=== PATIENT | female | born 1960 | race Caucasian/White ===

== ENCOUNTER 2023-07-05 10:04 | Outpatient (OUT) | payer OTHER, SELFPAY ==
--- NOTE | 2023-07-05 10:39 | CA_ITS ---
Patient: ANITA SNELL Exam Date: 07/05/2023 : 1960 Gender:F Ordering : ANJEL BARCENAS Admission #: [id number] Family : DR Saurabh Cm . Order #: [id number] CLICK HERE TO VIEW EXAM ECHOCARDIOGRAM REPORT PROCEDURE: CA ECHO DOPPLER COMPLETE INDICATIONS: Dyspnea on exertion, h/o FL, hypertension COMPARISON: None. DESCRIPTION: COMPLETE ECHOCARDIOGRAM Real-time transthoracic echocardiography with 2D, M-mode, spectral and color flow Doppler performed. QUALITY: Technical quality was good. LEFT VENTRICLE: Normal chamber size. Left ventricular wall thickness is mildly increased. LV EF: Global left ventricular systolic function is hyperdynamic; visually estimated ejection fraction 65 to 70%. Unable to assess regional wall motion abnormalities; consider contrast study for better delineation of endocardial borders. DIASTOLIC: Normal diastolic function. ATRIAL SEPTUM: Inadequately seen. LEFT ATRIUM: Normal chamber size. RIGHT ATRIUM: Normal chamber size. RIGHT VENTRICLE: Normal chamber size. Normal right ventricular systolic function. TRICUSPID VALVE: Normal mobility and thickness. Trivial regurgitation. No evidence of pulmonary hypertension. RVSP 27 mmHg MITRAL VALVE: Normal mobility and thickness. No evidence of mitral valve stenosis. There is no mitral annular calcification. No mitral regurgitation. AORTIC VALVE: Normal trileaflet appearance. No visible sclerosis. Normal leaflet mobility. No evidence of aortic valve stenosis. No aortic regurgitation. AORTIC ROOT: Normal diameter and appearance. PULMONIC VALVE: Normal thickness and mobility. No stenosis. No regurgitation. PERICARDIUM: Trivial pericardial effusion. IVC: Not well visualized. CONCLUSION: 1. Global left ventricular systolic function is hyperdynamic; visually estimated ejection fraction is 65 to 70% 2. The right ventricle is normal in size and systolic function 3. Mildly increased left ventricular wall thickness 4. Normal diastolic function 5. No significant valvular abnormalities 6. Trivial pericardial effusion Adult Echocardiography Procedure Report Left Ventricle LVEDD (3.7 - 5.6 cm): 3.78 cm LVESD (2.2 - 4.0 cm): 2.42 cm LVIVS thickness (0.6 - 1.2 cm): 1.3 cm LVPW thickness (0.5 - 1.0 cm): 1.12 cm e': 0.09 m/s E - e': 6.54 LVOT Max Gradient: 7.27 mm[Hg] LVOT Area (cm2): 1.35 m/s Peak Velocity (LVOT): 1.35 m/s LVOT Diameter 2.09 cm Left Atrium LA Volume Index (2D A2C): 29.49 ml/m2 Left Atrium Systolic Dimension: 3.64 cm Mitral Valve MV E to A Ratio: 0.82 Mitral Valve A-Wave Peak Velocity: 0.69 m/s Mitral Valve E-Wave Peak Velocity: 0.57 m/s Right Ventricle Aorta AO Root Diam: 2.88 cm Ascending Ao Diam: 2.80 cm Aortic Valve AoV Area (Peak Wai): 3.08 cm2, 3.08 cm2 Peak Velocity(Antegrade Flow): 1.50 m/s Peak Gradient(Antegrade Flow): 8.95 mm[Hg] Mean Velocity(Antegrade Flow): 1.00 m/s Mean Gradient(Antegrade Flow): 4.69 mm[Hg] Velocity Time Integral: 35.09 cm Tricuspid Valve Peak Velocity (Regurgitant Flow): 2.43 m/s Pulmonic Valve Peak Velocity: 1.00 m/s Peak Gradient: 3.28 mm[Hg], 4.79 mm[Hg] Right Atrium Dictated by: Isaías Patten M.D. on 07/05/2023 at 15:02 Approved by: Isaías Patten M.D. on 07/05/2023 at 15:06
== END 2023-07-05 10:05 | disposition home or self-care (01) ==
LOC: CARD 10:04
PROVIDERS: PCP Family Medicine; Visit Provider Internal Medicine Cardiovascular Disease
DX: R06.09 Other forms of dyspnea (principal)
CPT/HCPCS: 93306

== ENCOUNTER 2023-10-04 11:24 | Outpatient (OUT) | payer OTHER, SELFPAY ==
[2023-10-04 12:15] LABS: Basophils Percent Auto 0.5 % (0.2-2.0); Eosinophils Absolute Auto 0.1 10^3/uL (0.0-0.7); Eosinophils Percent Auto 1.6 % (0.9-7.0); Hematocrit 40.7 % (36.0-48.0); Hemoglobin 13.6 g/dL (12.0-16.0); Immature Granulocytes Abs Auto 0.01 10^3/uL (0.00-0.03); Immature Granulocytes Pct Auto 0.2 % (0.0-0.5); Lymphocytes Absolute Auto 1.9 10^3/uL (1.2-3.8); Lymphocytes Percent Auto 30.9 % (20.5-60.0); Mean Corpuscular HGB Conc 33.4 g/dL (29.9-35.2); Mean Corpuscular Hemoglobin 30.6 pg (26.7-34.0); Mean Corpuscular Volume 91.7 fL (81.0-99.0); Mean Platelet Volume 10.8 fL (9.5-13.5); Monocytes Absolute Auto 0.6 10^3/uL (0.3-0.8); Monocytes Percent Auto 8.9 % (1.7-12.0); Neutrophils Absolute Auto 3.6 10^3/uL (1.4-6.5); Neutrophils Percent Auto 57.9 % (43.0-75.0); Platelet Count 228 10^3/uL (150-450); Red Blood Count 4.44 10^6/uL (4.20-5.40); Red Cell Distribution Width 12.5 % (11.0-15.0); White Blood Count 6.2 10^3/uL (4.0-11.0)
[2023-10-04 13:14] LABS: Alanine Aminotransferase 29 U/L (14-59); Alkaline Phosphatase 88 U/L (46-116); Aspartate Amino Transferase 26 U/L (15-37); BUN Creatinine Ratio 18.6; Bilirubin Direct 0.1 mg/dL (0.0-0.2); Bilirubin Total 0.6 mg/dL (0.2-1.0); Calcium 9.4 mg/dL (8.5-10.1); Carbon Dioxide 29.3 mmol/L (21.0-32.0); Chloride 107 mmol/L (98-107); Estimated GFR (African America >60 (>=60); Estimated GFR (Non-African Ame >60 (>=60); Glucose 89 mg/dL (74-106); Potassium 4.3 mmol/L (3.5-5.1); Sodium 142 mmol/L (136-145)
[2023-10-04 13:15] LABS: Albumin Globulin Ratio 1.2; Albumin Level 3.9 g/dL (3.4-5.0); Cholesterol 185 mg/dL (<=200); Globulin 3.3 g/dL; HDL Cholesterol 70 mg/dL (40-60); Total Protein 7.2 g/dL (6.4-8.2); Triglycerides 146 mg/dL (<=150); VLDL CHOLESTEROL 29.2 mg/dL
[2023-10-04 13:17] LABS: Chol HDL Ratio 2.6
== END 2023-10-04 11:25 | disposition home or self-care (01) ==
PROVIDERS: PCP Family Medicine; Visit Provider Family Medicine
DX: E78.5 Hyperlipidemia, unspecified (principal); I10 Essential (primary) hypertension; Z79.899 Other long term (current) drug therapy; E66.9 Obesity, unspecified; E55.9 Vitamin D deficiency, unspecified
CPT/HCPCS: 36415; 80048; 80061; 80076; 82306; 84443; 85025

== ENCOUNTER 2023-12-24 14:35 | Outpatient (OUT) | payer OTHER, SELFPAY ==
[2023-12-24 15:35] LABS: Uric Acid 3.7 mg/dL (2.6-6.0)
== END 2023-12-24 14:36 | disposition home or self-care (01) ==
LOC: LAB 14:40
PROVIDERS: PCP Family Medicine; Visit Provider Family Medicine
DX: R30.0 Dysuria (principal)
CPT/HCPCS: 36415; 84550; 87086

== ENCOUNTER 2024-09-03 15:40 | Outpatient (OUT) | payer OTHER, SELFPAY ==
[2024-09-03 16:08] LABS: Basophils Percent Auto 0.5 % (0.2-2.0); Eosinophils Absolute Auto 0.1 10^3/uL (0.0-0.7); Immature Granulocytes Abs Auto 0.02 10^3/uL (0.00-0.03); Immature Granulocytes Pct Auto 0.3 % (0.0-0.5); Lymphocytes Absolute Auto 1.6 10^3/uL (1.2-3.8); Lymphocytes Percent Auto 25.7 % (20.5-60.0); Mean Corpuscular HGB Conc 33.3 g/dL (29.9-35.2); Mean Corpuscular Volume 93.1 fL (81.0-99.0); Mean Platelet Volume 9.9 fL (9.5-13.5); Monocytes Absolute Auto 0.5 10^3/uL (0.3-0.8); Neutrophils Absolute Auto 4.1 10^3/uL (1.4-6.5); Neutrophils Percent Auto 63.5 % (43.0-75.0); Platelet Count 236 10^3/uL (150-450); Red Blood Count 4.19 10^6/uL (4.20-5.40); Red Cell Distribution Width 12.5 % (11.0-15.0); White Blood Count 6.4 10^3/uL (4.0-11.0)
[2024-09-03 16:41] LABS: Alanine Aminotransferase 36 U/L (14-59); Albumin Globulin Ratio 1.1; Albumin Level 3.5 g/dL (3.4-5.0); Alkaline Phosphatase 103 U/L (46-116); Anion Gap 10.6; Aspartate Amino Transferase 23 U/L (15-37); Bilirubin Direct 0.1 mg/dL (0.0-0.2); Bilirubin Total 0.5 mg/dL (0.2-1.0); Calcium 9.1 mg/dL (8.5-10.1); Carbon Dioxide 30.3 mmol/L (21.0-32.0); Chloride 108 mmol/L (98-107); Chol HDL Ratio 2.5; Cholesterol 162 mg/dL (<=200); Estimated GFR (African America >60 (>=60 mL/min/1.73m^2); Estimated GFR (Non-African Ame >60 (>=60 mL/min/1.73m^2); Globulin 3.2 g/dL; Glucose 91 mg/dL (74-106); HDL Cholesterol 65 mg/dL (40-60); Potassium 3.9 mmol/L (3.5-5.1); Sodium 145 mmol/L (136-145); Thyroid Stimulating Hormone 4.716 uIU/mL (0.358-3.740); Total Protein 6.7 g/dL (6.4-8.2); Triglycerides 126 mg/dL (<=150); VLDL CHOLESTEROL 25.2 mg/dL
[2024-09-03 17:33] LABS: Free T4 0.92 ng/dL (0.76-1.46)
== END 2024-09-03 15:41 | disposition home or self-care (01) ==
LOC: LAB 15:43
PROVIDERS: PCP Family Medicine; Visit Provider Family Medicine
DX: E78.5 Hyperlipidemia, unspecified (principal); I10 Essential (primary) hypertension; Z79.899 Other long term (current) drug therapy; E03.8 Other specified hypothyroidism
CPT/HCPCS: 36415; 80048; 80061; 80076; 84439; 84443; 85025

== ENCOUNTER 2025-01-19 07:25 | Outpatient (OUT) | payer MEDICARE, SELFPAY ==
--- NOTE | 2025-01-19 | US_ITS ---
[address] [address] Patient Name: ANITA SNELL MRN: [id number] date: 1960 Sex: F Assigned Patient Location: Current Patient Location: Accession/Order Number: [id number] Exam Date: 01/19/2025 09:52 Report Date: 01/19/2025 09:56 At the request of: VIVEK PURCELL MD Procedure: US pelvis w/ transvaginal EXAMINATION TYPE: US pelvis w/ transvaginal Grayscale, color scale Doppler, vascular duplex analysis of the bilateral ovaries DATE OF EXAM ORDERED: 01/19/2025 8:48 AM HISTORY: Post menopausal bleeding, N95.0, COMPARISON: NONE TECHNIQUE: Realtime Transvaginal and Transabdominal imaging was performed. Transvaginal imaging was utilized to better evaluate the ovaries and the endometrial stripe. Grayscale, color scale Doppler, vascular duplex analysis of the bilateral ovaries was performed to assess blood flow. FINDINGS: The uterus measures 9.1 x 3.9 x 5.7 cm. There is a hypoechoic vascular structure within the lower uterine segment measuring 1.9 x 1.6 x 1.3 cm in greatest dimension. This is of uncertain etiology. This may represent a uterine fibroid. Endometrium: Normal thickness and appearance. Ovaries: The ovaries are not well visualized. No abnormal adnexal mass is seen. No free fluid in the pelvic cul-de-sac. US/US pelvis w/ transvaginal IMPRESSION: There is a hypoechoic vascular structure within the lower uterine segment measuring 1.9 x 1.6 x 1.3 cm in greatest dimension. This is of uncertain etiology. This may represent a uterine fibroid. The ovaries are not well visualized. No adnexal mass. Impression dictated by: Aayush Floyd M.D. 01/19/2025 9:56 AM Dictation Location: [place] [address] Electronically authenticated by: [id number] Y Date: 01/19/2025 09:56
--- NOTE | 2025-01-19 | US_ITS ---
The [address] [address] Patient Name: ANITA SNELL MRN: [id number] date: 1960 Sex: F Assigned Patient Location: Current Patient Location: US Accession/Order Number: [id number] Exam Date: 01/19/2025 09:28 Report Date: 01/19/2025 09:31 At the request of: VIVEK PURCELL MD Procedure: US renal BI US renal BI 01/19/2025 8:48 AM SIGNS AND SYMPTOMS: ^Hematuria, R31.9 COMPARISON: None. FINDINGS: Right kidney measures 9.5 x 5.0 x 6.5 cm . The right renal cortex measures 1.2 cm in thickness. No hydronephrosis or mass. Left kidney measures 9.9 x 5.7 x 4.4 cm . The left renal cortex measures 1.9 cm in thickness. There is no hydronephrosis or mass. The urinary bladder is morphologically normal. No free fluid is seen in the pelvis. Before voiding, the bladder measures 11.7 x 6.2 x 10.6 cm , which corresponds to an estimated volume of 534 mL . US/US renal BI IMPRESSION: No hydronephrosis or mass. Impression dictated by: Aayush Floyd M.D. 01/19/2025 9:31 AM Dictation Location: [place] [address] Electronically authenticated by: [id number] Y Date: 01/19/2025 09:31
--- OUTSIDE RECORDS SUMMARY | 2025-01-19 07:29 | XMS_ITS | CCD ---
Author Organization [facility] Care Team Providers Care Block Setter [place]um Name Role Phone Saurabh Purcell Primary Care Provider JOSE WATSON Attending Unavailable MARYEREKaelyn, SAURABH ARVIZU Primary Care Unavailabl e NADEREKaelyn, DR SAURABH Lares Primary Care Unavailable NADERER, DR SAURABH Lares Admitting Unavailable NADERER, DR SAURABH Lares Attending Unavailable NADERER, DR SAURABH Lares Consulting Unavailable MISC, DR DALTON Admitting Unavailable MISC, DR DALTON Attending Unavailable MISC, DR DALTON Consulting Unavailable NADERER, DR SAURABH Lares Primary Care Unavailable NADERER, DR SAURABH Lares Primary Care Unavailable MISC, DR DALTON Attending Unavailable MISC, DR DALTON Consulting Unavailable MISC, DR DALTON Admitting Unavailable FAWWAD, QUEZADA H Attending Unavailable FAWWAD, QUEZADA H Consulting Unavailable FAWWAD, QUEZADA H Primary Care Unavailable FAWWAD, QUEZADA H Admitting Unavailable NADERER, DR SAURABH Lares Primary Care Unavailable FAWWAD, QUEZADA H Attending Unavailable FAWWAD, QUEZADA H Consulting Unavailable FAWWAD, QUEZADA H Admitting Unavailable NADERER, DR SAURABH Lares Consulting Unavailable NADERER, DR SAURABH Lares Primary Care Unavailable NADERER, DR SAURABH Lares Admitting Unavailable NADERER, DR SAURABH Lares Attending Unavailable Saurabh Purcell MD Unavailable Saurabh Purcell MD Primary Care Provider Saurabh Purcell MD Unavailable Herminio BUYING AGENT, Lynne Unavailable Unavailable Marengo BUYING AGENT, Ardana Unavailable Unavailable Luis Miguel MAShadybel Unavailable Unavailable Horn MS, RDN, LD, CHES, Devon Unavailable U navailable SAURABH PURCELL Referring Unavailable MARYERESAURABH Art Primary Care Unavailable ALGHOTHANI, MOHAMAD Attending Unavailable ANJEL BARCENAS Attending Unavailable MARYEREKaelyn, SAURABH Attending Unavailable NADEREaKelyn, SAURABH Attending Unavailable HARVEY, DEVON Attending Unavailable MARYERESAURABH Art Referring Unavailable NADERESAURABH Art Referring Unavailable HORN, DEVON Attending Unavailable RUSHER, NOLBERTO S Attending Unavailable RUSHER, NOLBERTO S Referring Unavailable HORN, DEVON Attending Unavailable NADEREKaelyn, SAURABH Referring Unavailable NADEREKaelyn, SAURABH Attending Unavailable HORN, DEVON Attending Unavailable Allergies Allergy Classification Reported Allergen(s) Allergy Type Date of Onset Reaction(s) Facility (1 source) Sulfonamides (Antibiotic) Propensity to adverse reactions to drug 0 Aframe Phone: (16 sources) Sulfonamides (Antibiotic) Drug Allergy 0 Hives, Rash [facility] (2 sources) Sulfonamides (Antibiotic); Translations: [SULFA (SULFONAMIDE ANTIBIOTICS)] Propensity to adverse reactions to drug (disorder) 7 [facility] Medications Current Medications Medication Drug Class(es) Dates Sig (Normalized) Sig (Original) [id number] actuat albuterol 0.09 mg/actuat metered dose inhaler (17 sources) beta2-Adrenergic Agonist Start: 09-23-2023 End: 05-26-2025 take 2 puff(s) by inhalation every four hours for wheezing albuterol HFA 90 mcg/act inhaler Indications: Mild intermittent asthma, unspecified whether complicated (CMS/HCC) Inhale 2 puffs every 4 (four) hours if needed for wheezing 18 g 2 05/26/2024 05/26/2025 Active albuterol sulfate HFA 108 (90 Base) MCG/ACT inhaler (1 source) take 2 puff(s) by inhalation every six hours as needed for wheezing albuterol sulfate HFA 108 (90 Base) MCG/ACT inhaler Inhale 2 puffs into the lungs every 6 hours as needed for Wheezing 0 Active aspirin 81 mg delayed release oral tablet (15 sources) Platelet Aggregation Inhibitor, Nonsteroidal Anti-inflammatory Drug take 1 tablet by mouth in the morning aspirin 81 MG EC tablet Take 81 mg by mouth in the morning. Active atorvastatin 80 mg oral tablet (16 sources) HMG-CoA Reductase Inhibitor Start: 11-17-2024 take 1 tablet by mouth at bedtime atorvastatin (Lipitor) 80 MG tablet Indications: Dyslipidemia (CMS/HCC) TAKE 1 TABLET BY MOUTH AT BEDTIME 30 tablet 11/17/2024 Active Start: 02-21-2024 take 1 tablet by sofie th at bedtime atorvastatin (Lipitor) 80 MG tablet Indications: Dyslipidemia (CMS/HCC) Take 1 tablet (80 mg) by mouth at bedtime 100 tablet 3 02/21/2024 Active Start: 12-06-2022 atorvastatin ( Lipitor) 80 MG tablet calcium carbonate 1250 mg oral tablet (1 source) take 1 tablet by mouth once daily calcium carbonate (OSCAL) 500 MG TABS tablet Take 500 mg by mouth daily 0 Active cetirizine hydrochloride 10 mg oral tablet (1 source) Histamine-1 Receptor Antagonist take 1 tablet by mouth once daily cetirizine (ZYRTEC) 10 MG tablet Take 10 mg by mouth daily 0 Active cholecalciferol 0.05 mg oral capsule (16 sources) Vitamin D take 1 capsule by mouth once daily Cholecalciferol (Vitamin D) 50 MCG (2000 UT) capsule Take 1 capsule by mouth 1 (one) time each day at the same time Active ciprofloxacin 500 mg oral tablet (3 sources) Quinolone Antimicrobial Start: End: take 1 tablet by mouth in the morning ciprofloxacin (Cipro) 500 MG tablet Indications: Acute UTI Take 1 tablet (500 mg) by mouth in the morning and 1 tablet (500 mg) before bedtime. Do all this for 7 days. 14 tablet 09/03/2024 09/10/2024 Active estrogens, conjugated (correction) 0.625 mg oral tablet (4 sources) Estrogen Start: take 1 tablet by mouth in the morning estrogens, conjugated, (Premarin) 0.625 MG tablet Indications: Dyspareunia in female Take 1 tablet (0.625 mg) by mouth in the morning. 30 tablet 5 10/04/2023 Active Start: 10-04-2023 take 1 tablet by sofie th in the morning estrogens, conjugated, (Premarin) 0.625 MG tablet Indications: Dyspareunia in female Take 1 tablet (0.625 mg) by mouth in the morning. 30 tablet 5 10/04/2023 Active End: 10-04-2023 take 1 tablet by mouth once daily in the morning estrogens, conjugated, (Premarin) 0.625 MG tablet Take 1 tablet by mouth in the morning. Take daily for 21 days then do not take for 7 days.. 0 10/04/2023 Discontinued (Reorder) fluticasone propionate 0.05 mg/actuat metered dose nasal spray (20 sources) Corticosteroid Start: 01-04-2025 take 2 spray(s) nasal route once daily fluticasone (Flonase) 50 MCG/ACT nasal spray Indications: Seasonal allergic rhinitis due to pollen Administer 2 sprays into each nostril Daily 16 g 3 01/04/2025 Active Start: 07-06-2024 take 1 puff(s) by [facility] once daily fluticasone furoate (Arnuity Ellipta) 100 MCG/ACT inhaler Indications: 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 Inhale 1 puff Daily Rinse mouth with water after use to reduce aftertaste and incidence of candidiasis. Do not swallow. 1 each 5 07/06/2024 Active Start: 10-07-2023 End: 07-06-2024 take 1 puff(s) by mouth in the morning fluticasone furoate (Arnuity Ellipta) 100 MCG/ACT inhaler Indications: 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 (CMS/HCC) Inhale 1 puff in the morning. Rinse mouth with water after use to reduce aftertaste and incidence of candidiasis. Do not swallow.. 1 each 5 10/07/2023 07/06/2024 Discontinued (Reorder) Start: 10-04-2023 take 2 puff(s) by in halation in the morning fluticasone (Flovent) 44 MCG/ACT inhaler Indications: 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 (CMS/HCC) Inhale 2 puffs in the morning and 2 puffs before bedtime. Rinse mouth with water after use to reduce aftertaste and incidence of candidiasis. Do not swallow.. 10.6 g 5 10/04/2023 Active Start: 10-04-2023 take 2 puff(s) by in halation in the morning fluticasone (Flovent) 44 MCG/ACT inhaler Indications: 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 (CMS/HCC) Inhale 2 puffs in the morning and 2 puffs before bedtime. Rinse mouth with water after use to reduce aftertaste and incidence of candidiasis. Do not swallow.. 10.6 g 5 10/04/2023 Active Start: 12-01-2022 take 2 spray(s) nasa l route in the morning fluticasone (Flonase) 50 MCG/ACT nasal spray Administer 2 sprays into each nostril in the morning. 12/01/2022 Active levothyroxine sodium 0.088 mg oral tablet (17 sources) l-Thyroxine Start: 12-07-2024 take 1 tablet by mouth once daily levothyroxine (Synthroid, Levoxyl) 88 MCG tablet Indications: Acquired hypothyroidism (CMS/HCC) Take 1 tablet by mouth once daily 30 tablet 12/07/2024 Active Start: 07-16-2024 take 1 tablet by sofie th once daily levothyroxine (Synthroid, Levoxyl) 88 MCG tablet Indications: Acquired hypothyroidism (CMS/HCC) Take 1 tablet by mouth once daily 30 tablet 07/16/2024 Active Start: 06-08-2024 take 1 tablet by sofie th once daily levothyroxine (Synthroid, Levoxyl) 88 MCG tablet Indications: Acquired hypothyroidism (CMS/HCC) Take 1 tablet by mouth once daily 30 tablet 06/08/2024 Active Start: 05-11-2024 take 1 tablet by sofie th once daily levothyroxine (Synthroid, Levoxyl) 88 MCG tablet Indications: Acquired hypothyroidism (CMS/HCC) Take 1 tablet by mouth once daily 30 tablet 05/11/2024 Active take 1 tablet by sofie th in the morning levothyroxine (Synthroid, Levoxyl) 88 MCG tablet Take 88 mcg by mouth in the morning. Active magnesium oxide 400 mg oral tablet (13 sources) take 1 tablet by mouth once daily magnesium oxide (Mag-Ox) 400 mg tablet Take 400 mg by mouth Daily Active melatonin 3 mg oral tablet (1 source) take 1 tablet by mouth once daily melatonin 3 MG TABS tablet Take 3 mg by mouth daily 0 Active methylPREDNISolone (2 sources) Corticosteroid Start: 023 End: 024 methylPREDNISolone (Medrol Dospak) 4 MG tablets Indications: Plantar fasciitis , Posterior tibial tendinitis of right lower extremity Take as directed on package. 21 tablet 0 06/25/2023 10/04/2023 Discontinued Start: 06-25-2023 methylPREDNISo lone (Medrol Dospak) 4 MG tablets Indications: Plantar fasciitis , Posterior tibial tendinitis of right lower extremity Take as directed on package. 21 tablet 0 06/25/2023 Active 24 hr metoprolol succinate 25 mg extended release oral tablet (16 sources) beta-Adrenergic Briana take 1 tablet by mouth every twenty-four hours in the morning metoprolol succinate XL (Toprol-XL) 25 MG 24 hr tablet Take 25 mg by mouth in the morning. Active montelukast 10 mg oral tablet (16 sources) Leukotriene Receptor Antagonist Start: take 1 tablet by mouth at bedtime montelukast (Singulair) 10 MG tablet Indications: Seasonal allergic rhinitis due to pollen TAKE 1 TABLET BY MOUTH AT BEDTIME 30 tablet 12/07/2024 Active Start: 09-03-2024 take 1 tablet by sofei th at bedtime montelukast (Singulair) 10 MG tablet Indications: Seasonal allergic rhinitis due to pollen TAKE 1 TABLET BY MOUTH AT BEDTIME 30 tablet 09/03/2024 Active Start: 02-17-2024 take 1 tablet by sofie th at bedtime montelukast (Singulair) 10 MG tablet Indications: Seasonal allergic rhinitis due to pollen Take 1 tablet (10 mg) by mouth at bedtime 30 tablet 5 02/17/2024 Active Start: 06-13-2023 take 1 tablet by sofie th at bedtime montelukast (Singulair) 10 MG tablet Take 10 mg by mouth at bedtime. 0 06/13/2023 Active Problems Active Problems Problem Classification Problem Date Documented Da te Episodic/Chronic Asthma (19 sources) Uncomplicated non-allergic asthma; Translations: [Mild intermittent asthma, uncomplicated] Onset: 10-04-2023 10-04-2023 Chronic Coronary atherosclerosis and other heart disease (16 sources) Coronary arteriosclerosis; Translations: [Atherosclerotic heart disease of [place] coronary artery without angina pectoris] Onset: 09-09-2023 10-04-2023 Chronic Disorders of lipid metabolism (20 sources) Mixed hyperlipidemia; Translations: [Dyslipidemia] Onset: 02-22-2022 Resolved: 10-04-2023 10-04-2023 Chronic Diverticulosis and diverticulitis (16 sources) Diverticulosis of colon; Translations: [Diverticulosis of large intestine without perforation or abscess without bleeding] Onset: 10-04-2023 10-04-2023 Chronic Essential hypertension (20 sources) Hypertensive disorder; Translations: [Essential (primary) hypertension] Onset: 02-20-2022 Chronic Genitourinary symptoms and ill-defined conditions (5 sources) Dysuria; Translations: [Blood in urine] Onset: 09-29-2024 01-12-2025 Episodic Menopausal disorders (4 sources) Postmenopausal bleeding; Translations: [Postmenopausal bleeding] Onset: 01-12-2025 01-12-2025 Chronic Nutritional deficiencies (18 sources) Vitamin D deficiency, unspecified; Translations: [Vitamin D deficiency] Onset: 02-22-2022 10-04-2023 Chronic Other nutritional; endocrine; and metabolic disorders (1 source) Body mass index 30+ - obesity; Translations: [Obesity, unspecified] 10-04-2023 Chronic Other upper respiratory disease (16 sources) Allergic rhinitis due to pollen; Translations: [Allergic rhinitis due to pollen] Onset: 10-04-2023 10-04-2023 Chronic Residual codes; unclassified (4 sources) Obstructive sleep apnea (adult) (pediatric); Translations: [OBSTRUCTIVE SLEEP APNEA] Onset: 10-03-2022 Chronic Thyroid disorders (20 sources) Hypothyroidism, unspecified; Translations: [Acquired hypothyroidism] Onset: 02-22-2022 Chronic Unclassified (4 sources) CONTACT W/AND (SUSP) EXPOS COVID-19; Translations: [CONTACT W/AND (SUSP) EXPOS COVID-19] Onset: 02-19-2022 Past or Other Problems Problem Classification Problem Date Documented Date Episodic/Chronic Acute bronchitis (13 sources) Acute infective bronchitis; Translations: [Acute bronchitis due to other specified organisms] Onset: 01-23-2024 Resolved: 09-03-2024 01-23-2024 Episodic Esophageal disorders (16 sources) Gastroesophageal reflux disease; Translations: [Gastro-esophageal reflux disease without esophagitis] Onset: 10-04-2023 Resolved: 09-03-2024 10-04-2023 Chronic Mood disorders (7 sources) Mood disorders Onset: 09-03-2024 09-03-2024 Other aftercare (1 source) Other snf (current) drug therapy; Translations: [OTH SENIOR CARE CURRENT DRUG THERAPY] Onset: 02-22-2022 Episodic Other aftercare (7 sources) Patient encounter status; Translations: [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] Onset: 10-04-2023 10-04-2023 Episodic Other aftercare (11 sources) Long-term current use of drug therapy; Translations: [Other snf (current) drug therapy] Onset: 10-04-2023 10-04-2023 Episodic Other connective tissue disease (2 sources) Pain in right foot; Translations: [Pain in right foot] 04-21-2024 Episodic Other female genital disorders (16 sources) Pain in female genitalia on intercourse; Translations: [Unspecified dyspareunia] Onset: 10-04-2023 Resolved: 09-03-2024 10-04-2023 Chronic Other non-traumatic joint disorders (16 sources) Pain in right knee; Translations: [Pain in joint, lower leg] Onset: 10-04-2023 Resolved: 01-23-2024 10-04-2023 Episodic Other screening for suspected conditions (not mental disorders or infectious disease) (17 sources) Abnormal result of other cardiovascular function study; Translations: [Thyroid hormone tests abnormal] Onset: 11-29-2022 Resolved: 09-03-2024 Episodic Residual codes; unclassified (16 sources) Obstructive sleep apnea syndrome; Translations: [Obstructive sleep apnea (adult) (pediatric)] Onset: 10-04-2023 Resolved: 01-23-2024 10-04-2023 Chronic Superficial injury; contusion (2 sources) Contusion of toe(s) with damage to nail; Translations: [Contusion of right lesser toe(s) with damage to nail, initial encounter] 04-21-2024 Episodic Unclassified (1 source) CONTACT W/AND (SUSP) EXPOS COVID-19; Translations: [CONTACT W/AND (SUSP) EXPOS COVID-19] Onset: 02-16-2022 Unclassified (13 sources) Onset: 02-14-2024 02-14-2024 Urinary tract infections (9 sources) Acute urinary tract infection; Translations: [Urinary tract infection, site not specified] Onset: 09-03-2024 Resolved: 01-12-2025 09-03-2024 Episodic Results Test Name Value Interpretation Reference Range Facility Office Visiton 10-20-2024 Follow-up visit [id number] Mira Santos 1960 F Date Provider Department Center 10/20/2024 3848-STACIEGINNYEWA ABDOULAYEErum CARD [facility] Family History Problem Relation Age of Onset Stroke Mother 70 Diabetes Mother Atrial fibrillation Father 70 Other Father Hypertension Father Other Brother 59 Diabetes Brother Family Status - Relation Status Age at Mother Father Brother Level of Service:97407 [place] OFFICE/OUTPATIENT ESTABLISHED LOW MDM 20 MIN Normal [facility] URINALYSISon 09-29-2024 Bilirubin Ql (U) Negative Normal NEG [facility] Comment on above: Performed By: #### U A #### [facility] ([id number]) [address], [address] [place] [address] BLOOD/HGB Negative Normal NEG [facility] Comment on above: Performed By: #### U A #### [facility] ([id number]) [address], [address] [place] [address] Color (U) YELLOW Normal YELLOW [facility] Comment on above: Performed By: #### U A #### [facility] ([id number]) [address], [address] [place] [address] Glucose Ql (U) Negative Normal NEG [facility] Comment on above: Performed By: #### U A #### [facility] ([id number]) [address], [address] [place] [address] Ketones Ql (U) Negative Normal NEG [facility] Comment on above: Performed By: #### U A #### [facility] ([id number]) [address], [address] [place] [address] Leukocyte esterase Test strip Ql (U) MODERATE Abnormal NEG [facility] Comment on above: Performed By: #### U A #### [facility] ([id number]) [address], [address] [place] [address] MUCOUS PRESENT Abnormal NONE [facility] Comment on above: Performed By: #### U A #### [facility] ([id number]) [address] [place] [address] Nitrite Ql (U) Negative Normal NEG [facility] Comment on above: Performed By: #### U A #### [facility] ([id number]) [address], [address] [place] [address] pH (U) 6.5 [pH] Normal 5.0-8.5 [facility] Comment on above: Performed By: #### U A #### [facility] ([id number]) [address], [address] [place] [address] Protein Ql (U) 30 mg/dL Abnormal NEG [facility] Comment on above: Performed By: #### U A #### [facility] ([id number]) [address], [address] [place] [address] R.B.CELLS 2 /hpf Normal 0-5 [facility] Comment on above: Performed By: #### U A #### [facility] ([id number]) [address] [place] [address] Specific gravity (U) [Rel density] 1.017 Normal 1.003-1.035 [facility] Comment on above: Performed By: #### U A #### [facility] ([id number]) [address], [address] [place] [address] SQUAMOUS EPITHELIUM 1 /hpf Normal 0-5 [facility] Comment on above: Performed By: #### U A #### [facility] ([id number]) [address] [place] [address] TURBIDITY CLEAR Normal CLEAR [facility] Comment on above: Performed By: #### U A #### [facility] ([id number]) [address] [place] [address] Urobilinogen (U) [Mass/Vol] mg/dL Normal <1.1 [facility] Comment on above: Performed By: #### U A #### [facility] ([id number]) [address], [address] [place] [address] W.B.CELLS 4 /hpf Normal 0-5 [facility] Comment on above: Performed By: #### U A #### [facility] ([id number]) [address], [address] [place] [address] URINE CULTUREon 09-29-2024 Bacteria identified Cx Nom (U) CULTURE RESULTS >100,000 ORGANISMS/ML NORMAL UROGENITAL VINICIO Normal [facility] Comment on above: Performed By: #### 6 30-4 #### [facility] ([id number]) [address], [address] [place] [address] Urinalysis, manual onlyon Bilirubin Ql (U) Negative Negative [facility] Color (U) YELLOW YELLOW [facility] Epithelial cells Auto (Urine sed) [#/Area] 1 [facility] care Glucose (U) [Mass/Vol] Negative Negative mg/dL [facility] Hemoglobin Auto test strip Ql (U) Negative Negative [facility] Interpretation and review of laboratory results Abnormal [facility] Ketones (U) [Mass/Vol] Negative Negative mg/dL [facility] Leukocyte esterase Auto test strip Ql (U) MODERATE Abnormal Negative [facility] Mucus Ql (Urine sed) PRESENT Abnormal NONE [facility] Nitrite Auto test strip Ql (U) Negative Negative [facility] pH (U) 6.5 [pH] 5.0 - 8.5 [facility] Protein (U) [Mass/Vol] 30 mg/dL Abnormal Negative [facility] RBC Auto (Urine sed) [#/Area] 2 [facility] Specific gravity Refractometry automated (U) [Rel density] 1.017 1.003 - 1.035 [facility] Turbidity Ql (U) CLEAR CLEAR [facility] Urobilinogen Qn (U) <1.1 NINF [facility] WBC Auto (Urine sed) [#/Area] 4 [facility] Comment on above: PERFORMED AT [facility] [address],[place] [address] [facility] ALL CBC WITH AUTO DIFFon BASOPHILS ABSOLUTE AUTO 0 [facility] Basophils/100 WBC (Bld) 0.5 % 0.2 - 2.0 % [facility] Eosinophils/100 WBC (Bld) 2 % 0.9 - 7.0 % [facility] Erythrocyte distribution width (RBC) [Ratio] 12.5 % 11.0 - 15.0 % [facility] Hematocrit (Bld) [Volume fraction] 39 % 36.0 - 48.0 % [facility] Hemoglobin (Bld) [Mass/Vol] 13 g/dL 12.0 - 16.0 g/dL [facility] IMMATURE GRANULOCYTES ABS AUTO 0.02 [facility] Immature granulocytes/100 WBC (Bld) 0.3 % 0.0 - 0.5 % [facility] Interpretation and review of laboratory results Abnormal [facility] LYMPHOCYTES ABSOLUTE AUTO 1.6 [facility] Lymphocytes/100 WBC (Bld) 25.7 % 20.5 - 60.0 % [facility] MCH (RBC) [Entitic mass] 31 pg 26.7 - 34.0 pg [facility] MCHC (RBC) [Mass/Vol] 33.3 g/dL 29.9 - 35.2 g/dL [facility] MCV (RBC) [Entitic vol] 93.1 fL 81.0 - 99.0 fL [facility] MONOCYTES ABSOLUTE AUTO 0.5 [facility] Monocytes/100 WBC (Bld) 8 % 1.7 - 12.0 % [facility] NEUTROPHILS ABSOLUTE AUTO 4.1 [facility] Neutrophils/100 WBC (Bld) 63.5 % 43.0 - 75.0 % [facility] Platelet mean volume (Bld) [Entitic vol] 9.9 fL 9.5 - 13.5 fL [facility] EO # 0.1 [facility] PLT 236 [facility] RBC 4.19 Low [facility] WBC 6.4 [facility] XR Foot - right 3 [facility] Result: AP, medial oblique, lateral views are weight-bearing. No fractures or dislocations. Multiple contracted digits. Enthesophyte at the insertion of the Achilles tendon and plantar fascia. Orthopedic implant noted in the tibia. [facility] Radiology Study observation (narrative) [facility] BI MAMMOGRAM SCREENING TOMOS YNTHESIS BILATERALon 03-25-2024 BI MAMMOGRAM SCREENING TOMOSYNTHESIS BILATERAL This is a summary report. The complete report is available in the patient's medical record. If you cannot access the medical record, please contact the sending organization for a detailed fax or copy. EXAMINATION: BI MAMMOGRAM SCREENING TOMOSYNTHESIS BILATERAL CLINICAL HISTORY:Screening COMPARISON: April 08, 2023 . RESULT: Density: There are scattered areas of fibroglandular density There is no suspicious mass, asymmetry, architectural distortion, or calcification. Typically benign calcifications. Overall appearance stable. IMPRESSION: BIRADS 2 - Benign Follow-up: Routine Screening Mamm Board Certified Radiologists. Accredited by the ACR and FDA. MAMMOGRAPHY IS VERY IMPORTANT TO YOUR HEALTH. THE [place] [employer] GUIDELINES RECOMMEND THAT WOMEN 40 YEARS OF AGE AND OLDER SHOULD HAVE A MAMMOGRAM EVERY YEAR. A REMINDER LETTER WILL BE SENT AT THE APPROPRIATE TIME. THIS FACILITY UTILIZES A REMINDER SYSTEM TO ENSURE ALL PATIENTS RECEIVE REMINDER NOTIFICATIONS AT THE APPROPRIATE TIME BASED ON THE RECOMMENDATIONS OF THIS EXAM. THIS INCLUDES REMINDERS FOR ROUTINE SCREENING MAMMOGRAMS, DIAGNOSTIC MAMMOGRAMS IN WHICH THE PATIENT IS ASKED TO RETURN FOR ADDITIONAL VIEWS, OR OTHER BREAST IMAGING INTERVENTIONS WHEN APPROPRIATE. THE PATIENT WILL BE PLACED IN THE APPROPRIATE REMINDER SYSTEM INCLUDING A REMINDER AT THE APPROPRIATE TIME FOR ANY PENDING ADDITIONAL VIEWS. TRANSCRIBED BY: ELECTRONICALLY SIGNED BY: Ham Atwood MD Normal Not Available Office Visiton 03-03-2024 Follow-up visit [id number] Maryanne Santosah 1960 F Date Provider Department Center 03/03/2024 [id number] BARCENAS ARELY [facility] Family History Problem Relation Age of Onset Stroke Mother 70 Diabetes Mother Atrial fibrillation Father 70 Other Father Hypertension Father Other Brother 59 Diabetes Brother Family Status - Relation Status Age at Mother Father Brother Level of Service:17262 [place] OFFICE/OUTPATIENT ESTABLISHED LOW MDM 20 MIN Normal [facility] ALL CBC WITH AUTO DIFFon BASOPHILS ABSOLUTE AUTO 0.0 [facility] Basophils/100 WBC (Bld) 0.5 % 0.2 - 2.0 % [facility] Eosinophils/100 WBC (Bld) 1.6 % 0.9 - 7.0 % [facility] Erythrocyte distribution width (RBC) [Ratio] 12.5 % 11.0 - 15.0 % [facility] Hematocrit (Bld) [Volume fraction] 40.7 % 36.0 - 48.0 % [facility] Hemoglobin (Bld) [Mass/Vol] 13.6 g/dL 12.0 - 16.0 g/dL [facility] IMMATURE GRANULOCYTES ABS AUTO 0.01 [facility] Immature granulocytes/100 WBC (Bld) 0.2 % 0.0 - 0.5 % [facility] LYMPHOCYTES ABSOLUTE AUTO 1.9 [facility] Lymphocytes/100 WBC (Bld) 30.9 % 20.5 - 60.0 % [facility] MCH (RBC) [Entitic mass] 30.6 pg 26.7 - 34.0 pg [facility] MCHC (RBC) [Mass/Vol] 33.4 g/dL 29.9 - 35.2 g/dL [facility] MCV (RBC) [Entitic vol] 91.7 fL 81.0 - 99.0 fL [facility] MONOCYTES ABSOLUTE AUTO 0.6 [facility] Monocytes/100 WBC (Bld) 8.9 % 1.7 - 12.0 % [facility] NEUTROPHILS ABSOLUTE AUTO 3.6 [facility] Neutrophils/100 WBC (Bld) 57.9 % 43.0 - 75.0 % [facility] Platelet mean volume (Bld) [Entitic vol] 10.8 fL 9.5 - 13.5 [facility]L [facility]O # 0.1 [facility] TB PLT 228 [facility] TB RBC 4.44 [facility] TB WBC 6.2 [facility] CLINISYNC [facility] Covid-19 PCR (CVDTBH)on SARS-CoV-2 (COVID-19) RNA LETICIA+probe Ql (Unsp spec) Not detected Normal NOT DETECTED [facility] Comment on above: Result Comment: This test is not yet approved or cleared by the [place] FDA. When there are no FDA-approved or cleared tests available, and other criteria are met, FDA can make tests available under an emergency access mechanism called an Emergency Use Authorization (EUA). The EUA for this test is supported by the [place] of Health and Human Service's (HHS's) declaration that circumstances exist to justify the emergency use of in vitro diagnostics for the detection and/or diagnosis of the virus that causes COVID-19. This EUA will remain in effect (meaning this test can be used) for the duration of the COVID-19 declaration justifying emergency of IVDs, unless it is terminated or revoked by FDA (after which the test may no longer be used). When diagnostic testing is negative, the possibility of a false negative should be considered in the context of a patient's recent exposures and the presence of clinical signs and symptoms consistent with SARS-CoV-2. Performed By: #### C VDTB #### [facility] [address] [place] [address] Dr. Emilia Delong CBC AUTO DIFFon 11-29-2022 BASO # 0.0 103/ul Normal 0.0-0.1 [facility] Comment on above: Performed By: #### C BC #### [facility] [address] [place] [address] Dr. Emilia Delong Basophils/100 WBC (Bld) 0.6 % Normal 0.2-2.0 [facility] Comment on above: Performed By: #### C BC #### [facility] [address] [place] [address] Dr. Emilia Delong EO # 0.1 103/ul Normal 0.0-0.7 [facility] Comment on above: Performed By: #### C BC #### [facility] [address] [place] [address] Dr. Emilia Delong Eosinophils/100 WBC (Bld) 1.6 % Normal 0.9-7.0 [facility] Comment on above: Performed By: #### C BC #### [facility] [address] [place] [address] Dr. Emilia Delong Erythrocyte distribution width (RBC) [Ratio] 12.2 % Normal 11.0-15.0 [facility] Comment on above: Performed By: #### C BC #### [facility] [address] [place] [address] Dr. Emilia Delong Hematocrit (Bld) [Volume fraction] 40.2 % Normal 36.0-48.0 [facility] Comment on above: Performed By: #### C BC #### [facility] [address] [place] [address] Dr. Emilia Delong Hemoglobin (Bld) [Mass/Vol] 13.9 g/dL Normal 12.0-16.0 [facility] Comment on above: Performed By: #### C BC #### [facility] [address] [place] [address] Dr. Emilia Delong IG # 0.01 10e3/ul Normal 0.00-0.03 [facility] Comment on above: Performed By: #### C BC #### [facility] [address] [place] [address] Dr. Emilia Delong IG % 0.2 % Normal 0.0-0.5 [facility] Comment on above: Performed By: #### C BC #### [facility] [address] [place] [address] Dr. Emilia Delong LYMPH # 1.9 103/ul Normal 1.2-3.8 [facility] Comment on above: Performed By: #### C BC #### [facility] [address] [place] [address] Dr. Emilia Delong Lymphocytes/100 WBC (Bld) 36.7 % Normal 20.5-60.0 [facility] Comment on above: Performed By: #### C BC #### [facility] [address] [place] [address] Dr. Emilia Delong MANUAL DIFF REQ NO Normal [facility] Comment on above: Performed By: #### C BC #### [facility] [address] [place] [address] Dr. Emilia Delong MCH (RBC) [Entitic mass] 31.1 pg Normal 26.7-34.0 [facility] Comment on above: Performed By: #### C BC #### [facility] [address] [place] [address] Dr. Emilia Delong MCHC (RBC) [Mass/Vol] 34.6 g/dL Normal 29.9-35.2 [facility] Comment on above: Performed By: #### C BC #### [facility] [address] [place] [address] Dr. Emilia Delong MCV (RBC) [Entitic vol] 89.9 fL Normal 81.0-99.0 [facility] Comment on above: Performed By: #### C BC #### [facility] [address] [place] [address] Dr. Emilia Delong MONO # 0.4 103/ul Normal 0.3-0.8 [facility] Comment on above: Performed By: #### C BC #### [facility] [address] [place] [address] Dr. Emilia Delong Monocytes/100 WBC (Bld) 7.7 % Normal 1.7-12.0 [facility] Comment on above: Performed By: #### C BC #### [facility] [address] [place] [address] Dr. Emilia Delong NEUT # 2.7 103/ul Normal 1.4-6.5 [facility] Comment on above: Performed By: #### C BC #### [facility] [address] [place] [address] Dr. Emilia Delong Neutrophils/100 WBC (Bld) 53.2 % Normal 43.0-75.0 [facility] Comment on above: Performed By: #### C BC #### [facility] [address] [place] [address] Dr. Emilia Delong Platelet mean volume (Bld) [Entitic vol] 10.4 fL Normal 9.5-13.5 [facility] Comment on above: Performed By: #### C BC #### [facility] [address] [place] [address] Dr. Emilia Delong PLT 220 103/ul Normal 150-450 [facility] Comment on above: Performed By: #### C BC #### [facility] [address] [place] [address] Dr. Emilia Delong RBC 4.47 106/ul Normal 4.20-5.40 [facility] Comment on above: Performed By: #### C BC #### [facility] [address] [address] [address] Emilia Delong WBC 5.1 103/ul Normal 4.0-11.0 [facility] Comment on above: Performed By: #### C BC #### [facility] [address] [place] [address] Dr. Emilia Delong GLYCOHEMOGLOBIN A1Con 2022 ADA RECOMMENDATION SEE BELOW Normal [facility] Comment on above: Result Comment: ADA RECOMMENDED LIMIT 4.0 - 6.0 ADA THERAPEUTIC TARGET < 7.0 ACTION SUGGESTED > 7.0 Performed By: #### A 1C #### [facility] [address] [place] [address] Dr. Emilia Delong Glucose [Mass/Vol] 105 mg/dL Normal [facility] Comment on above: Performed By: #### A 1C #### [facility] [address] [place] [address] Dr. Emilia Delong HbA1c (Bld) [Mass fraction] 5.3 % Normal 4.5-6.2 [facility] Comment on above: Performed By: #### A 1C #### [facility] [address] [place] [address] Dr. Emilia Delong LIPID PROFILEon 11-29-2022 CHOL-HDL RATIO NORM SEE BELOW Normal [facility] Comment on above: Result Comment: 3.3 - 4.4 LOW RISK 4.4 - 7.1 AVERAGE RISK 7.1 - 11.0 MODERATE RISK >11.0 HIGH RISK Performed By: #### F T4, VITAD #### [facility] [address] [place] [address] Dr. Emilia Delong Cholesterol [Mass/Vol] 319 mg/dL Critically high <=200 [facility] Comment on above: Performed By: #### F T4, VITAD #### [facility] [address] [place] [address] Dr. Emilia Delong Cholesterol in HDL [Mass/Vol] 65 mg/dL Critically high 40-60 [facility] Comment on above: Performed By: #### F T4, VITAD #### [facility] [address] [address] [address] Emilia Delong Cholesterol in LDL [Mass/Vol] 212.6 mg/dL Normal [facility] Comment on above: Performed By: #### F T4, VITAD #### [facility] [address] [address] [address] Emilia Delong Cholesterol.total/Cho lesterol in HDL [Mass ratio] 4.9 {ratio} Normal [facility] Comment on above: Performed By: #### F T4, VITAD #### [facility] [address] [address] [address] Emilia Delong HDL NORMAL > or = 60 mg/dl - LOW CARDIOVASCULAR RISK <40 mg/dl - HIGH CARDIOVASCULAR RISK Normal [facility] Comment on above: Performed By: #### F T4, VITAD #### [facility] [address] [place] [address] Dr. Emilia Delong LDL CALC NORMAL SEE BELOW Normal [facility] Comment on above: Result Comment: <100 mg/dl OPTIMAL 100 - 129 mg/dl NEAR OR ABOVE OPTIMAL 130 - 159 mg/dl BORDERLINE HIGH 160 - 189 mg/dl HIGH >190 mg/dl VERY HIGH Performed By: #### F T4, VITAD #### [facility] [address] [place] [address] Dr. Emilia Delong Triglyceride [Mass/Vol] 207 mg/dL Critically high <=150 [facility] Comment on above: Performed By: #### F T4, VITAD #### [facility] [address] [address] [address] Emilia Delong VLDL CALC 41.4 mg/dL Normal [facility] Comment on above: Performed By: #### F T4, VITAD #### [facility] [address] [place] [address] Dr. Emilia Delong PROF 14(COMP METB)on 023 Albumin [Mass/Vol] 4.0 g/dL Normal 3.4-5.0 [facility] Comment on above: Performed By: #### F T4, VITAD #### [facility] [address] [place] [address] Dr. Emilia Delong Albumin/Globulin [Mass ratio] 1.3 {ratio} Normal [facility] Comment on above: Performed By: #### F T4, VITAD #### [facility] [address] [place] [address] Dr. Emilia Delong ALP [Catalytic activity/Vol] 81 U/L Normal 46-116 [facility] Comment on above: Performed By: #### F T4, VITAD #### [facility] [address] [place] [address] Dr. Emilia Delong ALT [Catalytic activity/Vol] 23 U/L Normal 14-59 [facility] Comment on above: Performed By: #### F T4, VITAD #### [facility] [address] [place] [address] Dr. Emilia Delong Anion gap [Moles/Vol] 12.5 mmol/L Normal [facility] Comment on above: Performed By: #### F T4, VITAD #### [facility] [address] [place] [address] Dr. Emilia Delong AST [Catalytic activity/Vol] 18 U/L Normal 15-37 [facility] Comment on above: Performed By: #### F T4, VITAD #### [facility] [address] [place] [address] Dr. Emilia Delong Bilirubin [Mass/Vol] 0.4 mg/dL Normal 0.2-1.0 [facility] Comment on above: Performed By: #### F T4, VITAD #### [facility] [address] [place] [address] Dr. Emilia Delong Calcium [Mass/Vol] 9.5 mg/dL Normal 8.5-10.1 [facility] Comment on above: Performed By: #### F T4, VITAD #### [facility] [address] [place] [address] Dr. Emilia Delong Chloride [Moles/Vol] 107 mmol/L Normal 98-107 [facility] Comment on above: Performed By: #### F T4, VITAD #### [facility] [address] [address] [address] Emilia Delong CO2 [Moles/Vol] 26.4 mmol/L Normal 21.0-32.0 [facility] Comment on above: Performed By: #### F T4, VITAD #### [facility] [address] [place] [address] Dr. Emilia Delong Creatinine [Mass/Vol] 0.73 mg/dL Normal 0.55-1.02 [facility] Comment on above: Performed By: #### F T4, VITAD #### [facility] [address] [address] [address] Emilia Delong EGFR-AF ARMENIAN >60 Normal >=60 [facility] Comment on above: Performed By: #### F T4, VITAD #### [facility] [address] [place] [address] Dr. Emilia Delong EGFR-NON AF ARMENIAN >60 Normal >=60 [facility] Comment on above: Performed By: #### F T4, VITAD #### [facility] [address] [place] [address] Dr. Emilia Delong Globulin (S) [Mass/Vol] 3.1 g/dL Normal [facility] Comment on above: Performed By: #### F T4, VITAD #### [facility] [address] [place] [address] Dr. Emilia Delong Glucose [Mass/Vol] 95 mg/dL Normal 74-106 [facility] Comment on above: Performed By: #### F T4, VITAD #### [facility] [address] [address] [address] Emilia Delong Potassium [Moles/Vol] 3.9 mmol/L Normal 3.5-5.1 [facility] Comment on above: Performed By: #### F T4, VITAD #### [facility] [address] [address] [address] Emilia Delong Protein [Mass/Vol] 7.1 g/dL Normal 6.4-8.2 [facility] Comment on above: Performed By: #### F T4, VITAD #### [facility] [address] [place] [address] Dr. Emilia Delong Sodium [Moles/Vol] 142 mmol/L Normal 136-145 [facility] Comment on above: Performed By: #### F T4, VITAD #### [facility] [address] [place] [address] Dr. Emilia Delong Urea nitrogen [Mass/Vol] 11.0 mg/dL Normal 7.0-18.0 [facility] Comment on above: Performed By: #### F T4, VITAD #### [facility] [address] [place] [address] Dr. Emilia Delong Urea nitrogen/Creatinine [Mass ratio] 15.1 mg/mg Normal [facility] Comment on above: Performed By: #### F T4, VITAD #### [facility] [address] [place] [address] Dr. Emilia Delong TSHon 09-13-2022 TSH 1.903 uIU/mL Normal 0.358-3.740 [facility] Comment on above: Performed By: #### F T4, VITAD #### [facility] [address] [place] [address] Dr. Emilia Delong CBC AUTO DIFFon 02-20-2022 BASO # 0.0 103/ul Normal 0.0-0.1 [facility] Comment on above: Performed By: #### C BC #### [facility] [address] [place] [address] Dr. Emilia Delong Basophils/100 WBC (Bld) 0.6 % Normal 0.2-2.0 [facility] Comment on above: Performed By: #### C BC #### [facility] [address] [place] [address] Dr. Emilia Delong EO # 0.1 103/ul Normal 0.0-0.7 [facility] Comment on above: Performed By: #### C BC #### [facility] [address] [place] [address] Dr. Emilia Delong Eosinophils/100 WBC (Bld) 0.9 % Normal 0.9-7.0 [facility] Comment on above: Performed By: #### C BC #### [facility] [address] [place] [address] Dr. Emilia Delong Erythrocyte distribution width (RBC) [Ratio] 12.6 % Normal 11.0-15.0 [facility] Comment on above: Performed By: #### C BC #### [facility] [address] [place] [address] Dr. Emilia Delong Hematocrit (Bld) [Volume fraction] 37.8 % Normal 36.0-48.0 [facility] Comment on above: Performed By: #### C BC #### [facility] [address] [place] [address] Dr. Emilia Delong Hemoglobin (Bld) [Mass/Vol] 12.3 g/dL Normal 12.0-16.0 [facility] Comment on above: Performed By: #### C BC #### [facility] [address] [place] [address] Dr. Emilia Delong IG # 0.03 10e3/ul Normal 0.00-0.03 [facility] Comment on above: Performed By: #### C BC #### [facility] [address] [place] [address] Dr. Emilia Delong IG % 0.5 % Normal 0.0-0.5 [facility] Comment on above: Performed By: #### C BC #### [facility] [address] [place] [address] Dr. Emilia Delong LYMPH # 1.7 103/ul Normal 1.2-3.8 [facility] Comment on above: Performed By: #### C BC #### [facility] [address] [place] [address] Dr. Emilia Delong Lymphocytes/100 WBC (Bld) 26.6 % Normal 20.5-60.0 [facility] Comment on above: Performed By: #### C BC #### [facility] [address] [place] [address] Dr. Emilia Delong MANUAL DIFF REQ NO Normal [facility] Comment on above: Performed By: #### C BC #### [facility] [address] [address] [address] Emilia Delong MCH (RBC) [Entitic mass] 30.7 pg Normal 26.7-34.0 [facility] Comment on above: Performed By: #### C BC #### [facility] [address] [place] [address] Dr. Emilia Delong MCHC (RBC) [Mass/Vol] 32.5 g/dL Normal 29.9-35.2 [facility] Comment on above: Performed By: #### C BC #### [facility] [address] [place] [address] Dr. Emilia Delong MCV (RBC) [Entitic vol] 94.3 fL Normal 81.0-99.0 [facility] Comment on above: Performed By: #### C BC #### [facility] [address] [place] [address] Dr. Emilia Delong MONO # 0.5 103/ul Normal 0.3-0.8 [facility] Comment on above: Performed By: #### C BC #### [facility] [address] [place] [address] Dr. Emilia Delong Monocytes/100 WBC (Bld) 7.2 % Normal 1.7-12.0 [facility] Comment on above: Performed By: #### C BC #### [facility] [address] [place] [address] Dr. Emilia Delong NEUT # 4.1 103/ul Normal 1.4-6.5 [facility] Comment on above: Performed By: #### C BC #### [facility] [address] [place] [address] Dr. Emilia Delong Neutrophils/100 WBC (Bld) 64.2 % Normal 43.0-75.0 [facility] Comment on above: Performed By: #### C BC #### [facility] [address] [place] [address] Dr. Emilia Delong Platelet mean volume (Bld) [Entitic vol] 10.0 fL Normal 9.5-13.5 [facility] Comment on above: Performed By: #### C BC #### [facility] [address] [address] [address] Emilia Delong PLT 297 103/ul Normal 150-450 [facility] Comment on above: Performed By: #### C BC #### [facility] [address] [place] [address] Dr. Emilia Delong RBC 4.01 106/ul Critically low 4.20-5.40 [facility] Comment on above: Performed By: #### C BC #### [facility] [address] [address] [address] Emilia Delong WBC 6.4 103/ul Normal 4.0-11.0 [facility] Comment on above: Performed By: #### C BC #### [facility] [address] [place] [address] Dr. Emilia Delong FREE T3on 02-20-2022 FREE T3 2.44 pg/mlL Normal 2.18-3.98 [facility] Comment on above: Performed By: #### F T3, TSH, LIPID, BMP #### [facility] [address] [place] [address] Dr. Emilia Delong FREE T4on 02-20-2022 Free T4 [Mass/Vol] 0.81 ng/dL Normal 0.76-1.46 [facility] Comment on above: Performed By: #### F T4, VITAD #### [facility] [address] [place] [address] Dr. Emilia Delong LIPID PROFILEon 02-20-2022 CHOL-HDL RATIO NORM SEE BELOW Normal [facility] Comment on above: Result Comment: 3.3 - 4.4 LOW RISK 4.4 - 7.1 AVERAGE RISK 7.1 - 11.0 MODERATE RISK >11.0 HIGH RISK Performed By: #### F T4, VITAD #### [facility] [address] [place] [address] Dr. Emilia Delong Cholesterol [Mass/Vol] 281 mg/dL Critically high <=200 [facility] Comment on above: Performed By: #### F T4, VITAD #### [facility] [address] [place] [address] Dr. Emilia Delong Cholesterol in HDL [Mass/Vol] 59 mg/dL Normal 40-60 [facility] Comment on above: Performed By: #### F T4, VITAD #### [facility] [address] [address] [address] Emilia Delong Cholesterol in LDL [Mass/Vol] 182.8 mg/dL Normal [facility] Comment on above: Performed By: #### F T4, VITAD #### [facility] [address] [address] [address] Emilia Delong Cholesterol.total/Cho lesterol in HDL [Mass ratio] 4.8 {ratio} Normal [facility] Comment on above: Performed By: #### F T4, VITAD #### [facility] [address] [place] [address] Dr. Emilia Delong HDL NORMAL > or = 60 mg/dl - LOW CARDIOVASCULAR RISK <40 mg/dl - HIGH CARDIOVASCULAR RISK Normal [facility] Comment on above: Performed By: #### F T4, VITAD #### [facility] [address] [place] [address] Dr. Emilia Delong LDL CALC NORMAL SEE BELOW Normal [facility] Comment on above: Result Comment: <100 mg/dl OPTIMAL 100 - 129 mg/dl NEAR OR ABOVE OPTIMAL 130 - 159 mg/dl BORDERLINE HIGH 160 - 189 mg/dl HIGH >190 mg/dl VERY HIGH Performed By: #### F T4, VITAD #### [facility] [address] [place] [address] Dr. Emilia Delong Triglyceride [Mass/Vol] 196 mg/dL Critically high <=150 [facility] Comment on above: Performed By: #### F T4, VITAD #### [facility] [address] [place] [address] Dr. Emilia Delong VLDL CALC 39.2 mg/dL Normal [facility] Comment on above: Performed By: #### F T4, VITAD #### [facility] [address] [place] [address] Dr. Emilia Delong PROF CHEM 8 (BAS METB)on Anion gap [Moles/Vol] 12.7 mmol/L Normal e [facility] Comment on above: Performed By: #### F T3, TSH, LIPID, BMP #### [facility] [address] [address] [address] Emilia Delong Calcium [Mass/Vol] 9.7 mg/dL Normal 8.5-10.1 [facility] Comment on above: Performed By: #### F T3, TSH, LIPID, BMP #### [facility] [address] [address] [address] Emilia Delong Chloride [Moles/Vol] 105 mmol/L Normal 98-107 [facility] Comment on above: Performed By: #### F T3, TSH, LIPID, BMP #### [facility] [address] [place] [address] Dr. Emilia Delong CO2 [Moles/Vol] 26.0 mmol/L Normal 21.0-32.0 [facility] Comment on above: Performed By: #### F T3, TSH, LIPID, BMP #### [facility] [address] [place] [address] Dr. Emilia Delong Creatinine [Mass/Vol] 0.82 mg/dL Normal 0.55-1.02 [facility] Comment on above: Performed By: #### F T3, TSH, LIPID, BMP #### [facility] [address] [place] [address] Dr. Emilia Delong EGFR-AF ARMENIAN >60 Normal >=60 [facility] Comment on above: Performed By: #### F T3, TSH, LIPID, BMP #### [facility] [address] [place] [address] Dr. Emilia Delong EGFR-NON AF ARMENIAN >60 Normal >=60 [facility] Comment on above: Performed By: #### F T3, TSH, LIPID, BMP #### [facility] [address] [place] [address] Dr. Emilia Delong Glucose [Mass/Vol] 95 mg/dL Normal 74-106 [facility] Comment on above: Performed By: #### F T3, TSH, LIPID, BMP #### [facility] [address] [place] [address] Dr. Emilia Delong Potassium [Moles/Vol] 3.7 mmol/L Normal 3.5-5.1 [facility] Comment on above: Performed By: #### F T3, TSH, LIPID, BMP #### [facility] [address] [address] [address] Emilia Delong Sodium [Moles/Vol] 140 mmol/L Normal 136-145 [facility] Comment on above: Performed By: #### F T3, TSH, LIPID, BMP #### [facility] [address] [address] [address] Emilia Delong Urea nitrogen [Mass/Vol] 12.0 mg/dL Normal 7.0-18.0 [facility] Comment on above: Performed By: #### F T3, TSH, LIPID, BMP #### [facility] [address] [address] [address] Emilia Delong Urea nitrogen/Creatinine [Mass ratio] 14.6 mg/mg Normal [facility] Comment on above: Performed By: #### F T3, TSH, LIPID, BMP #### [facility] [address] [address] [address] Emilia Delong TSHon 02-20-2022 TSH 3.012 uIU/mL Normal 0.358-3.740 [facility] Comment on above: Performed By: #### F T3, TSH, LIPID, BMP #### [facility] [address] [address] [address] Emilia Delong VITAMIN D 25 OHon 02-20-2022 VIT D 25-OH 34.5 ng/mL Normal [facility] Comment on above: Performed By: #### F T4, VITAD #### [facility] [address] [place] [address] Dr. Emilia Delong VIT D RANGES SEE BELOW Normal [facility] Comment on above: Result Comment: <20 ng/mL Vit D deficient 20 - <30 ng/mL Vit D insufficient 30 - 100 ng/mL Vit D sufficient >100 ng/mL Potential Toxicity Performed By: #### F T4, VITAD #### [facility] [address] [place] [address] Dr. Emilia Delong Covid-19 PCR (CVDTBH)on 01-31 SARS-CoV-2 (COVID-19) RNA LETICIA+probe Ql (Unsp spec) Not detected Normal NOT DETECTED [facility] Comment on above: Result Comment: This test is not yet approved or cleared by the [place] FDA. When there are no FDA-approved or cleared tests available, and other criteria are met, FDA can make tests available under an emergency access mechanism called an Emergency Use Authorization (EUA). The EUA for this test is supported by the [place] of Health and Human Service's (HHS's) declaration that circumstances exist to justify the emergency use of in vitro diagnostics for the detection and/or diagnosis of the virus that causes COVID-19. This EUA will remain in effect (meaning this test can be used) for the duration of the COVID-19 declaration justifying emergency of IVDs, unless it is terminated or revoked by FDA (after which the test may no longer be used). When diagnostic testing is negative, the possibility of a false negative should be considered in the context of a patient's recent exposures and the presence of clinical signs and symptoms consistent with SARS-CoV-2. Performed By: #### C VDTBH #### [facility] [address] [place] [address] Dr. Emilia Delong Urinalysis w/ Microon 2019 ----- Normal [facility] Comment on above: Performed By: #### U AMIC #### [facility] [address] [place] [address] [place] [address] [employer] Operator: Francois Justice MD Acetoacetic Acid,Ur Negative Normal NEG [facility] Comment on above: Performed By: #### U AMIC #### [facility] [address] [place] [address] [employer] Operator: Francois Justice MD Bacteria LM.HPF (Urine sed) [#/Area] TRACE Abnormal NONE [facility] Comment on above: Performed By: #### U AMIC #### [facility] [address] [place], [place] [id number] [employer] Operator: Francois Justice MD Bilirubin, SemiQt,Ur Negative Normal [facility] Comment on above: Performed By: #### U AMIC #### [facility] [address] [place] [id number] [employer] Operator: Francois Justice MD Color (U) YELLOW Normal YEL [facility] Comment on above: Performed By: #### U AMIC #### [facility] [address] [place] [id number] [employer] Operator: Francois Justice MD Epithelial cells LM.HPF (Urine sed) [#/Area] 0 TO 2 Normal 0-25 [facility] Comment on above: Performed By: #### U AMIC #### [facility] [address] [place], [place] [id number] [employer] Operator: Francois Justice MD Glucose Ql (U) Negative Normal NEG [facility] Comment on above: Performed By: #### U AMIC #### [facility] [address] [place], [place] [address] [employer] Operator: Francois Justice MD Hemoglobin, Ur Negative Normal NEG [facility] Comment on above: Performed By: #### U AMIC #### [facility] [address] [place], [place] [phone] [employer] Operator: Francois Justice MD Leukocyte esterase Test strip Ql (U) Negative Normal [facility] Comment on above: Performed By: #### U AMIC #### [facility] [address] [place], [place] [address]83 [employer] Operator: Francois Justice MD Nitrite,Ur Negative Normal [facility] Comment on above: Performed By: #### U AMIC #### [facility] [address] [place] [address] [employer] Operator: Francois Justice MD pH (U) 6.5 [pH] Normal 5.0-9.0 [facility] Comment on above: Performed By: #### U AMIC #### [facility] [address] [place], [place] [id number] [employer] Operator: Francois Justice MD Protein Ql (U) Negative Normal NEG [facility] Comment on above: Performed By: #### U AMIC #### [facility] [address] [place], [place] [phone] [employer] Operator: Francois Justice MD RBC (U) [#/Vol] 0 TO 2 Normal 0-2 [facility] Comment on above: Performed By: #### U AMIC #### [facility] [address] [place], [place] [address] [employer] Operator: Francois Justice MD Specific gravity (U) [Rel density] 1.015 Normal 1.010-1.020 [facility] Comment on above: Performed By: #### U AMIC #### [facility] [address] [place] [address] Dr. [place], [place] [address] [employer] Operator: Francois Justice MD Turbidity CLEAR Normal CLEAR [facility] Comment on above: Performed By: #### U AMIC #### [address] [place], [place] [phone] [employer] Operator: Francois Justice MD Urobilinogen,Ur Normal Normal NORM [facility] Comment on above: Performed By: #### U AMIC #### [facility] [address] [place], [place] 488[address]83 [employer] Operator: Francois Justice MD WBC (U) [#/Vol] 0 TO 2 Normal 0-5 [facility] Comment on above: Performed By: #### U AMIC #### [facility] [address] [place], [place] [phone] [employer] Operator: Francois Justice MD Amorphous sediment LM Ql (Urine sed) NOT REPORTED Normal NONE [facility] Comment on above: Performed By: #### U AMIC #### [facility] [address] [place], [place] [phone] [employer] Operator: Francois Justice MD Casts LM.LPF (Urine sed) [#/Area] NOT REPORTED Normal [facility] Comment on above: Performed By: #### U AMIC #### [facility] [address] [place], [place] 3448183 [employer] Operator: Francois Justice MD Comment NOT REPORTED Normal [facility] Comment on above: Performed By: #### U AMIC #### [facility] [address] [place], [place] [address] [employer] Operator: Francois Justice MD Crystals LM Nom (Urine sed) NOT REPORTED Normal NONE [facility] Comment on above: Performed By: #### U AMIC #### [facility] [address] [place], [place] [phone] [employer] Operator: Francois Justice MD Epithelial, Renal NOT REPORTED Normal 0 [facility] Comment on above: Performed By: #### U AMIC #### [facility] [address] [place], [place] [address] [employer] Operator: Francois Justice MD Mucus Strands NOT REPORTED Normal NONE [facility] Comment on above: Performed By: #### U AMIC #### [facility] [address] [place], [place] [address] [employer] Operator: Francois Justice MD Other Observations NOT REPORTED Normal NREQ [facility] Comment on above: Performed By: #### U AMIC #### [facility] [address] [place] [address] [employer] Operator: Francois Justice MD Trichomonas NOT REPORTED Normal NONE [facility] Comment on above: Performed By: #### U AMIC #### [facility] [address] [place] [address] [employer] Operator: Farncois Justice MD Yeast LM Ql (Urine sed) NOT REPORTED Normal NONE [facility] Comment on above: Performed By: #### U [facility] #### [facility] [address] [place] [address] [employer] Operator: Francois Justice MD Urinalysis with microscopico n 10-05-2019 Amorphous, UA NOT REPORTED None [facility] Work Phone: Bacteria, UA TRACE Abnormal None [facility] Work Phone: Bilirubin Urine Negative NEGATIVE [facility] Work Phone: Casts UA NOT REPORTED /LPF [facility] Work Phone: Color, UA YELLOW YELLOW [facility] Work Phone: Crystals UA NOT REPORTED None /HPF [facility] Work Phone: Epithelial Cells UA 0 TO 2 [facility] Work Phone: Glucose, Ur Negative NEGATIVE [facility] Work Phone: Interpretation and review of laboratory results Abnormal [employer] Work Phone: Ketones Ql (U) Negative NEGATIVE [facility] Work Phone: Leukocyte esterase Test strip Ql (U) Negative NEGATIVE [facility] Work Phone: Mucus, UA NOT REPORTED None [facility] Work Phone: Nitrite, Urine Negative NEGATIVE [facility] Work Phone: Other Observations UA NOT REPORTED NOT REQ. M [facility] Work Phone: pH, UA 6.5 [facility] Work Phone: Protein (U) [Mass/Vol] Negative NEGATIVE [facility] Work Phone: RBC (U) [#/Vol] 0 TO [address] [facility] Work Phone: Renal Epithelial, Urine NOT REPORTED 0 /HPF [employer] Work Phone: Specific Remus, UA 1.015 [employer] Work Phone: Trichomonas, UA NOT REPORTED None [employer] Work Phone: Turbidity UA CLEAR CLEAR [employer] Work Phone: Urinalysis Comments NOT REPORTED [facility] [employer] Work Phone: Urine Hgb Negative NEGATIVE [facility] Work Phone: Urobilinogen, Urine Normal Normal [employer] Work Phone: WBC, UA 0 TO 2 [employer] Work Phone: Yeast, UA NOT REPORTED None [employer] Work Phone: - [employer] Work Phone: Vital Signs Date Time Vital Sign Value Performing Clinician Facility 01-12-2025 11:45-0400 Body height 165.1 cm Saurabh Purcell MD Work Phone: [facility] 01-12-2025 11:45-0400 Body mass index (BMI) [Ratio] 34.95 kg/m2 Saurabh Purcell MD Work Phone: [facility] 01-12-2025 11:45-0400 Body temperature 97.3 [degF] Saurabh Purcell MD Work Phone: [facility] 01-12-2025 11:45-0400 Body weight 95.25 kg Saurabh Purcell MD Work Phone: [facility] 01-12-2025 11:45-0400 Diastolic blood pressure 80 mm[Hg] Saurabh Purcell MD Work Phone: [facility] 01-12-2025 11:45-0400 Heart rate 72 /min Saurabh Purcell MD Work Phone: [facility] 01-12-2025 11:45-0400 Respiratory rate 22 /min Saurabh Purcell MD Work Phone: [facility] 01-12-2025 11:45-0400 SaO2% (BldA) [Mass fraction] 97 % Saurabh Purcell MD Work Phone: [facility] 01-12-2025 11:45-0400 Systolic blood pressure 154 mm[Hg] Saurabh Purcell MD Work Phone: [facility] 09-03-2024 14:34-0500 Body height 165.1 cm Saurabh Purcell MD Work Phone: [facility] 09-03-2024 14:34-0500 Body mass index (BMI) [Ratio] 34.61 kg/m2 Saurabh Purcell MD Work Phone: [facility] 09-03-2024 14:34-0500 Body temperature 96.6 [degF] Saurabh Purcell MD Work Phone: [facility] 09-03-2024 14:34-0500 Body weight 94.35 kg Saurabh Purcell MD Work Phone: [facility] 09-03-2024 14:34-0500 Diastolic blood pressure 80 mm[Hg] Saurabh Purcell MD Work Phone: [facility] 09-03-2024 14:34-0500 Heart rate 72 /min Saurabh Purcell MD Work Phone: [facility] 09-03-2024 14:34-0500 Respiratory rate 20 /min Saurabh Purcell MD Work Phone: [facility] 09-03-2024 14:34-0500 SaO2% (BldA) [Mass fraction] 98 % Saurabh Purcell MD Work Phone: [facility] 09-03-2024 14:34-0500 Systolic blood pressure 154 mm[Hg] Saurabh Purcell MD Work Phone: [facility] 04-21-2024 16:32-0400 Body height 165.1 cm Nolberto Guzman DPM Work Phone: [facility] 04-21-2024 16:32-0400 Body mass index (BMI) [Ratio] 34.28 kg/m2 Nolberto Thomas DPM Work Phone: [facility] 04-21-2024 16:32-0400 Body weight 93.44 kg Nolberto Coulter [employer] Work Phone: [facility] 10-04-2023 10:13-0500 Body height 165.1 cm Saurabh Purcell MD Work Phone: [facility] 10-04-2023 10:13-0500 Body mass index (BMI) [Ratio] 33.95 kg/m2 Saurabh Purcell MD Work Phone: [facility] 10-04-2023 10:13-0500 Body temperature 96.6 [degF] Saurabh Purcell MD Work Phone: [facility] 10-04-2023 10:13-0500 Body weight 92.53 kg Saurabh Purcell MD Work Phone: [facility] 10-04-2023 10:13-0500 Diastolic blood pressure 60 mm[Hg] Saurabh Purcell MD Work Phone: [facility] 10-04-2023 10:13-0500 Heart rate 72 /min Saurabh Purcell MD Work Phone: [facility] 10-04-2023 10:13-0500 SaO2% (BldA) [Mass fraction] 96 % Saurabh Purcell MD Work Phone: [facility] 10-04-2023 10:13-0500 Systolic blood pressure 130 mm[Hg] Saurabh Purcell MD Work Phone: [facility] 10-05-2019 18:15-0500 BP Diastolic 90 mm[Hg] [employer] Work Phone: 10-05-2019 18:15-0500 BP Systolic 150 mm[Hg] [employer] Work Phone: 10-05-2019 18:15-0500 Respiratory Rate 18 /min [employer] Work Phone: 10-05-2019 16:18-0500 Pulse (Heart Rate) 63 /min Jose Watson [employer] Work Phone: 10-05-2019 15:44-0500 Body Temperature 97.7 [degF] Jose Watson [employer] Work Phone: 10-05-2019 15:44-0500 Body weight 90.27 kg Jose Watson [employer] Work Phone: 10-05-2019 15:44-0500 Pulse Oximetry 97 % Jose Watson [employer] Work Phone: Encounters Encounter Date Encounter Type Care Provider Facility Start: 01-12-2025 End: 01-12-2025 Halie Purcell MD Work Phone: [facility] Start: 01-12-2025 End: 01-12-2025 [facility] Purcell MD Work Phone: [facility] Start: 01-12-2025 End: 01-12-2025 ambulatory SAURABH PURCELL Not Available Start: 01-12-2025 End: 01-12-2025 Office outpatient visit 25 minutes Saurabh Purcell MD Work Phone: [facility] Comment on above: Hematuria, unspecifi ed type (Primary Dx); Postmenopausal bleeding Start: 10-20-2024 End: 10-20-2024 ambulatory ANJEL [facility] Start: 09-29-2024 End: 09-29-2024 ambulatory SAURABH PURCELL [facility] Start: 09-29-2024 End: 09-29-2024 External Result Encounter Saurabh Purcell MD Work Phone: [facility] Unsolicited Start: 09-29-2024 End: 09-29-2024 External Result Encounter Saurabh Purcell MD Work Phone: [facility] Unsolicited Start: 09-15-2024 End: 09-15-2024 ambulatory DEVON MOLINA Not Available Start: 09-03-2024 End: 09-03-2024 Office outpatient visit 15 minutes Saurbah Purcell MD Work Phone: [facility] Comment on above: Medicare annual well ness visit, subsequent (Primary Dx); Encounter for long-term (current) use of medications; Benign essential hypertension ([facility]/HCC); Subclinical hypothyroidism ([facility]); Dyslipidemia ([facility]); Acute UTI Start: 09-03-2024 End: 09-03-2024 ambulatory SAURABH PURCELL Not Available Start: 09-03-2024 End: 09-03-2024 Clinisync Result Encounter Saurabh Purcell MD Work Phone: [facility] External Department Unsolicited Start: 09-03-2024 End: 09-03-2024 Clinisync Result Encounter Saurabh Purcell MD Work Phone: [facility] External Department Unsolicited Start: 09-03-2024 End: 09-03-2024 Patient encounter procedure Saurabh Purcell MD Work Phone: [facility] Work Phone: Start: 07-06-2024 End: 07-06-2024 Refill [facility] Comment on above: Mild intermittent in trinsic asthma without complication ([facility]) Start: 05-26-2024 End: 05-26-2024 ambulatory Lynne Durham LPN [facility] Start: 05-12-2024 End: 05-12-2024 Bamboo flowsheet Devon Horn MS, RDN, LD, CHES [facility] Start: 05-12-2024 End: 05-12-2024 Bamboo flowsheet Devon Horn MS, RDN, LD, CHES [facility] Start: 05-12-2024 End: 05-12-2024 ambulatory DEVON MOLINA Not Available Start: 04-21-2024 End: 04-21-2024 Office outpatient visit 15 minutes Nolberto Guzman DPRoss [facility] Comment on above: Contusion of lesser toe of right foot with damage to nail, initial encounter (Primary Dx); Right foot pain Start: 04-21-2024 End: 04-22-2024 ambulatory NOLBERTO GUZMAN Not Available Start: 04-21-2024 End: 04-21-2024 Bamboo flowsheet Devon Molina MS, RDN, LD, CHES [facility] Start: 04-21-2024 End: 04-21-2024 Bamboo flowsheet Devon Molina MS, RDN, LD, CHES [facility] Start: 04-21-2024 End: 04-21-2024 ambulatory DEVON MOLINA Not Available Start: 04-09-2024 End: 04-09-2024 ambulatory SAURABH PURCELL Not Available Start: 03-03-2024 End: 03-03-2024 ambulatory MOSHEAD[facility] Start: 03-03-2024 End: 03-03-2024 ambulatory DEVON MOLINA Not Available Start: 01-23-2024 End: 01-23-2024 ambulatory SAURABH PURCELL Not Available Start: 10-04-2023 Bamboo flowsheet Saurabh Purcell MD Work Phone: [facility] Start: 10-04-2023 Bamboo flowsheet Saurabh Purcell MD Work Phone: [facility] Start: 10-04-2023 Clinisync Result Encounter Saurabh Purcell MD Work Phone: [facility] External Department Unsolicited Start: 10-04-2023 End: 10-04-2023 Office outpatient visit 25 minutes Saurabh Purcell MD Work Phone: [facility] Comment on above: Benign essential hyp ertension (CMS/HCC) (Primary Dx); 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 (CMS/HCC); Seasonal allergic rhinitis due to pollen; Coronary artery disease involving [place] coronary artery of [place] heart without angina pectoris (CMS/HCC); SAL (obstructive sleep apnea); Dyspareunia in female; Dyslipidemia (CMS/HCC); Encounter for long-term (current) use of medications; Vitamin D deficiency; Obesity (BMI 30-39.9) Start: 12-08-2022 Encounter for other preprocedural examination DR DOCTOR ORELLANA [facility] Start: 12-04-2022 End: 12-05-[address] DOCTOR ORELLANA Facility:[facility] Start: 12-04-2022 End: 12-05-2022 Encounter for other preprocedural examination DR DOCTOR ORELLANA Facility:[facility] Start: 11-29-2022 End: 11-30-[address] SAURABH PURCELL Facility:[facility] Start: 10-03-2022 End: 10-04-2022 ambulatory SHAIKH Segundo JENNIFER Facility:[facility] Start: 09-13-2022 End: 09-14-[address] SAURABH PURCELL Facility:[facility] Start: 02-20-2022 End: 02-21-[address] SAURABH PURCELL Facility:[facility] Start: 02-16-2022 End: 02-16-[address] SAURABH PURCELL Facility:[facility] Start: 10-05-2019 End: 10-05-2019 Emergency department patient visit [facility] Start: 10-05-2019 End: 10-05-2019 Emergency department patient visit [facility] Work Phone: [facility] Comment on above: Hypertension, unspec ified type (Primary Dx) Procedures Date Procedure Procedure Detail Performing Clinician Start: 09-29-2024 Urnls dip stick/tabl et rgnt non-auto w/o micrscp Saurabh Purcell MD Work Phone: Start: 09-03-2024 ALL CBC WITH AUTO DIFF Saurabh Purcell MD Work Phone: Start: 04-21-2024 Radex foot complete minimum 3 views Nolberto Guzman DPM Work Phone: Start: 04-09-2024 Mammography Devon berry MS, RDN, LD, CHES Start: 10-04-2023 ALL CBC WITH AUTO DIFF Saurabh Purcell MD Work Phone: Start: 04-08-2023 Mammography Saurabh mckee MD Work Phone: Start: 09-20-2022 Colonoscopy Devon Hor n MS, RDN, LD, CHES Start: 09-19-2022 Colonoscopy Saurabh mckee MD Work Phone: Start: 10-05-2019 Ecg routine ecg w/le ast 12 lds w/i&r JOSE WATSON Start: 10-05-2019 Urnls dip stick/tabl et reagent auto microscopy JOSE WATSON Start: 10-05-2019 Ecg routine ecg w/le ast 12 lds w/i&r Jose Watson Work Phone: Start: 10-05-2019 Urnls dip stick/tabl et reagent auto microscopy Jose Watson Work Phone: Plan of Treatment Date Care Activity Detail Author Start: 09-20-2032 Screening for malign ant neoplasm of colon [facility] Start: 09-19-2032 Screening for malign ant neoplasm of colon [facility] Start: 09-03-2025 Medicare Annual Wellness (AWV) Medicare Annual Wellness (AWV) [facility] Start: 04-09-2025 Screening for malign ant neoplasm of breast Mammogram [facility] Start: 03-02-2025 End: 03-02-2025 Patient encounter procedure 03/02/2025 10:00 AM EDT Office Visit [facility] [address] [place] [id number] Saurabh Purcell MD [address] [place] [phone] [facility] Start: 01-12-2025 End: 01-12-2026 URINARY TRACT INFECTION (HTRX) URINARY TRACT INFECTION (HTRX) Lab Routine Hematuria, unspecified type Expected: 01/12/2025 (Approximate), Expires: 01/12/2026 [facility] Comment on above: Expected: 01/12/2025 (Approximate), Expires: 01/12/2026 Start: 01-12-2025 End: 01-12-2026 US Kidney US renal complete Imaging Routine Hematuria, unspecified type Expected: 01/12/2025, Expires: 01/12/2026 [facility] Comment on above: Expected: 01/12/2025 , Expires: 01/12/2026 Start: 01-12-2025 End: 01-12-2026 US Pelvis US Pelvis w/ TV Imaging Routine Postmenopausal bleeding Expected: 01/12/2025, Expires: 01/12/2026 [facility] Work Phone: Comment on above: Expected: 01/12/2025 , Expires: 01/12/2026 Start: 11-24-2024 End: 11-24-2024 Clinical Support [facility] Start: 09-03-2024 End: 09-03-2025 Basic metabolic 1998 panel - Serum or Plasma Basic metabolic panel Lab Routine Benign essential hypertension (CMS/HCC) Expected: 09/03/2024 (Approximate), Expires: 09/03/2025 [facility] Work Phone: Comment on above: Expected: 09/03/2024 (Approximate), Expires: 09/03/2025 Start: 09-03-2024 End: 09-03-2025 CBC W Auto Differential panel - Blood CBC and differential Lab Routine Encounter for long-term (current) use of medications Expected: 09/03/2024 (Approximate), Expires: 09/03/2025 [facility] Comment on above: Expected: 09/03/2024 (Approximate), Expires: 09/03/2025 Start: 09-03-2024 End: 09-03-2025 Hepatic function 2000 panel - Serum or Plasma Hepatic function panel Lab Routine Encounter for long-term (current) use of medications Expected: 09/03/2024 (Approximate), Expires: 09/03/2025 [facility] Comment on above: Expected: 09/03/2024 (Approximate), Expires: 09/03/2025 Start: 09-03-2024 End: 09-03-2025 Lipid 1996 panel - Serum or Plasma Lipid panel Lab Routine Dyslipidemia (CMS/HCC) Expected: 09/03/2024 (Approximate), Expires: 09/03/2025 [facility] Comment on above: Expected: 09/03/2024 (Approximate), Expires: 09/03/2025 Start: 09-03-2024 End: 09-03-2025 Thyrotropin [Units/volume] in Serum or Plasma TSH Lab Routine Subclinical hypothyroidism (CMS/HCC) Expected: 09/03/2024 (Approximate), Expires: 09/03/2025 [facility] Comment on above: Expected: 09/03/2024 (Approximate), Expires: 09/03/2025 Start: 09-03-2024 End: 09-03-2025 Thyroxine (T4) free [Mass/volume] in Serum or Plasma T4, free Lab Routine Subclinical hypothyroidism ([facility]/HCC) Expected: 09/03/2024 (Approximate), Expires: 09/03/2025 [facility] Comment on above: Expected: 09/03/2024 (Approximate), Expires: 09/03/2025 Start: 07-23-2024 End: 07-23-2024 Patient encounter procedure 07/23/2024 10:00 AM EST Office Visit [facility] [address] [place] [address] Saurabh Purcell MD [address] [place] [phone] [facility] Start: 05-12-2024 End: 05-12-2024 Clinical Support 05/12/2024 9:30 AM EDT Clinical Support [facility] [address] [place] [address] [place] [phone] Devon Molina, MS, RDN, LD, CHES [address] [facility] Start: 05-03-2024 Influenza vaccination Influenza Vacc ine (#1) [facility] Start: 04-22-2024 End: 04-22-2024 Professional / ancillary services management 04/22/2024 8:00 AM EDT Ancillary Procedure [facility] [address] [place] [address] Arrived [facility] Comment on above: Arrived Start: 04-21-2024 End: 04-21-2024 Patient encounter procedure 04/21/2024 4:30 PM EDT Office Visit [facility] [address] [place] [address] Nolberto Guzman, DPRoss [address] [place] [address] [facility] Start: 04-08-2024 Screening for malign ant neoplasm of breast Mammogram [facility] Start: 04-02-2024 Medicare Annual Wellness (AWV) Medicare Annual Wellness (AWV) [facility] Start: 01-01-2024 End: 01-01-2024 Patient encounter procedure 01/01/2024 10:00 AM EDT Office Visit [facility] [address] [place] [address] Saurabh Purcell MD [address] [place] [phone] [facility] Start: 10-04-2023 End: 10-04-2024 25-hydroxyvitamin D3 [Mass/volume] in Serum or Plasma Vitamin D 25 hydroxy Lab Routine Vitamin D deficiency Expected: 10/04/2023 (Approximate), Expires: 10/04/2024 [facility] Comment on above: Expected: 10/04/2023 (Approximate), Expires: 10/04/2024 Start: 10-04-2023 End: 10-04-2024 Basic metabolic 1998 panel - Serum or Plasma Basic metabolic panel Lab Routine Benign essential hypertension (CMS/HCC) Expected: 10/04/2023 (Approximate), Expires: 10/04/2024 [facility] Work Phone: Comment on above: Expected: 10/04/2023 (Approximate), Expires: 10/04/2024 Start: 10-04-2023 End: 10-04-2024 CBC W Auto Differential panel - Blood CBC and differential Lab Routine Encounter for long-term (current) use of medications Expected: 10/04/2023 (Approximate), Expires: 10/04/2024 [facility] Comment on above: Expected: 10/04/2023 (Approximate), Expires: 10/04/2024 Start: 10-04-2023 End: 10-04-2024 Hepatic function 2000 panel - Serum or Plasma Hepatic function panel Lab Routine Encounter for long-term (current) use of medications Expected: 10/04/2023 (Approximate), Expires: 10/04/2024 [facility] Comment on above: Expected: 10/04/2023 (Approximate), Expires: 10/04/2024 Start: 10-04-2023 End: 10-04-2024 Lipid 1996 panel - Serum or Plasma Lipid panel Lab Routine Dyslipidemia (CMS/HCC) Expected: 10/04/2023 (Approximate), Expires: 10/04/2024 [facility] Comment on above: Expected: 10/04/2023 (Approximate), Expires: 10/04/2024 Start: 10-04-2023 End: 10-04-2024 Thyrotropin [Units/volume] in Serum or Plasma TSH Lab Routine Obesity (BMI 30-39.9) Expected: 10/04/2023 (Approximate), Expires: 10/04/2024 [facility] Comment on above: Expected: 10/04/2023 (Approximate), Expires: 10/04/2024 Start: 05-03-2023 Influenza vaccination Influenza Vacc ine (#1) [facility] Start: 2023 Pneumococcal Vaccine : 65+ Years (1 - PCV) Pneumococcal Vaccine: 65+ Years (1 - PCV) [facility] Start: 05-03-2019 Influenza vaccination Flu vaccine (# 1) [employer] Phone: Start: 02-04-1988 Screening for malign ant neoplasm of cervix [facility] Start: 1979 Screening for malign ant neoplasm of cervix Pap Smear [facility] Start: 1977 Pneumococcal Vaccine : 65+ Years (1 of 2 - PCV) Pneumococcal Vaccine: 65+ Years (1 of 2 - PCV) [facility] Start: 02-04-1964 Pneumococcal Vaccine : 65+ Years (1 - PCV) Pneumococcal Vaccine: 65+ Years (1 - PCV) [facility] Start: 02-04-1964 Pneumococcal Vaccine : 65+ Years (1 of 2 - PCV) Pneumococcal Vaccine: 65+ Years (1 of 2 - PCV) [facility] Start: 1958 Medicare Annual Wellness (AWV) Medicare Annual Wellness (AWV) [facility] Start: 1958 Screening for malign ant neoplasm of colon [facility] EKG 12 Lead EKG 12 Lead ECG STAT 10/05/2019 6:12 PM [facility] Work Phone: Immunizations Immunization Date Immunization Notes Care Provider Fabienne guevara 06-28-2021 influenza, injectabl e, quadrivalent, preservative free Saurabh Purcell MD Work Phone: [facility] 06-28-2021 influenza virus vacc ine, unspecified formulation Saurabh Purcell MD Work Phone: [facility] 09-08-2020 influenza, injectabl e, quadrivalent, preservative free Saurabh Purcell MD Work Phone: [facility] 06-23-2020 Seasonal, quadrivale nt, recombinant, injectable influenza vaccine, preservative free Saurabh Purcell MD Work Phone: [facility] 05-23-2019 Seasonal, quadrivale nt, recombinant, injectable influenza vaccine, preservative free Saurabh Purcell MD Work Phone: [facility] 04-20-2019 tetanus toxoid, redu farhana diphtheria toxoid, and acellular pertussis vaccine, adsorbed Saurabh Purcell MD Work Phone: [facility] 10-14-2017 measles, mumps and rubella virus vaccine Saurabh Purcell MD Work Phone: [facility] 08-16-2017 influenza, injectabl e, quadrivalent, contains preservative Saurabh Purcell MD Work Phone: [facility] 06-13-2016 influenza, injectabl e, quadrivalent, preservative free Saurabh Purcell MD Work Phone: [facility] 06-30-2014 influenza, injectabl e, quadrivalent, contains preservative Saurabh Purcell MD Work Phone: [facility] 01-03-2012 hepatitis B vaccine, adult dosage Saurabh Purcell MD Work Phone: [facility] 08-09-2011 hepatitis B vaccine, adult dosage Saurabh Purcell MD Work Phone: [facility] 06-28-2011 hepatitis B vaccine, adult dosage Saurabh Purcell MD Work Phone: [facility] Payers Date Payer Category Payer Medicare [id number] 2022 Medicare (Managed Care) [id number]. [id number] 2022 Unknown [employer] [id number] 2022-Present [address] [place] [address] [id number] 2022 Medicare [id number] 2021 Private Health Insurance [facility] [id number] 2021-Present [address] [address] [place] [address] [id number] 2019 Unknown [employer] [address] xxxxxxxxxxxx 2019-Present [phone] [address] [place] [address] xxxxxxxxxxxx [id number] 2019 Unknown [id number] 1959 Private Health Insurance [id number] 1959 Unknown [id number] 1958 Unknown [id number] .173 1958 Unknown [id number] [id number] .593 1958 Unknown [id number] [id number] .593 1958 Unknown [id number] [id number] .593 1958 Unknown [id number] 2.16.840.1.397760.3.579.2 .593 1958 Unknown [id number] 2.16.840.1.995091.3.579.2 .593 1958 Unknown [id number] 2.16.840.1.457386.3.579.2 .593 1958 Unknown [id number] 2.16.840.1.248101.3.579.2 .1286 1958 Unknown [id number] 2.16.840.1.494561.3.579.2 .1259 1958 Unknown [id number] 2.16.840.1.595304.3.579.2 .1259 1958 Unknown [id number] 2.16.840.1.381668.3.579.2 .1259 1958 Unknown [id number] 2.16840.1.751264.3.579.2 .1259 1958 Unknown [id number] 2.16.840.1.705294.3.579.2 .1259 1958 Unknown [id number] 2.16.840.1.776201.3.579.2 .1259 1958 Unknown [id number] [id number] .1259 1958 Unknown [id number] 2.16840.1.621193.3.579.2 .1259 1958 Unknown [id number] [id number] .1259 1958 Unknown [id number] .1259 Social History Date Type Detail Facility Start: 10-05-2019 End: 06-25-2023 Tobacco smoking status [facility] Never smoker [facility] Start: 10-05-2019 Alcohol intake Lifetime non-d lawson (finding) [employer] Work Phone: Start: 10-05-2019 History SDOH Alcohol Frequency 1 [facility] Phone: Start: 1960 Sex Assigned At Not on file [facility] [employer] [employer] Work Phone: Start: 06-25-2023 Tobacco use and exposure Smoke less tobacco non-user [facility] Start: 09-18-2023 End: 01-12-2025 Alcohol intake Current drinker of alcohol (finding) [facility] Start: 09-27-2023 End: 09-03-2024 History of Social function [facility] Start: 09-27-2023 End: 09-03-2024 Humiliation, Afraid, Rape, and Kick questionnaire [HARK] [facility] Within the last year , have you been afraid of your partner or ex-partner? No [facility] Do you belong to any clubs or organizations such as christian groups, unions, fra[employer] [place] or athletic groups, or school groups? Yes [facility] Are you now , , , , never or living with a partner? [facility] How often to you hav e a drink containing alcohol? Never [facility] How many standard dr inks containing alcohol do you have on a typical day? Patient does not drink [facility] Do you feel stress - tense, restless, nervous, or anxious, or unable to sleep at night because your mind is troubled all the time - these days [OSQ] Not at all [facility] (I/We) worried wheth er (my/our) food would run out before (I/we) got money to buy more. Never true [facility] Start: 07-22-2023 Alcohol Comment Occasional, Ca ffeine intake: 1-2 cups per day [facility] Clinical Notes 10-04-2023 to 01-12-2025 Saurabh Purcell MD - 01/12/2025 12:10 PM Chiac Purcell MD - 01/12/2025 12:09 PM Chica Purcell MD - 01/12/2025 11:30 AM Chica Purcell MD - 09/03/2024 3:21 PM EST Note Date & Type Note Facility 01-12-2025 History of Present illness Narrative Associated Problem(s): Postmenopausal bleeding C/o vaginal bleeding and check pelvic US. Associated Problem(s): Hematuria C/o blood in urine but UA normal. Check culture. Increase fluids. Check US kidneys. If symptoms persist will need to see urology. Images from the original note were not included. Subjective Patient ID: Mira Santos is a 64 y.o. female who presents for UTI (@urgent care on 12/24/24 was on cypro). Concerned of UTI. To urgent care for UTI symptoms and reports urine dip abnormal. Given cipro and symptoms improved. Now symptoms have returned for several days. Notice blood in urine. Increased frequency and urgency. No pain with urination. No flank pain or back pain. Concerned of possible vaginal bleeding. Wearing a pad for incontinence and notice blood on pad and blood with wiping. Over 10 years since last menses but uterus remains intact. Review of Systems Respiratory: Negative for cough, shortness of breath and wheezing. Cardiovascular: Negative for chest pain and palpitations. Gastrointestinal: Negative for abdominal pain, diarrhea, nausea and vomiting. Genitourinary: Negative for dysuria. Objective Physical Exam Constitutional: General: She is not in acute distress. Appearance: Normal appearance. HENT: Head: Normocephalic. Right Ear: Tympanic membrane normal. Left Ear: Tympanic membrane normal. Eyes: Extraocular Movements: Extraocular movements intact. Pupils: Pupils are equal, round, and reactive to light. Cardiovascular: Rate and Rhythm: Normal rate and regular rhythm. Heart sounds: No murmur heard. No friction rub. No gallop. Pulmonary: Effort: Pulmonary effort is normal. Breath sounds: Normal breath sounds. No wheezing, rhonchi or rales. Abdominal: General: Bowel sounds are normal. There is no distension. Palpations: Abdomen is soft. Tenderness: There is no abdominal tenderness. There is no guarding or rebound. Musculoskeletal: Cervical back: Neck supple. Right lower leg: No edema. Left lower leg: No edema. Neurological: Mental Status: She is alert. Assessment/Plan Problem List Items Addressed This Visit Hematuria - Primary C/o blood in urine but UA normal. Check culture. Increase fluids. Check US kidneys. If symptoms persist will need to see urology. Relevant Orders US renal complete URINARY TRACT INFECTION (HTRX) Postmenopausal bleeding C/o vaginal bleeding and check pelvic US. Relevant Orders US Pelvis w/ TV documented in this encounter [facility] 10-20-2024 Note Cardiology Clinic No te Subjective Mira Santos is a 64 y.o. year old female patient nonobstructive coronary artery disease, obstructive sleep apnea, hyperlipidemia, and hypertension seen in follow-up. Patient here for 6 mo follow up mild CAD, hypertension, and hyperlipidemia. She had routine labs with lipid panel last month. Hasn't been taking aspirin daily. Denies chest pain, palpitations, and LE edema. Patient Active Problem List Diagnosis Vitamin D deficiency Obesity SAL (obstructive sleep apnea) Asthma GERD (gastroesophageal reflux disease) Neurogenic syncope HLD (hyperlipidemia) Hypothyroidism Diverticulitis Abnormal stress test Benign essential HTN Coronary artery disease involving [place] coronary artery of [place] heart without angina pectoris Abnormal TSH Acute bronchitis due to other specified organisms Diverticulosis of colon Dyslipidemia Dyspareunia in female Encounter for long-term (current) use of medications 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 Seasonal allergic rhinitis due to pollen Family History Problem Relation Name Age of Onset Stroke Mother 70 Diabetes Mother Atrial fibrillation Father 70 Other (carotid stenosis) Father Hypertension Father Other (cabg) Brother 59 Diabetes Brother Social History Tobacco Use Smoking status: Never Smokeless tobacco: Never Substance Use Topics Alcohol use: Not Currently Drug use: Never HPI Mira Santos is a 62 y.o. female with hyperlipidemia, hypertension, SAL on cpap, and family history of coronary artery disease, who presents for evaluation of an abnormal stress test. She developed chest discomfort on 11/01/2022 when doing dishes, she felt chest tightness which she describes as someone squeezing her heart that resolved with rest. Occurred again while resting but at a lower intensity several hours later. She presented to the ED through the [facility] on 11/02/2022 for evaluation of symptoms. Work-up including ECG and troponin enzymes were negative. She was discharged and recommended follow-up with her PCP Dr. Purcell. She subsequently had a stress test on 11/23/2022 which was abnormal showing evidence of stress-induced myocardial ischemia in the LAD territory. She started a baby Aspirin, takes hydrochlorothiazide PRN for hypertension. She has a lump on her back, she is requesting cardiac risk stratification for excision. Cardiology ROS: 10 point ROS is performed and is negative unless otherwise specified in HPI. Objective Visit Vitals OB Status Postmenopausal Smoking Status Never Physical Exam General: Awake, alert, good spirits. NAD Pulm: Breath sounds clear to ascultation bilaterally with no wheeze, crackles or rhonchi Cards: Regular rate and rhythm, S1, S2. No S3 or S4 gallop. Murmur: none Abd: Soft, Nontender, physiologic bowel sounds are present Extr: Lower extremity edema: None. Skin: warm, dry, well perfused Neuro: A&Ox3, No gross deficits Allergies Allergies Allergen Reactions Sulfa (Sulfonamide Antibiotics) Hives Other reaction(s): Unknown Medications Current Outpatient Medications: albuterol 90 mcg/actuation inhaler, Inhale 2 puffs every 6 (six) hours if needed., Disp: , Rfl: Arnuity Ellipta 100 mcg/actuation inhaler, Inhale 1 puff in the morning., Disp: , Rfl: aspirin 81 mg EC tablet, Take 81 mg by mouth in the morning., Disp: , Rfl: atorvastatin (Lipitor) 80 mg tablet, Take 1 tablet (80 mg) by mouth in the morning., Disp: 30 tablet, Rfl: 3 calcium carb/D3/magnesium/zinc (calcium carb-D3-mag oio51-ncti) [phone] [id number]-mg tablet, Take by mouth in the morning., Disp: , Rfl: cetirizine (ZyrTEC) 10 mg tablet, Take 10 mg by mouth if needed each day., Disp: , Rfl: cholecalciferol (Vitamin D-3) 50 MCG (2000 UT) tablet, Take by mouth in the morning., Disp: , Rfl: fluticasone (Flonase) 50 mcg/actuation nasal spray, USE 2 SPRAY(S) IN EACH NOSTRIL ONCE DAILY, Disp: , Rfl: levothyroxine (Synthroid, Levoxyl) 50 mcg tablet, Take 88 mcg by mouth in the morning., Disp: , Rfl: metoprolol succinate XL (Toprol-XL) 25 mg 24 hr tablet, Take 0.5 tablets (12.5 mg) by mouth in the morning., Disp: 30 tablet, Rfl: 11 montelukast (Singulair) 10 mg tablet, Take 10 mg by mouth in the morning., Disp: , Rfl: nitroglycerin (Nitrostat) 0.4 mg SL tablet, Place 1 tablet (0.4 mg) under the tongue every 5 (five) minutes if needed for chest pain. May repeat dose every 5 minutes for up to 3 doses total., Disp: 100 tablet, Rfl: 3 Recent Labs Labs 11/30/2022 WBC 5.1, hematocrit 40.2, hemoglobin 13.9, platelets 220 Sodium 142, potassium 3.9, chloride 107, CO2 26.4, creatinine 0.75, GFR greater than 60% Cholesterol 319, HDL 65, triglycerides 207, LDL 212.6 Hemoglobin A1c 5.3 Imaging and other tests Coronary angiography: 12/06/2022 LMCA - This vessel arises from the left coronary cusp and bifurcates into the left ant (more content not included)... [facility] 09-03-2024 History of Present illness Narrative Associated Problem(s): Medicare annual wellness visit, subsequent Due for labs. Discussed proper diet and regular aerobic exercise. Need aerobic exercise 5-6 days a week for 30 minutes at a time. Smaller portions and limit total calories. Colonoscopy every 10 years. Tetanus every 10 years. Advised not to smoke. Discussed daily Aspirin therapy. Associated Problem(s): Benign essential hypertension (CMS/HCC) BP elevated but previously controlled and monitor PRN. Associated Problem(s): Acute UTI History suggestive of UTI and treat. Take cipro for infection. Increase water intake and cranberry juice. Use motrin or tylenol for discomfort. Images from the original note were not included. Subjective Patient ID: Mira Santos is a 64 y.o. female who presents for Medicare Annual Wellness Visit Subsequent (wellness). Presents for medicare annual wellness visit. Weight up 4 pounds in the past year. Active around house but no regular exercise. Tries to watch diet and eat healthy. Increased fruits and vegetables. Smaller portions and limits snacking. Tries to limit total daily calories. Due for labs. Checking BP PRN and recently elevated. BP elevated today at 154/80. Taking medication daily and tolerating without side effects. C/o not feeling well and concerned of UTI. Notice pink with wiping. Increased frequency and urgency. Feels like not emptying all the way. Mild discomfort with urination. Tried OTC and seemed to help then symptoms returned. Review of Systems Respiratory: Negative for cough, shortness of breath and wheezing. Cardiovascular: Negative for chest pain and palpitations. Gastrointestinal: Negative for abdominal pain, diarrhea, nausea and vomiting. Genitourinary: Negative for dysuria. Objective Physical Exam Constitutional: General: She is not in acute distress. Appearance: Normal appearance. HENT: Head: Normocephalic. Right Ear: Tympanic membrane normal. Left Ear: Tympanic membrane normal. Eyes: Extraocular Movements: Extraocular movements intact. Pupils: Pupils are equal, round, and reactive to light. Cardiovascular: Rate and Rhythm: Normal rate and regular rhythm. Heart sounds: No murmur heard. No friction rub. No gallop. Pulmonary: Effort: Pulmonary effort is normal. Breath sounds: Normal breath sounds. No wheezing, rhonchi or rales. Abdominal: General: Bowel sounds are normal. There is no distension. Palpations: Abdomen is soft. Tenderness: There is no abdominal tenderness. There is no guarding or rebound. Musculoskeletal: General: No swelling or tenderness. Cervical back: Neck supple. Right lower leg: No edema. Left lower leg: No edema. Skin: Findings: No erythema or rash. Neurological: General: No focal deficit present. Mental Status: She is alert and oriented to person, place, and time. Cranial Nerves: No cranial nerve deficit. Motor: No weakness. Gait: Gait normal. Assessment/Plan Problem List Items Addressed This Visit Subclinical hypothyroidism (CMS/HCC) Relevant Orders TSH T4, free Dyslipidemia (CMS/HCC) Relevant Orders Lipid panel Benign essential hypertension (CMS/HCC) BP elevated but previously controlled and monitor PRN. Relevant Orders Basic metabolic panel Encounter for long-term (current) use of medications Relevant Orders CBC and differential Hepatic function panel Medicare annual wellness visit, subsequent - Primary Due for labs. Discussed proper diet and regular aerobic exercise. Need aerobic exercise 5-6 days a week for 30 minutes at a time. Smaller portions and limit total calories. Colonoscopy every 10 years. Tetanus every 10 years. Advised not to smoke. Discussed daily Aspirin therapy. Acute UTI History suggestive of UTI and treat. Take cipro for infection. Increase water intake and cranberry juice. Use motrin or tylenol for discomfort. Relevant Medications ciprofloxacin (Cipro) 500 MG tablet documented in this encounter [facility] 05-26-2024 History of Present illness Narrative <May 26, 2024, 09:31 - Lynne Durham LPN> Spoke to patient for routine outreach. She states that she has been doing pretty well. She requests refill on Albuterol inhaler and request is submitted to PCP. [facility] pharmacy in [place]. She has an appointment with Dr. Purcell 07/23/24 for MAW and plans to keep this visit. She is given my name and number to reach if she needs anything until new advocate is established for [facility]. She verbalizes an understanding of this. documented in this encounter [facility] 04-21-2024 History of Present illness Narrative Images from the original note were not included. Subjective Patient ID: Mira Santos is a 64 y.o. female who presents for Toe Injury (Mira Perez 64yo. Patient relates she stubbed Right 4th toe, 04/20/2024. The toenail is loose. Patient wearing guaze to protect the nail. ). HPI This is an established patient who presents to clinic with new concern of right 4th toe injury. Patient states that she bumped it against her shoe yesterday and the nail became loose. She has had some drainage and covered the toenail with gauze and a bandage. Review of Systems Constitutional: Negative for activity change and appetite change. Respiratory: Negative for chest tightness and shortness of breath. Cardiovascular: Positive for leg swelling. Negative for chest pain. Musculoskeletal: Positive for arthralgias and gait problem. Skin: Negative for color change and wound. Neurological: Negative for weakness and numbness. Psychiatric/Behavioral: Negative for agitation and behavioral problems. Hematological: Does not bruise/bleed easily. Endocrine: Negative for cold intolerance and heat intolerance. Allergic/Immunologic: Negative for immunocompromised state. Past medical History Past Medical History: Diagnosis Date Adult hypothyroidism ([facility]) Asthma ([facility]) 07/06/2016 Asthma ([facility]) At low risk for fall Benign essential hypertension ([facility]) Chronic pain of both knees Diverticulosis of colon Dyslipidemia ([facility]) Encounter for long-term (current) use of medications GERD (gastroesophageal reflux disease) Hot flashes HTN (hypertension) ([facility]) Hypercholesteremia ([facility]) Neurogenic syncope Obesity with body mass index (BMI) of 30.0 to 39.9 Seasonal allergic rhinitis due to pollen Sleep apnea, obstructive Thyroid activity decreased ([facility]) Vitamin D deficiency Medications Current Outpatient Medications: albuterol HFA 90 mcg/act inhaler, Inhale 2 puffs every 4 (four) hours if needed for wheezing, Disp: 18 g, Rfl: 2 aspirin 81 MG EC tablet, Take 81 mg by mouth in the morning., Disp: , Rfl: atorvastatin (Lipitor) 80 MG tablet, Take 1 tablet (80 mg) by mouth at bedtime, Disp: 100 tablet, Rfl: 3 Cholecalciferol (Vitamin D) 50 MCG (2000 UT) capsule, Take 1 capsule by mouth 1 (one) time each day at the same time, Disp: , Rfl: fluticasone (Flonase) 50 MCG/ACT nasal spray, Administer 2 sprays into each nostril in the morning., Disp: , Rfl: fluticasone furoate (Arnuity Ellipta) 100 MCG/ACT inhaler, Inhale 1 puff in the morning. Rinse mouth with water after use to reduce aftertaste and incidence of candidiasis. Do not swallow.., Disp: 1 each, Rfl: 5 levothyroxine (Synthroid, Levoxyl) 88 MCG tablet, Take 88 mcg by mouth in the morning., Disp: , Rfl: magnesium oxide (Mag-Ox) 400 mg tablet, Take 400 mg by mouth Daily, Disp: , Rfl: metoprolol succinate XL (Toprol-XL) 25 MG 24 hr tablet, Take 25 mg by mouth in the morning., Disp: , Rfl: montelukast (Singulair) 10 MG tablet, Take 1 tablet (10 mg) by mouth at bedtime, Disp: 30 tablet, Rfl: 5 Allergies Sulfa antibiotics Past Surgical History Past Surgical History: Procedure Laterality Date SECTION, LOW TRANSVERSE 10/10/1969, 07/25/81, 07/01/84, 11/20/86 HERNIA REPAIR 01/28/95, 01/06/97 TIBIA FRACTURE SURGERY Right Right leg tibial and fibula fx metal TUBAL LIGATION 07/24/1987 Family History Family History Problem Relation Name Age of Onset Stroke Mother Jewell Schwartz Ovarian cancer Mother Jewell Schwartz Diabetes Mother Jewell Schwartz Heart disease Father Diabetes Brother Joaquim Schwartz Heart disease Brother Joaquim Schwartz Hypertension Brother Joaquim Schwartz Objective Physical Exam Constitutional: General: She is not in acute distress. HENT: Head: Atraumatic. Cardiovascular: Comments: DP, PT pulses 1/4. Musculoskeletal: Cervical back: No tenderness. Skin: Capillary Refill: Capillary refill takes less than 2 seconds. Comments: Right 4th toenail has been completely avulsed. Nailbed is clean, intact without deficit. No exposed bone. No purulence or cellulitis. Mild serous drainage. Mild tenderness with palpation. Neurological: General: No focal deficit present. Mental Status: She is alert. Psychiatric: Mood and Affect: Mood normal. Behavior: Behavior normal. XR foot 3+ views right Imaging Result: AP, medial oblique, lateral views are weight-bearing. No fractures or dislocations. Multiple contracted digits. Enthesophyte at the insertion of the Achilles tendon and plantar fascia. Orthopedic implant noted in the tibia. Assessment/Plan ICD-10-CM 1. Contusion of lesser toe of right foot with damage to nail, initial encounter S90.221A XR foot 3+ views right 2. Right foot pain M79.671 XR foot 3+ views right Patient examined and evaluated. She was concerned about fracture of the toe and so 3 radiographs of the right foot were taken in office and I discussed my findings. No fractures appreciated. Patient did have complete avulsion of the right 4th toenail. When removing the dressing today there was no nail noted on the toe and it was noted to be contained within the dressing. I did flush the nailbed with saline and inspected it to ensure that there was no deficit in the nailbed. None was found. Recommend covering the toe with antibiotic ointment and a Band-Aid until the nailbed heals over. Follow up as needed. This note was created with the assistance of a speech recognition program. While intending to generate a timely document that accurately reflects the content of the visit, no guarantee can be provided that every grammatical or spelling mistake has been or will be identified or corrected. Thank you for your understanding. Nolberto Guzman DPM documented in this encounter [facility] 03-03-2024 Note Cardiology Clinic No te Subjective Mira Santos is a 64 y.o. year old female patient nonobstructive coronary artery disease, obstructive sleep apnea, hyperlipidemia, and hypertension seen in follow-up. Patient adamantly denies any cardiac complaints or concerns. Patient denies any chest pain or shortness of breath. Patient denies any lower extremity edema, orthopnea, or proximal nocturnal dyspnea. No near-syncope or syncope. No dizziness or lightheadedness. Patient Active Problem List Diagnosis Vitamin D deficiency Obesity SAL (obstructive sleep apnea) Asthma GERD (gastroesophageal reflux disease) Neurogenic syncope HLD (hyperlipidemia) Hypothyroidism Diverticulitis Abnormal stress test Benign essential HTN Coronary artery disease involving n[place]qs[place] coronary artery of nuiqs[place] heart without angina pectoris Abnormal TSH Acute bronchitis due to other specified organisms Diverticulosis of colon Dyslipidemia Dyspareunia in female Encounter for long-term (current) use of medications 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 Seasonal allergic rhinitis due to pollen Family History Problem Relation Name Age of Onset Stroke Mother 70 Diabetes Mother Atrial fibrillation Father 70 Other (carotid stenosis) Father Hypertension Father Other (cabg) Brother 59 Diabetes Brother Social History Tobacco Use Smoking status: Never Smokeless tobacco: Never Substance Use Topics Alcohol use: Not Currently Drug use: Never HPI Mira Santos is a 62 y.o. female with hyperlipidemia, hypertension, SAL on cpap, and family history of coronary artery disease, who presents for evaluation of an abnormal stress test. She developed chest discomfort on 11/01/2022 when doing dishes, she felt chest tightness which she describes as someone squeezing her heart that resolved with rest. Occurred again while resting but at a lower intensity several hours later. She presented to the ED through the [facility] system on 11/02/2022 for evaluation of symptoms. Work-up including ECG and troponin enzymes were negative. She was discharged and recommended follow-up with her PCP Dr. Purcell. She subsequently had a stress test on 11/23/2022 which was abnormal showing evidence of stress-induced myocardial ischemia in the LAD territory. She started a baby Aspirin, takes hydrochlorothiazide PRN for hypertension. She has a lump on her back, she is requesting cardiac risk stratification for excision. Review of Systems Cardiovascular: Negative for chest pain, claudication, dyspnea on exertion, irregular heartbeat, leg swelling, near-syncope, orthopnea, palpitations, paroxysmal nocturnal dyspnea and syncope. Objective Visit Vitals BP 128/78 (BP Location: Right arm, Patient Position: Sitting) Pulse 77 Ht 1.626 m (5' 4 ) Wt 93.9 kg (207 lb) SpO2 98% BMI 35.53 kg/m??? OB Status Postmenopausal Smoking Status Never BSA 2.06 m??? Physical Exam General: Awake, alert, good spirits. NAD Pulm: Breath sounds clear to ascultation bilaterally with no wheeze, crackles or rhonchi Cards: Regular rate and rhythm, S1, S2. No S3 or S4 gallop. Murmur: none Abd: Soft, Nontender, physiologic bowel sounds are present Extr: Lower extremity edema: None. Skin: warm, dry, well perfused Neuro: A&Ox3, No gross deficits Allergies Allergies Allergen Reactions Sulfa (Sulfonamide Antibiotics) Hives Other reaction(s): Unknown Medications Current Outpatient Medications: albuterol 90 mcg/actuation inhaler, Inhale 2 puffs every 6 (six) hours if needed., Disp: , Rfl: Arnuity Ellipta 100 mcg/actuation inhaler, Inhale 1 puff in the morning., Disp: , Rfl: aspirin 81 mg EC tablet, Take 81 mg by mouth in the morning., Disp: , Rfl: atorvastatin (Lipitor) 80 mg tablet, Take 1 tablet (80 mg) by mouth in the morning., Disp: 30 tablet, Rfl: 3 calcium carb/D3/magnesium/zinc (calcium carb-D3-mag [id number]) [phone]-[id number]-mg tablet, Take by mouth in the morning., Disp: , Rfl: cetirizine (ZyrTEC) 10 mg tablet, Take 10 mg by mouth if needed each day., Disp: , Rfl: cholecalciferol (Vitamin D-3) 50 MCG (2000 UT) tablet, Take by mouth in the morning., Disp: , Rfl: fluticasone (Flonase) 50 mcg/actuation nasal spray, USE 2 SPRAY(S) IN EACH NOSTRIL ONCE DAILY, Disp: , Rfl: levothyroxine (Synthroid, Levoxyl) 50 mcg tablet, Take 88 mcg by mouth in the morning., Disp: , Rfl: metoprolol succinate XL (Toprol-XL) 25 mg 24 hr tablet, Take 1 tablet (25 mg) by mouth in the morning. (Patient taking differently: Take 12.5 mg by mouth in the morning.), Disp: 90 tablet, Rfl: 3 montelukast (Singulair) 10 mg tablet, Take 10 mg by mouth in the morning., Disp: , Rfl: nitroglycerin (Nitrostat) 0.4 mg SL tablet, Place 1 tablet (0.4 mg) under the tongue every 5 (five) minutes if needed for chest pain. May repeat dose every 5 minutes for up to 3 doses total., Disp: 100 tablet, Rfl: 3 Re (more content not included)... [facility] 10-04-2023 History of Present illness Narrative Associated Problem(s): Seasonal allergic rhinitis due to pollen Symptoms controlled with medication and continue. Associated Problem(s): SAL (obstructive sleep apnea) Not using CPAP and need to use nightly. Associated Problem(s): 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 (CMS/HCC) Increased SOB and add flovent. Associated Problem(s): Dyspareunia in female Pain with intercourse and add premarin. Associated Problem(s): Coronary artery disease involving nuiqs[place] coronary artery of nuiqs[place] heart without angina pectoris (CMS/HCC) No pain and continue medication. Follow up with cardiology. Associated Problem(s): Benign essential hypertension (CMS/HCC) BP controlled and monitor PRN. Subjective Patient ID: Mira Santos is a 63 y.o. female who presents for Follow-up (Chest congestion ). F/u HTN, asthma, allergies, and CAD. Checking BP PRN and typically controlled. BP normal today. Taking medication daily and tolerating without side effects. Asthma recently worse. Increased SOB with exertion. Frequent nonproductive cough. SOB starting to limit activity. Using albuterol almost daily. Allergies controlled with medication. No congestion or rhinorrhea. No DODSON or sinus pressure. Ears not plugged or popping. Following with cardiology for non-obstructive CAD. On medication and doing well. No chest pain or palpitations. Diagnosed with SAL and not using CPAP. [place] more tired with machine and stopped. Requests premarin. C/o pain with intercourse and dryness. Severe atrophy and not able to have intercourse which is causing relationship problems. Review of Systems Respiratory: Negative for cough, shortness of breath and wheezing. Cardiovascular: Negative for chest pain and palpitations. Gastrointestinal: Negative for abdominal pain, diarrhea, nausea and vomiting. Genitourinary: Negative for dysuria. Objective Physical Exam Constitutional: General: She is not in acute distress. Appearance: Normal appearance. HENT: Head: Normocephalic. Right Ear: Tympanic membrane normal. Left Ear: Tympanic membrane normal. Eyes: Extraocular Movements: Extraocular movements intact. Pupils: Pupils are equal, round, and reactive to light. Cardiovascular: Rate and Rhythm: Normal rate and regular rhythm. Heart sounds: No murmur heard. No friction rub. No gallop. Pulmonary: Effort: Pulmonary effort is normal. Breath sounds: Normal breath sounds. No wheezing, rhonchi or rales. Abdominal: General: Bowel sounds are normal. There is no distension. Palpations: Abdomen is soft. Tenderness: There is no abdominal tenderness. There is no guarding or rebound. Musculoskeletal: Cervical back: Neck supple. Right lower leg: No edema. Left lower leg: No edema. Neurological: Mental Status: She is alert. Assessment/Plan Problem List Items Addressed This Visit Dyslipidemia (CMS/HCC) Relevant Orders Lipid panel 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 (CMS/HCC) Increased SOB and add flovent. Relevant Medications fluticasone (Flovent) 44 MCG/ACT inhaler Vitamin D deficiency Relevant Orders Vitamin D 25 hydroxy Seasonal allergic rhinitis due to pollen Symptoms controlled with medication and continue. Coronary artery disease involving n[place]qs[place] coronary artery of nui[place] heart without angina pectoris (CMS/HCC) No pain and continue medication. Follow up with cardiology. SAL (obstructive sleep apnea) Not using CPAP and need to use nightly. Benign essential hypertension (CMS/HCC) - Primary BP controlled and monitor PRN. Relevant Orders Basic metabolic panel Encounter for long-term (current) use of medications Relevant Orders CBC and differential Hepatic function panel Dyspareunia in female Pain with intercourse and add premarin. Relevant Medications estrogens, conjugated, (Premarin) 0.625 MG tablet Other Visit Diagnoses Obesity (BMI 30-39.9) Relevant Orders TSH documented in this encounter [facility] Evaluation note Diagnosis Benign essential hypertension (CMS/HCC)- Primary Essential hypertension, benign 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 (CMS/HCC) Seasonal allergic rhinitis due to pollen Coronary artery disease involving n[place]qs[place] coronary artery of nuiqs[place] heart without angina pectoris (CMS/HCC) SAL (obstructive sleep apnea) Obstructive sleep apnea (adult) (pediatric) Dyspareunia in female Dyslipidemia (CMS/HCC) Other and unspecified hyperlipidemia Encounter for long-term (current) use of medications Encounter for long-term (current) use of other medications Vitamin D deficiency Obesity (BMI 30-39.9) documented in this encounter [facility]* Diagnosis Benign essential hypertension ([facility]/HCC)- Primary Essential hypertension, benign 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 ([facility]) Seasonal allergic rhinitis due to pollen Coronary artery disease involving nuiqs[place] coronary artery of n[place] heart without angina pectoris ([facility]) SAL (obstructive sleep apnea) Obstructive sleep apnea (adult) (pediatric) Dyspareunia in female Dyslipidemia ([facility]/HCC) Other and unspecified hyperlipidemia Encounter for long-term (current) use of medications Encounter for long-term (current) use of other medications Vitamin D deficiency Obesity (BMI 30-39.9) Benign essential hypertension ([facility])- Primary Essential hypertension, benign 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 ([facility]) Seasonal allergic rhinitis due to pollen Acute bronchitis due to other specified organisms 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 ([facility]) documented in this encounter [facility]* Diagnosis Contusion of lesser toe of right foot with damage to nail, initial encounter- Primary Right foot pain Pain in soft tissues of limb documented in this encounter [facility]* Diagnosis Mild intermittent asthma, unspecified whether complicated ([facility])- Primary Essential (primary) hypertension ([facility]) Unspecified essential hypertension documented in this encounter [facility] note* Diagnosis Benign essential hypertension ([facility])- Primary Essential hypertension, benign 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 ([facility]) Seasonal allergic rhinitis due to pollen Coronary artery disease involving n[place] coronary artery of n[place] heart without angina pectoris ([facility]) SAL (obstructive sleep apnea) Obstructive sleep apnea (adult) (pediatric) Dyspareunia in female Dyslipidemia ([facility]) Other and unspecified hyperlipidemia Encounter for long-term (current) use of medications Encounter for long-term (current) use of other medications Vitamin D deficiency Obesity (BMI 30-39.9) Benign essential hypertension ([facility])- Primary Essential hypertension, benign 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 ([facility]) Seasonal allergic rhinitis due to pollen Acute bronchitis due to other specified organisms Medicare annual wellness visit, subsequent- Primary Encounter for long-term (current) use of medications Encounter for long-term (current) use of other medications Benign essential hypertension (CMS/HCC) Essential hypertension, benign Subclinical hypothyroidism (CMS/HCC) Other specified acquired hypothyroidism Dyslipidemia (CMS/HCC) Other and unspecified hyperlipidemia Acute UTI Urinary tract infection, site not specified documented in this encounter [facility] note* Diagnosis Benign essential hypertension (CMS/HCC)- Primary Essential hypertension, benign 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 Seasonal allergic rhinitis due to pollen Coronary artery disease involving n[place]qs[place] coronary artery of n[place] heart without angina pectoris (CMS/HCC) SAL (obstructive sleep apnea) Obstructive sleep apnea (adult) (pediatric) Dyspareunia in female Dyslipidemia (CMS/HCC) Other and unspecified hyperlipidemia Encounter for long-term (current) use of medications Encounter for long-term (current) use of other medications Vitamin D deficiency Obesity (BMI 30-39.9) Benign essential hypertension (CMS/HCC)- Primary Essential hypertension, benign 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 Seasonal allergic rhinitis due to pollen Acute bronchitis due to other specified organisms Medicare annual wellness visit, subsequent- Primary Encounter for long-term (current) use of medications Encounter for long-term (current) use of other medications Benign essential hypertension (CMS/HCC) Essential hypertension, benign Subclinical hypothyroidism (CMS/HCC) Other specified acquired hypothyroidism Dyslipidemia (CMS/HCC) Other and unspecified hyperlipidemia Acute UTI Urinary tract infection, site not specified Hematuria, unspecified type- Primary Postmenopausal bleeding documented in this encounter [facility] Healthcare Discharge Instructions * Attachments The following attachments cannot be sent through Care Everywhere. 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 Skyler nuno relates she stubbed Right 4th toe, 04/20/2024. The toenail is loose. Patient wearing guaze to protect the nail. Reason Comments Medicare Annual Wellness Visit Subsequen t wellness Reason Comments UTI @urgent care on 12/24 was on cypro INFORMATION SOURCE (unrecogn ized section and content) DATE CREATED AUTHOR 10/05/2019 [facility] DATE CREATED AUTHOR AUTHOR'S ORGANIZ ATION 12/09/2022 [facility] DATE CREATED AUTHOR AUTHOR'S ORGANIZ ATION 10/01/2024 [facility] DATE CREATED AUTHOR AUTHOR'S ORGANIZ ATION 10/22/2024 [facility] DATE CREATED AUTHOR AUTHOR'S ORGANIZ ATION 01/13/2025 [facility] dical Specialists EPIC Care Teams (unrecognized sec tion and content) [employer]ter [employer] Relationship Specialty Start Date End Date Saurabh Purcell MD [address] [place] [id number] PCP - Devoted 06/02/23 Saurabh Purcell MD [address] [place] [phone] PCP - General Family Medicine 10/04/23 [employer] Relationship Specialty Start Date End Date Saurabh Purcell MD [address] [place] [phone] PCP - Devoted 06/02/23 Saurabh Purcell MD [address] [place] [phone] PCP - General Family Medicine 10/04/23 Block Setter Gypsum Relationship Specialty Start Date End Date Saurabh Purcell MD [address] [place] [phone] PCP - Devoted 06/02/23 Saurabh Purcell MD [address] [place] [phone] PCP - General Family Medicine 10/04/23 Block Setter Gypsum Relationship Specialty Start Date End Date Saurabh Purcell MD [address] [place] [address] PCP - Devoted 01/31/23 Saurabh Purcell MD [address] [place] [address] PCP - General Family Medicine 10/04/23 Lynne Durham LPN Licensed Practical Nurse Family Medicine 05/14/24 Block Setter Gypsum Relationship Specialty Start Date End Date Saurabh Purcell MD [address] [place] [address] PCP - Devoted 01/31/23 Saurabh Purcell MD [address] [place] [address] PCP - General Family Medicine 10/04/23 Diana Salvador LPN Licensed Practical Nurse Family Medicine 02/07/24 Block Setter Gypsum Relationship Specialty Start Date End Date Saurabh Purcell MD [address] [place] [address] PCP - Devoted 01/31/23 Saurabh Purcell MD [address] [place] [phone] PCP - General Family Medicine 10/04/23 Diana Salvador LPN Licensed Practical Nurse Family Medicine 02/07/24 Block Setter Gypsum Relationship Specialty Start Date End Date Saurabh Purcell MD [address] [place] [phone] PCP - Devoted 01/31/23 Saurabh Purcell MD [address] [place] [address] PCP - General Family Medicine 10/04/23 Lynne Durham LPN Licensed Practical Nurse [facility] Medicine 05/14/24 Block Setter Gypsum Relationship Specialty Start Date End Date Saurabh Purcell MD [address] [place] [phone] PCP - Devoted 01/31/23 Saurabh Purcell MD [address] [place] [place] [address] PCP - General [facility] Medicine 10/04/23 Clovis Bolanos [facility] 07/07/24 Devon Molina, MS, RDN, LD, CHES [address] [place] [address] Dietitian Nutrition 03/03/24 Block Setter Gypsum Relationship Specialty Start Date End Date Saurabh Purcell MD [address] [place] [place] [phone] PCP - Devoted 01/31/23 Saurabh Purcell MD [address] [place] [address] PCP - General [facility] 10/04/23 Clovis Bolanos MA [facility] 07/07/24 Devon Molina, MS, RDN, LD, CHES [address] [place] [address] Dietitian Nutrition 03/03/24 Block Setter Gypsum Relationship Specialty Start Date End Date Saurabh Purcell MD [address] [place] [phone] PCP - Devoted 01/31/23 Saurabh Purcell MD [address] [place] [address] PCP - General Family Medicine 10/04/23 Clovis Bolanos MA [facility] 07/07/24 Block Setter Gypsum Relationship Specialty Start Date End Date Saurabh Purcell MD [address] [place] [address] PCP - [facility] 10/04/23 Clovis Bolanos MA [facility] 07/07/24 Block Setter Gypsum Relationship Specialty Start Date End Date Saurabh Purcell MD [address] [place] [address] PCP - [facility] Family Medicine 10/04/23 Clovis Bolanos MA [facility] 07/07/24 FOR RECORDS PERTAINING TO PATIENTS WHO ARE OR HAVE BEEN ENROLLED IN A CHEMICAL DEPENDENCY/SUBSTANCEABUSE PROGRAM, SOME INFORMATION MAY BE OMITTED. This clinical summary was aggregated from multiple sources. Caution should be exercised in using it in the provision of clinical care. This summary normalizes information from multiple sources, and as a consequence, information in this document may materially change the coding, format and clinical context of patient data. In addition, data may be omitted in some cases. CLINICAL DECISIONS SHOULD BE BASED ON THE PRIMARY CLINICAL RECORDS. [facility]. provides no warranty or guarantee of the accuracy or completeness of information in this document.
== END 2025-01-19 07:26 | disposition home or self-care (01) ==
LOC: US 07:26
PROVIDERS: PCP Family Medicine; Visit Provider Family Medicine
DX: R31.9 Hematuria, unspecified (principal); N95.0 Postmenopausal bleeding
CPT/HCPCS: 76775; 76830; 76856

== ENCOUNTER 2025-04-20 14:15 | Outpatient (OUT) | payer MEDICARE, SELFPAY ==
--- OUTSIDE RECORDS SUMMARY | 2025-04-08 13:20 | XMS_ITS | Encounter Summary ---
Author Organization [facility] Address [address] [place] [address] Care Team Providers Care Association Executive Name Role Phone Saurabh Cm MD Primary Care Provider [phone] Reason for Visit * Reason Comments Hypertension Hyperlipidemia 6 month follow up Coronary Artery Disease Sleep Apnea GERD Encounter Details Date Type Department Care Team ([facility] st Contact Info) Description 04/08/2025 1:20 PM EDT Office Visit [facility] [address] [place] [address] Monica Gonzalez MD [address] [place] [address] Coronary artery disease involving upper [place] coronary artery of upper [place] heart without angina pectoris (Primary Dx); Benign essential HTN; Mixed hyperlipidemia; Class 2 obesity due to excess calories without serious comorbidity with body mass index (BMI) of 35.0 to 35.9 in adult; Mild intermittent asthma without complication; Acquired hypothyroidism Social History Tobacco Use Types Packs/Day Years Used Date Smoking Tobacco: Never Smokeless Tobacco: Never Alcohol Use Standard Drinks/Week Comments Yes 0 (1 standard drink = 0.6 oz pur e alcohol) occasional [place] Safety & Environment Answer Date Rec orded Fear of Current or Ex-Partner Not on file Emotionally Abused Not on file 10/24/2023 Physically Abused Not on file 10/24/2023 Sexually Abused Not on file 10/24/2023 Physically or Sexually Abused Not on file Comments No Sex and Gender Information Value Date Recorded Sex Assigned at Female 08/29/2024 11:31 AM EST Legal Sex Female 1:37 PM EDT Gender Identity Female 08/29/2024 11:31 AM EST Sexual Orientation Heterosexual or Straight 08/03 11:31 AM EST documented as of this encounter Last Filed Vital Signs Vital Sign Reading Time Taken Comments Blood Pressure 142/88 04/08/2025 1:34 PM EDT Pulse 58 04/08/2025 1:34 PM EDT Temperature - - Respiratory Rate - - Oxygen Saturation 99% 04/08/2025 1:34 PM EDT Inhaled Oxygen Concentration - - Weight 92.5 kg (204 lb) 04/08/2025 1:34 PM EDT Height 162.6 cm (5' 4 ) 04/08/2025 1:34 PM EDT Body Mass Index 35.02 04/08/2025 1:34 PM EDT documented in this encounter Progress Notes * Monica Gonzalez MD - 04/08/2025 1:20 PM EDT Images from the original note were not included. [facility] Note Subjective Mira Santos is a 65 y.o. year old female patient nonobstructive coronary artery disease, obstructive sleep apnea, hyperlipidemia, and hypertension seen in follow-up. Patient used to follow with Dr Rubio. She reports that overall she is feeling better. She admits shortness of breath with exertion as a result of her asthma, in addition she reports that she haschronic sinus drainage. Other than that she denies any chest comfort at rest or with exertion. She denies orthopnea or paroxysmal nocturnal dyspnea or dizziness or palpitations or legs edema. She reports that she has not been checking her blood pressure lately Patient Active Problem List Diagnosis Vitamin D deficiency Obesity SAL (obstructive sleep apnea) Asthma GERD (gastroesophageal reflux disease) Neurogenic syncope HLD (hyperlipidemia) Hypothyroidism Diverticulitis Abnormal stress test Benign essential HTN Coronary artery disease involving upper [place] coronary artery of [place] heart without angina pectoris Abnormal TSH Acute bronchitis due to other specified organisms Diverticulosis of colon Dyslipidemia Dyspareunia in female Encounter for long-term (current) use of medications 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 Seasonal allergic rhinitis due to pollen Acute UTI Medicare annual wellness visit, subsequent Hematuria Postmenopausal bleeding Family History Problem Relation Name Age of Onset Stroke Mother 70 Diabetes Mother Atrial fibrillation Father 70 Other (carotid stenosis) Father Hypertension Father Other (cabg) Brother 59 Diabetes Brother Social History Tobacco Use Smoking status: Never Smokeless tobacco: Never Substance Use Topics Alcohol use: Yes Comment: occasional Drug use: Never HPI 11/28/2022 Mira Santos is a 62 y.o. female [...] She presented to the ED through the [facility] system on 11/02/2022 for evaluation of symptoms. Work-up including ECG and troponin enzymes were negative. She was discharged and recommended follow-up with her PCP Dr. Cm. She subsequently had a stress test on 11/23/2022 which was abnormal showing evidence of stress-induced myocardial ischemia in the LAD territory.She started a baby Aspirin, takes hydrochlorothiazide PRN for hypertension. She has a lump on her back, she is requesting cardiac risk stratification for excision. Cardiology ROS: 10 point ROS is performed and is negative unless otherwise specified in HPI. Objective Visit Vitals BP 142/88 (BP Location: Right arm, Patient Position: Sitting) Pulse 58 Ht 1.626 m (5' 4 ) Wt 92.5 kg (204 lb) SpO2 99% BMI 35.02 kg/m?? OB Status Postmenopausal Smoking Status Never BSA 2.04 m?? Physical Exam General: Awake, alert, good spirits. NAD HEENT: WNL Neck:, No Bruit, jugular venous pressure is normal Pulm: Breath sounds clear to ascultation bilaterally with no wheeze, crackles or rhonchi Cards: Regular rate and rhythm, S1, S2. No S3 or S4 gallop or Murmur Abd: Soft, Nontender, physiologic bowel sounds are present Extr: no Lower extremity edema, no cyanosis or clubbing Skin: warm, dry, well perfused Neuro: A&Ox3, [...] tablet, Rfl: 3 calcium carb/D3/magnesium/zinc (calcium carb-D3-mag [id number]) [phone] kg-xflf-zg-mg tablet,Take by mouth in the morning., Disp: , [...] (0.4 mg) under the tongue every 5 (five)minutes if needed for chest pain. May repeat dose every 5 minutes for up to 3 doses total., Disp: 100 tablet, Rfl: 3 Recent Labs 09/03/2024 WBC 6.4, hemoglobin 13, hematocrit 39, platelets 236 Sodium 145, potassium 3.9, BUN 10, creatinine 0.83 GFR above 60, glucose 91, calcium 9.1 Total bilirubin 0.5, AST 23, ALT 36, alk phos 103, total protein 6.7, albumin 3.5 Triglyceride 126, cholesterol 162, LDL 72, HDL 65 TSH 4.7, free T40.92 Labs 11/30/2022 WBC 5.1, hematocrit 40.2, hemoglobin 13.9, platelets 220 Sodium 142, potassium 3.9, chloride 107, CO2 26.4, creatinine 0.75, GFR greater than 60% Cholesterol 319, HDL 65, triglycerides 207, LDL 212.6 Hemoglobin A1c 5.3 Imaging and other tests EKG 11/28/2022 showed normal sinus rhythm, heart rate 62 bpm, normal EKG Coronary angiography: 12/06/2022 LMCA - This vessel arises from the left coronary cusp and bifurcates into the left anterior descending and left circumflex coronary arteries. It is angiographically patent and without significant stenosis. LAD - There is 20% stenosis in the mid portion and 30% stenosis in the mid portion. Otherwise, the LAD is angiographically patent and without significant stenosis. LCX - Angiographically patent and without significant stenosis. RCA - This arises from the right coronary cusp. It is a dominant vessel giving rise to a PDA and PLB branch. It is angiographically patent and without significant stenosis. Echo 07/05/2023 Assessment/Plan Coronary artery disease: Mild per cardiac catheterization 12/06/2022, clinically stable. On aspirin 81 mg, metoprolol succinate 12.5 mg, and atorvastatin 80 mg. Mixed hyperlipidemia On atorvastatin, well-controlled Essential hypertension Patient is on Toprol 12.5 mg daily. Blood pressure on the high side today Obesity, BMI 35.02 kg/m?? Hypothyroidism, on levothyroxine History of asthma History of chronic sinusitis Plan: Continue aspirin, Toprol-XL, and atorvastatin I asked the patient to check her blood pressure twice daily for 2 weeks and send me the log Check fasting lipids and AST ALT, the goal is to keep LDL cholesterol 70 or below The patient was advised regarding following low-calorie low-carb diet and exercise regimen in orderto lose weight Follow-up in 1 year or sooner if needed Monica Gonzalez MD, [facility] documented in this encounter Plan of Treatment Scheduled Orders Name Type Priority Associated Diagnoses Orde r Schedule Lipid panel Lab Routine Mixed hyperlipidemia Expected: 04/08/2025 (Approximate), Expires: 04/08/2026 ALT Lab Routine Mixed hyperlipidemia Expected: 04/08/2025 (Approximate), Expires: 04/08/2026 AST Lab Routine Mixed hyperlipidemia Expected: 04/08/2025 (Approximate), Expires: 04/08/2026 documented as of this encounter Visit Diagnoses Diagnosis Coronary artery disease involving upper [place] coronary artery of upper [place] heart without angina pectoris- Primary Benign essential HTN Mixed hyperlipidemia Class 2 obesity due to excess calories without serious comorbidity with body mass index (BMI) of 35.0 to 35.9 in adult Mild intermittent asthma without complication Acquired hypothyroidism Unspecified hypothyroidism documented in this encounter Care Teams Association Executive Relationship Specialty Start Date End Date Saurabh Cm MD [address] [place] [address] PCP - General 11/27/22 documented as of this encounter
--- OUTSIDE RECORDS SUMMARY | 2025-04-20 14:21 | XMS_ITS | Clinical Summary ---
Author Organization The [facility] Address [address] [place] [address] Care Team Providers Care Patient Financial Rep Name Role Phone Saurabh Cm MD Primary Care Provider [phone] Allergies Active Allergy Reactions Criticality Noted Date Comments Sulfa (Sulfonamide Antibiotics) Hives Low 01/08/2017 Other reaction(s): Unknown Medications albuterol 90 mcg/actuation inhaler Inhale 2 puffs every 6 (six) hours if needed. Active aspirin 81 mg EC tablet Take 81 mg by mouth in the morning. Active calcium carb/D3/magnesium /zinc (calcium carb-D3-mag [id number]) [phone] ij-havr-vz-mg tablet Take by mouth in the morning. Active cetirizine (ZyrTEC) 10 mg tablet Take 10 mg by mouth if needed each day. Active cholecalciferol (Vitamin D-3) 50 MCG (1999 UT) tablet Take by mouth in the morning. 2 Active fluticasone (Flonase) 50 mcg/actuation nasal spray USE 2 SPRAY(S) IN EACH NOSTRIL ONCE DAILY 2 Active levothyroxine (Synthroid, Levoxyl) 50 mcg tablet Take 88 mcg by mouth in the morning. Active montelukast (Singulair) 10 mg tablet Take 10 mg by mouth in the morning. 2 Active atorvastatin (Lipitor) 80 mg tabletIndications :Coronary artery disease involving [place] coronary artery of [place] heart with unstable angina pectoris (CMS/HCC) Take 1 tablet (80 mg) by mouth in the morning. 30 tablet 3 3 Active nitroglycerin (Nitrostat) 0.4 mg SL tabletIndications :Coronary artery disease involving [place] coronary artery of [place] heart with unstable angina pectoris (CMS/HCC) Place 1 tablet (0.4 mg) under the tongue every 5 (five) minutes if needed for chest pain. May repeat dose every 5 minutes for up to 3 doses total. 100 tablet 3 3 Active Arnuity Ellipta 100 mcg/actuation inhaler Inhale 1 puff in the morning. 4 Active metoprolol succinate XL (Toprol-XL) 25 mg 24 hr tabletIndications :Essential hypertension Take 0.5 tablets (12.5 mg) by mouth in the morning. 30 tablet 11 4 Active Active Problems Problem Noted Date Diagnosed Date Hematuria 01/12/2025 Postmenopausal bleeding 01/12/2025 Acute UTI 09/03/2024 Medicare annual wellness visit, subsequent 09/03 Acute bronchitis due to other specified organism s 01/23/2024 Overview (03/03/2024): Last Assessment & Plan: Take antibiotics for 5 days and will be in system 10-12 days. Use sudafed or other decongestants as needed. Use robitussin or robittussin-DM for cough. Use afrin for congestion but no longer than 3 days. Use mucinex to bring up phlegm. Use motrin or tylenol for fever, aches or pains. Increase fluid intake and rest. Should improve over next 5-7 days and if no better or worse call office. Abnormal TSH 10/05/2023 Diverticulosis of colon 10/04/2023 Dyslipidemia 10/04/2023 Dyspareunia in female 10/04/2023 Overview (03/03/2024): Last Assessment & Plan: Pain with intercourse and add premarin. Encounter for long-term (current) use of medicat ions 10/04/2023 Mild intermittent intrinsic asthma without compl ication 10/04/2023 Overview (03/03/2024): Last Assessment & Plan: Symptoms controlled with inhaled steroid and continue. Use albuterol PRN. Seasonal allergic rhinitis due to pollen 024 Overview (03/03/2024): Last Assessment & Plan: Symptoms controlled with medication and continue. Benign essential HTN 09/09/2023 Assessment & Plan (09/09/2023 2:20 PM EST): Hypertension is typically well controlled at home with b/p typically 120-126/70-80 Continue Toprol 12.5 mg daily Coronary artery disease invo lving lower [place] coronary artery of [place] heart without angina pectoris 09/09/2023 Assessment & Plan (09/09/2023 4:16 PM EST): Coronary artery disease is stable without concerning symptoms Continue GDMT- continue ASA, resume lipitor and continue toprol daily. continue risk factor modifications- heart healthy diet, regular exercise as tolerated and continue all medications. Vitamin D deficiency 11/28/2022 Obesity 11/28/2022 SAL (obstructive sleep apnea) 11/28/2022 Asthma 11/28/2022 GERD (gastroesophageal reflux disease) Neurogenic syncope 11/28/2022 Assessment & Plan (09/09/2023 4:16 PM EST): Stable, no syncope since last visit HLD (hyperlipidemia) 11/28/2022 Assessment & Plan (09/09/2023 4:15 PM EST): Lipid abnormalities are Uncontrolled although she has not been taking lipitor as prescribed. Therefore, reviewed lipid levels and goals for Chol and LDL in light of CAD and strongly recommended her to take statin daily in the evening- she is agreeable to this r/t concern for worsening CAD/stenosis withoiut adequate lipid management Repeat LFT and lipid level in 2-3 months Hypothyroidism 11/28/2022 Diverticulitis 11/28/2022 Abnormal stress test 11/28/2022 Overview (11/28/2022): Added automatically from request for surgery [id number] Resolved Problems Problem Noted Date Diagnosed Date Resolved Date Benign hypertensive heart di sease without congestive heart failure 11/28/2022 09/09/2023 Assessment & Plan (09/09/2023 2:18 PM EST): B/P today 142/ 84- uncontrolled Continue toprol 12.5 mg daily Typically b/p at home is 120-126/70-80 And well controlled Encounters Date Type Department Care Team Description 04/08/2025 1:20 PM EDT Office Visit [facility] [address] [place] [address] Monica Gonzalez MD Coronary artery disease involving [place] coronary artery of [place] heart without angina pectoris (Primary Dx); Benign essential HTN; Mixed hyperlipidemia; Class 2 obesity due to excess calories without serious comorbidity with body mass index (BMI) of 35.0 to 35.9 in adult; Mild intermittent asthma without complication; Acquired hypothyroidism from Last 3 Months Family History Medical History Relation Name Comments Diabetes Brother cabg Brother Atrial fibrillation Father Hypertension Father carotid stenosis Father Diabetes Mother Stroke Mother Relation Name Status Comments Brother Father Mother Social History Tobacco Use Types Packs/Day Years Used Date Smoking Tobacco: Never Smokeless Tobacco: Never Tobacco Cessation:Counseling Given: Not Answered Alcohol Use Standard Drinks/Week Comments Yes 0 [...] Heterosexual or Straight 08/03 11:31 AM EST Last Filed Vital Signs Vital Sign Reading Time Taken Comments Blood Pressure 142/88 04/08/2025 1:34 PM EDT Pulse 58 04/08/2025 1:34 PM EDT Temperature - - Respiratory Rate 16 12/06/2022 11:15 AM EDT Oxygen Saturation 99% 04/08/2025 1:34 PM EDT Inhaled Oxygen Concentration - - Weight 92.5 kg (204 lb) 04/08/2025 1:34 PM EDT Height 162.6 cm (5' 4 ) 04/08/2025 1:34 PM EDT Body Mass Index 35.02 04/08/2025 1:34 PM EDT Plan of Treatment Health Maintenance Due Date Last Done Comments CT Colonography 1958 FIT-DNA 1958 FIT 1958 FOBT 1960 Medicare Annual Wellness (AWV) 1960 Sigmoidoscopy 1958 Depression Screening 1970 Pneumococcal Vaccine: 50+ Years (1 of 2 - PCV) 1977 Zoster Vaccines (1 of 2) 02/04/2008 Fall Risk Screening 2023 COVID-19 Vaccine ( season) 2024 05/29/2024, 04/12/2021, 03/15/2021 Influenza Vaccine (#1) 2025 , 06/28/2021, 09/08/2020, Additional history exists Mammogram 04/09/2026 04/09/2024, 04/08/2023 Adult Tetanus 04/20/2029 04/20/2019 Colonoscopy 09/20/2032 09/20/2022, 09/20/2022 Colorectal Cancer Screening 09/20/2032 HIB Vaccines Aged Out No longer eligi ble based on patient's age to complete this topic HPV Vaccines Aged Out No longer eligi ble based on patient's age to complete this topic IPV Vaccines Aged Out No longer eligi ble based on patient's age to complete this topic Meningococcal B Vaccine Aged Out No l onger eligible based on patient's age to complete this topic Meningococcal Vaccine Aged Out No wei roxy eligible based on patient's age to complete this topic Rotavirus Vaccines Aged Out No longer eligible based on patient's age to complete this topic Insurance [employer] Care Teams Patient Financial Rep Relationship Specialty Start Date End Date Saurabh Cm MD [address] [place] [address] PCP - General 11/27/22
--- OUTSIDE RECORDS SUMMARY | 2025-04-20 14:21 | XMS_ITS | Clinical Summary ---
Author Organization [facility] Address [address] [place] [address] Care Team Providers Care Wet Machine Tender Name Role Phone Saurabh Purcell MD Primary Care Provider [phone] Clovis Bolanos MA Unavailable [phone] Saurabh Purcell MD Unavailable Allergies Active Allergy Reactions Criticality Noted Date Comments Sulfa Antibiotics Hives,Rash Low 12/31/1989 Other reaction(s): Unknown Medications metoprolol succinate XL (Toprol-XL) 25 MG 24 hr tablet Take 25 mg by mouth in the morning. Active Cholecalciferol (Vitamin D) 50 MCG (1999) capsule Take 1 capsule by mouth 1 (one) time each day at the same time Active aspirin 81 MG EC tablet Take 81 mg by mouth in the morning. Active magnesium oxide (Mag-Ox) 400 mg tablet Take 400 mg by mouth Daily Active albuterol HFA 90 mcg/act inhalerIndications :Mild intermittent asthma, unspecified whether complicated (HCC) Inhale 2 puffs every 4 (four) hours if needed for wheezing 18 g 2 4 025 Active atorvastatin (Lipitor) 80 MG tabletIndications: Dyslipidemia TAKE 1 TABLET BY MOUTH AT BEDTIME 30 tablet 5 Active levothyroxine (Synthroid, Levoxyl) 88 MCG tabletIndications: Acquired hypothyroidism Take 1 tablet by mouth once daily 30 tablet 5 Active fluticasone (Flonase) 50 MCG/ACT nasal sprayIndications:S easonal allergic rhinitis due to pollen Administer 2 sprays into each nostril Daily 16 g 3 5 Active Arnuity Ellipta 100 MCG/ACT inhalerIndications :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 (HCC) INHALE 1 PUFF DAILY AND RINSE WITH WATER AFTER USE TO REDUCE AFTERTASTE AND INCIDENCE OF CANDIDASIS. DO NOT SWALLOW. 30 each 5 Active montelukast (Singulair) 10 MG tabletIndications: Seasonal allergic rhinitis due to pollen TAKE 1 TABLET BY MOUTH AT BEDTIME 30 tablet 5 Active Active Problems Problem Noted Date Diagnosed Date Hematuria 01/12/2025 Assessment & Plan (01/12/2025 12:10 PM EDT): C/o blood in urine but UA normal. Check culture. Increase fluids. Check US kidneys. If symptoms persist will need to see urology. Postmenopausal bleeding 01/12/2025 Assessment & Plan (01/12/2025 12:10 PM EDT): C/o vaginal bleeding and check pelvic US. Medicare annual wellness visit, subsequent 09/03 Assessment & Plan (09/03/2024 3:21 PM EST): Due for labs. Discussed proper diet and regular aerobic exercise. Need aerobic exercise 5-6 days a week for 30 minutes at a time. Smaller portions and limit total calories. Colonoscopy every 10 years. Tetanus every 10 years. Advised not to smoke. Discussed daily Aspirin therapy. 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 Use albuterol PRN. Assessment & Plan (10/04/2023 10:59 AM EST): Increased SOB and add flovent. Vitamin D deficiency 10/04/2023 Seasonal allergic rhinitis due to pollen 024 Assessment & Plan (01/23/2024 9:55 AM EDT): Symptoms controlled with medication and continue. Assessment & Plan (10/04/2023 11:00 AM EST): Symptoms controlled with medication and continue. Benign essential hypertension 10/04/2023 Assessment & Plan (09/03/2024 3:20 PM EST): BP elevated but previously controlled and monitor PRN. Assessment & Plan (01/23/2024 9:54 AM EDT): BP controlled and monitor PRN. Assessment & Plan (10/04/2023 10:59 AM EST): BP controlled and monitor PRN. Encounter for long-term (current) use of medicat ions 10/04/2023 Coronary artery disease invo lving [place] coronary artery of [place] heart without angina pectoris 09/09/2023 Overview (10/04/2023): Last Assessment & Plan: Coronary artery disease is stable without concerning symptoms Continue GDMT- continue ASA, resume lipitor and continue toprol daily. continue risk factor modifications- heart healthy diet, regular exercise as tolerated and continue all medications. Assessment & Plan (10/04/2023 10:59 AM EST): No pain and continue medication. Follow up with cardiology. Resolved Problems Problem Noted Date Diagnosed Date Resolved Date Acute UTI 09/03/2024 01/12/2025 Assessment & Plan (09/03/2024 3:20 PM EST): History suggestive of UTI and treat. Take cipro for infection. Increase water intake and cranberry juice. Use motrin or tylenol for discomfort. Acute bronchitis due to othe r specified organisms 01/23/2024 09/03/2024 Assessment & Plan (01/23/2024 9:54 AM EDT): Take antibiotics for 5 days and will [...] or worse call office. Abnormal TSH 10/05/2023 09/03/2024 Chronic pain of both knees 10/04/2023 0 01/23/2024 Gastroesophageal reflux disease 10/04/2023 09/03/2024 Mixed hyperlipidemia 10/04/2023 024 SAL (obstructive sleep apnea) 10/04/2023 01/23/2024 Assessment & Plan (10/04/2023 11:00 AM EST): Not using CPAP and need to use nightly. Dyspareunia in female 10/04/20232024 Assessment & Plan (10/04/2023 10:59 AM EST): Pain with intercourse and add premarin. Encounters Date Type Department Care Team Description 04/02/2025 Patient Outreach [facility] [address] [place] [address] Clovis Bolanos MA 03/29/2025 Travel 03/11/2025 [facility]ill [facility] [address] [place] [address] Saurabh Purcell MD Seasonal allergic rhinitis due to pollen 02/25/2025 Travel 02/15/2025 Patient Outreach [facility] [address] [place] [address] Clovis Bolanos MA 02/06/[address] [facility] [address] [place] [address] Saurabh Purcell MD 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 (HCC) 01/20/[address] [facility] [facility] [address] [place] [address] Saurabh Purcell MD Seasonal allergic rhinitis due to pollen 01/19/2025 Results Follow-Up [facility] [address] [place] [address] Saurabh Purcell MD US PELVIS W/ TRANSVAGINAL 01/19/2025 Clinisync Result Encounter [facility] External Department Unsolicited Saurabh Purcell MD 01/19/2025 Clinisync Result Encounter [facility] External Department Unsolicited Saurabh Purcell MD from Last 3 Months Immunizations Immunization Administration Dates Next Due Hep B, adult 01/03/2012,08/09/2011,06/28/2011 Influenza, injectable, quadrivalent 08/16/2017,1 Influenza, injectable, quadr ivalent, preservative free 06/28/2021,09/08/2020,06/13/2016 Influenza, recombinant, quad rivalent, injectable, preservative free 06/23/2020,05/23/2019 MMR 10/14/2017 Tdap 04/20/2019 Family History Medical History Relation Name Comments Diabetes Brother Joaquim Schwartz Heart disease Brother Joaquim Schwartz Hypertension Brother Joaquim Schwartz Heart disease Father Diabetes Mother Jewell Schwartz Ovarian cancer Mother Jewell Schwartz Stroke Mother Jewell Schwartz Relation Name Status Comments Brother Joaquim Schwartz Father Mother Jewell Schwartz Social History Tobacco Use Types Packs/Day Years Used Date Smoking Tobacco: Never Smokeless Tobacco: Never Tobacco Cessation:Counseling Given: Not Answered Alcohol Use Standard Drinks/Week Comments Yes 0 (1 standard drink = 0.6 oz pure alcohol) Occasional, Caffeine intake: 1-2 cups per day B1300 Health Literacy Answer Date Recor ded How often do you need to hav e someone help you when you read instructions, pamphlets, or other written material from your doctor or pharmacy? Never 03/29/2025 Humiliation, Afraid, Rape, and Kick questionnair e Answer Date Recorded Within the last year, have y ou been afraid of your partner or ex-partner? No 03/29/2025 Within the last year, have y ou been humiliated or emotionally abused in other ways by your partner or ex-partner? No Within the last year, have y ou been kicked, hit, slapped, or otherwise physically hurt by your partner or ex-partner? No 03/29/2025 Within the last year, have y ou been raped or forced to have any kind of sexual activity by your partner or ex-partner? No 03/29/2025 Social Connection and Isolat ion Panel [NHANES] Answer Date Recorded In a typical week, how many times do you talk on the phone with family, friends, or neighbors? More than three times a week 03/29/2025 How often do you get togethe r with friends or relatives? Three times a week 03/29/2025 How often do you attend chur ch or protestant services? 1 to 4 times per year 03/29/2025 Do you belong to any clubs o r organizations such as druze groups, unions, fraternal or athletic groups, or school groups? Yes 03/29/2025 How often do you attend meet ings of the clubs or organizations you belong to? 1 to 4 times per year 03/29/2025 Are you , , di vorced, , never , or living with a partner? 03/29/2025 AUDIT-C Answer Date Recorded Q1: How often do you have a drink containing alcohol? Never 03/29/2025 Q2: How many drinks containi ng alcohol do you have on a typical day when you are drinking? Patient does not drink Q3: How often do you have si x or more drinks on one occasion? Never 03/29/2025 Overall Financial Resource Strain (CARDIA) Answe r Date Recorded How hard is it for you to pa y for the very basics like food, housing, medical care, and heating? Not hard at all 03/29/2025 PHQ-2 Answer Date Recorded Patient Health Questionnaire-2 Score 1 09/03/2024 [facility] - Occupational Stress Questionnaire Answer Date Recorded Do you feel stress - tense, restless, nervous, or anxious, or unable to sleep at night because your mind is troubled all the time - these days? Not at all 02/25/2025 Exercise Vital Sign Answer Date Recorde d On average, how many days pe r week do you engage in moderate to strenuous exercise (like a brisk walk)? 3 days 03/29/2025 On average, how many minutes do you engage in exercise at this level? 40 min 03/29/2025 Hunger Vital Sign Answer Date Recorded Within the past 12 months, y ou worried that your food would run out before you got the money to buy more. Never true 03/29/20 25 Within the past 12 months, t he food you bought just didn't last and you didn't have money to get more. Never true 03/29/2025 PRAPARE - Transportation Answer Date Re corded In the past 12 months, has l ack of transportation kept you from medical appointments or from getting medications? No 03/03 In the past 12 months, has l ack of transportation kept you from meetings, work, or from getting things needed for daily living? No 03/29/2025 Housing Stability Vital Sign Answer Colton e Recorded In the last 12 months, was t here a time when you were not able to pay the mortgage or rent on time? No 09/27/2023 In the last 12 months, how many places have you lived? 1 09/27/2023 In the last 12 months, was t here a time when you did not have a steady place to sleep or slept in a [facility] (including now)? No 09/27/2023 Housing Stability Vital Sign Answer [place] e Recorded In the last 12 months, was t here a time when you were not able to pay the mortgage or rent on time? No 03/29/2025 In the past 12 months, how m any times have you moved where you were living? 0 03/29/2025 At any time in the past [address] [facility], were you homeless or living in a m[facility]p (including now)? No 03/29/2025 Comments Unknown Sex and Gender Information Value Date Recorded Sex Assigned at Not on file Legal Sex Female 7:34 PM EDT Gender Identity Not on file Sexual Orientation Not on file Last Filed Vital Signs Vital Sign Reading Time Taken Comments Blood Pressure 154/80 01/12/2025 11:45 AM EDT Pulse 72 01/12/2025 11:45 AM EDT Temperature 36.3 C (97.3 F) 01/12/2025 11:45 AM EDT Respiratory Rate 22 01/12/2025 11:45 AM EDT Oxygen Saturation 97% 01/12/2025 11:45 AM EDT Inhaled Oxygen Concentration - - Weight 95.3 kg (210 lb) 01/12/2025 11:45 AM EDT Height 165.1 cm (5' 5 ) 01/12/2025 11:45 AM EDT Body Mass Index 34.95 01/12/2025 11:45 AM EDT Plan of Treatment Upcoming Encounters Date Type Department Care Team (Late st Contact Info) Description 05/06/2025 11:30 AM EDT Office Visit [facility] [address] [place] [address] Saurabh Purcell MD [address] [place] [id number] Health Maintenance Due Date Last Done Comments CT Colonography 1960 FIT-DNA 1960 FIT 1960 FOBT 1960 Sigmoidoscopy 1960 Pneumococcal Vaccine: 65+ Ye ars (1 of 2 - PCV) 1977 Mammogram 04/09/2025 04/09/2024, 08/0 03/2023, 09/05/2020 Influenza Vaccine (#1) 2025 , 06/28/2021, 09/08/2020, Additional history exists Medicare Annual Wellness (AWV) 09/03/2025 09/03/2024 Colonoscopy 09/20/2032 09/20/2022, 09/19/2022 Colorectal Cancer Screening 09/20/2032 Procedures Procedure Name Priority Date/Time Associated Diagnosis Comments US PELVIS W/ TRANSVAGINAL 01/19/2025 9:56 AM EDT US RENAL BI 01/19/2025 9:31 AM EDT BI MAMMOGRAM SCREENING TOMOSYNTHESIS BILATERAL Routine 04/09/2024 11:12 AM EDT Breast cancer screening by mammogram from Last 3 Months or Most Recently Relevant to Health Maintenance Results * US PELVIS W/ TRANSVAGINAL (01/19/2025 9:56 AM EDT) Anatomical Region Laterality Modality Other 01/19/2025 9:56 AM EDT Narrative 01/19/2025 9:59 AM EDT The [place] [id number] Ultrasound Report Signed Patient: ANITA SNELL MR#: [id number] : 1960 Acct:[id number] Age/Sex: 64 / F ADM Date: 01/19/25 Loc: US Attending Dr: Saurabh Purcell M.D. Ordering Physician: Saurabh Purcell M.D. Date of Service: 01/19/25 Procedure(s): US pelvis w/ transvaginal Accession Number(s): [id number] cc: Saurabh Purcell M.D. [place] [id number] Patient Name: ANITA SNELL MRN: [id number] date: 1960 Sex: F Assigned Patient Location: Current Patient Location: US Accession/Order Number: [id number] Exam Date: 01/19/2025 09:52 Report Date: 01/19/2025 09:56 At the request of: SAURABH PURCELL MD Procedure: US pelvis w/ transvaginal EXAMINATION TYPE: US pelvis w/ transvaginal Grayscale, color scale Doppler, vascular duplex analysis of the bilateral ovaries DATE OF EXAM ORDERED: 01/19/2025 8:48 AM HISTORY: Post menopausal bleeding, N95.0, COMPARISON: NONE TECHNIQUE: Realtime Transvaginal and Transabdominal imaging was performed. Transvaginal imaging was utilized to better evaluate the ovaries and the endometrial stripe. Grayscale, color scale Doppler, vascular duplex analysis of the bilateral ovaries was performed to assess blood flow. FINDINGS: The uterus measures 9.1 x 3.9 x 5.7 cm. There is a hypoechoic vascular structure within the lower uterine segment measuring 1.9 x 1.6 x 1.3 cm in greatest dimension. This is of uncertain etiology. This may represent a uterine fibroid. Endometrium: Normal thickness and appearance. Ovaries: The ovaries are not well visualized. No abnormal adnexal mass is seen. No free fluid in the pelvic cul-de-sac. US/US pelvis w/ transvaginal IMPRESSION: There is a hypoechoic vascular structure within the lower uterine segment measuring 1.9 x 1.6 x 1.3 cm in greatest dimension. This is of uncertain etiology. This may represent a uterine fibroid. The ovaries are not well visualized. No adnexal mass. Impression dictated by: Aayush Floyd M.D. 01/19/2025 9:56 AM Dictation Location: [place] [address] Electronically authenticated by: [id number] Y Date: 01/19/2025 09:56 Dictated By: Aayush Floyd M.D. Signed By: 01/19/2559 DD/ 5 TD/TT: Wood Form Builder: Procedure Note Radiology, Radiologist, MD - 01/19/2025 [place] [address] Ultrasound Report Signed Patient: ANITA SNELL R#: [id number] : 1960cct:[id number] Age/Sex: 64 / FADM Date: 01/19/25 Loc: US Attending Dr: Saurabh Purcell M.D. Ordering Physician: Saurabh Purcell M.D. Date of Service: 01/19/25 Procedure(s): US pelvis w/ transvaginal Accession Number(s): [id number] cc: Saurabh Purcell M.D. The [place] [id number] Patient Name: ANITA SNELL MRN: [id number] date: 1960 Sex: F Assigned Patient Location: US Current Patient Location: US Accession/Order Number: [id number] Exam Date: 01/19/2025 09:52 Report Date: 01/19/2025 09:56 At the request of: SAURABH PURCELL MD Procedure: US pelvis w/ transvaginal EXAMINATION TYPE: US pelvis w/ transvaginal Grayscale, color scaleDoppler, vascular duplex analysis of the bilateral ovaries DATE OF EXAM ORDERED: 01/19/2025 8:48 AM HISTORY: Post menopausal bleeding, N95.0, COMPARISON: NONE TECHNIQUE: Realtime Transvaginal and Transabdominal imaging was performed. Transvaginal imaging was utilized to better evaluate the ovaries and the endometrial stripe. Grayscale, color scale Doppler, vascular duplexanalysis of the bilateral ovaries was performed to assess blood flow. FINDINGS: The uterus measures 9.1 x 3.9 x 5.7 cm. There is a hypoechoic vascular structure within the lower uterine segment measuring 1.9 x 1.6 x 1.3 cm in greatest dimension. This is of uncertain etiology. This may represent a uterine fibroid. Endometrium: Normal thickness and appearance. Ovaries: The ovaries are not well visualized. No abnormal adnexal mass is seen. No free fluid in the pelvic cul-de-sac. US/US pelvis w/ transvaginal IMPRESSION: There is a hypoechoic vascular structure within the lower uterine segment measuring 1.9 x 1.6 x 1.3 cm in greatest dimension. This is of uncertain etiology. This may represent a uterine fibroid. The ovaries are not well visualized. No adnexal mass. Impression dictated by: Aayush Floyd M.D. 01/19/2025 9:56 AM Dictation Location: [place] [address] Electronically authenticated by: [id number] Y Date: 509:56 Dictated By: Aayush Floyd M.D. Signed By:01/19/25 0959 DD/ 0956 TD/TT: Wood Form Builder: us Saurabh Purcell MD [facility] Final Result * US RENAL BI (01/19/2025 9:31 AM EDT) Anatomical Region Laterality Modality Other 01/19/2025 9:31 AM EDT Narrative 01/19/2025 9:33 AM EDT The [address] [address] Ultrasound Report Signed Patient: ANITA SNELL MR#: [id number] : 1960 Acct:[id number] Age/Sex: 64 / F ADM Date: 01/19/25 Loc: Attending Dr: Saurabh Purcell M.D. Ordering Physician: Saurabh Purcell M.D. Date of Service: 01/19/25 Procedure(s): US renal BI Accession Number(s): [id number] cc: Saurabh Purcell M.D. The [place] [address] Patient Name: ANITA SNELL MRN: [id number]:[id number] date: 1960 Sex: F Assigned Patient Location: Current Patient Location: US Accession/Order Number: [id number] Exam Date: 01/19/2025 09:28 Report Date: 01/19/2025 09:31 At the request of: SAURABH PURCELL MD Procedure: US renal BI US renal BI 01/19/2025 8:48 AM SIGNS AND SYMPTOMS: Hematuria, R31.9 COMPARISON: None. FINDINGS: Right kidney measures 9.5 x 5.0 x 6.5 cm . The right renal cortex measures 1.2 cm in thickness. No hydronephrosis or mass. Left kidney measures 9.9 x 5.7 x 4.4 cm . The left renal cortex measures 1.9 cm in thickness. There is no hydronephrosis or mass. The urinary bladder is morphologically normal. No free fluid is seen in the pelvis. Before voiding, the bladder measures 11.7 x 6.2 x 10.6 cm , which corresponds to an estimated volume of 534 mL . US/US renal BI IMPRESSION: No hydronephrosis or mass. Impression dictated by: Aayush Floyd M.D. 01/19/2025 9:31 AM Dictation Location: [place] [address] Electronically authenticated by: [id number] Y Date: 01/19/2025 09:31 Dictated By: Aayush Floyd M.D. Signed By: 01/19/25 0933 DD/ 0 TD/TT: Wood Form Builder: Procedure Note Radiology, Radiologist, - 01/19/2025 [place] [address] Ultrasound Report Signed Patient: ANITA SNELL JMR#: [id number] : 1960cct:[id number] Age/Sex: 64 / FADM Date: 01/19/25 Loc: US Attending Dr: Saurabh Purcell M.D. Ordering Physician: Saurabh Purcell M.D. Date of Service: 01/19/25 Procedure(s): US renal BI Accession Number(s): [id number] cc: Saurabh Purcell M.D. [place] [address] Patient Name: ANITA SNELL MRN: [id number] date: 1960 Sex: F Assigned Patient Location: US Current Patient Location: US Accession/Order Number: [id number] Exam Date: 01/19/2025 09:28 Report Date: 01/19/2025 09:31 At the request of: SAURABH PURCELL MD Procedure: US renal BI US renal BI 01/19/2025 8:48 AM SIGNS AND SYMPTOMS: Hematuria, R31.9 COMPARISON: None. FINDINGS: Right kidney measures 9.5 x 5.0 x 6.5 cm . The right renal cortex measures1.2 cm in thickness. No hydronephrosis or mass. Left kidney measures 9.9 x 5.7 x 4.4 cm . The left renal cortex measures1.9 cm in thickness. There is no hydronephrosis or mass. The urinary bladder is morphologically normal. No free fluid is seen inthe pelvis. Before voiding, the bladder measures 11.7 x 6.2 x 10.6 cm , whichcorresponds to an estimated volume of 534 mL . US/US renal BI IMPRESSION: No hydronephrosis or mass. Impression dictated by: Aayush Floyd M.D. 01/19/2025 9:31 AM Dictation Location: [place] [address] Electronically authenticated by: [id number] Y Date: 9:31 Dictated By: Aayush Floyd M.D. Signed By:01/19/2533 DD/ 0 TD/TT: Wood Form Builder: Saurabh Purcell MD [facility] Final Result * Bilateral screening mammogram with tomosynthesis (04/09/2024 11:12 AM EDT) Anatomical Region Laterality Modality Breast Bilateral Mammography 04/09/2024 1:14 PM EDT Impressions 04/09/2024 2:10 PM EDT BIRADS 2 - Benign Follow-up: Routine Screening Mamm Board Certified Radiologists. Accredited by the ACR and FDA. MAMMOGRAPHY IS VERY IMPORTANT TO YOUR HEALTH. THE [employer] GUIDELINES RECOMMEND THAT WOMEN 40 [...] BY: ELECTRONICALLY SIGNED BY: Ham Atwood MD Narrative 04/09/2024 2:10 PM EDT EXAMINATION: BI MAMMOGRAM SCREENING TOMOSYNTHESIS BILATERAL CLINICAL HISTORY:Screening COMPARISON: April 08, 2023 . RESULT: Density: There are scattered areas of fibroglandular density There is no suspicious mass, asymmetry, architectural distortion, or calcification. Typically benign calcifications. Overall appearance stable. Procedure Note Ham Atwood MD - 04/09/2024 EXAMINATION: BI MAMMOGRAM SCREENING TOMOSYNTHESIS BILATERAL CLINICAL HISTORY:Screening COMPARISON: April 08, 2023 . RESULT: Density: There are scattered areas of fibroglandular density There is no suspicious mass, asymmetry, architectural distortion, orcalcification. Typically benign calcifications. Overall appearancestable. IMPRESSION: BIRADS 2 - Benign Follow-up: Routine Screening Mamm Board Certified Radiologists. Accredited by the ACR and FDA. MAMMOGRAPHY IS VERY IMPORTANT TO YOUR HEALTH. THE [employer] SOCIETYGUIDELINES RECOMMEND THAT WOMEN 40 YEARS OF AGE AND OLDER SHOULD HAVE AMAMMOGRAM EVERY YEAR. A REMINDER LETTER WILL BE SENT AT THE APPROPRIATE TIME. THIS FACILITYUTILIZES A REMINDER SYSTEM TO ENSURE ALL PATIENTS RECEIVE REMINDERNOTIFICATIONS AT THE APPROPRIATE TIME BASED ON THE RECOMMENDATIONS OF THISEXAM. THIS INCLUDES REMINDERS FOR ROUTINE SCREENING MAMMOGRAMS, DIAGNOSTICMAMMOGRAMS IN WHICH THE PATIENT IS ASKED TO RETURN FOR ADDITIONAL VIEWS,OR OTHER BREAST IMAGING INTERVENTIONS WHEN APPROPRIATE. THE PATIENT WILLBE PLACED IN THE APPROPRIATE REMINDER SYSTEM INCLUDING A REMINDER AT THEAPPROPRIATE TIME FOR ANY PENDING ADDITIONAL VIEWS. TRANSCRIBED BY: ELECTRONICALLY SIGNED BY: Ham Atwood MD Saurabh Purcell MD IMG BI PROCEDURES Final Result from Last 3 Months or Most Recently Relevant to Health Maintenance Insurance [employer] Care Teams Wet Machine Tender Relationship Specialty Start Date End Date Saurabh Purcell MD [address] [place] [id number] PCP - General Family Medicine 10/04/23 Saurabh Purcell MD [address] [place] [id number] PCP - Ricardo MCCABE 12/01/24 Clovis Bolanos MA [address] [place] [address] Family Medicine 07/07/24
--- OUTSIDE RECORDS SUMMARY | 2025-04-20 14:21 | XMS_ITS | Clinical Summary ---
Author Organization [facility] Address [id number] [place] [address] Care Team Providers [employer] Truck Driver Name Role Phone Saurabh Cm MD Primary Care Provider [phone] Allergies Active Allergy Reactions Criticality Noted Date Comments Sulfa (Sulfonamide Antibiotics) Hives 05/2017 Medications levothyroxine (SYNTHROID, LEVOTHROID) 50 MCG tablet Take 88 mcg by mouth daily. Active albuterol (PROVENTIL HFA;VENTOLIN HFA) 90 mcg/actuation inhaler Inhale 2 puffs every 6 (six) hours as needed for wheezing. Active montelukast (SINGULAIR) 10 mg tablet Take 1 tablet (10 mg total) by mouth in the morning. 06/17/2022 Active cetirizine (ZyrTEC) 10 mg tablet Take 1 tablet (10 mg total) by mouth as needed. Active MULTIVITAMIN ORAL Take by mouth daily. Active calcium carb/D3/magnesi um/zinc (calcium carb-D3-mag gsm82-iyii) [phone] qg-upul-cp-mg tablet Take by mouth daily. Active aspirin 81 mg Take 1 tablet (81 mg total) by mouth in the morning. Active hydroCHLOROthia zide (HYDRODIURIL) 25 mg tablet Take 0.5 tablets (12.5 mg total) by mouth as needed. Only if blood pressure is elevated Active B-complex with vitamin C tablet Take 1 tablet by mouth in the morning. Active Active Problems No known active problems Immunizations Immunization Administration Dates Next Due Tdap 04/20/2019 Family History Medical History Relation Name Comments Heart disease Father Joaquim Schwartz Sr Problems with heart when older Clotting disorder Mother Jewell Schwartz Always nee ded more platelets for surgery. Diabetes Mother Jewell Schwartz When she was ol avani she became diabetic Ovarian cancer Mother Jewell Schwartz Not sure why she got this. Stroke Mother Jewell Schwartz It was only a s mall one. Breast cancer Neg Hx Relation Name Status Comments Father Joaquim Schwartz Sr Mother Jewell Schwartz Social History Tobacco Use Types Packs/Day Years Used Date Smoking Tobacco: Never Smokeless Tobacco: Never Tobacco Cessation:Counseling Given: Not Answered Alcohol Use Standard Drinks/Week Comments Yes 0 (1 standard drink = 0.6 oz pur e alcohol) socially Childcare Answer Date Recorded Childcare Unknown 02/11/2019 Employment Answer Date Recorded Employment Unknown 02/11/2019 Hunger Screening Answer Date Recorded Within the past 12 months we worried whether our food would run out before we got money to buy more. Never True 11/21/2022 Within the past 12 months th e food we bought just didn't last and we didn't have money to get more. Never True 11/21/2022 Purpose - Life Answer Date Recorded Purpose and direction in life Unknown Comments No Sex and Gender Information Value Date Recorded Sex Assigned at Not on file Legal Sex Female 11:45 AM EDT Gender Identity Not on file Sexual Orientation Not on file Last Filed Vital Signs Vital Sign Reading Time Taken Comments Blood Pressure 146/85 11/21/2022 2:12 PM EDT Pulse 70 11/21/2022 2:12 PM EDT Temperature 36.6 C (97.9 F) 11/02/2022 9:16 AM EST Respiratory Rate 18 11/02/2022 9:16 AM EST Oxygen Saturation 95% 11/02/2022 9:16 AM EST Inhaled Oxygen Concentration - - Weight 89.8 kg (198 lb) 11/27/2022 11:34 AM EDT Height 165.1 cm (5' 5 ) 11/27/2022 11:34 AM EDT Body Mass Index 32.95 11/27/2022 11:34 AM EDT Plan of Treatment Health Maintenance Due Date Last Done Comments Depression Screening 1970 Tobacco Screening 1970 Zoster (Shingles) Vaccine (1 of 2) 02/04/2008 Fall Risk Screening 2023 Adult BMI Screening 11/28/2023 11/27/2022 COVID-19 Vaccine (4 - 2023-2 5 season) 2024 05/29/2024, 04/12/2021, 03/15/2021 Influenza Vaccine 05/03/2025 05/29/2024, , 09/08/2020, Additional history exists DTaP,Tdap and Td Vaccines (2 - Td or Tdap) 04/20/2029 04/20/2019 Colonoscopy 09/20/2032 09/20/2022, 09/02, 08/01/2012 Medical Devices Not on file Procedures Procedure Name Priority Date/Time Associated Diagnosis Comments COLONOSCOPY 09/20/2022 8:10 AM EST from Last 3 Months or Most Recently Relevant to Health Maintenance Results * Colonoscopy (09/20/2022 8:10 AM EST) 09/20/2022 8:10 AM EST Narrative PM CARDIOVASCULAR - 09/20/2022 8:41 AM EST [facility] Patient Name: Mira Santos Procedure Date No Time: 09/20/2022 CSN : [id number] Date of : 1960 Admit Type: Outpatient Age: 62 Room: [place] [address] Gender: Female Note Status: Finalized Attending MD: Thanh Arriaga DO Procedure: Colonoscopy Indications: Screening for colorectal malignant neoplasm Providers: Thanh Arriaga DO Referring MD: Thanh Arriaga DO Medicines: Propofol per Anesthesia Complications: No immediate complications. Procedure: After I obtained informed consent, the scope was passed under direct vision. Throughout the procedure, the patient's blood pressure, pulse, and oxygen saturations were monitored continuously. The [facility] [id number] #[id number] ADULT COLONOSCOPE was introduced through the anus and advanced to the cecum, identified by the appendiceal orifice, ileocecal valve and palpation. The colonoscopy was performed with ease. The patient tolerated the procedure well. The quality of the bowel preparation was good. Findings: The perianal and digital rectal examinations were normal. Many small-mouthed diverticula were found in the sigmoid colon. Multiple small [Extent] angioectasias without bleeding were found in the sigmoid colon. Estimated Blood Loss: Estimated blood loss: none. Impression: - Diverticulosis in the sigmoid colon. - Multiple non-bleeding colonic angioectasias. - No specimens collected. Recommendation: - Discharge patient to home. - Patient has a contact number available for emergencies. The signs and symptoms of potential delayed complications were discussed with the patient. Return to normal activities tomorrow. Written discharge instructions were provided to the patient. - Patient has a contact number available for emergencies. The signs and symptoms of potential delayed complications were discussed with the patient. Return to normal activities tomorrow. Written discharge instructions were provided to the patient. - High fiber diet for the rest of the patient's life. - Repeat colonoscopy in 10 years for screening purposes. - Return to my office PRN. Procedure Code(s): --- Professional --- G0121, Colorectal cancer screening; colonoscopy on individual not meeting criteria for high risk Diagnosis Code(s): --- Professional --- Z12.11, Encounter for screening for malignant neoplasm of colon K55.20, Angiodysplasia of colon without hemorrhage K57.30, Diverticulosis of large intestine without perforation or abscess without bleeding CPT copyright 2020 [employer]. All rights reserved. The codes documented in this report are preliminary and upon health information coder review may be revised to meet current compliance requirements. DO Thanh Arceo DO 09/20/2022 8:41:26 AM Number of Addenda: 0 Note Initiated On: 09/20/2022 8:10 AM Procedure Note Thanh Arriaga DO - 09/20/2022 [facility] Patient Name: Mira Santos Procedure Date No Time: 09/20/2022 CSN : [id number] Date of : 1960 Admit Type: Outpatient Age: 62 Room: [place] [address] Gender: Female Note Status: Finalized Attending MD: Thanh Arriaga DO Procedure: Colonoscopy Indications: Screening for colorectal malignant neoplasm Providers: Thanh Arriaga DO Referring MD: Thanh Arriaga DO Medicines: Propofol per Anesthesia Complications: No immediate complications. Procedure: After I obtained informed consent, the scope was passed under direct vision. Throughout theprocedure, the patient's blood pressure, pulse, and oxygen saturations were monitored continuously. [id number] #[id number] ADULT COLONOSCOPE was introduced through the anus and advanced to the cecum,identified by the appendiceal orifice, ileocecal valve and palpation. The colonoscopy was performed with ease. The patient tolerated the procedure well. Thequality of the bowel preparation was good. Findings: The perianal and digital rectal examinations were normal. Many small-mouthed diverticula were found in the sigmoid colon. Multiple small [Extent] angioectasias without bleeding were found inthe sigmoid colon. Estimated Blood Loss: Estimated blood loss: none. Impression: - Diverticulosis in the sigmoid colon. - Multiple non-bleeding colonic angioectasias. - No specimens collected. Recommendation: - Discharge patient to home. - Patient has a contact number available for emergencies. The signs and symptoms of potential delayed complications were discussed with thepatient. Return to normal activities tomorrow. Written discharge instructions were provided to thepatient. - Patient has a contact number available for emergencies. The signs and symptoms of potential delayed complications were discussed with thepatient. Return to normal activities tomorrow. Written discharge instructions were provided to thepatient. - High fiber diet for the rest of the patient'slife. - Repeat colonoscopy in 10 years for screening purposes. - Return to my office PRN. Procedure Code(s): --- Professional --- G0121, Colorectal cancer screening; colonoscopy on individual not meeting criteria for high risk Diagnosis Code(s): --- Professional --- Z12.11, Encounter for screening for malignant neoplasm of colon K55.20, Angiodysplasia of colon without hemorrhage K57.30, Diverticulosis of large intestine without perforation orabscess without bleeding CPT copyright 2020 [employer]. All rights reserved. The codes documented in this report are preliminary and upon health information coder reviewmay be revised to meet current compliance requirements. DO Thanh Arceo DO 09/20/2022 8:41:26 AM Number of Addenda: 0 Note Initiated On: 09/20/2022 8:10 AM Thanh Arriaga DO GI PROCEDURE ORDERABLES Fin al Result PM CARDIOVASCULAR from Last 3 Months or Most Recently Relevant to Health Maintenance Insurance [facility] MEDICARE ADVANTAGE WORK[employer] COMPENSATION Care Teams [employer] Truck Driver Relationship Specialty Start Date End Date Saurabh mC MD PCP - General 10/09/17
--- OUTSIDE RECORDS SUMMARY | 2025-04-20 14:21 | XMS_ITS | Encounter Summary ---
Author Organization [facility] Address [address] [place] [address] Care Team Providers Care Pharmacist'S Aide Name Role Phone Saurabh Cm MD Unavailable Saurabh Cm MD Primary Care Provider [phone] Clovis Bolanos MA Unavailable [phone] Saurabh Cm MD Unavailable Reason for Visit * Reason Comments Med Refill Encounter Details Date Type Department Care Team (Late st Contact Info) Description 11/17/2024 [facility] [place] [address] [place] [phone] Saurabh Cm MD [address] [place] [address] Dyslipidemia Social History Tobacco Use Types Packs/Day Years [...] material from your doctor or pharmacy? Never 02/14/2024 Humiliation, Afraid, Rape, and Kick questionnair e Answer Date Recorded Within the last year, have y ou been afraid of your partner or ex-partner? No 09/27/2023 Within the last year, have y ou been humiliated or emotionally abused in other ways by your partner or ex-partner? No Within the last year, have y ou been kicked, hit, slapped, or otherwise physically hurt by your partner or ex-partner? No 09/27/2023 Within the last year, have y ou been raped or forced to have any kind of sexual activity by your partner or ex-partner? No 09/27/2023 Social Connection and Isolation Panel [NHANES] A nswer Date Recorded In a typical week, how many times do you talk on the phone with family, friends, or neighbors? Once a week 09/27/19 How often do you get togethe r with friends or relatives? Once a week 09/27/2023 How often do you attend chur ch or baptist services? 1 to 4 times per year 09/27/2023 Do you belong to any clubs o r organizations such as sikh groups, unions, fraternal or athletic groups, or school groups? Yes 09/27/2023 How often do you attend meet ings of the clubs or organizations you belong to? 1 to 4 times per year 09/27/2023 Are you , , di vorced, , never , or living with a partner? 09/27/2023 AUDIT-C Answer Date Recorded Q1: How often do you have a drink containing alcohol? Never 09/27/2023 Q2: How many drinks containi ng alcohol do you have on a typical day when you are drinking? Patient does not drink Q3: How often do you have si x or more drinks on one occasion? Never 09/27/2023 Overall Financial Resource Strain (CARDIA) Answe r Date Recorded How hard is it for you to pa y for the very basics like food, housing, medical care, and heating? Not hard at all 09/27/2023 PHQ-2 Answer Date Recorded Patient Health Questionnaire-2 Score 1 09/03/2024 [facility] [place] of Occupat ional Health - Occupational Stress Questionnaire Answer Date Recorded Do you feel stress - tense, restless, nervous, or anxious, or unable to sleep at night because your mind is troubled all the time - these days? Not at all 09/27/2023 Exercise Vital Sign Answer Date Recorde d On average, how many days pe r week do you engage in moderate to strenuous exercise (like a brisk walk)? 3 days 09/27/2023 On average, how many minutes do you engage in exercise at this level? 20 min 09/27/2023 Hunger Vital Sign Answer Date Recorded Within the past 12 months, y ou worried that your food would run out before you got the money to buy more. Never true 09/27/19 24 Within the past 12 months, t he food you bought just didn't last and you didn't have money to get more. Never true 09/27/2023 PRAPARE - Transportation Answer Date Re corded In the past 12 months, has l ack of transportation kept you from medical appointments or from getting medications? No 09/03 In the past 12 months, has l ack of transportation kept you from meetings, work, or from getting things needed for daily living? No 09/27/2023 Housing Stability Vital Sign Answer [...] place to sleep or slept in a correction (including now)? No 09/27/2023 Comments Unknown Sex and Gender Information Value Date Recorded Sex Assigned at Not on file Legal Sex Female 7:34 PM EDT Gender Identity Not on file Sexual Orientation Not on file documented as of this encounter Miscellaneous Notes * Telephone Encounter - FAYE RIVERA - 11/17/2024 4:07 PM EDT MEDICATION SENT TO PHAMACY documented in this encounter Plan of Treatment Upcoming Encounters Date Type Department Care Team (Late st Contact Info) Description 05/06/2025 11:30 AM EDT Office Visit [facility] [address] [place] [address] Saurabh Cm MD [address] [place] [address] documented as of this encounter Visit Diagnoses Diagnosis Dyslipidemia Other and unspecified hyperlipidemia documented in this encounter Additional Health Concerns Assessment Noted Time PHQ-9 Depression Total Score: 2 09/03/19 25 2:00 PM EST A fall risk assessment has been complete d for the patient 02/14/2024 9:40 AM EDT documented as of this encounter Care Teams Pharmacist'S Aide Relationship Specialty Start Date End Date Saurabh Cm MD [address] [place] [phone] PCP - Devoted 01/31/23 11/30/24 Saurabh Cm MD [address] [place] [address] PCP - General Family Medicine 10/04/23 Saurabh Cm MD [address] [place] [phone] PCP - Ricardo MCCABE 12/01/24 Clovis Bolanos MA [address] [place] [address] Family Medicine 07/07/24 documented as of this encounter
--- OUTSIDE RECORDS SUMMARY | 2025-04-20 14:21 | XMS_ITS ---
Author Organization [facility] Address [address] [place] [address] Care Team Providers Care [employer] Maker Name Role Phone Saurabh Cm MD Primary Care Provider [phone] Clovis Bolanos MA Unavailable [phone] Saurabh Cm MD Unavailable Chronic Care Management (CCM) Status:Enrolled (Active) Start date:02/07/2024 Enrollment date:02/14/2024 Enrollment reason:Referred by provider Overview Please assess for Care Management needs. 02/14/24, 9:54 AM - Diana Salvador LPN- Patient gives verbal consent to be enrolled in CCM Programand understands there could be a bill for this service. <May 14, 2024, 13:44 - Demi Mcfadden RN> Pt transferred to Lynne Durham LPN Case Team Name Relationship Phone Clovis Bolanos MA(Responsible Staff) [phone] Continued Care and Services Coordination
--- OUTSIDE RECORDS SUMMARY | 2025-04-20 14:21 | XMS_ITS | Encounter Summary ---
Author Organization [facility] Address [address] [place] [address] Care Team Providers Care [employer] Filter Operator Name Role Phone Saurabh Cm MD Unavailable Saurabh Cm MD Primary Care Provider [phone] Clovis Bolanos MA Unavailable [phone] Saurabh Cm MD Unavailable Reason for Visit * Reason Comments Med Refill Encounter Details Date Type Department Care Team (Late st Contact Info) Description 11/11/2024 Refill [facility] [address] [place] [address] Saurabh Cm MD [address] [place] [address] Acquired hypothyroidism Social History Tobacco Use Types [...] often do you attend chur ch or islam services? 1 to 4 times per year 09/27/2023 Do you belong to any clubs o r organizations such as congregational groups, unions, fraternal or athletic groups, or [...] Recorded Patient Health Questionnaire-2 Score 1 09/03/2024 [facility] [place] of Occupat ional Health - Occupational Stress [...] place to sleep or slept in a nursing home (including now)? No 09/27/2023 Comments Unknown Sex and Gender Information Value Date Recorded Sex Assigned at Not on file Legal Sex Female 7:34 PM EDT Gender Identity Not on file Sexual Orientation Not on file documented as of this encounter Miscellaneous Notes * Telephone Encounter - FAYE RIVERA - 11/11/2024 2:24 PM EDT MEDICATION SENT TO PHAMACY documented in this encounter Plan of Treatment Upcoming Encounters Date Type Department Care Team (Late st Contact Info) Description 05/06/2025 11:30 AM EDT Office Visit [facility] [address] [place] [address] Saurabh Cm MD [address] [place] [address] documented as of this encounter Visit Diagnoses Diagnosis Acquired hypothyroidism Unspecified hypothyroidism documented in this encounter Additional Health Concerns Assessment Noted Time PHQ-9 Depression Total Score: 2 09/03/19 25 2:00 PM EST A fall risk assessment has been complete d for the patient 02/14/2024 9:40 AM EDT documented as of this encounter Care Teams Oliver Filter Operator Relationship Specialty Start Date End Date Saurabh Cm MD [address] [place] [phone] PCP - Devoted 01/31/23 11/30/24 Saurabh Cm MD [address] [place] [phone] PCP - General Family Medicine 10/04/23 Saurabh Cm MD [address] [place] [phone] PCP - Ricardo MCCABE 12/01/24 Clovis Bolanos MA [address] [place] [address] Family Medicine 07/07/24 documented as of this encounter
--- OUTSIDE RECORDS SUMMARY | 2025-04-20 14:21 | XMS_ITS | Clinical Summary ---
Author Organization [facility] Address [address], [address] [place] [address] Care Team Providers Care Translator And Interpreter Name Role Phone Saurabh Cm MD Primary Care Provider + Allergies Active Allergy Reactions Criticality Noted Date Comments Sulfa Antibiotics 10/05/2019 Medications levothyroxine (SYNTHROID) 88 MCG tablet Take 88 mcg by mouth Daily Active cetirizine (ZYRTEC) 10 MG tablet Take 10 mg by mouth daily Active calcium carbonate (OSCAL) 500 MG TABS tablet Take 500 mg by mouth daily Active melatonin 3 MG TABS tablet Take 3 mg by mouth daily Active albuterol sulfate HFA 108 (90 Base) MCG/ACT inhaler Inhale 2 puffs into the lungs every 6 hours as needed for Wheezing Active Social History Tobacco Use Types Packs/Day Years Used Date Smoking Tobacco: Never Smokeless Tobacco: Never Alcohol Use Standard Drinks/Week Comments Never 0 (1 standard drink = 0.6 oz pur e alcohol) AUDIT-C Answer Date Recorded Frequency of Alcohol Consumption Never 10/05/2019 Average Number of Drinks Not on file 020 Frequency of Binge Drinking Not on file 11/2019 Comments No Sex and Gender Information Value Date Recorded Sex Assigned at Not on file Legal Sex Female 3:23 AM EST Gender Identity Not on file Sexual Orientation Not on file Last Filed Vital Signs Vital Sign Reading Time Taken Comments Blood Pressure 150/90 10/05/2019 6:15 PM EST Pulse 63 10/05/2019 4:18 PM EST Temperature 36.5 C (97.7 F) 10/05/2019 3:44 PM EST Respiratory Rate 18 10/05/2019 6:15 PM EST Oxygen Saturation 97% 10/05/2019 3:44 PM EST Inhaled Oxygen Concentration - - Weight 90.3 kg (199 lb) 10/05/2019 3:44 PM EST Height - - Body Mass Index - - Plan of Treatment Not on file Insurance [employer] Care Teams Translator And Interpreter Relationship Specialty Start Date End Date Saurabh Cm MD [address] [place] [address] PCP - General Family Medicine 10/05/19
--- OUTSIDE RECORDS SUMMARY | 2025-04-20 14:21 | XMS_ITS | Encounter Summary ---
Author Organization [facility] Address [address] [place] [address] Care Team Providers Care Summer Camp Counselor Name Role Phone Saurabh Cm MD Primary Care Provider [phone] Clovis Bolanos MA Unavailable [phone] Saurabh Cm MD Unavailable Encounter Details Date Type Department Care Team (Late st Contact Info) Description 01/19/2025 Results Follow-Up [facility] [address] [place] [address] Saurabh Cm MD [address] [place] [phone] [place] PELVIS W/ TRANSVAGINAL Social History Tobacco Use Types Packs/Day Years [...] often do you attend chur ch or oriental orthodox services? 1 to 4 times per year 09/27/2023 Do you belong to any clubs o r organizations such as sabianism groups, unions, fraternal or athletic groups, or [...] Recorded Patient Health Questionnaire-2 Score 1 09/03/2024 [facility] [place] of Occupat ional Health - Occupational Stress [...] place to sleep or slept in a retirement (including now)? No 09/27/2023 Comments Unknown Sex and Gender Information Value Date Recorded Sex Assigned at Not on file Legal Sex Female 7:34 PM EDT Gender Identity Not on file Sexual Orientation Not on file documented as of this encounter Plan of Treatment Upcoming Encounters Date Type Department Care Team (Late st Contact Info) Description 05/06/2025 11:30 AM EDT Office Visit [facility] [address] [place] [address] Saurabh Cm MD [address] [place] [address] documented as of this encounter Visit Diagnoses Not on filedocumented in this encounter Additional Health Concerns Assessment Noted Time PHQ-9 Depression Total Score: 2 09/03/19 25 2:00 PM EST A fall risk assessment has been complete d for the patient 02/14/2024 9:40 AM EDT documented as of this encounter Care Teams Summer Camp Counselor Relationship Specialty Start Date End Date Saurabh Cm MD [address] [place] [address] PCP - General Family Medicine 10/04/23 Saurabh Cm MD [address] [place] [address] PCP - Ricardo MCCABE 12/01/24 Clovis Bolanos MA [address] [place] [address] Family Medicine 07/07/24 documented as of this encounter
--- OUTSIDE RECORDS SUMMARY | 2025-04-20 15:53 | XMS_ITS | CCD ---
Author Organization [facility] Care Team Providers Care Clerical Investigator Name Role Phone Saurabh Purcell Primary Care Provider JOSE WATSON Attending Unavailable NADEREKaelyn, SAURABH ARVIZU Primary Care Unavailabl e NADERER, DR SAURABH Lares Primary Care Unavailable NADERER, DR SAURABH Lares Admitting Unavailable NADERER, DR SAURAHB Lares Attending Unavailable NADERER, DR SAURABH Lares [...] Care Provider Saurabh Purcell MD Unavailable Herminio FRUIT THINNER, Lynne Unavailable Unavailable [place]field FRUIT THINNER, Ardana Unavailable Unavailable Clovis Bolanos MA Unavailable Unavailable Horn MS, RDN, LD, CHES, Devon Unavailable U navailable SAURABH PURCELL Referring Unavailable NADERESAURABH Art Primary Care Unavailable NADERER, SAURABH Attending Unavailable NADERER, SAURABH Attending Unavailable HARVEY, DEOVN Attending Unavailable MARYERESAURABH Art Referring Unavailable NADEREKaelyn, SAURABH Referring Unavailable HORN, DEVON Attending Unavailable RUSHER, NOLBERTO Petersen Attending Unavailable RUSHER, NOLBERTO S Referring Unavailable HARVEY, DEVON Attending Unavailable NADEREKaelyn, SAURABH Referring Unavailable NADEREKaelyn, SAURABH Attending Unavailable HARVEY, DEVON Attending Unavailable ANJEL RUBIO Attending Unavailable CHAS RICHARD Attending Unavailable Allergies Allergy Classification Reported Allergen(s) Allergy Type Date of Onset Reaction(s) Facility (1 source) Sulfonamides (Antibiotic) Propensity to adverse reactions to drug 0 Reading Room Phone: (18 sources) Sulfonamides (Antibiotic) Drug Allergy 0 Hives, Rash [facility] (2 sources) Sulfonamides (Antibiotic); Translations: [SULFA (SULFONAMIDE ANTIBIOTICS)] Propensity to adverse reactions to drug (disorder) 7 [facility] Medications Current Medications Medication Drug Class(es) Dates Sig (Normalized) Sig (Original) [id number] 200 actuat albuterol 0.09 mg/actuat metered dose inhaler (19 sources) beta2-Adrenergic Agonist Start: 09-23-2023 End: 05-26-2025 take 2 puff(s) by inhalation every four hours for wheezing albuterol HFA 90 mcg/act inhaler Indications: Mild intermittent asthma, unspecified whether complicated ([facility]/HCC) Inhale 2 puffs every 4 (four) hours [...] aspirin 81 mg delayed release oral tablet (17 sources) Platelet Aggregation Inhibitor, Nonsteroidal Anti-inflammatory Drug take 1 tablet by mouth in the morning aspirin 81 MG EC tablet Take 81 mg by mouth in the morning. Active atorvastatin 80 mg oral tablet (18 sources) HMG-CoA Reductase Inhibitor Start: 11-17-2024 take [...] 0 Active cholecalciferol 0.05 mg oral capsule (18 sources) Vitamin D take 1 capsule by mouth once daily Cholecalciferol (Vitamin D) 50 MCG (1999 UT) capsule Take 1 capsule by mouth [...] 14 tablet 09/03/2024 09/10/2024 Active estrogens, conjugated (half-way) 0.625 mg oral tablet (4 sources) Estrogen Start: 024 take 1 tablet by mouth in the [...] Active Start: 07-06-2024 take 1 puff(s) by [facility] once daily fluticasone furoate (Arnuity Ellipta) [...] Active levothyroxine sodium 0.088 mg oral tablet (19 sources) l-Thyroxine Start: 12-07-2024 take 1 tablet [...] Active magnesium oxide 400 mg oral tablet (15 sources) take 1 tablet by mouth once [...] succinate 25 mg extended release oral tablet (18 sources) beta-Adrenergic Briana take 1 tablet by mouth every twenty-four hours in the morning metoprolol succinate XL (Toprol-XL) 25 MG 24 hr tablet Take 25 mg by mouth in the morning. Active montelukast 10 mg oral tablet (18 sources) Leukotriene Receptor Antagonist Start: take 1 tablet by mouth at bedtime montelukast (Singulair) 10 MG tablet Indications: Seasonal allergic rhinitis due to pollen TAKE 1 TABLET BY MOUTH AT BEDTIME 30 tablet 12/07/2024 Active Start: 09-03-2024 take 1 tablet by sofie th at [...] Problem Date Documented Da te Episodic/Chronic Asthma (20 sources) Uncomplicated non-allergic asthma; Translations: [Mild intermittent asthma, uncomplicated] Onset: 10-04-2023 10-04-2023 Chronic Coronary atherosclerosis and other heart disease (18 sources) Coronary arteriosclerosis; Translations: [Atherosclerotic heart disease of [place] coronary artery without angina pectoris] Onset: 09-09-2023 10-04-2023 Chronic Disorders of lipid metabolism (20 sources) Mixed hyperlipidemia; Translations: [Dyslipidemia] Onset: 02-22-2022 Resolved: 10-04-2023 10-04-2023 Chronic Diverticulosis and diverticulitis (18 sources) Diverticulosis of colon; Translations: [Diverticulosis of large intestine without perforation or abscess without bleeding] Onset: 10-04-2023 10-04-2023 Chronic Essential hypertension (20 sources) Hypertensive disorder; Translations: [Essential (primary) hypertension] Onset: 02-20-2022 Chronic Genitourinary symptoms and ill-defined conditions (7 sources) Dysuria; Translations: [Blood in urine] Onset: 09-29-2024 01-12-2025 Episodic Menopausal disorders (6 sources) Postmenopausal bleeding; Translations: [Postmenopausal bleeding] Onset: 01-12-2025 01-12-2025 Chronic Nutritional deficiencies (20 sources) Vitamin D deficiency, unspecified; Translations: [Vitamin D deficiency] Onset: 02-22-2022 10-04-2023 Chronic Other nutritional; endocrine; and metabolic disorders (1 source) Body mass index 30+ - obesity; Translations: [Obesity, unspecified] 10-04-2023 Chronic Other upper respiratory disease (18 sources) Allergic rhinitis due to pollen; Translations: [...] Problem Date Documented Date Episodic/Chronic Acute bronchitis (15 sources) Acute infective bronchitis; Translations: [Acute bronchitis due to other specified organisms] Onset: 01-23-2024 Resolved: 09-03-2024 01-23-2024 Episodic Esophageal disorders (18 sources) Gastroesophageal reflux disease; Translations: [Gastro-esophageal reflux disease without esophagitis] Onset: 10-04-2023 Resolved: 09-03-2024 10-04-2023 Chronic Mood disorders (9 sources) Mood disorders Onset: 09-03-2024 09-03-2024 Other aftercare (1 source) Other chcf (current) drug therapy; Translations: [OTH PROJECT DEVELOPMENT ENGINEER CURRENT DRUG THERAPY] Onset: 02-22-2022 Episodic Other aftercare (7 sources) Patient encounter status; Translations: [Other moth exterminator (current) drug therapy] Onset: 10-04-2023 10-04-2023 Episodic Other aftercare (13 sources) Long-term current use of drug therapy; Translations: [Other moth exterminator (current) drug therapy] Onset: 10-04-2023 10-04-2023 Episodic Other connective tissue disease (2 sources) Pain in right foot; Translations: [Pain in right foot] 04-21-2024 Episodic Other female genital disorders (18 sources) Pain in female genitalia on intercourse; Translations: [Unspecified dyspareunia] Onset: 10-04-2023 Resolved: 09-03-2024 10-04-2023 Chronic Other non-traumatic joint disorders (18 sources) Pain in right knee; Translations: [Pain in joint, lower leg] Onset: 10-04-2023 Resolved: 01-23-2024 10-04-2023 Episodic Other screening for suspected conditions (not mental disorders or infectious disease) (19 sources) Abnormal result of other cardiovascular function study; Translations: [Thyroid hormone tests abnormal] Onset: 11-29-2022 Resolved: 09-03-2024 Episodic Residual codes; unclassified (18 sources) Obstructive sleep apnea syndrome; Translations: [Obstructive sleep apnea (adult) (pediatric)] Onset: 10-04-2023 Resolved: 01-23-2024 10-04-2023 Chronic Superficial injury; contusion (2 sources) Contusion of toe(s) with damage to nail; Translations: [Contusion of right lesser toe(s) with damage to nail, initial encounter] 04-21-2024 Episodic Unclassified (1 source) CONTACT W/AND (SUSP) EXPOS COVID-19; Translations: [CONTACT W/AND (SUSP) EXPOS COVID-19] Onset: 02-16-2022 Unclassified (15 sources) Onset: 02-14-2024 02-14-2024 Urinary tract infections (11 sources) Acute urinary tract infection; Translations: [Urinary tract infection, site not specified] Onset: 09-03-2024 Resolved: 01-12-2025 09-03-2024 Episodic Results Test Name Value Interpretation Reference Range Facility Office Visiton 04-08-2025 Follow-up visit [id number] Anita Snell 1960 F Date Provider Department Center 04/08/2025 [id number] RICHARD [facility] Family History Problem Relation Age of Onset Stroke Mother 70 Diabetes Mother Atrial fibrillation Father 70 Other Father Hypertension Father Other Brother 59 Diabetes Brother Family Status - Relation Status Age at Mother Father Brother Level of Service:76027 MT OFFICE/OUTPATIENT ESTABLISHED MOD MDM 30 MIN Reason for Visit and Comments: Hypertension [943084] Hyperlipidemia [182] 6 month follow up [Other] Coronary Artery Disease [187] Sleep Apnea [348] GERD [084743] Normal [facility] US PELVIS W/ TRANSVAGINALon 01-19-2025 [place] [address] Ultrasound Report Signed Patient: ANITA SNELL MR#: [id number] : 1960 Acct:[id number] Age/Sex: 64 / F ADM Date: 01/19/25 Loc: US Attending Dr: Saurabh Purcell M.D. Ordering Physician: Saurabh Purcell M.D. Date of Service: 01/19/25 Procedure(s): US pelvis w/ transvaginal Accession Number(s): [id number] cc: Sauarbh Purcell M.D. [address] [address] Patient Name: ANITA SNELL MRN: [id number] date: 1960 Sex: F Assigned Patient Location: US Current Patient Location: US Accession/Order Number: [id number] Exam Date: 01/19/2025 09:52 Report Date: 01/19/2025 [...] Floyd M.D. 01/19/2025 9:56 AM Dictation Location: [place] [address] Electronically authenticated by: [id number] Y Date: 01/19/2025 09:56 Dictated By: Aayush Floyd M.D. Signed By: 01/19/25 0959 DD/ 0956 TD/TT: Glass Unloading Equipment Tender: [facility] Radiology, Radiologist, - 01/19/[address] [address] Ultrasound Report Signed Patient: ANITA SNELL MR#: [id number] : 1960 Acct:[id number] Age/Sex: 64 / F ADM Date: 01/19/25 Loc: US Attending Dr: Saurabh Purcell M.D. Ordering Physician: Saurabh Purcell M.D. Date of Service: 01/19/25 Procedure(s): US pelvis w/ transvaginal Accession Number(s): [id number] cc: Saurabh Purcell M.D. The [address] [address] Patient Name: ANITA SNELL MRN: [facility]:[id number] date: 1960 Sex: F Assigned Patient Location: Current Patient Location: Accession/Order Number: [id number] Exam Date: 01/19/2025 09:52 Report Date: 01/19/2025 [...] Floyd M.D. 01/19/2025 9:56 AM Dictation Location: [place] [address] Electronically authenticated by: [id number] Y Date: 01/19/2025 09:56 Dictated By: Aayush Floyd M.D. Signed By: 01/19/2559 DD/ 5 TD/TT: Glass Unloading Equipment Tender: [facility] Radiology Study observation (narrative) [facility] US PELVIS W/ TRANSVAGINALOrd ered By: Radiologist Radiology on 01-19-2025 [facility] Work Phone: US RENAL BIon 01-19-[address] [address] Ultrasound Report Signed Patient: ANITA SNELL MR#: [id number] : 1960 Acct:[id number] Age/Sex: 64 / F ADM Date: 01/19/25 Loc: US Attending Dr: Saurabh Purcell M.D. Ordering Physician: Saurabh Purcell M.D. Date of Service: 01/19/25 Procedure(s): US renal BI Accession Number(s): [id number] cc: Saurabh Purcell M.D. [place] [id number] Patient Name: ANITA SNELL MRN: [id number] date: 1960 Sex: F Assigned Patient Location: Current Patient Location: Accession/Order Number: [id number] Exam Date: 01/19/2025 09:28 Report Date: 01/19/2025 [...] Floyd M.D. 01/19/2025 9:31 AM Dictation Location: [place] [address] Electronically authenticated by: [id number] Y Date: 01/19/2025 09:31 Dictated By: Aayush Floyd M.D. Signed By: 01/19/25 0933 DD/ 0 TD/TT: Glass Unloading Equipment Tender: [facility] Radiology, Radiologist, - 01/19/2025 The [place] [id number] Ultrasound Report Signed Patient: ANITA SNELL MR#: [id number] : 1960 Acct:[id number] Age/Sex: 64 / F ADM Date: 01/19/25 Loc: US Attending Dr: Saurabh Purcell M.D. Ordering Physician: Saurabh Purcell M.D. Date of Service: 01/19/25 Procedure(s): US renal BI Accession Number(s): [id number] cc: Saurabh Purcell M.D. The [place] [id number] Patient Name: ANITA SNELL MRN: [facility]:[id number] date: 1960 Sex: F Assigned Patient Location: US Current Patient Location: US Accession/Order Number: [id number] Exam Date: 01/19/2025 09:28 Report Date: 01/19/2025 [...] Floyd M.D. 01/19/2025 9:31 AM Dictation Location: [place] [address] Electronically authenticated by: [id number] Y Date: 01/19/2025 09:31 Dictated By: Aayush Floyd M.D. Signed By: 01/19/25932 DD/ 0 TD/TT: Glass Unloading Equipment Tender: [facility] Radiology Study observation (narrative) [facility] US RENAL BIOrdered By: Radio logist Radiology on 01-19-2025 [facility] Work Phone: Office Visiton 10-20-2024 Follow-up visit [id number] Anita Snell 1960 F Date Provider Department Center 10/20/2024 [facility]JEL RUBIO [facility] Family History Problem Relation Age of Onset Stroke Mother 70 Diabetes Mother Atrial fibrillation Father 70 Other Father Hypertension Father Other Brother 59 Diabetes Brother Family Status - Relation Status Age at Mother Father Brother Level of Service:61478 MT OFFICE/OUTPATIENT ESTABLISHED LOW MDM 20 MIN Normal [facility] URINALYSISon 09-29-2024 Bilirubin Ql (U) Negative Normal NEG [facility] Comment on above: Performed By: #### U A #### [facility] ([id number]) [address], [address] [place] [address] BLOOD/HGB Negative Normal NEG [facility] Comment on above: Performed By: #### U A #### [facility] ([id number]) [address], [address] [place] [address] Color (U) YELLOW Normal YELLOW [facility] Comment on above: Performed By: #### U A #### [facility] ([id number]) [address], [address] [place] [address] Glucose Ql (U) Negative Normal NEG [facility] Comment on above: Performed By: #### U A #### [facility] ([id number]) [address], [address] [place] [address] Ketones Ql (U) Negative Normal NEG [facility] Comment on above: Performed By: #### U A #### [facility] ([id number]) [address], [address] [place] [address] Leukocyte esterase Test strip Ql (U) MODERATE Abnormal NEG [facility] Comment on above: Performed By: #### U A #### [facility] ([id number]) [address], [address] [place] [address] MUCOUS PRESENT Abnormal NONE [facility] Comment on above: Performed By: #### U A #### [facility] ([id number]) [address], [address] [place] [address] Nitrite Ql (U) Negative Normal NEG [facility] Comment on above: Performed By: #### U A #### [facility] ([id number]) [address], [address] [place] [address] pH (U) 6.5 [pH] Normal 5.0-8.5 [facility] Comment on above: Performed By: #### U A #### [facility] ([id number]) [address], [address] [place] [address] Protein Ql (U) 30 mg/dL Abnormal NEG [facility] Comment on above: Performed By: #### U A #### [facility] ([id number]) [address], [address] [place] [address] R.B.CELLS 2 /hpf Normal 0-5 [facility] Comment on above: Performed By: #### U A #### [facility] ([id number]) [address], [address] [place] [address] Specific gravity (U) [Rel density] 1.017 Normal 1.003-1.035 [facility] Comment on above: Performed By: #### U A #### [facility] ([id number]) [address], [address] [place] [address] SQUAMOUS EPITHELIUM 1 /hpf Normal 0-5 [facility] Comment on above: Performed By: #### U A #### [facility] ([id number]) [address], [address] [place] [address] TURBIDITY CLEAR Normal CLEAR [facility] Comment on above: Performed By: #### U A #### [facility] ([id number]) [address], [address] [address] Urobilinogen (U) [Mass/Vol] mg/dL Normal <1.1 [facility] Comment on above: Performed By: #### U A #### [facility] ([id number]) [address], [address] [address] W.B.CELLS 4 /hpf Normal 0-5 [facility] Comment on above: Performed By: #### U A #### [facility] ([id number]) [address], [address] [address] URINE CULTUREon 09-29-2024 Bacteria identified Cx Nom (U) CULTURE RESULTS >100,000 ORGANISMS/ML NORMAL UROGENITAL VINICIO Normal [facility] Comment on above: Performed By: #### 6 30-4 #### [facility] ([id number]) [address], [address] [address] Urinalysis, manual onlyon Bilirubin Ql (U) Negative Negative [facility] Color (U) YELLOW YELLOW [facility] Epithelial cells Auto (Urine sed) [#/Area] 1 [facility] Glucose (U) [Mass/Vol] Negative Negat christen mg/dL [facility] Hemoglobin Auto test strip Ql (U) Negative Negative [facility] Interpretation and review of laboratory results Abnormal [facility] Ketones (U) [Mass/Vol] Negative Negat christen mg/dL [facility] Leukocyte esterase Auto test strip Ql (U) MODERATE Abnormal Negative [facility] Mucus Ql (Urine sed) PRESENT Abnormal NONE [facility] Nitrite Auto test strip Ql (U) Negative Negative [facility] pH (U) 6.5 [pH] 5.0 - 8.5 [facility] Protein (U) [Mass/Vol] 30 mg/dL Abnormal Negative [facility] RBC Auto (Urine sed) [#/Area] 2 [facility] Specific gravity Refractometry automated (U) [Rel density] 1.017 1.003 - 1.035 [facility] Turbidity Ql (U) CLEAR CLEAR [facility] Urobilinogen Qn (U) <1.1 NINF [facility] WBC Auto (Urine sed) [#/Area] 4 [facility] Comment on above: PERFORMED AT [facility] [address],[place] [address] [facility] ALL CBC WITH AUTO DIFFon BASOPHILS ABSOLUTE AUTO 0 N [facility] Basophils/100 WBC (Bld) 0.5 % 0.2 - 2.0 % [facility] Eosinophils/100 WBC (Bld) 2 % 0.9 - 7.0 % [facility] Erythrocyte distribution width (RBC) [Ratio] 12.5 % 11.0 - 15.0 % [facility] Hematocrit (Bld) [Volume fraction] 39 % 36.0 - 48.0 % [facility] Hemoglobin (Bld) [Mass/Vol] 13 g/dL 12.0 - 16.0 g/dL [facility] IMMATURE GRANULOCYTES ABS AUTO 0.02 [facility] Immature granulocytes/100 WBC (Bld) 0.3 % 0.0 - 0.5 % [facility] Interpretation and review of laboratory results Abnormal [facility] LYMPHOCYTES ABSOLUTE AUTO 1.6 [facility] Lymphocytes/100 WBC (Bld) 25.7 % 20.5 - 60.0 % [facility] MCH (RBC) [Entitic mass] 31 pg 26.7 - 34.0 pg [facility] MCHC (RBC) [Mass/Vol] 33.3 g/dL 29.9 - 35.2 g/dL [facility] MCV (RBC) [Entitic vol] 93.1 fL 81.0 - 99.0 fL [facility] MONOCYTES ABSOLUTE AUTO 0.5 N [facility] Monocytes/100 WBC (Bld) 8 % 1.7 - 12.0 % [facility] NEUTROPHILS ABSOLUTE AUTO 4.1 [facility] Neutrophils/100 WBC (Bld) 63.5 % 43.0 - 75.0 % [facility] Platelet mean volume (Bld) [Entitic vol] 9.9 fL 9.5 - 13.5 fL [facility] EO # 0.1 [facility] PLT 236 [facility] RBC 4.19 Low [facility] WBC 6.4 [facility] XR Foot - right 3 [facility] Result: AP, medial oblique, lateral views are weight-bearing. No fractures or dislocations. Multiple contracted digits. Enthesophyte at the insertion of the Achilles tendon and plantar fascia. Orthopedic implant noted in the tibia. [facility] Study observation (narrative) [facility] BI MAMMOGRAM SCREENING TOMOS YNTHESIS BILATERALon 03-25-2024 [...] IS VERY IMPORTANT TO YOUR HEALTH. THE [employer] GUIDELINES RECOMMEND THAT WOMEN 40 [...] BY: Ham Atwood MD Normal Not Available ALL CBC WITH AUTO DIFFon BASOPHILS ABSOLUTE AUTO 0.0 N [facility] Basophils/100 WBC (Bld) 0.5 % 0.2 - 2.0 % [facility] Eosinophils/100 WBC (Bld) 1.6 % 0.9 - 7.0 % [facility] Erythrocyte distribution width (RBC) [Ratio] 12.5 % 11.0 - 15.0 % [facility] Hematocrit (Bld) [Volume fraction] 40.7 % 36.0 - 48.0 % [facility] Hemoglobin (Bld) [Mass/Vol] 13.6 g/dL 12.0 - 16.0 g/dL [facility] IMMATURE GRANULOCYTES ABS AUTO 0.01 [facility] Immature granulocytes/100 WBC (Bld) 0.2 % 0.0 - 0.5 % [facility] LYMPHOCYTES ABSOLUTE AUTO 1.9 [facility] Lymphocytes/100 WBC (Bld) 30.9 % 20.5 - 60.0 % [facility] MCH (RBC) [Entitic mass] 30.6 pg 26.7 - 34.0 pg [facility] MCHC (RBC) [Mass/Vol] 33.4 g/dL 29.9 - 35.2 g/dL [facility] MCV (RBC) [Entitic vol] 91.7 fL 81.0 - 99.0 fL [facility] MONOCYTES ABSOLUTE AUTO 0.6 N [facility] Monocytes/100 WBC (Bld) 8.9 % 1.7 - 12.0 % [facility] NEUTROPHILS ABSOLUTE AUTO 3.6 [facility] Neutrophils/100 WBC (Bld) 57.9 % 43.0 - 75.0 % [facility] Platelet mean volume (Bld) [Entitic vol] 10.8 fL 9.5 - 13.5 fL [facility] EO # 0.1 [facility] PLT 228 [facility] RBC 4.44 [facility] WBC 6.2 [facility] Covid-19 PCR (CVDTBH)on SARS-CoV-2 (COVID-19) RNA LETICIA+probe Ql (Unsp spec) Not detected Normal NOT DETECTED [facility] Comment on above: Result Comment: This test is not yet approved or cleared by the [place] FDA. When there are no FDA-approved or cleared tests available, and other criteria are met, FDA can make tests available under an emergency access mechanism called an Emergency Use Authorization (EUA). The EUA for this test is supported by the [employer] D[employer] Operator of Health and Human Service's (HHS's) declaration [...] SARS-CoV-2. Performed By: #### C VDTB #### [facility] [address] [place] [address] Dr. Emilia Delong CBC AUTO DIFFon 11-29-2022 BASO # 0.0 103/ul Normal 0.0-0.1 [facility] Comment on above: Performed By: #### C BC #### [facility] [address] [place] [address] Dr. Emilia Delong Basophils/100 WBC (Bld) 0.6 % Normal 0.2-2.0 [facility] Comment on above: Performed By: #### C BC #### [facility] [address] [place] [address] Dr. Emilia Delong EO # 0.1 103/ul Normal 0.0-0.7 [facility] Comment on above: Performed By: #### C BC #### [facility] [address] [place] [address] Dr. Emilia Delong Eosinophils/100 WBC (Bld) 1.6 % Normal 0.9-7.0 [facility] Comment on above: Performed By: #### C BC #### [facility] [address] [place] [address] Dr. Emilia Delong Erythrocyte distribution width (RBC) [Ratio] 12.2 % Normal 11.0-15.0 [facility] Comment on above: Performed By: #### C BC #### [facility] [address] [place] [address] Dr. Emilia Delong Hematocrit (Bld) [Volume fraction] 40.2 % Normal 36.0-48.0 [facility] Comment on above: Performed By: #### C BC #### [facility] [address] [place] [address] Dr. Emilia Delong Hemoglobin (Bld) [Mass/Vol] 13.9 g/dL Normal 12.0-16.0 [facility] Comment on above: Performed By: #### C BC #### [facility] [address] [place] [address] Dr. Emilia Delong IG # 0.01 10e3/ul Normal 0.00-0.03 [facility] Comment on above: Performed By: #### C BC #### [facility] [address] [place] [address] Dr. Emilia Delong IG % 0.2 % Normal 0.0-0.5 [facility] Comment on above: Performed By: #### C BC #### [facility] [address] [place] [address] Dr. Emilia Delong LYMPH # 1.9 103/ul Normal 1.2-3.8 [facility] Comment on above: Performed By: #### C BC #### [facility] [address] [place] [address] Dr. Emilia Delong Lymphocytes/100 WBC (Bld) 36.7 % Normal 20.5-60.0 [facility] Comment on above: Performed By: #### C BC #### [facility] [address] [place] [address] Dr. Emilia Delong MANUAL DIFF REQ NO Normal [facility] Comment on above: Performed By: #### C BC #### [facility] [address] [place] [address] Dr. Emilia Delong MCH (RBC) [Entitic mass] 31.1 pg Normal 26.7-34.0 [facility] Comment on above: Performed By: #### C BC #### [facility] [address] [place] [address] Dr. Emilia Delong MCHC (RBC) [Mass/Vol] 34.6 g/dL Normal 29.9-35.2 [facility] Comment on above: Performed By: #### C BC #### [facility] [id number] Emilia Delong MCV (RBC) [Entitic vol] 89.9 fL Normal 81.0-99.0 [facility] Comment on above: Performed By: #### C BC #### [facility] [address] [address] [address] Emilia Delong MONO # 0.4 103/ul Normal 0.3-0.8 [facility] Comment on above: Performed By: #### C BC #### [facility] [address] [place] [address] Dr. Emilia Delong Monocytes/100 WBC (Bld) 7.7 % Normal 1.7-12.0 [facility] Comment on above: Performed By: #### C BC #### [facility] [address] [place] [address] Dr. Emilia Delong NEUT # 2.7 103/ul Normal 1.4-6.5 [facility] Comment on above: Performed By: #### C BC #### [facility] [address] [place] [address] Dr. Emilia Delong Neutrophils/100 WBC (Bld) 53.2 % Normal 43.0-75.0 [facility] Comment on above: Performed By: #### C BC #### [facility] [address] [place] [address] Dr. Emilia Delong Platelet mean volume (Bld) [Entitic vol] 10.4 fL Normal 9.5-13.5 [facility] Comment on above: Performed By: #### C BC #### [facility] [address] [place] [address] Dr. Emilia Delong PLT 220 103/ul Normal 150-450 [facility] Comment on above: Performed By: #### C BC #### [facility] [address] [place] [address] Dr. Emilia Delong RBC 4.47 106/ul Normal 4.20-5.40 [facility] Comment on above: Performed By: #### C BC #### [facility] [address] [place] [address] Dr. Emilia Delong WBC 5.1 103/ul Normal 4.0-11.0 [facility] Comment on above: Performed By: #### C BC #### [facility] [address] [address] [address] Emilia Delong GLYCOHEMOGLOBIN A1Con 2022 ADA RECOMMENDATION SEE BELOW Normal [facility] Comment on above: Result Comment: ADA RECOMMENDED LIMIT 4.0 - 6.0 ADA THERAPEUTIC TARGET < 7.0 ACTION SUGGESTED > 7.0 Performed By: #### A 1C #### [facility] [address] [address] [address] Emilia Delong Glucose [Mass/Vol] 105 mg/dL Normal [facility] Comment on above: Performed By: #### A 1C #### [facility] [address] [place] [address] Dr. Emilia Delong HbA1c (Bld) [Mass fraction] 5.3 % Normal 4.5-6.2 [facility] Comment on above: Performed By: #### A 1C #### [facility] [address] [place] [address] Dr. Emilia Delong LIPID PROFILEon 11-29-2022 CHOL-HDL RATIO NORM SEE BELOW Normal [facility] Comment on above: Result Comment: 3.3 - 4.4 LOW RISK 4.4 - 7.1 AVERAGE RISK 7.1 - 11.0 MODERATE RISK >11.0 HIGH RISK Performed By: #### F T4, VITAD #### [facility] [address] [place] [address] Dr. Emilia Delong Cholesterol [Mass/Vol] 319 mg/dL Critically high <=200 [facility] Comment on above: Performed By: #### F T4, VITAD #### [facility] [address] [address] [address] Emilia Delong Cholesterol in HDL [Mass/Vol] 65 mg/dL Critically high 40-60 [facility] Comment on above: Performed By: #### F T4, VITAD #### [facility] [address] [address] [address] Emilia Delong Cholesterol in LDL [Mass/Vol] 212.6 mg/dL Normal [facility] Comment on above: Performed By: #### F T4, VITAD #### [facility] [address] [address] [address] Emilia Delong Cholesterol.total/Betsy sterol in HDL [Mass ratio] 4.9 {ratio} Normal [facility] Comment on above: Performed By: #### F T4, VITAD #### [facility] [address] [address] [address] Emilia Delong HDL NORMAL > or = 60 mg/dl - LOW CARDIOVASCULAR RISK <40 mg/dl - HIGH CARDIOVASCULAR RISK Normal [facility] Comment on above: Performed By: #### F T4, VITAD #### [facility] [address] [place] [address] Dr. Emilia Delong LDL CALC NORMAL SEE BELOW Normal [facility] Comment on above: Result Comment: <100 mg/dl OPTIMAL 100 - 129 mg/dl NEAR OR ABOVE OPTIMAL 130 - 159 mg/dl BORDERLINE HIGH 160 - 189 mg/dl HIGH >190 mg/dl VERY HIGH Performed By: #### F T4, VITAD #### [facility] [address] [place] [address] Dr. Emilia Delong Triglyceride [Mass/Vol] 207 mg/dL Critically high <=150 [facility] Comment on above: Performed By: #### F T4, VITAD #### [facility] [address] [place] [address] Dr. Emilia Delong VLDL CALC 41.4 mg/dL Normal [facility] Comment on above: Performed By: #### F T4, VITAD #### [facility] [address] [place] [address] Dr. Emilia Delong PROF 14(COMP METB)on 023 Albumin [Mass/Vol] 4.0 g/dL Normal 3.4-5.0 [facility] Comment on above: Performed By: #### F T4, VITAD #### [facility] [address] [place] [address] Dr. Emilia Delong Albumin/Globulin [Mass ratio] 1.3 {ratio} Normal [facility] Comment on above: Performed By: #### F T4, VITAD #### [facility] [address] [address] [address] Emilia Delong ALP [Catalytic activity/Vol] 81 U/L Normal 46-116 [facility] Comment on above: Performed By: #### F T4, VITAD #### [facility] [address] [address] [address] Emilia Delong ALT [Catalytic activity/Vol] 23 U/L Normal 14-59 [facility] Comment on above: Performed By: #### F T4, VITAD #### [facility] [address] [address] [address] Emilia Delong Anion gap [Moles/Vol] 12.5 mmol/L Normal [facility] Comment on above: Performed By: #### F T4, VITAD #### [facility] [address] [address] [address] Emilia Delong AST [Catalytic activity/Vol] 18 U/L Normal 15-37 [facility] Comment on above: Performed By: #### F T4, VITAD #### [facility] [address] [address] [address] Emilia Delong Bilirubin [Mass/Vol] 0.4 mg/dL Normal 0.2-1.0 [facility] Comment on above: Performed By: #### F T4, VITAD #### [facility] [address] [address] [address] Emilia Delong Calcium [Mass/Vol] 9.5 mg/dL Normal 8.5-10.1 [facility] Comment on above: Performed By: #### F T4, VITAD #### [facility] [address] [address] [address] Emilia Delong Chloride [Moles/Vol] 107 mmol/L Normal 98-107 [facility] Comment on above: Performed By: #### F T4, VITAD #### [facility] [address] [address] [address] Emilia Delong CO2 [Moles/Vol] 26.4 mmol/L Normal 21.0-32.0 [facility] Comment on above: Performed By: #### F T4, VITAD #### [facility] [address] [address] [address] Emilia Delong Creatinine [Mass/Vol] 0.73 mg/dL Normal 0.55-1.02 [facility] Comment on above: Performed By: #### F T4, VITAD #### [facility] [address] [address] [address] Emilia Delong EGFR-AF BAHRAINI >60 Normal >=60 [facility] Comment on above: Performed By: #### F T4, VITAD #### [facility] [address] [address] [address] Emilia Delong EGFR-NON AF BAHRAINI >60 Normal >=60 [facility] Comment on above: Performed By: #### F T4, VITAD #### [facility] [address] [address] [address] Emilia Delong Globulin (S) [Mass/Vol] 3.1 g/dL Normal [facility] Comment on above: Performed By: #### F T4, VITAD #### [facility] [address] [address] [address] Emilia Delong Glucose [Mass/Vol] 95 mg/dL Normal 74-106 [facility] Comment on above: Performed By: #### F T4, VITAD #### [facility] [address] [address] [address] Emilia Delong Potassium [Moles/Vol] 3.9 mmol/L Normal 3.5-5.1 [facility] Comment on above: Performed By: #### F T4, VITAD #### [facility] [address] [address] [address] Emilia Delong Protein [Mass/Vol] 7.1 g/dL Normal 6.4-8.2 [facility] Comment on above: Performed By: #### F T4, VITAD #### [facility] [address] [address] [address] Emilia Delong Sodium [Moles/Vol] 142 mmol/L Normal 136-145 [facility] Comment on above: Performed By: #### F T4, VITAD #### [facility] [address] [place] [address] Dr. Emilia Delong Urea nitrogen [Mass/Vol] 11.0 mg/dL Normal 7.0-18.0 [facility] Comment on above: Performed By: #### F T4, VITAD #### [facility] [address] [place] [address] Dr. Emilia Delong Urea nitrogen/Creatinine [Mass ratio] 15.1 mg/mg Normal [facility] Comment on above: Performed By: #### F T4, VITAD #### [facility] [address] [place] [address] Dr. Emilia Delong TSHon 09-13-2022 TSH 1.903 uIU/mL Normal 0.358-3.740 [facility] Comment on above: Performed By: #### F T4, VITAD #### [facility] [address] [place] [address] Dr. Emilia Delong CBC AUTO DIFFon 02-20-2022 BASO # 0.0 103/ul Normal 0.0-0.1 [facility] Comment on above: Performed By: #### C BC #### [facility] [address] [place] [address] Dr. Emilia Delong Basophils/100 WBC (Bld) 0.6 % Normal 0.2-2.0 [facility] Comment on above: Performed By: #### C BC #### [facility] [address] [place] [address] Dr. Emilia Delong EO # 0.1 103/ul Normal 0.0-0.7 [facility] Comment on above: Performed By: #### C BC #### [facility] [address] [place] [address] Dr. Emilia Delong Eosinophils/100 WBC (Bld) 0.9 % Normal 0.9-7.0 [facility] Comment on above: Performed By: #### C BC #### [facility] [address] [place] [address] Dr. Emilia Delong Erythrocyte distribution width (RBC) [Ratio] 12.6 % Normal 11.0-15.0 [facility] Comment on above: Performed By: #### C BC #### [facility] [address] [place] [address] Dr. Emilia Delong Hematocrit (Bld) [Volume fraction] 37.8 % Normal 36.0-48.0 [facility] Comment on above: Performed By: #### C BC #### [facility] [address] [place] [address] Dr. Emilia Delong Hemoglobin (Bld) [Mass/Vol] 12.3 g/dL Normal 12.0-16.0 [facility] Comment on above: Performed By: #### C BC #### [facility] [address] [place] [address] Dr. Emilia Delong IG # 0.03 10e3/ul Normal 0.00-0.03 [facility] Comment on above: Performed By: #### C BC #### [facility] [address] [place] [address] Dr. Emilia Delong IG % 0.5 % Normal 0.0-0.5 [facility] Comment on above: Performed By: #### C BC #### [facility] [address] [place] [address] Dr. Emilia Delong LYMPH # 1.7 103/ul Normal 1.2-3.8 [facility] Comment on above: Performed By: #### C BC #### [facility] [address] [place] [address] Dr. Emilia Delong Lymphocytes/100 WBC (Bld) 26.6 % Normal 20.5-60.0 [facility] Comment on above: Performed By: #### C BC #### [facility] [address] [place] [address] Dr. Emilia Delong MANUAL DIFF REQ NO Normal [facility] Comment on above: Performed By: #### C BC #### [facility] [address] [place] [address] Dr. Emilia Delong MCH (RBC) [Entitic mass] 30.7 pg Normal 26.7-34.0 [facility] Comment on above: Performed By: #### C BC #### [facility] [address] [place] [address] Dr. Emilia eDlong MCHC (RBC) [Mass/Vol] 32.5 g/dL Normal 29.9-35.2 [facility] Comment on above: Performed By: #### C BC #### [facility] [address] [place] [address] Dr. Emilia Delong MCV (RBC) [Entitic vol] 94.3 fL Normal 81.0-99.0 [facility] Comment on above: Performed By: #### C BC #### [facility] [address] [place] [address] Dr. Emilia Delong MONO # 0.5 103/ul Normal 0.3-0.8 [facility] Comment on above: Performed By: #### C BC #### [facility] [address] [place] [address] Dr. Emilia Delong Monocytes/100 WBC (Bld) 7.2 % Normal 1.7-12.0 [facility] Comment on above: Performed By: #### C BC #### [facility] [address] [place] [address] Dr. Emilia Delong NEUT # 4.1 103/ul Normal 1.4-6.5 [facility] Comment on above: Performed By: #### C BC #### [facility] [address] [place] [address] Dr. Emilia Delong Neutrophils/100 WBC (Bld) 64.2 % Normal 43.0-75.0 [facility] Comment on above: Performed By: #### C BC #### [facility] [address] [place] [address] Dr. Emilia Delong Platelet mean volume (Bld) [Entitic vol] 10.0 fL Normal 9.5-13.5 [facility] Comment on above: Performed By: #### C BC #### [facility] [address] [place] [address] Dr. Emilia Delong PLT 297 103/ul Normal 150-450 [facility] Comment on above: Performed By: #### C BC #### [facility] [address] [address] [address] Emilia Delong RBC 4.01 106/ul Critically low 4.20-5.40 [facility] Comment on above: Performed By: #### C BC #### [facility] [address] [address] [address] Emilia Delong WBC 6.4 103/ul Normal 4.0-11.0 [facility] Comment on above: Performed By: #### C BC #### [facility] [address] [address] [address] Emilia Delong FREE T3on 02-20-2022 FREE T3 2.44 pg/mlL Normal 2.18-3.98 [facility] Comment on above: Performed By: #### F T3, TSH, LIPID, BMP #### [facility] [address] [address] [address] Emilia Delong FREE T4on 02-20-2022 Free T4 [Mass/Vol] 0.81 ng/dL Normal 0.76-1.46 [facility] Comment on above: Performed By: #### F T4, VITAD #### [facility] [address] [place] [address] Dr. Emilia Delong LIPID PROFILEon 02-20-2022 CHOL-HDL RATIO NORM SEE BELOW Normal [facility] Comment on above: Result Comment: 3.3 - 4.4 LOW RISK 4.4 - 7.1 AVERAGE RISK 7.1 - 11.0 MODERATE RISK >11.0 HIGH RISK Performed By: #### F T4, VITAD #### [facility] [address] [address] [address] Emilia Delong Cholesterol [Mass/Vol] 281 mg/dL Critically high <=200 [facility] Comment on above: Performed By: #### F T4, VITAD #### [facility] [address] [place] [address] Dr. Emilia Delong Cholesterol in HDL [Mass/Vol] 59 mg/dL Normal 40-60 [facility] Comment on above: Performed By: #### F T4, VITAD #### [facility] [address] [address] [address] Emilia Delong Cholesterol in LDL [Mass/Vol] 182.8 mg/dL Normal [facility] Comment on above: Performed By: #### F T4, VITAD #### [facility] [address] [place] [address] Dr. Emilia Delong Cholesterol.total/Betsy sterol in HDL [Mass ratio] 4.8 {ratio} Normal [facility] Comment on above: Performed By: #### F T4, VITAD #### [facility] [address] [place] [address] Dr. Emilia Delong HDL NORMAL > or = 60 mg/dl - LOW CARDIOVASCULAR RISK <40 mg/dl - HIGH CARDIOVASCULAR RISK Normal [facility] Comment on above: Performed By: #### F T4, VITAD #### [facility] [address] [place] [address] Dr. Emilia Delong LDL CALC NORMAL SEE BELOW Normal [facility] Comment on above: Result Comment: <100 mg/dl OPTIMAL 100 - 129 mg/dl NEAR OR ABOVE OPTIMAL 130 - 159 mg/dl BORDERLINE HIGH 160 - 189 mg/dl HIGH >190 mg/dl VERY HIGH Performed By: #### F T4, VITAD #### [facility] [address] [place] [address] Dr. Emilia Delong Triglyceride [Mass/Vol] 196 mg/dL Critically high <=150 [facility] Comment on above: Performed By: #### F T4, VITAD #### [facility] [address] [place] [address] Dr. Emilia Delong VLDL CALC 39.2 mg/dL Normal [facility] Comment on above: Performed By: #### F T4, VITAD #### [facility] [address] [place] [address] Dr. Emilia Delong PROF CHEM 8 (BAS METB)on Anion gap [Moles/Vol] 12.7 mmol/L Normal [facility] Comment on above: Performed By: #### F T3, TSH, LIPID, BMP #### [facility] [address] [address] [address] Emilia Delong Calcium [Mass/Vol] 9.7 mg/dL Normal 8.5-10.1 [facility] Comment on above: Performed By: #### F T3, TSH, LIPID, BMP #### [facility] [address] [address] [address] Emilia Delong Chloride [Moles/Vol] 105 mmol/L Normal 98-107 [facility] Comment on above: Performed By: #### F T3, TSH, LIPID, BMP #### [facility] [address] [address] [address] Emilai Delong CO2 [Moles/Vol] 26.0 mmol/L Normal 21.0-32.0 [facility] Comment on above: Performed By: #### F T3, TSH, LIPID, BMP #### [facility] [address] [address] [address] Emilia Delong Creatinine [Mass/Vol] 0.82 mg/dL Normal 0.55-1.02 [facility] Comment on above: Performed By: #### F T3, TSH, LIPID, BMP #### [facility] [address] [address] [address] Emilia Delong EGFR-AF BAHRAINI >60 Normal >=60 [facility] Comment on above: Performed By: #### F T3, TSH, LIPID, BMP #### [facility] [address] [address] [address] Emilia Delong EGFR-NON AF BAHRAINI >60 Normal >=60 [facility] Comment on above: Performed By: #### F T3, TSH, LIPID, BMP #### [facility] [address] [address] [address] Emilia Delong Glucose [Mass/Vol] 95 mg/dL Normal 74-106 [facility] Comment on above: Performed By: #### F T3, TSH, LIPID, BMP #### [facility] [address] [address] [address] Emilia Delong Potassium [Moles/Vol] 3.7 mmol/L Normal 3.5-5.1 [facility] Comment on above: Performed By: #### F T3, TSH, LIPID, BMP #### [facility] [address] [address] [address] Emilia Delong Sodium [Moles/Vol] 140 mmol/L Normal 136-145 [facility] Comment on above: Performed By: #### F T3, TSH, LIPID, BMP #### [facility] [address] [place] [address] Dr. Emilia Delong Urea nitrogen [Mass/Vol] 12.0 mg/dL Normal 7.0-18.0 [facility] Comment on above: Performed By: #### F T3, TSH, LIPID, BMP #### [facility] [address] [place] [address] Dr. Emilia Delong Urea nitrogen/Creatinine [Mass ratio] 14.6 mg/mg Normal [facility] Comment on above: Performed By: #### F T3, TSH, LIPID, BMP #### [facility] [address] [place] [address] Dr. Emilia Delong TSHon 02-20-2022 TSH 3.012 uIU/mL Normal 0.358-3.740 [facility] Comment on above: Performed By: #### F T3, TSH, LIPID, BMP #### [facility] [address] [place] [address] Dr. Emilia Delong VITAMIN D 25 OHon 02-20-2022 VIT D 25-OH 34.5 ng/mL Normal [facility] Comment on above: Performed By: #### F T4, VITAD #### [facility] [address] [place] [address] Dr. Emilia Delong VIT D RANGES SEE BELOW Normal [facility] Comment on above: Result Comment: <20 ng/mL Vit D deficient 20 - <30 ng/mL Vit D insufficient 30 - 100 ng/mL Vit D sufficient >100 ng/mL Potential Toxicity Performed By: #### F T4, VITAD #### [facility] [address] [place] [address] Dr. Emilia Delong [facility] SARS-CoV-2 (COVID-19) RNA LETICIA+probe Ql (Unsp spec) Not detected Normal NOT DETECTED [facility] Comment on above: Result Comment: This test is not yet approved or cleared by the [place] FDA. When there are no FDA-approved or cleared tests available, and other criteria are met, FDA can make tests available under an emergency access mechanism called an Emergency Use Authorization (EUA). The EUA for this test is supported by the [employer] D[employer] Operator of Health and Human Service's (HHS's) declaration [...] SARS-CoV-2. Performed By: #### C VDTBH #### [facility] [address] [place] [address] Dr. Emilia Delong Urinalysis w/ Microon 2019 ----- Normal [facility] Comment on above: Performed By: #### U AMIC #### [facility] [address] [place] [address] Supervisor Airplane Flight Attendant: Francois Justice MD Acetoacetic Acid,Ur Negative Normal NEG [facility] Comment on above: Performed By: #### U AMIC #### [facility] [address] [place] [address] Supervisor Airplane Flight Attendant: Francois Justice MD Bacteria LM.HPF (Urine sed) [#/Area] TRACE Abnormal NONE [facility] Comment on above: Performed By: #### U AMIC #### [facility] [address] [place] [address] Supervisor Airplane Flight Attendant: Francois Justice MD Bilirubin, SemiQt,Ur Negative Normal NEG [facility] Comment on above: Performed By: #### U AMIC #### [facility] [address] [place] [address] Supervisor Airplane Flight Attendant: Francois Justice MD Color (U) YELLOW Normal YEL [facility] Comment on above: Performed By: #### U AMIC #### [facility] [address] [place], [place] [id number] Supervisor Airplane Flight Attendant: Francois Justice MD Epithelial cells LM.HPF (Urine sed) [#/Area] 0 TO 2 Normal 0-25 [facility] Comment on above: Performed By: #### U AMIC #### [facility] [address] [place], [place] [id number] Supervisor Airplane Flight Attendant: Francois Justice MD Glucose Ql (U) Negative Normal NEG [facility] Comment on above: Performed By: #### U AMIC #### [facility] [address] [place], [facility]83 Supervisor Airplane Flight Attendant: Francois Justice MD Hemoglobin, Ur Negative Normal NEG [facility] Comment on above: Performed By: #### U AMIC #### [facility] [address] [place] [address] Dr. [place] [address] Supervisor Airplane Flight Attendant: Francois Justice MD Leukocyte esterase Test strip Ql (U) Negative Normal NEG [facility] Comment on above: Performed By: #### U AMIC #### [facility] [address] [place], [facility]83 Supervisor Airplane Flight Attendant: Francois Justice MD Nitrite,Ur Negative [facility] Comment on above: Performed By: #### U AMIC #### [facility] [address] [place] [address] Supervisor Airplane Flight Attendant: Francois Justice MD pH (U) 6.5 [pH] Normal 5.0-9.[address] [facility] Comment on above: Performed By: #### U AMIC #### [facility] [address] [place], [place] [id number] Supervisor Airplane Flight Attendant: Francois Justice MD Protein Ql (U) Negative Normal NEG [facility] Comment on above: Performed By: #### U AMIC #### [facility] [address] [place], [place] [id number] Supervisor Airplane Flight Attendant: Francois Justice MD RBC (U) [#/Vol] 0 TO 2 Normal 0-2 [facility] Comment on above: Performed By: #### U AMIC #### [facility] [address] [place], [place] [id number] Supervisor Airplane Flight Attendant: Francois Justice MD Specific gravity (U) [Rel density] 1.015 Normal 1.010-1.[address] [facility] Comment on above: Performed By: #### U AMIC #### [address] [place] [address]183 Supervisor Airplane Flight Attendant: Francois Justice MD Turbidity CLEAR Normal CLEAR [facility] Comment on above: Performed By: #### U AMIC #### [address] [place] [address]183 Supervisor Airplane Flight Attendant: Francois Justice MD Urobilinogen,Ur Normal Normal NORM [facility] Comment on above: Performed By: #### U AMIC #### [address] [place], [facility]83 Supervisor Airplane Flight Attendant: Francois Justice MD WBC (U) [#/Vol] 0 TO 2 Normal 0-5 [facility] Comment on above: Performed By: #### U AMIC #### [address] [place] [place] [address] Supervisor Airplane Flight Attendant: Francois Justice MD Amorphous sediment LM Ql (Urine sed) NOT REPORTED Normal NONE [facility] Comment on above: Performed By: #### U AMIC #### [address] [place] [address]183 Supervisor Airplane Flight Attendant: Francois Justice MD Casts LM.LPF (Urine sed) [#/Area] NOT REPORTED Normal [facility] Comment on above: Performed By: #### U AMIC #### [facility] [address] [place] [address] Supervisor Airplane Flight Attendant: Francois Justice MD Comment NOT REPORTED Normal [facility] Comment on above: Performed By: #### U AMIC #### [facility] [address] [place] [address] Supervisor Airplane Flight Attendant: Francois Justice MD Crystals LM Nom (Urine sed) NOT REPORTED Normal [facility] Comment on above: Performed By: #### U AMIC #### [facility] [address] [place] [address] Supervisor Airplane Flight Attendant: Francois Jutsice MD Epithelial, Renal NOT REPORTED Normal [address] [facility] Comment on above: Performed By: #### U AMIC #### [facility] [address] [place] [address] Supervisor Airplane Flight Attendant: Francois Justice MD Mucus Strands NOT REPORTED Normal [facility] Comment on above: Performed By: #### U AMIC #### [facility] [address] [place] [address] Supervisor Airplane Flight Attendant: Francois Justice MD Other Observations NOT REPORTED Normal [facility] Comment on above: Performed By: #### U AMIC #### [facility] [address] [place] [address] Supervisor Airplane Flight Attendant: Francois Justice MD Trichomonas NOT REPORTED Normal [facility] Comment on above: Performed By: #### U AMIC #### [facility] [address] [place] [address] Supervisor Airplane Flight Attendant: Francois Justice MD Yeast LM Ql (Urine sed) NOT REPORTED Normal [facility] Comment on above: Performed By: #### U [facility] #### [facility] [address] [place] [address] Supervisor Airplane Flight Attendant: Francois Justice MD Urinalysis with microscopico n 10-05-2019 Amorphous, UA NOT REPORTED None [facility] Work Phone: Bacteria, UA TRACE Abnormal None [facility] Work Phone: Bilirubin Urine Negative NEGATIVE [facility] Work Phone: Casts UA NOT REPORTED /LPF [facility] Work Phone: Color, UA YELLOW YELLOW [facility] Work Phone: Crystals UA NOT REPORTED None /HPF [facility] Work Phone: Epithelial Cells UA 0 TO 2 [facility] Work Phone: Glucose, Ur Negative NEGATIVE [facility] Work Phone: Interpretation and review of laboratory results Abnormal [facility] Work Phone: Ketones Ql (U) Negative NEGATIVE [facility] Work Phone: Leukocyte esterase Test strip Ql (U) Negative NEGATIVE [facility] Work Phone: Mucus, UA NOT REPORTED None [facility] Work Phone: Nitrite, Urine Negative NEGATIVE [facility] Work Phone: Other Observations UA NOT REPORTED NOT REQ. [facility] Work Phone: pH, UA 6.5 [facility] Work Phone: Protein (U) [Mass/Vol] Negative NEGATIVE [facility] Work Phone: RBC (U) [#/Vol] 0 TO 2 [facility] Work Phone: Renal Epithelial, Urine NOT REPORTED 0 /HPF [facility] Work Phone: Specific [place], UA 1.015 [facility] Work Phone: Trichomonas, UA NOT REPORTED None [employer] [facility] Work Phone: Turbidity UA CLEAR CLEAR [employer] Work Phone: Urinalysis Comments NOT REPORTED [facility] [employer] Work Phone: Urine Hgb Negative NEGATIVE [employer] Work Phone: Urobilinogen, Urine Normal Normal [facility] Work Phone: WBC, UA 0 TO 2 [employer] Work Phone: Yeast, UA NOT REPORTED None [employer] Work Phone: - [employer] Work Phone: Vital Signs Date Time Vital Sign Value Performing Clinician Facility 01-12-2025 11:45-0400 Body height 165.1 cm Saurabh Purcell MD Work Phone: [facility] 01-12-2025 11:45-0400 Body mass index (BMI) [Ratio] 34.95 kg/m2 Saurabh Purcell MD Work Phone: [facility] 01-12-2025 11:45-0400 Body temperature 97.3 [degF] Saurabh Purcell MD Work Phone: [facility] 01-12-2025 11:45-0400 Body weight 95.25 kg Saurabh Purcell MD Work Phone: [facility] 01-12-2025 11:45-0400 Diastolic blood pressure 80 mm[Hg] Saurabh Purcell MD Work Phone: [facility] 01-12-2025 11:45-0400 Heart rate 72 /min Saurabh Purcell MD Work Phone: [facility] 01-12-2025 11:45-0400 Respiratory rate 22 /min Saurabh Purcell MD Work Phone: [facility] 01-12-2025 11:45-0400 SaO2% (BldA) [Mass fraction] 97 % Saurabh Purcell MD Work Phone: [facility] 01-12-2025 11:45-0400 Systolic blood pressure 154 mm[Hg] Saurabh Purcell MD Work Phone: [facility] 09-03-2024 14:34-0500 Body height 165.1 cm Saurabh Purcell MD Work Phone: [facility] 09-03-2024 14:34-0500 Body mass index (BMI) [Ratio] 34.61 kg/m2 Saurabh Purcell MD Work Phone: [facility] 09-03-2024 14:34-0500 Body temperature 96.6 [degF] Saurabh Purcell MD Work Phone: [facility] 09-03-2024 14:34-0500 Body weight 94.35 kg Saurabh Purcell MD Work Phone: [facility] 09-03-2024 14:34-0500 Diastolic blood pressure 80 mm[Hg] Saurabh Purcell MD Work Phone: [facility] 09-03-2024 14:34-0500 Heart rate 72 /min Saurabh Purcell MD Work Phone: [facility] 09-03-2024 14:34-0500 Respiratory rate 20 /min Saurabh Purcell MD Work Phone: [facility] 09-03-2024 14:34-0500 SaO2% (BldA) [Mass fraction] 98 % Saurabh Purcell MD Work Phone: [facility] 09-03-2024 14:34-0500 Systolic blood pressure 154 mm[Hg] Saurabh Purcell MD Work Phone: [facility] 04-21-2024 16:32-0400 Body height 165.1 cm Nolberto Guzman DPM Work Phone: [facility] 04-21-2024 16:32-0400 Body mass index (BMI) [Ratio] 34.28 kg/m2 Nolberto Guzman DPM Work Phone: [facility] 04-21-2024 16:32-0400 Body weight 93.44 kg Nolberto Thomas DPM Work Phone: [facility] 10-04-2023 10:13-0500 Body height 165.1 cm Saurabh Purcell MD Work Phone: [facility] 10-04-2023 10:13-0500 Body mass index (BMI) [Ratio] 33.95 kg/m2 Saurabh Purcell MD Work Phone: [facility] 10-04-2023 10:13-0500 Body temperature 96.6 [degF] Saurabh Purcell MD Work Phone: [facility] 10-04-2023 10:13-0500 Body weight 92.53 kg Saurabh Purcell MD Work Phone: [facility] 10-04-2023 10:13-0500 Diastolic blood pressure 60 mm[Hg] Saurabh Purcell MD Work Phone: [facility] 10-04-2023 10:13-0500 Heart rate 72 /min Saurabh Purcell MD Work Phone: [facility] 10-04-2023 10:13-0500 SaO2% (BldA) [Mass fraction] 96 % Saurabh Purcell MD Work Phone: [facility] 10-04-2023 10:13-0500 Systolic blood pressure 130 mm[Hg] Saurabh Purcell MD Work Phone: [facility] 10-05-2019 18:15-0500 BP Diastolic 90 mm[Hg] Jose [employer] [facility] Work Phone: 10-05-2019 18:15-0500 BP Systolic 150 mm[Hg] [employer] [facility] Work Phone: 10-05-2019 18:15-0500 Respiratory Rate 18 /min [employer] [facility] Work Phone: 10-05-2019 16:18-0500 Pulse (Heart Rate) 63 /min Jose Watson [employer] Work Phone: 10-05-2019 15:44-0500 Body Temperature 97.7 [degF] Jose Watson [employer] Work Phone: 10-05-2019 15:44-0500 Body weight 90.27 kg Jose [employer] Work Phone: 10-05-2019 15:44-0500 Pulse Oximetry 97 % Jose Watson [employer] Work Phone: Encounters Encounter Date Encounter Type Care Provider Facility Start: 04-08-2025 End: 04-08-2025 ambulatory [facility] Start: 01-19-2025 End: 01-19-2025 Clinisync Result Encounter Saurabh Purcell MD Work Phone: [facility] Unsolicited Start: 01-19-2025 End: 01-19-2025 Clinisync Result Encounter Saurabh Purcell MD Work Phone: [facility] Unsolicited Start: 01-12-2025 End: 01-12-2025 Bamboo flowsheet Saurabh Purcell MD Work Phone: [facility] Start: 01-12-2025 End: 01-12-2025 Bamboo flowsheet Saurabh Purcell MD Work Phone: [facility] Start: 01-12-2025 End: 01-12-2025 ambulatory SAURABH PURCELL Not Available Start: 01-12-2025 End: 01-12-2025 Office outpatient visit 25 minutes Saurabh Purcell MD Work Phone: [facility] Comment on above: Hematuria, unspecifi ed type (Primary Dx); Postmenopausal bleeding Start: 10-20-2024 End: 10-20-2024 [facility] Start: 09-29-2024 End: 09-29-2024 ambulatory SAURABH PURCELL [facility] Start: 09-29-2024 End: 09-29-2024 External Result Encounter Saurabh Purcell MD Work Phone: [facility] Unsolicited Start: 09-29-2024 End: 09-29-2024 External Result Encounter Saurabh Purcell MD Work Phone: [facility] Unsolicited Start: 09-15-2024 End: 09-15-2024 ambulatory DEVON MOLINA Not Available Start: 09-03-2024 End: 09-03-2024 Office outpatient visit 15 minutes Saurabh Purcell MD Work Phone: [facility] Comment on above: Medicare annual well ness visit, subsequent (Primary Dx); Encounter for long-term (current) use of medications; Benign essential hypertension (CMS/HCC); Subclinical hypothyroidism (CMS/HCC); Dyslipidemia (CMS/HCC); Acute UTI Start: 09-03-2024 End: 09-03-2024 ambulatory SAURABH PURCELL Not Available Start: 09-03-2024 End: 09-03-2024 Clinisync Result Encounter Saurabh Purcell MD Work Phone: [facility] Unsolicited Start: 09-03-2024 End: 09-03-2024 Clinisync Result Encounter Saurabh Purcell MD Work Phone: [facility] Unsolicited Start: 09-03-2024 End: 09-03-2024 Patient encounter procedure Saurabh Purcell MD Work Phone: [facility] Work Phone: Start: 07-06-2024 End: 07-06-2024 Refill Saurabh Purcell MD Work Phone: [facility] Comment on above: Mild intermittent in trinsic asthma without complication (CMS/HCC) Start: 05-26-2024 End: 05-26-2024 ambulatory Lynne Durham LPN [facility] Start: 05-12-2024 End: 05-12-2024 Bamboo flowsheet Devon Molina MS, RDN, LD, CHES [facility] Start: 05-12-2024 End: 05-12-2024 Bamboo flowsheet Devon Molina MS, RDN, LD, CHES [facility] Start: 05-12-2024 End: 05-12-2024 ambulatory DEVON MOLINA Not Available Start: 04-21-2024 End: 04-21-2024 Office outpatient visit 15 minutes Nolberto Guzman DPM Work Phone: [facility] Comment on above: Contusion of lesser toe of right foot with damage to nail, initial encounter (Primary Dx); Right foot pain Start: 04-21-2024 End: 04-22-2024 ambulatory NOLBERTO GUZMAN Not Available Start: 04-21-2024 End: 04-21-2024 Bamboo flowsheet Devon Molina MS, RDN, LD, CHES [facility] Start: 04-21-2024 End: 04-21-2024 Bamboo flowsheet Devon Molina MS, RDN, LD, CHES [facility] Start: 04-21-2024 End: 04-21-2024 ambulatory DEVON HARVEY Not Available Start: 04-09-2024 End: 04-09-2024 ambulatory SAURABH PURCELL Not Available Start: 03-03-2024 End: 03-03-2024 ambulatory DEVON HORN Not Available Start: 01-23-2024 End: 01-23-2024 ambulatory SAURABH PURCELL Not Available Start: 10-04-2023 Bamboo flowsheet Saurabh Purcell MD Work Phone: [facility] Start: 10-04-2023 Bamboo flowsheet Saurabh Purcell MD Work Phone: [facility] Start: 10-04-2023 Clinisync Result Encounter Saurabh Purcell MD Work Phone: [facility] External Department Unsolicited Start: 10-04-2023 End: 10-04-2023 Office outpatient visit 25 minutes Saurabh Purcell MD Work Phone: [facility] Comment on above: Benign essential hyp ertension (CMS/HCC) (Primary Dx); 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 (CMS/HCC); Seasonal allergic rhinitis due to pollen; Coronary artery disease involving [place] coronary artery of 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 angina pectoris (CMS/HCC); SAL (obstructive sleep apnea); Dyspareunia in female; Dyslipidemia (CMS/HCC); Encounter for long-term (current) use of medications; Vitamin D deficiency; Obesity (BMI 30-39.9) Start: 12-08-2022 Encounter for other preprocedural examination DR DOCTOR ORELLANA [facility] Start: 12-04-2022 End: 12-05-[address] DOCTOR ORELLANA Facility:[facility] Start: 12-04-2022 End: 12-05-2022 Encounter for other preprocedural examination DR DOCTOR ORELLANA Facility:[facility] Start: 11-29-2022 End: 11-30-[address] SAURABH PURCELL Facility:[facility] Start: 10-03-2022 End: 10-04-2022 ambulatory SHAIKH Segundo RODRIGUEZ Facility:[facility] Start: 09-13-2022 End: 09-14-[address] SAURABH PURCELL Facility:[facility] Start: 02-20-2022 End: 02-21-[address] SAURABH PURCELL Facility:[facility] Start: 02-16-2022 End: 02-16-[address] SAURABH PURCELL Facility:[facility] Start: 10-05-2019 End: 10-05-2019 Emergency department patient visit [facility] Start: 10-05-2019 End: 10-05-2019 Emergency department patient visit [facility] Work Phone: [facility] ED Comment on above: Hypertension, unspec ified type (Primary Dx) Procedures Date Procedure Procedure Detail Performing Clinician Start: 01-19-2025 US PELVIS W/ TRANSVAGINAL Saurabh Purcell MD Work Phone: Start: 01-19-2025 US RENAL BI Saurabh mckee MD Work Phone: Start: 09-29-2024 Urnls dip stick/tabl et rgnt non-auto w/o micrscp Saurabh Purcell MD Work Phone: Start: 09-03-2024 ALL CBC WITH AUTO DIFF Saurabh Purcell MD Work Phone: Start: 04-21-2024 Radex foot complete minimum 3 views Nolberto Petersen Thomas DPM Work Phone: Start: 04-09-2024 Mammography Devon Edilia berry MS, RDN, LD, CHES Start: 10-04-2023 ALL CBC WITH AUTO DIFF Saurabh Purcell MD Work Phone: Start: 04-08-2023 Mammography Saurabh mckee MD Work Phone: Start: 09-20-2022 Colonoscopy Devon Edilia berry MS, RDN, LD, CHES Start: 09-19-2022 Colonoscopy Saurabh mckee MD Work Phone: Start: 10-05-2019 Ecg routine ecg w/le ast 12 lds w[facility]i&[facility] Start: 10-05-2019 Urnls dip stick/tabl et reagent auto microscopy [facility] Start: 10-05-2019 Ecg routine ecg w/le ast 12 lds w/i&r Jose Watson Work Phone: Start: 10-05-2019 Urnls dip stick/tabl et reagent [facility] Work Phone: Plan of Treatment Date Care Activity Detail Author Start: 09-20-2032 Screening for malign ant neoplasm of colon [facility] Start: 09-19-2032 Screening for malign ant neoplasm of colon [facility] Start: 09-03-2025 Medicare Annual Wellness (AWV) Medicare Annual Wellness (AWV) [facility] Start: 04-09-2025 Screening for malign ant neoplasm of breast Mammogram [facility] Start: 03-02-2025 End: 03-02-2025 Patient encounter procedure 03/02/2025 10:00 AM EDT Office Visit [facility] [address] [place] [id number] Saurabh Purcell MD [address] [place] [id number] [facility] Start: 01-12-2025 End: 01-12-2026 URINARY TRACT INFECTION (HTRX) URINARY TRACT INFECTION (HTRX) Lab Routine Hematuria, unspecified type Expected: 01/12/2025 (Approximate), Expires: 01/12/2026 [facility] Comment on above: Expected: 01/12/2025 (Approximate), Expires: 01/12/2026 Start: 01-12-2025 End: 01-12-2026 US Kidney US renal complete Imaging Routine Hematuria, unspecified type Expected: 01/12/2025, Expires: 01/12/2026 [facility] Comment on above: Expected: 01/12/2025 , Expires: 01/12/2026 Start: 01-12-2025 End: 01-12-2026 US Pelvis US Pelvis w/ TV Imaging Routine Postmenopausal bleeding Expected: 01/12/2025, Expires: 01/12/2026 [facility] Work Phone: Comment on above: Expected: 01/12/2025 , Expires: 01/12/2026 Start: 11-24-2024 End: 11-24-2024 Clinical Support [facility] Start: 09-03-2024 End: 09-03-2025 Basic metabolic 1998 panel - Serum or Plasma Basic metabolic panel Lab Routine Benign essential hypertension (CMS/HCC) Expected: 09/03/2024 (Approximate), Expires: 09/03/2025 [facility] Work Phone: Comment on above: Expected: 09/03/2024 (Approximate), Expires: 09/03/2025 Start: 09-03-2024 End: 09-03-2025 CBC W Auto Differential panel - Blood CBC and differential Lab Routine Encounter for long-term (current) use of medications Expected: 09/03/2024 (Approximate), Expires: 09/03/2025 [facility] Comment on above: Expected: 09/03/2024 (Approximate), Expires: 09/03/2025 Start: 09-03-2024 End: 09-03-2025 Hepatic function 2000 panel - Serum or Plasma Hepatic function panel Lab Routine Encounter for long-term (current) use of medications Expected: 09/03/2024 (Approximate), Expires: 09/03/2025 [facility] Comment on above: Expected: 09/03/2024 (Approximate), Expires: 09/03/2025 Start: 09-03-2024 End: 09-03-2025 Lipid 1996 panel - Serum or Plasma Lipid panel Lab Routine Dyslipidemia ([facility]/HCC) Expected: 09/03/2024 (Approximate), Expires: 09/03/2025 [facility] Comment on above: Expected: 09/03/2024 (Approximate), Expires: 09/03/2025 Start: 09-03-2024 End: 09-03-2025 Thyrotropin [Units/volume] in Serum or Plasma TSH Lab Routine Subclinical hypothyroidism ([facility]) Expected: 09/03/2024 (Approximate), Expires: 09/03/2025 [facility] Comment on above: Expected: 09/03/2024 (Approximate), Expires: 09/03/2025 Start: 09-03-2024 End: 09-03-2025 Thyroxine (T4) free [Mass/volume] in Serum or Plasma T4, free Lab Routine Subclinical hypothyroidism ([facility]/HCC) Expected: 09/03/2024 (Approximate), Expires: 09/03/2025 [facility] Comment on above: Expected: 09/03/2024 (Approximate), Expires: 09/03/2025 Start: 07-23-2024 End: 07-23-2024 Patient encounter procedure 07/23/2024 10:00 AM EST Office Visit [facility] [address] [place] [address] Saurabh Purcell MD [address] [place] [id number] [facility] Start: 05-12-2024 End: 05-12-2024 Clinical Support 05/12/2024 9:30 AM EDT Clinical Support [facility] [address] [place] [phone] Devon Molina, MS, RDN, LD, CHES [address] [place], [place] [facility] Start: 05-03-2024 Influenza vaccination Influenza Vacc ine (#1) [facility] Start: 04-22-2024 End: 04-22-2024 Professional / ancillary services management 04/22/2024 8:00 AM EDT Ancillary Procedure [facility] [address] [place] [phone] Arrived [facility] Comment on above: Arrived Start: 04-21-2024 End: 04-21-2024 Patient encounter procedure 04/21/2024 4:30 PM EDT Office Visit [facility] [address] [place] [phone] Nolberto Guzman, DPM [address] [place] [address] [facility] Start: 04-08-2024 Screening for malign ant neoplasm of breast Mammogram [facility] Start: 04-02-2024 Medicare Annual Wellness (AWV) Medicare Annual Wellness (AWV) [facility] Start: 01-01-2024 End: 01-01-2024 Patient encounter procedure 01/01/2024 10:00 AM EDT Office Visit [facility] [address] [place] [address] Saurabh Purcell MD [address] [place] [address] [facility] Start: 10-04-2023 End: 10-04-2024 25-hydroxyvitamin D3 [Mass/volume] in Serum or Plasma Vitamin D 25 hydroxy Lab Routine Vitamin D deficiency Expected: 10/04/2023 (Approximate), Expires: 10/04/2024 [facility] Comment on above: Expected: 10/04/2023 (Approximate), Expires: 10/04/2024 Start: 10-04-2023 End: 10-04-2024 Basic metabolic 1998 panel - Serum or Plasma Basic metabolic panel Lab Routine Benign essential hypertension (CMS/HCC) Expected: 10/04/2023 (Approximate), Expires: 10/04/2024 [facility] Work Phone: Comment on above: Expected: 10/04/2023 (Approximate), Expires: 10/04/2024 Start: 10-04-2023 End: 10-04-2024 CBC W Auto Differential panel - Blood CBC and differential Lab Routine Encounter for long-term (current) use of medications Expected: 10/04/2023 (Approximate), Expires: 10/04/2024 [facility] Comment on above: Expected: 10/04/2023 (Approximate), Expires: 10/04/2024 Start: 10-04-2023 End: 10-04-2024 Hepatic function 2000 panel - Serum or Plasma Hepatic function panel Lab Routine Encounter for long-term (current) use of medications Expected: 10/04/2023 (Approximate), Expires: 10/04/2024 [facility] Comment on above: Expected: 10/04/2023 (Approximate), Expires: 10/04/2024 Start: 10-04-2023 End: 10-04-2024 Lipid 1996 panel - Serum or Plasma Lipid panel Lab Routine Dyslipidemia (CMS/HCC) Expected: 10/04/2023 (Approximate), Expires: 10/04/2024 [facility] Comment on above: Expected: 10/04/2023 (Approximate), Expires: 10/04/2024 Start: 10-04-2023 End: 10-04-2024 Thyrotropin [Units/volume] in Serum or Plasma TSH Lab Routine Obesity (BMI 30-39.9) Expected: 10/04/2023 (Approximate), Expires: 10/04/2024 [facility] Comment on above: Expected: 10/04/2023 (Approximate), Expires: 10/04/2024 Start: 05-03-2023 Influenza vaccination Influenza Vacc ine (#1) [facility] Start: 2023 Pneumococcal Vaccine : 65+ Years (1 - PCV) Pneumococcal Vaccine: 65+ Years (1 - PCV) [facility] Start: 05-03-2019 Influenza vaccination Flu vaccine (# 1) Reading Room Phone: Start: 02-04-1988 Screening for malign ant neoplasm of cervix [facility] Start: 1979 Screening for malign ant neoplasm of cervix Pap Smear [facility] Start: 1977 Pneumococcal Vaccine : 65+ Years (1 of 2 - PCV) Pneumococcal Vaccine: 65+ Years (1 of 2 - PCV) [facility] Start: 02-04-1964 Pneumococcal Vaccine : 65+ Years (1 - PCV) Pneumococcal Vaccine: 65+ Years (1 - PCV) [facility] Start: 02-04-1964 Pneumococcal Vaccine : 65+ Years (1 of 2 - PCV) Pneumococcal Vaccine: 65+ Years (1 of 2 - PCV) [facility] Start: 1958 Medicare Annual Wellness (AWV) Medicare Annual Wellness (AWV) [facility] Start: 1958 Screening for malign ant neoplasm of colon [facility] EKG 12 Lead EKG 12 Lead ECG STAT 10/05/2019 6:12 PM [facility] [employer] [facility] Work Phone: Immunizations Immunization Date Immunization Notes Care Provider [facility] 06-28-2021 influenza, injectabl e, quadrivalent, preservative free Saurabh Purcell MD Work Phone: [facility] 06-28-2021 influenza virus vacc ine, unspecified formulation Saurabh Purcell MD Work Phone: [facility] 09-08-2020 influenza, injectabl e, quadrivalent, preservative free Saurabh Purcell MD Work Phone: [facility] 06-23-2020 Seasonal, quadrivale nt, recombinant, injectable influenza vaccine, preservative free Saurabh Purcell MD Work Phone: [facility] 05-23-2019 Seasonal, quadrivale nt, recombinant, injectable influenza vaccine, preservative free Saurabh Purcell MD Work Phone: [facility] 04-20-2019 tetanus toxoid, redu farhana diphtheria toxoid, and acellular pertussis vaccine, adsorbed Saurabh Purcell MD Work Phone: [facility] 10-14-2017 measles, mumps and rubella virus vaccine Saurabh Purcell MD Work Phone: [facility] 08-16-2017 influenza, injectabl e, quadrivalent, contains preservative Saurabh Purcell MD Work Phone: [facility] 06-13-2016 influenza, injectabl e, quadrivalent, preservative free Saurabh Purcell MD Work Phone: [facility] 06-30-2014 influenza, injectabl e, quadrivalent, contains preservative Saurabh Purcell MD Work Phone: [facility] 01-03-2012 hepatitis B vaccine, adult dosage Saurabh Purcell MD Work Phone: [facility] 08-09-2011 hepatitis B vaccine, adult dosage Saurabh Purcell MD Work Phone: [facility] 06-28-2011 hepatitis B vaccine, adult dosage Saurabh Purcell MD Work Phone: [facility] Payers Date Payer Category Payer Medicare [id number] 2022 Medicare (Managed Care) [id number]. [id number] 2022 Unknown [id number] [id number] 2022-Present [address] [place] [address] [id number] 2022 Medicare [id number] 2021 Private Health Insurance [facility] [id number] 2021-Present [address] [address] [place] [address] [id number] 2019 Unknown [employer] [address] xxxxxxxxxxxx 2019-Present [phone] [address] [place] [address] xxxxxxxxxxxx [id number] 2019 Unknown [id number] 1959 Private Health Insurance [id number] 1959 Unknown [id number] 1958 Unknown [id number] 2.16.840.1.277050.3.579.2 .173 1958 Unknown [id number] 2.16.840.1.194662.3.579.2 .593 1958 Unknown [id number] 2.16.840.1.975262.3.579.2 .593 1958 Unknown [id number] 2.16.840.1.772992.3.579.2 .593 1958 Unknown [id number] 2.16.840.1.923178.3.579.2 .593 1958 Unknown [id number] 2.840.1.594086.3.579.2 .593 1958 Unknown [id number] 2.840.1.727447.3.579.2 .593 1958 Unknown [id number] 2.840.1.504770.3.579.2 .1286 1958 Unknown [id number] 2.840.1.701675.3.579.2 .1259 1958 Unknown [id number] 2.840.1.420109.3.579.2 .1259 1958 Unknown [id number] 2.840.1.910095.3.579.2 .1259 1958 Unknown [id number] 2.840.1.152523.3.579.2 .1259 1958 Unknown [id number] 2.840.1.606865.3.579.2 .1259 1958 Unknown [id number] 2.840.1.320111.3.579.2 .125 1958 Unknown [id number] 2.840.1.969519.3.579.2 .1259 1958 Unknown [id number] 2.840.1.449139.3.579.2 .1259 1958 Unknown [id number] 2.16.840.1.889809.3.579.2 .1259 1958 Unknown [id number] 2.16.840.1.281478.3.579.2 .1259 Social History Date Type Detail Facility Start: 10-05-2019 End: 06-25-2023 Tobacco smoking status NHIS Never smoker [facility] Start: 10-05-2019 Alcohol intake Lifetime non-d lawson (finding) Reading Room Phone: Start: 10-05-2019 History SDOH Alcohol Frequency 1 Reading Room Phone: Start: 1960 Sex Assigned At Not on file [employer] Phone: Start: 06-25-2023 Tobacco use and exposure [...] to any clubs or organizations such as pentecostalism groups, unions, fraternal or athletic groups, or [...] Ca ffeine intake: 1-2 cups per day [facility] Clinical Notes 10-04-2023 to 04-08-2025 Saurabh Purcell MD - 01/12/2025 12:10 PM Chica Purcell MD - 01/12/2025 12:09 PM Chica Purcell MD - 01/12/2025 11:30 AM Chica Purcell MD - 09/03/2024 3:21 PM EST Note Date & Type Note Facility 04-08-2025 Note [facility] Note Subjective Anita Snell is a 65 y.o. year old female patient nonobstructive coronary artery disease, obstructive sleep apnea, hyperlipidemia, and hypertension seen in follow-up. Patient used to follow with Dr Rubio. She reports that overall she is feeling better. She admits shortness of breath with exertion as a result of her asthma, in addition she reports that she has chronic sinus drainage. Other than that she denies [...] Benign essential HTN Coronary artery disease involving skagway coronary artery of 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 angina pectoris Abnormal TSH Acute [...] Comment: occasional Drug use: Never HPI 11/28/2022 Anita Snell is a 62 y.o. female with hyperlipidemia, [...] She presented to the ED through the [facility] system on 11/02/2022 for evaluation of symptoms. [...] kg (204 lb) SpO2 99% BMI 35.02 kg/m??? OB Status Postmenopausal Smoking Status Never BSA 2.04 m??? Physical Exam General: Awake, alert, good [...] tablet, Rfl: 3 calcium carb/D3/magnesium/zinc (calcium carb-D3-mag ceo21-[id number]) [phone] fo-kvvu-hp-mg tablet, Take by mouth in the morning., [...] by mouth in the morning., Disp: , R (more content not included)... [facility] 01-12-2025 History of Present illness Narrative Associated Problem(s): Postmenopausal bleeding C/o vaginal bleeding and check pelvic US. Associated Problem(s): Hematuria C/o blood in urine but UA normal. Check culture. Increase fluids. Check US kidneys. If symptoms persist will need to see urology. Images from the original note were not included. Subjective Patient ID: Anita Snell is a 64 y.o. female who presents [...] Pelvis w/ TV documented in this encounter [facility] 10-20-2024 Note Cardiology Clinic No te Subjective Anita Snell is a 64 y.o. year old female [...] Benign essential HTN Coronary artery disease involving skagway coronary artery of 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 angina pectoris Abnormal TSH Acute [...] use: Not Currently Drug use: Never HPI Anita Snell is a 62 y.o. female with hyperlipidemia, [...] She presented to the ED through the [facility] system on 11/02/2022 for evaluation of symptoms. [...] tablet, Rfl: 3 calcium carb/D3/magnesium/zinc (calcium carb-D3-mag [id number]-agcz) [phone] bd-vleo-vz-mg tablet, Take by mouth in the morning., [...] the left ant (more content not included)... [facility] 09-03-2024 History of Present illness Narrative Associated [...] note were not included. Subjective Patient ID: Anita Snell is a 64 y.o. female who presents [...] 500 MG tablet documented in this encounter [facility] 05-26-2024 History of Present illness Narrative <May 26, 2024, 09:31 - Lynne Durham LPN> Spoke to patient for routine outreach. She states that she has been doing pretty well. She requests refill on Albuterol inhaler and request is submitted to PCP. Count Includes [facility] pharmacy in [place]. She has an appointment with Dr. Purcell 07/23/24 for MAW and plans to keep this visit. She is given my name and number to reach if she needs anything until new advocate is established for [facility]. She verbalizes an understanding of this. documented in this encounter [facility] 04-21-2024 History of Present illness Narrative Images from the original note were not included. Subjective Patient ID: Anita Snell is a 64 y.o. female who presents for Toe Injury (Anita Perez 64yo. Patient relates she stubbed Right [...] Past Medical History: Diagnosis Date Adult hypothyroidism (CMS/HCC) Asthma (CMS/HCC) 07/06/2016 Asthma (CMS/HCC) At low risk for fall Benign essential hypertension (CMS/HCC) Chronic pain of both knees Diverticulosis of colon Dyslipidemia (CMS/HCC) Encounter for long-term (current) use of medications GERD (gastroesophageal reflux disease) Hot flashes HTN (hypertension) (CMS/HCC) Hypercholesteremia ([facility]) Neurogenic syncope Obesity with body mass index (BMI) of 30.0 to 39.9 Seasonal allergic rhinitis due to pollen Sleep apnea, obstructive Thyroid activity decreased ([facility]) Vitamin D deficiency Medications Current Outpatient Medications: [...] Rfl: 3 Cholecalciferol (Vitamin D) 50 MCG (1999 [place]) capsule, Take 1 capsule by mouth [...] Nolberto Guzman DPM documented in this encounter [facility] 10-04-2023 History of Present illness Narrative Associated [...] premarin. Associated Problem(s): Coronary artery disease involving skagway coronary artery of 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 angina pectoris (CMS/HCC) No pain and continue medication. Follow up with cardiology. Associated Problem(s): Benign essential hypertension (CMS/HCC) BP controlled and monitor PRN. Subjective Patient ID: Anita Snell is a 63 y.o. female who presents [...] Diagnosed with SAL and not using CPAP. Ona more tired with machine and stopped. Requests [...] medication and continue. Coronary artery disease involving skagway coronary artery of 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 angina pectoris (CMS/HCC) No pain [...] due to pollen Coronary artery disease involving skagway coronary artery of 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 angina pectoris (CMS/HCC) SAL (obstructive sleep apnea) Obstructive sleep apnea (adult) (pediatric) Dyspareunia in female Dyslipidemia (CMS/HCC) Other and unspecified hyperlipidemia Encounter for long-term (current) use of medications Encounter for long-term (current) use of other medications Vitamin D deficiency Obesity (BMI 30-39.9) documented in this encounter [facility] Diagnosis Benign essential hypertension (CMS/HCC)- Primary Essential hypertension, benign 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 (CMS/HCC) Seasonal allergic rhinitis due to pollen Coronary artery disease involving skagway coronary artery of 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 angina pectoris (CMS/HCC) SAL (obstructive [...] (CMS/HCC) Seasonal allergic rhinitis due to pollen Acute bronchitis due to other specified organisms 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 (CMS/HCC) documented in this encounter [facility] Diagnosis Contusion of lesser toe of right foot with damage to nail, initial encounter- Primary Right foot pain Pain in soft tissues of limb documented in this encounter [facility] Diagnosis Mild intermittent asthma, unspecified whether complicated (CMS/HCC)- Primary Essential (primary) hypertension (CMS/HCC) Unspecified essential hypertension documented in this encounter [facility] Diagnosis Benign essential hypertension (CMS/HCC)- Primary Essential hypertension, benign 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 (CMS/HCC) Seasonal allergic rhinitis due to pollen Coronary artery disease involving skagway coronary artery of 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 angina pectoris (CMS/HCC) SAL (obstructive [...] (CMS/HCC) Seasonal allergic rhinitis due to pollen Acute [...] site not specified documented in this encounter [facility]* Diagnosis Benign essential hypertension (CMS/HCC)- Primary Essential hypertension, benign 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 Seasonal allergic rhinitis due to pollen Coronary artery disease involving skagway coronary artery of 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 angina pectoris ([facility]) SAL (obstructive sleep apnea) Obstructive sleep apnea (adult) (pediatric) Dyspareunia in female Dyslipidemia ([facility]/HCC) Other and unspecified hyperlipidemia Encounter for long-term (current) use of medications Encounter for long-term (current) use of other medications Vitamin D deficiency Obesity (BMI 30-39.9) Benign essential hypertension ([facility]/HCC)- Primary Essential hypertension, benign 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 Seasonal allergic rhinitis due to pollen Acute bronchitis due to other specified organisms Medicare annual wellness visit, subsequent- Primary Encounter for long-term (current) use of medications Encounter for long-term (current) use of other medications Benign essential hypertension ([facility]/HCC) Essential hypertension, benign Subclinical hypothyroidism ([facility]/HCC) Other specified acquired hypothyroidism Dyslipidemia ([facility]/HCC) Other and unspecified hyperlipidemia Acute UTI Urinary tract infection, site not specified Hematuria, unspecified type- Primary Postmenopausal bleeding documented in this encounter [facility] Discharge Instructions * Attachments The following attachments cannot be sent through Care Everywhere. 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 Skyler nuno relates she stubbed [...] CREATED AUTHOR AUTHOR'S ORGANIZ ATION 12/09/2022 [facility] DATE CREATED AUTHOR AUTHOR'S ORGANIZ ATION 10/01/2024 [facility] DATE CREATED AUTHOR AUTHOR'S ORGANIZ ATION 01/13/2025 [facility] EPIC DATE CREATED AUTHOR AUTHOR'S ORGANIZ ATION 04/14/2025 [facility] Care Teams (unrecognized sec tion and content) Clerical Investigator Relationship Specialty Start Date End Date Saurabh Purcell MD [address] [place] [phone] PCP - [facility] 06/02/23 Saurabh Purcell MD [address] [place] [phone] PCP - General Family Medicine 10/04/23 Clerical Investigator Relationship Specialty Start Date End Date Saurabh Purcell MD [address] [place] [phone] PCP - [facility] 06/02/23 Saurabh Purcell MD [address] [place] [phone] PCP - General Family Medicine 10/04/23 Clerical Investigator Relationship Specialty Start Date End Date Saurabh Purcell MD [address] [place] [phone] PCP - [facility] 06/02/23 Saurabh Purcell MD [address] [place] [address] PCP - General Family Medicine 10/04/23 Clerical Investigator Relationship Specialty Start Date End Date Saurabh Purcell MD [address] [place] [phone] PCP - [facility] 01/31/23 Saurabh Purcell MD [address] [place] [phone] PCP - General Family Medicine 10/04/23 Lynne Durham LPN Licensed Practical Nurse Family Medicine 05/14/24 Clerical Investigator Relationship Specialty Start Date End Date Saurabh Purcell MD [address] [place] [phone] PCP - [facility] 01/31/23 Saurabh Purcell MD [address] [place] [address] PCP - General Family Medicine 10/04/23 Diana Salvador LPN Licensed Practical Nurse Family Medicine 02/07/24 Clerical Investigator Relationship Specialty Start Date End Date Saurabh Purcell MD [address] [place] [address] PCP - [facility] 01/31/23 Saurabh Purcell MD [address] [place] [phone] PCP - General Family Medicine 10/04/23 Diana Salvador LPN Licensed Practical Nurse Family Medicine 02/07/24 Clerical Investigator Relationship Specialty Start Date End Date Saurabh Purcell MD [address] [place] [phone] PCP - [facility] 01/31/23 Saurabh Purcell MD [address] [place] [phone] PCP - General Family Medicine 10/04/23 Lynne Durham LPN Licensed Practical Nurse Family Medicine 05/14/24 Clerical Investigator Relationship Specialty Start Date End Date Saurabh Purcell MD [address] [place] [phone] PCP - [facility] 01/31/23 Saurabh Purcell MD [address] [place] [phone] PCP - General Family Medicine 10/04/23 Clovis Bolanos MA Family Medicine 07/07/24 Devon Molina, MS, RDN, LD, CHES [address] [place] [address] Dietitian Nutrition 03/03/24 Clerical Investigator Relationship Specialty Start Date End Date Saurabh Purcell MD [address] [place] [phone] PCP - [facility] 01/31/23 Saurabh Purcell MD [address] [place] [phone] PCP - General Family Medicine 10/04/23 Clovis Bolanos MA [facility] Medicine 07/07/24 Devon Molina, MS, RDN, LD, CHES [address] [place] [address] Dietitian Nutrition 03/03/24 Clerical Investigator Relationship Specialty Start Date End Date Saurabh Purcell MD [address] [place] [phone] PCP - [facility] 01/31/23 Saurabh Purcell MD [address] [place] [phone] PCP - General Family Medicine 10/04/23 Clovis Bolanos MA [facility] Medicine 07/07/24 Clerical Investigator Relationship Specialty Start Date End Date Saurabh Purcell MD [address] [place] [phone] PCP - General Family Medicine 10/04/23 Clovis Bolanos MA [facility] 07/07/24 Clerical Investigator Relationship Specialty Start Date End Date Saurabh Purcell MD [address] [place] [phone] PCP - General Family Medicine 10/04/23 Clovis Bolanos MA [facility] Medicine 07/07/24 Clerical Investigator Relationship Specialty Start Date End Date Saurabh Purcell MD [address] [place] [phone] PCP - [facility] Family Medicine 10/04/23 Clovis Bolanos MA [facility] 07/07/24 FOR RECORDS PERTAINING TO PATIENTS WHO [...] BE BASED ON THE PRIMARY CLINICAL RECORDS. [facility] [employer] [facility]. provides no warranty or guarantee of the accuracy or completeness of information in this document.
[2025-04-20 16:00] LABS: Alanine Aminotransferase 27 U/L (14-59); Aspartate Amino Transferase 22 U/L (15-37); Cholesterol 138 mg/dL (<=200); HDL Cholesterol 58 mg/dL (40-60); Triglycerides 83 mg/dL (<=150); VLDL CHOLESTEROL 16.6 mg/dL
== END 2025-04-20 14:16 | disposition home or self-care (01) ==
PROVIDERS: PCP Family Medicine; Visit Provider Internal Medicine Cardiovascular Disease
DX: E78.00 Pure hypercholesterolemia, unspecified (principal)
CPT/HCPCS: 36415; 80061; 84450; 84460

== ENCOUNTER 2025-07-27 09:31 | Outpatient (OUT) | payer MEDICARE, OTHER, SELFPAY ==
--- OUTSIDE RECORDS SUMMARY | 2025-07-18 09:02 | XMS_ITS | Encounter Summary ---
Author Organization [facility] [employer] [facility] tem Address [id number] [address] [place] [address] Care Team Providers Care Coffee Grower Name Role Phone Pcp, Not In System Primary Care Provider Unavail able Reason for Visit * ReasonCommentsVaginal DischargePt states has a scheduled D and C with Dr. Torres in a month. Has fibroids in her uterus. C/O abd cramping that will not recede. Denies any N/V/D. Encounter Details DateTypeDepartmentCare Team (Latest Contact Info)Knmjlzycirn57/16/2025 9:02 AM EST - 07/18/2025 11:36 AM Danny [facility] - Emergency [address] [place] [id number] Star Calle MD [address] [place] [address] Dysphagia, unspecified type (Primary Dx); Anemia, unspecified type; Vaginal bleeding Discharge Disposition: Home Social History Tobacco UseTypesPacks/DayYears UsedDateSmoking Tobacco: NeverSmokeless Tobacco: NeverAlcohol UseStandard Drinks/WeekCommentsYes0 (1 standard drink = 0.6 oz pure alcohol)sociallyChildcareAnswerDate KkzhictaSpxlydmywTfzahio76/12/2019Employment AnswerDate ZwstwzftKgpgratihaBdtyucu95/12/2019Hunger ScreeningAnswerDate RecordedWithin the past 12 months we worried whether our food would run out before we got money to buy more.Never True07/18/2025Within the past 12 months the food we bought just didn't last and we didn't have money to get more.Never True07/18/2025Purpose - LifeAnswerDate RecordedPurpose and direction in life Dyzqkiw56/11/2021CommentsNoSex and Gender InformationValueDate Recorded Sex Assigned at BirthNot on fileLegal JbqYogrvr60/06/2015 11:45 AM EDTGender IdentityNot on fileSexual OrientationNot on filedocumented as of this encounter Last Filed Vital Signs Vital SignReadingTime TakenCommentsBlood Kuxrndpb267/7807/18/2025 9:08 AM EST Ersnl954507/18/2025 9:08 AM DYXOpdiorhisnl20.9 ??C (98.4 ??F)07/18/2025 9:08 AM ESTRespiratory Lpqb789209/17/2024 9:08 AM ESTOxygen Mdpnobpfeg04%07/18/2025 9:08 AM ESTInhaled Oxygen Concentration--Ottjfm01.3 kg (199 lb)07/18/2025 9:08 AM EST Puvbit869.1 cm (5' 5 )07/18/2025 9:08 AM ESTBody Mass Index33.12109/17/2024 9:08 AM ESTdocumented in this encounter Discharge Instructions * Attachments The following attachments cannot be sent through Care Everywhere. * Dysphagia (Belarusian) * Anemia overview (Belarusian) documented in this encounter Medications at Time of Discharge MedicationSigDispense QuantityRefillsLast FilledStart DateEnd Date albuterol (PROVENTIL HFA;VENTOLIN HFA) 90 mcg/actuation inhaler Inhale 2 puffs every 6 (six) hours as needed for wheezing. aspirin 81 mg Take 1 tablet (81 mg total) by mouth in the morning. B-complex with vitamin C tablet Take 1 tablet by mouth in the morning. calcium carb/D3/magnesium/zinc (calcium carb-D3-mag sfa46-kbvy) [phone] sq-zdev-et-mg tablet Take by mouth daily. cetirizine (ZyrTEC) [...] TAKE 25 MG BY MOUTH IN THE LKTSRID6105/05/2025 montelukast (SINGULAIR) 10 mg tablet Take 1 [...] from the original note were not included. [facility] - EMERGENCY Pt Name: Mira Santos Birthdate: [...] 09/20/2022 Performed by Thanh Arriaga DO at [facility] HERNIA REPAIR TIBIA FRACTURE SURGERY Right TONSILLECTOMY [...] Resource Strain: Low Risk (05/01/2025) Received from [facility] Overall Financial Resource Strain (CARDIA) Difficulty of Paying Living Expenses: Not hard at all Food Insecurity: No Food Insecurity (07/18/2025) Hunger Screening Food Insecurity - Worry: Never True Food Insecurity - Inability: Never True Transportation Needs: No Transportation Needs (05/01/2025) Received from [facility] PRAPARE - Transportation Lack of Transportation (Medical): No Lack of Transportation (Non-Medical): No Physical Activity: Sufficiently Active (05/01/2025) Received from [facility] Exercise Vital Sign On average, how many days per week do you engage in moderate to strenuous exercise (like a brisk walk)?: 5 days On average, how many minutes do you engage in exercise at this level?: 150+ min Recent Concern: Physical Activity - Insufficiently Active (03/29/2025) Received from [facility] Exercise Vital Sign Days of Exercise per Week: 3 days Minutes of Exercise per Session: 40 min Stress: No Stress Concern Present (05/01/2025) Received from [facility] [place] [facility] - Occupational Stress Questionnaire Feeling of Stress : Not at all Social Connections: Socially Integrated (05/01/2025) Received from [facility] Social Connection and Isolation Panel In a typical week, how many times do you talk on the phone with family, friends, or neighbors?: Twice a week How often do you get together with friends or relatives?: Once a week How often do you attend holiness or sabianism services?: 1 to 4 times per year Do you belong to any clubs or organizations such as holiness groups, unions, fraternal or athletic groups, or school groups?: Yes How often do you attend meetings of the clubs or organizations you belong to?: 1 to 4 times per year Are you , , , , never , or living with a partner?: Interpersonal Safety: Not At Risk (05/01/2025) Received from [facility] Humiliation, Afraid, Rape, and Kick questionnaire Within [...] Housing Instability: Low Risk (05/01/2025) Received from [facility] Housing Stability Vital Sign In the last 12 months, was there a time when you were not able to pay the mortgage or rent on time?: No In the past 12 months, how many times have you moved where you were living?: 0 At any time in the past 12 months, were you homeless or living in a longterm (including now)?: No Review of Systems: Review [...] 07/18/25 0940 Star Calle MD 07/18/25 1013 Star Calle MD 07/18/25 1133 Star Calle MD 07/18/25 1211 documented in this encounter Plan of Treatment DateTypeDepartmentCare Team (Latest Contact Info)Oscrpjzmqlg49/10/2025 8:45 AM ESTHospital Encounter [facility] [address] [place] [address] [place] [address] Rohini Palacios, DO [address] [place] [address] 08/11/2025 8:45 AM EST - 08/11/2025 9:15 AM ESTSurgery [facility] [address] [place] [address] [place] [address] Rohini Palacios, DO [address] [place] [address] ESOPHAGOGASTRODUODENOSCOPY DIAGNOSTIC [80043 (CPT??)]09/17/2025 3:00 PM EST Office Visit Judi Paige [facility] On[facility] [address] [place] [address] Baljeet Clemente MD [address] [place] [address] 10/21/2025 10:00 AM ESTOffice Visit [facility] [address] [place] [phone] Rohini Palacios, [address] [place] [address] NamePriorityAssociated DiagnosesDate/TimeESOPHAGOGASTRODUODENOSCOPY DIAGNOSTIC Dysphagia, unspecified type Gastroesophageal reflux disease, unspecified whether esophagitis present Anemia, unspecified type 08/11/2025 8:45 AM ESTdocumented as of this encounter Procedures Procedure NamePriorityDate/TimeAssociated DiagnosisCommentsCT ABDOMEN AND PELVIS W FWZDOTZD10/16/2025 9:53 AM EST EXTRA TUBES BLUE WJNYfszmsg46/16/2025 9:23 AM EST EXTRA MNGPAXqcugys15/16/2025 9:23 AM EST CBC WITH AUTO TCFSVROGWPQEHTXQ97/16/2025 9:23 AM EST CA 125Add-On07/18/2025 9:23 AM EST XBNJKGUENF51/16/2025 9:23 AM EST LIVER DESMXSGBP05/16/2025 9:23 AM EST BASIC METABOLIC MYWBXWYTQ69/16/2025 9:23 AM EST documented in this encounter [...] EST)ComponentValueRef RangeTest Method Analysis TimePerformed AtPathologist SignatureCA 724681(H)<=35 U/mL07/18/2025 10:14 PM [facility]ORYComment: The method used for this test is [employer] DXI chemiluminescent immunoassay. Values obtained by different assay methods cannot be used interchangeably. Specimen (Source)Anatomical Location / LateralityCollection Method / Volume Collection TimeReceived TimeBloodVenous blood / UnknownVenipuncture / Unknown 07/18/2025 9:23 AM EST07/18/2025 9:34 AM EST Narrative Authorizing ProviderResult TypeResult StatusStar ARGUETA BLOOD ORDERABLESFinal ResultPerforming OrganizationAddressCity/State/ZIP CodePhone Number [facility] [address] [place] [address], [place] [phone] * Light Blue Top (07/18/2025 9:23 AM EST)ComponentValueRef RangeTest Method Analysis TimePerformed AtPathologist SignatureExtra TubeAuto Resulted 07/18/2025 11:01 AM ESTPROMEDICA SALINAS SURGERY CENTERpecimen (Source) Anatomical Location / LateralityCollection Method / VolumeCollection Time Received TimeBloodVenous blood / Xzcwlyl0007/18/2025 9:23 AM EST07/18/2025 9:35 AM EST Narrative Authorizing ProviderResult TypeResult StatusStar ARGUETA BLOOD ORDERABLESFinal ResultPerforming OrganizationAddressCity/State/ZIP CodePhone Number [facility] [address] [place] [address], [place] * Lipase (07/18/2025 9:23 AM EST)ComponentValueRef RangeTest MethodAnalysis Time Performed AtPathologist WrbgmayxoYCCCIG6770 - 40 U/L109/17/2024 9:57 AM EST [facility] (Source)Anatomical Location / LateralityCollection Method / VolumeCollection TimeReceived TimeBloodVenous blood / UnknownVenipuncture / Fxvkdpn0507/18/2025 9:23 AM EST07/18/2025 9:34 AM EST Narrative Authorizing ProviderResult TypeResult StatusPatricchantell Calle MDLAB BLOOD ORDERABLESFinal ResultPerforming OrganizationAddressCity/State/ZIP CodePhone Number [facility] [address] [place] [address], [place] * (ABNORMAL) Liver panel (07/18/2025 9:23 AM EST)ComponentValueRef RangeTest MethodAnalysis TimePerformed AtPathologist SignatureTOTAL PROTEIN7.06.0 - 8.0 g/dL07/18/2025 10:03 AM [facility]PITALALBUMIN2.8(L)3.2 - 5.3 g/dL07/18/2025 10:03 AM [facility] BILIRUBIN,TOTAL0.60.3 - 1.2 mg/dL07/18/2025 10:03 AM [facility]OS[facility]ITALALKALINE NWDMEHZTZXM2320 - 130 U/L109/17/2024 10:03 AM EST [facility]AST21<=41 U/L109/17/2024 10:03 AM EST [facility]ALT19<=31 U/L109/17/2024 10:03 AM EST [facility]ITALBILIRUBIN,DIRECT0.1<=0.4 mg/dL07/18/2025 10:03 AM [facility] LIMApecimen (Source)Anatomical Location / LateralityCollection Method / VolumeCollection TimeReceived Time BloodVenous blood / UnknownVenipuncture / Vyknamo6007/18/2025 9:23 AM EST 07/18/2025 9:34 AM EST Narrative Authorizing ProviderResult TypeResult StatusPatricchantell Calle MDLAB BLOOD ORDERABLESFinal ResultPerforming OrganizationAddressCity/State/ZIP CodePhone Number [facility] [address] [place] [address], * (ABNORMAL) Basic Metabolic Panel (07/18/2025 9:23 AM EST)ComponentValueRef RangeTest MethodAnalysis TimePerformed AtPathologist JbwqhyqetVMDFQG577563 - 146 mmol/L109/17/2024 10:03 AM [facility]ITALPOTASSIUM 3.73.5 - 5.0 mmol/L109/17/2024 10:03 AM [facility] FTSBXYIW45760 - 109 mmol/L109/17/2024 10:03 AM [facility]OSPITALCARBON EQHHJIH1701 - 32 mmol/L109/17/2024 10:03 AM [facility]ITALANION VBC856 - 15 mmol/L109/17/2024 10:03 AM [facility]OSPITALBLOOD UREA DHPEPKKD98 - 27 mg/dL07/18/2025 10:03 AM [facility]ITALCREATININE0.660.40 - 1.00 mg/dL 07/18/2025 10:03 AM [facility]OSPITALComment:METHOD TRACEABLE TO IDMS FRBEETFOTEUGEJU936(H)65 - 99 mg/dL07/18/2025 10:03 AM EST [facility]ITALCALCIUM8.88.5 - 10.5 mg/dL07/18/2025 10:03 AM [facility] HOSPITALEGFR Non-Race Dependent>90>=60 ml/min/1.73sq.m109/17/2024 10:03 AM [facility] Comment: eGFR not reported due to non-numeric value for Creatinine. Reported eGFR is based on the CKD-EPI 2020 equation that does not use a race coefficient. Specimen (Source)Anatomical Location / LateralityCollection Method / Volume Collection TimeReceived TimeBloodVenous blood / UnknownVenipuncture / Unknown 07/18/2025 9:23 AM EST07/18/2025 9:34 AM EST Narrative Authorizing ProviderResult TypeResult StatusPacherelle Calle MDLAB BLOOD ORDERABLESFinal ResultPerforming OrganizationAddressCity/State/ZIP CodePhone Number [facility] [address] [place] [address], * (ABNORMAL) CBC auto differential (07/18/2025 9:23 AM EST)ComponentValueRef RangeTest MethodAnalysis TimePerformed AtPathologist SignatureWBC8.44 - 11 X10^9/L109/17/2024 9:42 AM [facility] HOSPITALRBC Count3.66 (L)3.8 - 5.2 X10^12/L109/17/2024 9:42 AM [facility] Hemoglobin9.7(L)11.7 - 15.5 g/dL07/18/2025 9:42 AM [facility]OSPITALHematocrit29.2(L)35 - 47 %07/18/2025 9:42 AM ESTCINCINNATI SHRINERS HOSPITALMCV8080 - 100 fL07/18/2025 9:42 AM [facility]OSPITALMCH26.5(L)27 - 34 pg07/18/2025 9:42 AM ESTCINCINNATI SHRINERS HOSPITALMCHC33.232 - 36 g/dL07/18/2025 9:42 AM [facility] HOSPITALRDW14.811.5 - 15 %07/18/2025 9:42 AM [facility] HOSPITALPlatelet Zmzvp049645 - 450 X10^9/L109/17/2024 9:42 AM ESTCINCINNATI SHRINERS HOSPITALMPV7.37 - 12 fL07/18/2025 9:42 AM EST [facility]ITALNeutrophils %57.4%07/18/2025 9:42 AM EST [facility]ITALLymphocytes %29.9%07/18/2025 9:42 AM EST [facility]ITALMonocytes %11.0%07/18/2025 9:42 AM EST [facility]ITALEosinophils %1.4%07/18/2025 9:42 AM EST [facility]ITALBasophils %0.3%07/18/2025 9:42 AM EST [facility]ITALNeutrophils Absolute (A)4.81.5 - 6.6 X10^9/L109/17/2024 9:42 AM [facility] HOSPITALLymphocytes Absolute2.51.0 - 3.5 X10^9/L109/17/2024 9:42 AM ESTCINCINNATI SHRINERS HOSPITALMonocytes Absolute0.90.0 - 0.9 X10^9/L109/17/2024 9:42 AM [facility]OS[facility]ITALEosinophils Absolute0.10.0 - 0.4 X10^9/L109/17/2024 9:42 AM [facility]OSPITALBasophils Absolute0.00.0 - 0.2 X10^9/L109/17/2024 9:42 AM [facility]OSPITALDifferential TypeAUTOMATED WHMZAXWAFOUY49/16/2025 9:42 AM [facility] LIMApecimen (Source)Anatomical Location / LateralityCollection Method / VolumeCollection TimeReceived TimeBloodVenous blood / UnknownVenipuncture / Oktozrg4407/18/2025 9:23 AM EST07/18/2025 9:34 AM EST Narrative Authorizing ProviderResult TypeResult StatusStar Calle MDLAB BLOOD ORDERABLESFinal ResultPerforming OrganizationAddressCity/State/ZIP CodePhone Number [facility] [address] [place] [address], documented in this encounter Visit Diagnoses Diagnosis [...] 1 dose, VESICANT (RED) Given07/18/2025 9:45 AM LCJ867 mL ondansetron (PF) (ZOFRAN) injection 4 mg [...] MemberRelationshipSpecialtyStart DateEnd Date Pcp, [place] [address] PCP - GeneralFamily Agedbbov40/29/25documented as of this encounter
--- OUTSIDE RECORDS SUMMARY | 2025-07-20 09:30 | XMS_ITS | Encounter Summary ---
Author Organization [facility] tem Address [id number] [address] [place] [address] Care Team Providers Care Chief Internal Auditor Name Role Phone Pcp, Not In System Primary Care Provider Unavail able Reason for Referral * Consultation (Routine) - Pending ReviewSpecialtyDiagnoses / ProceduresReferred By ContactReferred To ContactMedical Oncology / Hematology and Oncology Diagnoses Anemia, unspecified type Abhishek Palacios DO [address] [facility] [address] [place] [address] Phone: tel: fax: [facility] Hematology Oncology, A Department of [address] [address] Phone: tel: fax: Referral IDStatusReasonStart DateExpiration DateVisits RequestedVisits [id number] Review Specialty Services Required * Gastroenterology (Routine) - Pending ReviewSpecialtyDiagnoses / Procedures Referred By ContactReferred To Contact Diagnoses Dysphagia, unspecified type Gastroesophageal reflux disease, unspecified whether esophagitis present Anemia, unspecified type Procedures EGD Abhishek Palacios, [address] [place] [address] Phone: tel: fax: Referral IDSNela DateExpiration DateVisits RequestedVisits [id number] Reason for Visit * ReasonCommentsGI ProblemPatient here for anemia / occasional dysphagia and states food gets stuck once a month. Denies all other GI symptoms. Encounter Details DateTypeDepartmentCare Team (Latest Contact Info)Jwlabpdyevm37/18/2025 9:30 AM ESTOffice Visit [facility], A Department of [facility] [address] [place] [phone] MeganSarah BethPaul macdonaldika Eileen, DO [address] [place] [address] Dysphagia, unspecified type (Primary Dx); Gastroesophageal reflux disease, unspecified whether esophagitis present; Anemia, unspecified type Social History Tobacco UseTypesPacks/DayYears UsedDateSmoking Tobacco: NeverSmokeless Tobacco: NeverAlcohol UseStandard Drinks/WeekCommentsYes0 (1 standard drink = 0.6 oz pure alcohol)sociallyChildcareAnswerDate WwuegmypQaijdpbxsWnikcty37/12/2019Employment AnswerDate UzkgiwduVwnpivcbhoQggktzw45/12/2019Hunger ScreeningAnswerDate RecordedWithin the past 12 months we worried whether our food would run out before we got money to buy more.Never True07/18/2025Within the past 12 months the food we bought just didn't last and we didn't have money to get more.Never True07/18/2025Purpose - LifeAnswerDate RecordedPurpose and direction in life Metwfkc21/11/2021CommentsNoSex and Gender InformationValueDate Recorded Sex Assigned at BirthNot on fileLegal TnhJfdvlv41/06/2015 11:45 AM EDTGender IdentityNot on fileSexual OrientationNot on filedocumented as of this encounter Last Filed Vital Signs Vital SignReadingTime TakenCommentsBlood Rrxolsch580/7707/20/2025 9:46 AM EST Pulse--Temperature--Respiratory Rate--Oxygen Saturation--Inhaled Oxygen Concentration--Mhhgej69.3 kg (199 lb)07/20/2025 9:46 AM OPANqrsxn451.1 cm (5' 5 )07/20/2025 9:46 AM ESTBody [...] other GI symptoms. HISTORY OF PRESENT ILLNESS: Miar Santos is a 65 y.o. female with [...] 09/20/2022 Performed by Thanh Arriaga DO at [facility] HERNIA REPAIR TIBIA FRACTURE SURGERY [...] Disp: , Rfl: calcium carb/D3/magnesium/zinc (calcium carb-D3-mag lrn82-kuzw) [phone] ps-rosq-km-mg tablet,Take by mouth daily., Disp: , Rfl: [...] Future - [facility] [place], [place]; Future Patient presents with a history [...] 10/20/2025). Total time spent was 30 minutes: ABHISHKE PALACIOS DO [facility] Digestive [facility] [address] [place] [address] PH: [phone] documented in this encounter Plan of Treatment DateTypeDepartmentCare Team (Latest Contact Info)Dbfqbjudyed49/10/2025 8:45 AM ESTHospital Encounter [facility] -Endoscopy [address] [place] [address] [place] [address] Abhishek Palacios DO [address] [place] [address] 08/11/2025 8:45 AM EST - 08/11/2025 9:15 AM ESTSurgery [facility] -Endoscopy [address] [place] [address] [place] [phone] Abhishek Palacios DO [address] [place] [address] ESOPHAGOGASTRODUODENOSCOPY DIAGNOSTIC [[id number] (CPT??)]09/17/2025 3:00 PM EST Office Visit [facility] - Medical Oncology [address] [place] [phone] Baljeet Clemente MD [address] [place] [address] [address] [place] [address] 10/21/2025 10:00 AM ESTOffice Visit [facility], A Department of [facility] [address] [place] [address] SophiaAbhishek Burleson, DO [address] [facility] [address] [place] [address] NameTypePriorityAssociated DiagnosesOrder ScheduleEGDGIRoutine Dysphagia, unspecified type Gastroesophageal reflux disease, unspecified whether esophagitis present Anemia, unspecified type 1 Occurrences starting 07/20/2025 until 07/20/2026NamePriorityAssociated DiagnosesDate/TimeESOPHAGOGASTRODUODENOSCOPY DIAGNOSTIC Dysphagia, unspecified type Gastroesophageal reflux disease, unspecified whether esophagitis present Anemia, unspecified type 08/11/2025 8:45 AM ESTNameTypePriorityAssociated DiagnosesOrder Schedule [facility] [place] [place] Outpatient ReferralRoutine Anemia, unspecified type 1 Occurrences starting 07/20/2025 until 07/20/2026documented as of this encounter Visit Diagnoses Diagnosis Dysphagia, unspecified type- Primary Gastroesophageal reflux disease, unspecified whether esophagitis present Anemia, unspecified type documented in this encounter Care Teams Team MemberRelationshipSpecialtyStart DateEnd Date Pcp, [place] [address] PCP - GeneralFamily Gmsxrvao78/29/25documented as of this encounter
--- OUTSIDE RECORDS SUMMARY | 2025-07-26 13:20 | XMS_ITS | Encounter Summary ---
Author Organization [facility] Address [address] [place] [address] Care Team Providers Care Production Manager Name Role Phone Saurabh Cm MD Primary Care Provider [phone] Saurabh Cm MD Unavailable Reason for Visit * ReasonCommentsPre-op VisitFollow-up Encounter Details DateTypeDepartmentCare Team (Latest Contact Info)Ftjoxxjcpbv93/24/2025 1:20 PM ESTConsult [facility] [address] [place] [phone] Huber Torres DO [address] Shea Alonzo, [facility]11 Pre-op examination; Cervical mass; Uterine mass Social History Tobacco UseTypesPacks/DayYears UsedDateSmoking Tobacco: NeverSmokeless Tobacco: NeverAlcohol UseStandard Drinks/WeekCommentsYes0 (1 standard drink = 0.6 oz pure alcohol)Occasional, Caffeine intake: 1-2 cups per [id number] Health LiteracyAnswer Date RecordedHow often do you [...] relatives?Once a week05/01/2025How often do you attend orthodox or faith services?1 to 4 times per year05/01/2025Do you belong to any clubs or organizations such as orthodox groups, unions, fraternal or athletic groups, or [...] at all 05/01/2025PHQ-2AnswerDate RecordedPatient Health Questionnaire-2 Score1 09/03/2024[facility] [place] of Occupational Health - Occupational Stress QuestionnaireAnswerDate [...] steady place to sleep or slept in [facility] (including now)?No09/27/2023Housing Stability Vital SignAnswerDate RecordedIn the last 12 months, was there a time when you were not able to pay the mortgage or rent on time?No05/01/2025In the past 12 months, how many times have you moved where you were living?t any time in the past 12 months, were you homeless or living in a skilled nursing (including now)?No 05/01/2025CommentsUnknownSex and Gender InformationValueDate RecordedSex Assigned at BirthNot on fileLegal HnfTkdolm17/15/2023 7:34 PM EDTGender Identity Not on fileSexual OrientationNot on filedocumented as of this encounter Last Filed Vital Signs Vital SignReadingTime TakenCommentsBlood Mubxwuik706/7007/26/2025 1:47 PM EST Pulse--Temperature--Respiratory Rate--Oxygen Saturation--Inhaled Oxygen Concentration--Hulcno94 kg (194 lb)07/26/2025 1:47 PM ESTHeight--Body Mass [...] risk assessment has been completed for the ochsgit1402/14/2024 9:40 AM EDT documented as of this encounter Care Teams Team MemberRelationshipSpecialtyStart DateEnd Date Saurabh Cm MD [address] [place] [phone] [facility] Saurabh Cm MD [address] [place] [address] PCP - Ricardo MCCABE12/01/24documented as of this encounter
--- OUTSIDE RECORDS SUMMARY | 2025-07-27 09:35 | XMS_ITS | Clinical Summary ---
Author Organization [facility] Address [address] [place] [address] Care Team Providers Care Kindergarten Paraprofessional Name Role Phone Saurabh Cm MD Primary Care Provider [phone] Saurabh Cm MD Unavailable Allergies Active AllergyReactionsCriticalityNoted DateCommentsSulfa AntibioticsHives,Rash Low12/31/1989 Other reaction(s): Unknown Medications MedicationSigDispense QuantityRefillsLast FilledStart DateEnd DateStatus metoprolol succinate XL (Toprol-XL) 25 MG 24 hr tablet Take 25 mg by mouth in the morning.Active Cholecalciferol (Vitamin D) 50 MCG (1999) capsule Take 1 capsule by mouth 1 (one) time each day at the same timeActive aspirin 81 MG EC tablet Take 81 mg by mouth DailyActive magnesium oxide (Mag-Ox) 400 mg tablet Take 400 mg by mouth DailyActive albuterol HFA 90 mcg/act inhaler Indications:Mild intermittent asthma, unspecified whether complicated (HCC) Inhale 2 puffs every 4 (four) hours if needed for wheezing 18 g //6Active atorvastatin (Lipitor) 80 MG tablet Indications:DyslipidemiaTAKE 1 TABLET BY MOUTH AT BEDTIME 30 tablet 5Active levothyroxine (Synthroid, Levoxyl) 88 MCG tablet Indications:Acquired hypothyroidismTake 1 tablet by mouth once daily 30 tablet 5Active fluticasone (Flonase) 50 MCG/ACT nasal spray Indications:Seasonal allergic rhinitis due to pollenAdminister 2 sprays into each nostril Daily 16 g 305/5Active Arnuity Ellipta 100 MCG/ACT inhaler Indications: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 (HCC)INHALE 1 PUFF DAILY AND RINSE WITH WATER AFTER USE TO REDUCE AFTERTASTE AND INCIDENCE OF CANDIDASIS. DO NOT SWALLOW. 30 each 5Active montelukast (Singulair) 10 MG tablet Indications:Seasonal allergic rhinitis due to pollenTAKE 1 TABLET BY MOUTH AT BEDTIME 30 tablet 505Active Active Problems ProblemNoted DateDiagnosed RpvuPhhnrvgvb60/13/2025 Assessment & Plan (01/12/2025 12:10 PM EDT): C/o blood in urine but UA normal. Check culture. Increase fluids. Check US kidneys. If symptoms persist will need to see urology. Postmenopausal /13/2025 Assessment & Plan (01/12/2025 12:10 PM EDT): C/o vaginal bleeding and check pelvic US. Medicare annual wellness visit, /02/2025 Assessment & Plan (09/03/2024 3:21 PM EST): Due for labs. Discussed proper diet and regular aerobic exercise. Need aerobic exercise 5-6 days a week for 30 minutes at a time. Smaller portions and limit total calories. Colonoscopy every 10 years. Tetanus every 10 years. Advised not to smoke. Discussed daily Aspirin therapy. Subclinical xbkmrjkfiybikp79/02/2024iverticulosis of colon10/04/2023 Cmtddhbkjbaj57/02/2024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 10/04/2023 Assessment & Plan (01/23/2024 9:55 AM EDT): Symptoms controlled with inhaled steroid and continue. Use albuterol PRN. Assessment & Plan (10/04/2023 10:59 AM EST): Increased SOB and add flovent. Vitamin D ddflddfemp86/02/2024Seasonal allergic rhinitis due to pqnjvl1110/04/2023 Assessment & Plan (01/23/2024 9:55 AM EDT): Symptoms controlled with medication and continue. Assessment & Plan (10/04/2023 11:00 AM EST): Symptoms controlled with medication and continue. Benign essential anfcntyxgpfp98/02/2024 Assessment & Plan (09/03/2024 3:20 PM EST): BP elevated but previously controlled and monitor PRN. Assessment & Plan (01/23/2024 9:54 AM EDT): BP controlled and monitor PRN. Assessment & Plan (10/04/2023 10:59 AM EST): BP controlled and monitor PRN. Encounter for long-term (current) use of hyvhishtoiz48/02/2024oronary artery disease involving eek coronary artery of eek heart without angina pectoris 09/09/2023 Overview (10/04/2023): Last Assessment & Plan: Coronary artery disease is stable without concerning symptoms Continue GDMT- continue ASA, resume lipitor and continue toprol daily. continue risk factor modifications- heart healthy diet, regular exercise as tolerated and continue all medications. Assessment & Plan (10/04/2023 10:59 AM EST): No pain and continue medication. Follow up with cardiology. Resolved Problems ProblemNoted DateDiagnosed DateResolved DateAcute UTI/ Assessment & Plan (09/03/2024 3:20 PM EST): History suggestive of UTI and treat. Take cipro for infection. Increase water intake and cranberry juice. Use motrin or tylenol for discomfort. Acute bronchitis due to other specified tmsyznita88 Assessment & Plan (01/23/2024 9:54 AM EDT): Take antibiotics for 5 days and will be in system 10-12 days. Use sudafed or other decongestants asneeded. Use robitussin or robittussin-DM for cough. Use afrin for congestion but no longer than 3 days. Use mucinex to bring up phlegm. Use motrin or tylenol for fever, aches or pains. Increase fluidintake and rest. Should improve over next 5-7 days and if no better or worse call office. Abnormal TSHhronic pain of both knees/ Gastroesophageal reflux hqjvwox84Mixed hyperlipidemia OSA (obstructive sleep apnea) Assessment & Plan (10/04/2023 11:00 AM EST): Not using CPAP and need to use nightly. Dyspareunia in qjkhse14 Assessment & Plan (10/04/2023 10:59 AM EST): Pain with intercourse and add premarin. Encounters DateTypeDepartmentCare KoxkXiwmxgmnigd05/24/2025 1:20 PM ESTConsult NOMNicola CORTEZ [address] [place] [address] Huber Torres, Pre-op examination; Cervical mass; Uterine mass07/26/2025amboo flowsheet [facility] Cheri [facility]TE[facility] [address] [place] [phone] Huber Torres DO 07/19/2025Telephone NOM[facility]ola [place] [address] Faith Pollack MA 06/23/2025 3:10 PM EDTOffice Visit [facility] [place] [address] Huber Torres DO Postmenopausal bleeding; Yeast emacrrblu72/22/2025amboo flowsheet [facility] Cheri CORTE[facility] [address] [place] [address] Huber Torres DO 06/19/20258601Lmenhl22/15/2025 4:00 PM EDTOffice Visit [facility] [address] [place] [phone] Luc Guzman DPM Onychomycosis (Primary Dx); Onychodystrophy; Ulcer of left foot, limited to breakdown of skin (HCC)06/16/2025amb flowsheet [facility] [address] [place] [address] Luc Guzman DPM 06/16/20251527Lzkssk89/14/3411Wfywxh12/08/5172Cxvrss76/30/2025 1:00 PM EDTOffice Visit [facility] [address] [place] [phone] Luc Guzman DPM Onychomycosis (Primary Dx); Onychodystrophy; Ulcer of left foot, limited to breakdown of skin (HCC); Pain in both feet06/01/2025amb flowsheet [facility] [address] [place] [address] Luc Guzman DPM 06/01/20252091Gwormd41/30/0695Gngrew69/27/2025Refill [facility] [address] [place] [phone] Saurabh Cm MD Seasonal allergic rhinitis due to pollenfrom Last 3 Months Immunizations ImmunizationAdministration DatesNext DueHep B, adult01/03/2012,08/09/2011, 06/28/2011Influenza, injectable, mrdnzefwlpqe09/15/2017,06/30/2014Influenza, injectable, quadrivalent, preservative free06/28/2021,09/08/2020,06/13/2016 Influenza, recombinant, quadrivalent, injectable, preservative free06/23/2020, 05/23/2019MMR10/14/2017Tdap04/20/2019 Family History Medical HistoryRelationNameCommentsDiabetesBrotherMerrill S KeiserHeart disease BrotherMerrill S KeiserHypertensionBrotherMerrill S KeiserHeart diseaseFather March S Moose SrDiabetesMotherHelen J KeiserOvarian cancerMotherHelen J KeiserStrokeMotherHelen J KeiserRelationNameStatusCommentsBrotherMerrill S KeiserFatherMerrill S Lana SrDeceasedMotherHelen J KeiserDeceased Social History Tobacco UseTypesPacks/DayYears UsedDateSmoking Tobacco: NeverSmokeless Tobacco: Never Tobacco Cessation:Counseling Given: Not Answered Alcohol UseStandard Drinks/WeekCommentsYes0 (1 standard drink = 0.6 oz pure alcohol)Occasional, Caffeine intake: 1-2 cups per [id number] Health LiteracyAnswer Date RecordedHow often do you [...] relatives?Once a week05/01/2025How often do you attend druze or episcopalian services?1 to 4 times per year05/01/2025Do you belong to any clubs or organizations such as druze groups, unions, fraternal [...] at all 05/01/2025PHQ-2AnswerDate RecordedPatient Health Questionnaire-2 Score1 09/03/2024[facility] [place] of Occupational Health - Occupational Stress QuestionnaireAnswerDate [...] steady place to sleep or slept in [facility] (including now)?No09/27/2023Housing Stability Vital SignAnswerDate RecordedIn the last 12 months, was there a time when you were not able to pay the mortgage or rent on time?No05/01/2025In the past 12 months, how many times have you moved where you were living?t any time in the past 12 months, were you homeless or living in a fdc (including now)?No 05/01/2025CommentsUnknownSex and Gender InformationValueDate RecordedSex Assigned at BirthNot on fileLegal AcuRfbtjh80/15/2023 7:34 PM EDTGender Identity Not on fileSexual OrientationNot on file Last Filed Vital Signs Vital SignReadingTime TakenCommentsBlood Jzliuqxq110/7011 1:47 PM EST Sarnk0086/13/2025 11:45 AM LQYKhszchhjsyk87.3 ??C (97.3 ??F)01/12/2025 11:45 AM EDTRespiratory Vneu207201/12/2025 11:45 AM EDTOxygen Goelnzttca75%01/12/2025 11:45 AM EDTInhaled Oxygen Concentration--Bvkqor32 kg (194 lb)07/26/2025 1:47 PM EST Pwdegf773.1 cm (5' 5 )06/16/2025 4:01 PM EDTBody Mass Index32.281 4:01 PM EDT Plan of Treatment Health MaintenanceDue DateLast DoneCommentsCT Wyvstamdhdhn1958FIT-DNA 1958FIT1958FOBT1958 0779Orwkijkaddtrp1958Pneumococcal Vaccine: 65+ Years (1 of 2 - PCV)02/03/19771055Nrgsggyfx57, 04/08/2023, 09/05/2020OVID-19 Vaccine ( season)508/07/2021, 03/15/2021Influenza Vaccine (#1)509/, 06/28/2021, 09/08/2020, Additional history existsMedicare Annual Wellness (AWV)/10/2024, 04/02/20237380Qprdqusgxlt65/19/203301/, 09/19/2022olorectal Cancer Screening 09/20/2032 Procedures Procedure NamePriorityDate/TimeAssociated DiagnosisCommentsBI MAMMOGRAM SCREENING TOMOSYNTHESIS GCJQEIBMGMjrmkao41/08/2024 11:12 AM EDT Breast cancer screening by mammogram from Last 3 Months or Most Recently Relevant to Health Maintenance Results * Bilateral screening mammogram with tomosynthesis (04/09/2024 11:12 AM EDT) Anatomical RegionLateralityModalityBreastBilateralMammographySpecimen (Source) Anatomical Location / LateralityCollection Method / VolumeCollection Time Received Time04/09/2024 1:14 PM EDT Impressions 04/09/2024 2:10 PM EDT BIRADS 2 - Benign Follow-up: ??Routine Screening Mamm Board Certified Radiologists. ??Accredited by the ACR and FDA. MAMMOGRAPHY IS VERY IMPORTANT TO YOUR HEALTH. ??THE [place] [employer] GUIDELINES RECOMMEND THAT WOMEN 40 YEARS OF AGE AND OLDER SHOULD HAVE A MAMMOGRAM EVERY YEAR. A REMINDER LETTER WILL BE SENT AT THE APPROPRIATE TIME. ??THIS FACILITY UTILIZES A REMINDER SYSTEM TO ENSURE ALL PATIENTS RECEIVE REMINDER NOTIFICATIONS AT THE APPROPRIATE TIME BASED ON THE RECOMMENDATIONS OF THIS EXAM. THIS INCLUDES REMINDERS FOR ROUTINE SCREENING MAMMOGRAMS, DIAGNOSTIC MAMMOGRAMSIN WHICH THE PATIENT IS ASKED TO RETURN FOR ADDITIONAL VIEWS, OR OTHER BREAST IMAGING INTERVENTIONSWHEN APPROPRIATE. THE PATIENT WILL BE PLACED IN THE APPROPRIATE REMINDER SYSTEM INCLUDING A REMINDER AT THE APPROPRIATE TIME FOR ANY PENDING ADDITIONAL VIEWS. TRANSCRIBED BY: ? ELECTRONICALLY SIGNED BY: MD Madhu Fish 04/09/2024 2:10 PM EDT EXAMINATION: BI MAMMOGRAM SCREENING TOMOSYNTHESIS BILATERAL CLINICAL HISTORY:Screening COMPARISON: April 08, 2023 . RESULT: Density: There are scattered areas of fibroglandular density There is no suspicious mass, asymmetry, architectural distortion, or calcification. ??Typically benign calcifications. Overall appearance stable. ?? Procedure Note Ham Atwood MD - 04/09/2024 EXAMINATION: BI MAMMOGRAM SCREENING TOMOSYNTHESIS BILATERAL CLINICAL HISTORY:Screening COMPARISON: April 08, 2023 . RESULT: Density: There are scattered areas of fibroglandular density There is no suspicious mass, asymmetry, architectural distortion, or calcification. Typically benign calcifications. Overall appearancestable. IMPRESSION: BIRADS 2 - Benign Follow-up: Routine Screening Mamm Board Certified Radiologists. Accredited by the ACR and FDA. MAMMOGRAPHY IS VERY IMPORTANT TO YOUR HEALTH. THE [place] [employer] GUIDELINES RECOMMEND THAT WOMEN 40 [...] BY: ELECTRONICALLY SIGNED BY: Ham Atwood MD Authorizing ProviderResult TypeResult StatusMarc Peak Behavioral [facility] Services MDG BI PROCEDURES Final Result from Last 3 Months or Most Recently Relevant to Health Maintenance Insurance Care Teams Team MemberRelationshipSpecialtyStart DateEnd Date Saurabh Cm MD [address] [place] [phone] [facility] - [facility] Saurabh Cm MD [address] [place] [phone] PCP - Ricardo MCCABE12/01/24
--- OUTSIDE RECORDS SUMMARY | 2025-07-27 09:35 | XMS_ITS | Clinical Summary ---
Author Organization [facility] Address [address], [address] [place] [address] Care Team Providers Care Fuel Cell Designer Name Role Phone Saurabh Cm MD Primary Care Provider + Allergies Active AllergyReactionsCriticalityNoted DateCommentsSulfa Sexlhllvmed00/03/2020 Medications MedicationSigDispense QuantityRefillsLast FilledStart DateEnd DateStatus levothyroxine (SYNTHROID) 88 MCG tablet Take 88 mcg by mouth DailyActive cetirizine (ZYRTEC) 10 MG tablet Take 10 mg by mouth dailyActive calcium carbonate (OSCAL) 500 MG TABS tablet Take 500 mg by mouth dailyActive melatonin 3 MG TABS tablet Take 3 mg by mouth dailyActive albuterol sulfate HFA 108 (90 Base) MCG/ACT inhaler Inhale 2 puffs into the lungs every 6 hours as needed for WheezingActive Social History Tobacco UseTypesPacks/DayYears UsedDateSmoking Tobacco: NeverSmokeless Tobacco: NeverAlcohol UseStandard Drinks/WeekCommentsNever0 (1 standard drink = 0.6 oz pure alcohol)AUDIT-CAnswerDate RecordedFrequency of Alcohol ConsumptionNever 10/05/2019Average Number of DrinksNot on file10/05/2019Frequency of Binge DrinkingNot on file10/05/2019CommentsNoSex and Gender InformationValue Date RecordedSex Assigned at BirthNot on fileLegal KypJxkhqp96/11/2013 3:23 AM ESTGender IdentityNot on fileSexual OrientationNot on file Last Filed Vital Signs Vital SignReadingTime TakenCommentsBlood Uvigsllu801/9002 6:15 PM EST Micav704210/05/2019 4:18 PM DEHBpbecsdmsxe97.5 ??C (97.7 ??F)10/05/2019 3:44 PM ESTRespiratory Tbrd585510/05/2019 6:15 PM ESTOxygen Facjuryodq15%10/05/2019 3:44 PM ESTInhaled Oxygen Concentration--Oaohez68.3 kg (199 lb)10/05/2019 3:44 PM EST Height--Body Mass Index-- Plan of Treatment Not on file Insurance Care Teams Team MemberRelationshipSpecialtyStart DateEnd Date Saurabh Cm MD [address] [place] [phone] PCP - GeneralFamily Medicine10/05/19
--- OUTSIDE RECORDS SUMMARY | 2025-07-27 09:35 | XMS_ITS | Encounter Summary ---
Author Organization [facility] tem Address [facility]-[id number] [address] [place] [address] Care Team Providers Care Department Head [employer] Or [employer] Name Role Phone Pcp, Not In System Primary Care Provider Unavail able Encounter Details DateTypeDepartmentCare Team (Latest Contact Info)Jzjqegwcpiv33/18/2025Travel Social History Tobacco UseTypesPacks/DayYears UsedDateSmoking Tobacco: NeverSmokeless Tobacco: NeverAlcohol UseStandard Drinks/WeekCommentsYes0 (1 standard drink = 0.6 oz pure alcohol)sociallyChildcareAnswerDate ApwxtfqhVdfnxhtxvPlmeylr08/12/2019Employment AnswerDate GwacsccwQmdruyantoYmcsbnh38/12/2019Hunger ScreeningAnswerDate RecordedWithin the past 12 months we worried whether our food would run out before we got money to buy more.Never True07/18/2025Within the past 12 months the food we bought just didn't last and we didn't have money to get more.Never True07/18/2025Purpose - LifeAnswerDate RecordedPurpose and direction in life Tenpxou11/11/2021CommentsNoSex and Gender InformationValueDate Recorded Sex Assigned at BirthNot on fileLegal CatBcmksp67/06/2015 11:45 AM EDTGender IdentityNot on fileSexual OrientationNot on filedocumented as of this encounter Plan of Treatment DateTypeDepartmentCare Team (Latest Contact Info)Cuoeqxljrdq30/10/2025 8:45 AM ESTHospital Encounter [facility] -Endoscopy [address] [address] Rohini Palacios, DO [address] [place] [address] 08/11/2025 8:45 AM EST - 08/11/2025 9:15 AM ESTSurgery [facility] -[facility]oscopy [address] [address] Rohini Palacios, DO [address] [place] [address] ESOPHAGOGASTRODUODENOSCOPY DIAGNOSTIC [14692 (CPT??)]09/17/2025 3:00 PM EST Office Visit [facility] - Medical Oncology [address] [place] [phone] Baljeet Clemente MD [address] [place] [address] [address] [place] [address] [phone] 10/21/2025 10:00 AM ESTOffice Visit [facility]ly [facility], A Department of [facility] [address] [place] [phone] Rohini Palacios, DO [address] [place] [address] NamePriorityAssociated DiagnosesDate/TimeESOPHAGOGASTRODUODENOSCOPY DIAGNOSTIC Dysphagia, unspecified type Gastroesophageal reflux disease, unspecified whether esophagitis present Anemia, unspecified type 08/11/2025 8:45 AM ESTdocumented as of this encounter Visit Diagnoses Not on filedocumented in this encounter Care Teams Team MemberRelationshipSpecialtyStart DateEnd Date Pcp, [place] [address] PCP - GeneralFamily Mkyudwjd28/29/25documented as of this encounter
--- OUTSIDE RECORDS SUMMARY | 2025-07-27 09:35 | XMS_ITS | Clinical Summary ---
Author Organization [employer] tem Address [facility]-[id number] [address] [place] [address] Care Team Providers Care Screening Nurse Name Role Phone Pcp, Not In System Primary Care Provider Unavail able Allergies Active AllergyReactionsCriticalityNoted DateCommentsSulfa (Sulfonamide Antibiotics)Hives01/08/2017 Medications MedicationSigDispense QuantityRefillsLast FilledStart DateEnd DateStatus levothyroxine (SYNTHROID, LEVOTHROID) 50 MCG tablet Take 88 mcg by mouth daily.Active albuterol (PROVENTIL HFA;VENTOLIN HFA) 90 mcg/actuation inhaler Inhale 2 puffs every 6 (six) hours as needed for wheezing.Active montelukast (SINGULAIR) 10 mg tablet Take 1 tablet (10 mg total) by mouth in the morning.06/17/2022ctive cetirizine (ZyrTEC) 10 mg tablet Take 1 tablet (10 mg total) by mouth as needed.Active MULTIVITAMIN ORAL Take by mouth daily.Active calcium carb/D3/magnesium/zinc (calcium carb-D3-mag apx48-sfrx) [phone] fa-jksr-qo-mg tablet Take by mouth daily.Active aspirin 81 mg Take 1 tablet (81 mg total) by mouth in the morning.Active hydroCHLOROthiazide (HYDRODIURIL) 25 mg tablet Take 0.5 tablets (12.5 mg total) by mouth as needed. Only if blood pressure is elevatedActive B-complex with vitamin C tablet Take 1 tablet by mouth in the morning.Active pantoprazole (PROTONIX) 20 mg EC tablet Take 2 tablets (40 mg total) by mouth in the morning. 60 tablet 5Active metoprolol succinate XL (TOPROL XL) 25 mg 24 hr tablet Take 1 tablet (25 mg total) by mouth every morning. TAKE 25 MG BY MOUTH IN THE HMSSERQ46/03/2025Active metroNIDAZOLE (FLAGYL) 500 mg tablet Take 1 tablet (500 mg total) by mouth in the morning and 1 tablet (500 mg total) before bedtime. Doall this for 7 days. 14 tablet Expired CEPHalexin (KEFLEX) 500 mg capsule Take 1 capsule (500 mg total) by mouth 3 (three) times a day for 7 days. 21 capsule Expired Active Problems No known active problems Encounters DateTypeDepartmentCare MybsSvpmjnwfqno57/18/2025 9:30 AM ESTOffice Visit [facility], A Department of [address] [address] Rohini Palacios DO Dysphagia, unspecified type (Primary Dx); Gastroesophageal reflux disease, unspecified whether esophagitis present; Anemia, unspecified type07/20/20252752Nrckma88/16/2025 9:02 AM EST - 07/18/2025 11:36 AM ESTEmergency [facility] [address] [place] [address] Star Calle MD Dysphagia, unspecified type (Primary Dx); Anemia, unspecified type; Vaginal bleeding Discharge Disposition: Home07/18/20259279Msgiwh73/29/2025Travelfrom Last 3 Months Immunizations ImmunizationAdministration DatesNext HqdRszp8704/20/2019 Family History Medical HistoryRelationNameCommentsHeart diseaseFatherMerrill Lana SrProblems with heart when olderClotting disorderMotherHelen KeiserAlways needed more platelets for surgery.DiabetesMotherHelen KeiserWhen she was older she became diabeticOvarian cancerMotherHelen KevenitaNot sure why she got this.StrokeMother Jewell Summers was only a small one.Breast cancerNeg HxRelationNameStatus CommentsFatherMerrill [place] SrDeceasedMotherHelen KeiserDeceased Social History Tobacco UseTypesPacks/DayYears UsedDateSmoking Tobacco: NeverSmokeless Tobacco: Never Tobacco Cessation:Counseling Given: Not Answered Alcohol UseStandard Drinks/WeekCommentsYes0 (1 standard drink = 0.6 oz pure alcohol)sociallyChildcareAnswerDate DhelwzdpAsqvxpsyvBycnvhr78/12/2019Employment AnswerDate ZpktracsIjmoounougTppovjj38/12/2019Hunger ScreeningAnswerDate RecordedWithin the past 12 months we worried whether our food would run out before we got money to buy more.Never True07/18/2025Within the past 12 months the food we bought just didn't last and we didn't have money to get more.Never True07/18/2025Purpose - LifeAnswerDate RecordedPurpose and direction in life Dbmwzih00/11/2021CommentsNoSex and Gender InformationValueDate Recorded Sex Assigned at BirthNot on fileLegal DesMolhbu18/06/2015 11:45 AM EDTGender IdentityNot on fileSexual OrientationNot on file Last Filed Vital Signs Vital SignReadingTime TakenCommentsBlood Cmccaxri624/7707/20/2025 9:46 AM EST Btggi095507/18/2025 9:08 AM RSGFzracfaiwpn39.9 ??C (98.4 ??F)07/18/2025 9:08 AM ESTRespiratory Uske964409/17/2024 9:08 AM ESTOxygen Tcsqauulaj51%07/18/2025 9:08 AM ESTInhaled Oxygen Concentration--Kenyqg78.3 kg (199 lb)07/20/2025 9:46 AM EST Rjanxj667.1 cm (5' 5 )07/20/2025 9:46 AM ESTBody Mass Index33.12109/19/2024 9:46 AM EST Plan of Treatment DateTypeDepartmentCare Team (Latest Contact Info)Zxfyzvvckzi45/10/2025 8:45 AM ESTHospital Encounter [facility] -Endoscopy [address] [place] [address] Rohini Palacios, DO [address] [place] [address] 08/11/2025 8:45 AM EST - 08/11/2025 9:15 AM ESTSurgery [facility] [address] [place] [address] [place] [address] Rohini Palacios, DO [address] [place] [address] ESOPHAGOGASTRODUODENOSCOPY DIAGNOSTIC [28145 (CPT??)]09/17/2025 3:00 PM EST Office Visit [facility] - Medical Oncology [address] [place] [phone] [place] [address] [place] [address] [address] [place] [phone] 10/21/2025 10:00 AM ESTOffice Visit [facility], A Department of [facility] [address] [place] [phone] Rohini Palacios, DO [address] [place] [address] NamePriorityAssociated DiagnosesDate/TimeESOPHAGOGASTRODUODENOSCOPY DIAGNOSTIC Dysphagia, unspecified type Gastroesophageal reflux disease, unspecified whether esophagitis present Anemia, unspecified type 08/11/2025 8:45 AM ESTHealth MaintenanceDue DateLast DoneCommentsDepression Vtzzhllxs15/04/1970Adult BMI Follow Up Plan02/04/1976Zoster (Shingles) Vaccine (1 of 2)02/04/2008Fall Risk Bfqnkuoyx55/04/2023OVID-19 Vaccine (4 - season)5005/29/2024, 04/12/2021, 03/15/2021Influenza Dceyduf1605/03/2025 05/29/2024, 06/28/2021, 09/08/2020, Additional history existsAdult BMI Screening Tobacco Grzglzojf34DTaP,Tdap and Td Vaccines (2 - Td or Tdap)Colonoscopy, 09/20/2022, 08/01/2012RSV ( or age 60+ yrs) (1 - 1-dose 75+ series) 2033 [employer] Not on file Procedures Procedure NamePriorityDate/TimeAssociated DiagnosisCommentsCT ABDOMEN AND PELVIS W THUHIDGA02/16/2025 9:53 AM EST EXTRA TUBES BLUE AWOHzkziir60/16/2025 9:23 AM EST CA 125Add-On07/18/2025 9:23 AM EST EXTRA YMCVOBmkjclk03/16/2025 9:23 AM EST GGHCQMXEIK80/16/2025 9:23 AM EST LIVER JESNVGJYS43/16/2025 9:23 AM EST BASIC METABOLIC LWMTQPRKF11/16/2025 9:23 AM EST CBC WITH AUTO MOTOOXTQWXAYAZGZ50/16/2025 9:23 AM EST H PYLORI BREATH XTMWXCjyrbft89/29/2025 11:55 AM EDT Epigastric pain TRLBHOJMBCI94/19/2023 8:10 AM EST from Last 3 Months or Most Recently Relevant to Health Maintenance Results * CT abdomen and pelvis with [...] 07/18/2025 10:00 AM Authorizing ProviderResult TypeResult StatusStar Calle MDIMG CT ORDERABLES Final Result * Light Blue Top (07/18/2025 9:23 AM EST)ComponentValueRef RangeTest Method Analysis TimePerformed AtPathologist SignatureExtra TubeAuto Resulted 07/18/2025 11:01 AM [facility]pecimen (Source) Anatomical Location / LateralityCollection Method / VolumeCollection Time Received TimeBloodVenous blood / Ecaovhk2507/18/2025 9:23 AM EST07/18/2025 9:35 AM EST Narrative Authorizing ProviderResult TypeResult StatusStar Calle MDLAB BLOOD ORDERABLESFinal ResultPerforming OrganizationAddressCity/State/ZIP CodePhone Number [place] [address] * (ABNORMAL) CBC auto differential (07/18/2025 9:23 AM EST)ComponentValueRef RangeTest MethodAnalysis TimePerformed AtPathologist SignatureWBC8.44 - 11 X10^9/L109/17/2024 9:42 AM [place]ERBC Count3.66 (L)3.8 - 5.2 X10^12/L109/17/2024 9:42 AM [place] Hemoglobin9.7(L)11.7 - 15.5 g/dL07/18/2025 9:42 AM [place]Hematocrit29.2(L)35 - 47 %07/18/2025 9:42 AM [place]MCV8080 - 100 fL07/18/2025 9:42 AM [place]MCH26.5(L)27 - 34 pg07/18/2025 9:42 AM ESTPROMEDICOMMUNITY HOSPITAL OF LONG BEACHMCHC33.232 - 36 g/dL07/18/2025 9:42 AM ESTPROMEDICOMMUNITY HOSPITAL OF LONG BEACHRDW14.811.5 - 15 %07/18/2025 9:42 AM ESTPRODEWITT GENERAL HOSPITALPlatelet Umszd894364 - 450 X10^9L109/17/2024 9:42 AM ESTPROMEDICOMMUNITY HOSPITAL OF LONG BEACHMPV7.37 - 12 fL07/18/2025 9:42 AM EST PROMTUST[facility]ABIL[facility]ATION HOSPITALNeutrophils %57.4%07/18/2025 9:42 AM EST PROMTUSTIN REHABILITATION HOSPITALLymphocytes %29.9%07/18/2025 9:42 AM EST [facility] HOSPITALMonocytes %11.0%07/18/2025 9:42 AM EST [facility]OML[facility] HOSPITALEosinophils %1.4%07/18/2025 9:42 AM EST [facility]OMTUST[facility]AB[facility] HOSPITALBasophils %0.3%07/18/2025 9:42 AM EST PROMTUST[facility] REHABILITATION HOSPITALNeutrophils Absolute (A)4.81.5 - 6.6 X10^9L109/17/2024 9:42 AM ESTPROMEDICOMMUNITY HOSPITAL OF LONG BEACHLymphocytes Absolute2.51.0 - 3.5 X10^9L109/17/2024 9:42 AM ESTPROMEDINORTHERN INYO HOSPITAL HOSPITALMonocytes Absolute0.90.0 - 0.9 X10^9/L109/17/2024 9:42 AM ESTPROMEDICOMMUNITY HOSPITAL OF LONG BEACHEosinophils Absolute0.10.0 - 0.4 X10^9L109/17/2024 9:42 AM ESTPROMEDICOMMUNITY HOSPITAL OF LONG BEACHBasophils Absolute0.00.0 - 0.2 X10^9L109/17/2024 9:42 AM ESTCENTERVILLEDifferential TypeAUTOMATED ZCYGAIGBORCJ59/16/2025 9:42 AM ESTPROMEDICA LOS ANGELES METROPOL[facility]AN MEDICAL CENTERpecimen (Source)Anatomical Location / LateralityCollection Method / VolumeCollection TimeReceived TimeBloodVenous blood / UnknownVenipuncture / Fblnhtl9807/18/2025 9:23 AM EST07/18/2025 9:34 AM EST Narrative Authorizing ProviderResult TypeResult StatusPatricchantell ARGUETA BLOOD ORDERABLESFinal ResultPerforming OrganizationAddressCity/State/ZIP CodePhone Number [place] [address] [place] [address], * (ABNORMAL) [place] 125 (07/18/2025 9:23 AM EST)ComponentValueRef RangeTest Method Analysis TimePerformed AtPathologist SignatureCA 039056(H)<=35 U/mL07/18/2025 10:14 PM [facility] LABORATORYComment: The method used for this test is [employer] DXI chemiluminescent immunoassay. Values obtained by different assay methods cannot be used interchangeably. Specimen (Source)Anatomical Location / LateralityCollection Method / Volume Collection TimeReceived TimeBloodVenous blood / UnknownVenipuncture / Unknown 07/18/2025 9:23 AM EST07/18/2025 9:34 AM EST Narrative Authorizing ProviderResult TypeResult StatusSkylertricchantell ARGUETA BLOOD ORDERABLESFinal ResultPerforming OrganizationAddressCity/State/ZIP CodePhone Number [facility] [address] [place] [address], [place] [phone] * Lipase (07/18/2025 9:23 AM EST)ComponentValueRef RangeTest MethodAnalysis Time Performed AtPathologist TyowfgjgrORXVWT9978 - 40 U/L109/17/2024 9:57 AM EST [facility]ITALpecimen (Source)Anatomical Location / LateralityCollection Method / VolumeCollection TimeReceived TimeBloodVenous blood / UnknownVenipuncture / Fakwzzb6807/18/2025 9:23 AM EST07/18/2025 9:34 AM EST Narrative Authorizing ProviderResult TypeResult StatusSkylertricchantell ARGUETA BLOOD ORDERABLESFinal ResultPerforming OrganizationAddressCity/State/ZIP CodePhone Number [place] [address] [facility] [place] [address], [place] * (ABNORMAL) Liver panel (07/18/2025 9:23 AM EST)ComponentValueRef RangeTest MethodAnalysis TimePerformed AtPathologist SignatureTOTAL PROTEIN7.06.0 - 8.0 g/dL07/18/2025 10:03 AM ESTCENTERVILLEALBUMIN2.8(L)3.2 - 5.3 g/dL07/18/2025 10:03 AM [place] BILIRUBIN,TOTAL0.60.3 - 1.2 mg/dL07/18/2025 10:03 AM [place]LEALKALINE IAVMTHYAOTS1707 - 130 U/L109/17/2024 10:03 AM EST [place]LEAST21<=41 U/L109/17/2024 10:03 AM EST [place]ALT19<=31 U/L109/17/2024 10:03 AM EST [place]LEBILIRUBIN,DIRECT0.1<=0.4 mg/dL07/18/2025 10:03 AM [facility]ENTERpecimen (Source)Anatomical Location / LateralityCollection Method / VolumeCollection TimeReceived Time BloodVenous blood / UnknownVenipuncture / Pjbwzdw8207/18/2025 9:23 AM EST 07/18/2025 9:34 AM EST Narrative Authorizing ProviderResult TypeResult StatusPacherelel Calle MDLAB BLOOD ORDERABLESFinal ResultPerforming OrganizationAddressCity/State/ZIP CodePhone Number [place] [phone] [facility] [place] [address], [place] * (ABNORMAL) Basic Metabolic Panel (07/18/2025 9:23 AM EST)ComponentValueRef RangeTest MethodAnalysis TimePerformed AtPathologist BdwemsdvrCKIDNG453439 - 146 mmol/L109/17/2024 10:03 AM [place]POTASSIUM 3.73.5 - 5.0 mmol/L109/17/2024 10:03 AM [place] PJTDDSTJ17010 - 109 mmol/L109/17/2024 10:03 AM [place]CARBON RHXIRNF1678 - 32 mmol/L109/17/2024 10:03 AM [place]LEANION SGK406 - 15 mmol/L109/17/2024 10:03 AM [place]LEBLOOD UREA MNIHHFRX12 - 27 mg/dL07/18/2025 10:03 AM [place]LECREATININE0.660.40 - 1.00 mg/dL 07/18/2025 10:03 AM [place]Comment:METHOD TRACEABLE TO IDMS MRVESMMUUXYPSAK562(H)65 - 99 mg/dL07/18/2025 10:03 AM EST [place]CALCIUM8.88.5 - 10.5 mg/dL07/18/2025 10:03 AM [place]EGFR Non-Race Dependent>90>=60 ml/min/1.73sq.m109/17/2024 10:03 AM [place] Comment: eGFR not reported due to non-numeric value for Creatinine. Reported eGFR is based on the CKD-EPI 2020 equation that does not use a race coefficient. Specimen (Source)Anatomical Location / LateralityCollection Method / Volume Collection TimeReceived TimeBloodVenous blood / UnknownVenipuncture / Unknown 07/18/2025 9:23 AM EST07/18/2025 9:34 AM EST Narrative Authorizing ProviderResult TypeResult StatusPatricchantell Calle MDLAB BLOOD ORDERABLESFinal ResultPerforming OrganizationAddressCity/State/ZIP CodePhone Number [place] [address] [place] [address], * H pylori breath adult (06/30/2025 11:55 AM EDT)ComponentValueRef RangeTest MethodAnalysis TimePerformed AtPathologist SignatureHELICOBACTER PYLORI, C UREA BREATH PXLAVxorahfyOqigfdqy17/30/2025 10:08 AM EDTMRIVERSIDE SHORE MEMORIAL HOSPITAL LABORATORIESComment: Result indicates the absence of current Helicobacter pylori infection. Test Performed by: [facility] [address] [place] [address] [employer]: Heather Morataya Ph.D.; CLIA# [id number] Specimen (Source)Anatomical Location / LateralityCollection Method / Volume Collection TimeReceived TimeBreathLung structure / Ijhflvq7506/30/2025 11:55 AM EDT1 11:55 AM EDT Narrative Authorizing ProviderResult TypeResult StatusMarc Soila ISAACBODY FLUIDS AND STOOLS ORDERABLESFinal ResultPerforming OrganizationAddressCity/State/ZIP Code Phone Number [facility] [address] [place] [address], * Colonoscopy (09/20/2022 8:10 AM EST)Specimen (Source)Anatomical Location / LateralityCollection Method / VolumeCollection TimeReceived Time09/20/2022 8:10 AM EST Narrative PM CARDIOVASCULAR - 09/20/2022 8:41 AM EST [facility] Patient Name: Mira Santos ?? Procedure Date No Time: 09/20/2022 ?? CSN : [id number] Date of : 1960 Admit Type: Outpatient Age: 62 Room: [place] [address] Gender: Female Note Status: Finalized Attending MD: Thanh Arriaga DO Procedure: ? Colonoscopy Indications: ? Screening for colorectal malignant neoplasm Providers: ? Thanh Arriaga DO Referring MD: ?Thanh Arriaga DO Medicines: ? Propofol per Anesthesia Complications: ? No immediate complications. Procedure: ? After I obtained informed consent, the scope was ? passed under direct vision. Throughout the procedure, ? the patient's blood pressure, pulse, and oxygen ? saturations were monitored continuously. The OLYMPUS ? -[id number] #[id number] ADULT COLONOSCOPE was introduced ? through the anus and advanced to the cecum, identified ? by the appendiceal orifice, ileocecal valve and ? palpation. The colonoscopy was performed with ease. ? The patient tolerated the procedure well. The quality ? of the bowel preparation was good. Findings: ? The perianal and digital rectal examinations were normal. ? Many small-mouthed diverticula were found in the sigmoid colon. ? Multiple small [Extent] angioectasias without bleeding were found in the ? sigmoid colon. Estimated Blood Loss: ??Estimated blood loss: none. Impression: ?- Diverticulosis in the sigmoid colon. ? - Multiple non-bleeding colonic angioectasias. ? - No specimens collected. Recommendation: ?- Discharge patient to home. ? - Patient has a contact number available for ? emergencies. The signs and symptoms of potential ? delayed complications were discussed with the patient. ? Return to normal activities tomorrow. Written ? discharge instructions were provided to the patient. ? - Patient has a contact number available for ? emergencies. The signs and symptoms of potential ? delayed complications were discussed with the patient. ? Return to normal activities tomorrow. Written ? discharge instructions were provided to the patient. ? - High fiber diet for the rest of the patient's life. ? - Repeat colonoscopy in 10 years for screening ? purposes. ? - Return to my office PRN. Procedure Code(s): ? --- Professional --- ? G0121, Colorectal cancer screening; colonoscopy on ? individual not meeting criteria for high risk Diagnosis Code(s): ? --- Professional --- ? Z12.11, Encounter for screening for malignant neoplasm of colon ? K55.20, Angiodysplasia of colon without hemorrhage ? K57.30, Diverticulosis of large intestine without perforation or abscess ? without bleeding CPT copyright 2020 [employer]. All rights reserved. The codes documented in this report are preliminary and upon tester semiconductor packages review may be revised to meet current compliance requirements. DO Thanh Arceo DO 09/20/2022 8:41:26 AM Number of Addenda: 0 Note Initiated On: 09/20/2022 8:10 AM Procedure Note Thanh Arriaga DO - 09/20/2022 [facility] Patient Name: Mira Santos Procedure Date No Time: 09/20/2022 CSN : [id number] Date of : 1960 Admit Type: Outpatient Age: 62 Room: [place] [address] Gender: Female Note Status: Finalized Attending MD: Thanh Arriaga DO Procedure: Colonoscopy Indications: Screening for colorectal malignant neoplasm Providers: Thanh Arriaga DO Referring MD: Thanh Arriaga DO Medicines: Propofol per Anesthesia Complications: No immediate complications. Procedure: After I obtained informed consent, the scope was passed under direct vision. Throughout theprocedure, the patient's blood pressure, pulse, and oxygen saturations were monitored continuously. TheTalento al AulaLINCOLN COUNTY [facility] [id number] #[id number] ADULT COLONOSCOPE was introduced through the anus [...] perforation orabscess without bleeding CPT copyright 2020 [employer]. All rights reserved. The codes documented in this report are preliminary and upon tester semiconductor packages reviewmay be revised to meet current compliance requirements. DO Thanh Arceo DO 09/20/2022 8:41:26 AM Number of Addenda: 0 Note Initiated On: 09/20/2022 8:10 AM Authorizing ProviderResult TypeResult StatusMicbonnie SULLIVANI PROCEDURE ORDERABLESFinal ResultPerforming OrganizationAddressCity/State/ZIP CodePhone Number PM CARDIOVASCULAR from Last 3 Months or Most Recently Relevant to Health Maintenance Insurance * Guarantor: Mira SantosAccorivera TypeRelation to PatientDate of BirthPhone Billing HqrghvgRujkosNxjf[address] [place] [id number] Care Teams Team MemberRelationshipSpecialtyStart DateEnd Date Pcp, [place] [address] PCP - GeneralFamily Esvcbzeg17/29/25
--- OUTSIDE RECORDS SUMMARY | 2025-07-27 09:35 | XMS_ITS | Encounter Summary ---
Author Organization [facility] tem Address [facility] [id number] [address] [place] [address] Care Team Providers Care Woodwork Salvage Inspector Name Role Phone Pcp, Not In System Primary Care Provider Unavail able Encounter Details DateTypeDepartmentCare Team (Latest Contact Info)Iavwsfkosyy11/16/2025Travel Social History Tobacco UseTypesPacks/DayYears UsedDateSmoking Tobacco: NeverSmokeless Tobacco: NeverAlcohol UseStandard Drinks/WeekCommentsYes0 (1 standard drink = 0.6 oz pure alcohol)sociallyChildcareAnswerDate PewpjruxIiwzflvyqLfushbk12/12/2019Employment AnswerDate UlpckbzjPybnwkohfpEqccysl01/12/2019Hunger ScreeningAnswerDate RecordedWithin the past 12 months we worried whether our food would run out before we got money to buy more.Never True07/18/2025Within the past 12 months the food we bought just didn't last and we didn't have money to get more.Never True07/18/2025Purpose - LifeAnswerDate RecordedPurpose and direction in life Jjivsec22/11/2021CommentsNoSex and Gender InformationValueDate Recorded Sex Assigned at BirthNot on fileLegal UspXldvyn57/06/2015 11:45 AM EDTGender IdentityNot on fileSexual OrientationNot on filedocumented as of this encounter Plan of Treatment DateTypeDepartmentCare Team (Latest Contact Info)Nauqtuppnpr06/10/2025 8:45 AM ESTHospital Encounter [facility] [address] [place] [address] Rohini Palacios, DO [address] [place] [address] 08/11/2025 8:45 AM EST - 08/11/2025 9:15 AM ESTSurgery [facility] [address] [place] [address] Rohini Palacios, DO [address] [place] [address] ESOPHAGOGASTRODUODENOSCOPY DIAGNOSTIC [[id number] (CPT??)]09/17/2025 3:00 PM EST Office Visit [facility] - Medical Oncology [address] [place] [phone] Baljeet Clemente MD [address] [place] [address] [address] [place] [phone] 10/21/2025 10:00 AM ESTOffice Visit [facility] [address] [place] [phone] Rohini Palacios, DO [address] [place] [address] NamePriorityAssociated DiagnosesDate/TimeESOPHAGOGASTRODUODENOSCOPY DIAGNOSTIC Dysphagia, unspecified type Gastroesophageal reflux disease, unspecified whether esophagitis present Anemia, unspecified type 08/11/2025 8:45 AM ESTdocumented as of this encounter Visit Diagnoses Not on filedocumented in this encounter Care Teams Team MemberRelationshipSpecialtyStart DateEnd Date Pcp, [place] [address] PCP - GeneralFamily Ujnmkhoi35/29/25documented as of this encounter
--- OUTSIDE RECORDS SUMMARY | 2025-07-27 09:35 | XMS_ITS | Clinical Summary ---
Author Organization [facility] Address [address] [place] [address] Care Team Providers Care Paint Pourer Name Role Phone Saurabh Cm MD Primary Care Provider [phone] Allergies Active AllergyReactionsCriticalityNoted DateCommentsSulfa (Sulfonamide Antibiotics)LvldsBpy15/09/2017 Other reaction(s): Unknown Medications MedicationSigDispense QuantityRefillsLast FilledStart DateEnd DateStatus albuterol 90 mcg/actuation inhaler Inhale 2 puffs every 6 (six) hours if needed.Active aspirin 81 mg EC tablet Take 81 mg by mouth in the morning.Active calcium carb/D3/magnesium/zinc (calcium carb-D3-mag fhk58-btjt) [phone] gh-flfc-bw-mg tablet Take by mouth in the morning.Active cetirizine (ZyrTEC) 10 mg tablet Take 10 mg by mouth if needed each day.Active cholecalciferol (Vitamin D-3) 50 MCG (2000 UT) tablet Take by mouth in the morning.12/29/2021ctive fluticasone (Flonase) 50 mcg/actuation nasal spray USE 2 SPRAY(S) IN EACH NOSTRIL ONCE DAILY02/12/2022ctive levothyroxine (Synthroid, Levoxyl) 50 mcg tablet Take 88 mcg by mouth in the morning.Active montelukast (Singulair) 10 mg tablet Take 10 mg by mouth in the morning.06/17/2022ctive atorvastatin (Lipitor) 80 mg tablet Indications:Coronary artery disease involving twenty-nine palms coronary artery of twenty-nine palms heart with unstable angina pectoris (CMS/HCC)Take 1 tablet (80 mg) by mouth in the morning. 30 tablet ctive nitroglycerin (Nitrostat) 0.4 mg SL tablet Indications:Coronary artery disease involving twenty-nine palms coronary artery of twenty-nine palms heart with unstable angina pectoris (CMS/HCC)Place 1 tablet (0.4 mg) under the tongue every 5 (five) minutes if needed for chest pain. May repeat dose every 5 minutes for up to 3 doses total. 100 tablet ctive Arnuity Ellipta 100 mcg/actuation inhaler Inhale 1 puff in the morning.10/07/2023ctive metoprolol succinate XL (Toprol-XL) 25 mg 24 hr tablet Indications:Essential hypertensionTake 0.5 tablets (12.5 mg) by mouth in the morning. 45 tablet //ctive Active Problems ProblemNoted DateDiagnosed OazpLppbasxrv75/13/2025Postmenopausal bleeding 5Acute UTI09/03/2024Medicare annual wellness visit, subsequent 5Acute bronchitis due to other specified tswxjotcs59/23/2024 Overview (03/03/2024): Last Assessment & Plan: Take [...] no better or worse call office. Abnormal TSH10/05/2023iverticulosis of colon5754Objuuhzcyshr27/02/2024 Dyspareunia in dhxzih2910/04/2023 Overview (03/03/2024): Last Assessment & Plan: Pain with intercourse and add premarin. Encounter for long-term (current) use of vipmgdyunxl80/02/2024Mild intermittent intrinsic asthma without wsmfzuynhjxg66/02/2024 Overview (03/03/2024): Last Assessment & Plan: Symptoms controlled with inhaled steroid and continue. Use albuterol PRN. Seasonal allergic rhinitis due to epmxvv1510/04/2023 Overview (03/03/2024): Last Assessment & Plan: Symptoms controlled with medication and continue. Benign essential HTN09/09/2023 Assessment & Plan (09/09/2023 2:20 PM EST): Hypertension is typically well controlled at home with b/p typically 120-126/70-80 Continue Toprol 12.5 mg daily Coronary artery disease involving twenty-nine palms coronary artery of twenty-nine palms heart without angina emperwdf40/08/2024 Assessment & Plan (09/09/2023 4:16 PM EST): Coronary artery disease is stable without concerning symptoms Continue GDMT- continue ASA, resume lipitor and continue toprol daily. continue risk factor modifications- heart healthy diet, regular exercise as tolerated and continue all medications. Vitamin D ebyrkkxcgi23/29/0793Trdgbvs36/29/2023OSA (obstructive sleep apnea) 11/28/20222618Cjntvn81/29/2023ERD (gastroesophageal reflux disease)11/28/2022 Neurogenic ctydmbi5711/28/2022 Assessment & Plan (09/09/2023 4:16 PM EST): Stable, no syncope since last visit HLD (hyperlipidemia)11/28/2022 Assessment & Plan (09/09/2023 4:15 PM EST): [...] LFT and lipid level in 2-3 months Nifdntdieahgje82/29/7502Fuyuzpnwfqiaqn64/29/2023bnormal stress test11/28/2022 Overview (11/28/2022): Added automatically from request for surgery [id number] Resolved Problems ProblemNoted DateDiagnosed DateResolved DateBenign hypertensive heart disease without congestive heart iayzspe03 Assessment & Plan (09/09/2023 2:18 PM EST): B/P today 142/ 84- uncontrolled Continue toprol 12.5 mg daily Typically b/p at home is 120-126/70-80 And well controlled Encounters DateTypeDepartmentCare OqtsKiujiodiqot05/26/2025Orders Only [facility] [address] [place] [phone] Mira Zuniga MA Mixed hyperlipidemia (Primary Dx)05/19/2025Telephone [facility] [address] [place] [address] Mira Zuniga MA from Last 3 Months Family History Medical HistoryRelationNameCommentsDiabetesBrothercabgBrotherAtrial fibrillation FatherHypertensionFathercarotid stenosisFatherDiabetesMotherStrokeMotherRelation NameStatusCommentsBrotherFatherDeceasedMotherDeceased Social History Tobacco UseTypesPacks/DayYears UsedDateSmoking Tobacco: NeverSmokeless Tobacco: Never Tobacco Cessation:Counseling Given: Not Answered Alcohol UseStandard Drinks/WeekCommentsYes0 (1 standard drink = 0.6 oz pure alcohol)occasionalUT Safety & EnvironmentAnswerDate RecordedFear of Current or Ex-PartnerNot on file10/24/2023Emotionally AbusedNot on file10/24/2023hysically AbusedNot on file10/24/2023Sexually AbusedNot on file10/24/2023hysically or Sexually AbusedNot on file10/24/2023CommentsNoSex and Gender Information ValueDate RecordedSex Assigned at LnbqhGqrwjo84/28/2024 11:31 AM ESTLegal Sex Qrukbs6211/23/2022 1:37 PM EDTGender IxzmragwLoclsl63/28/2024 11:31 AM ESTSexual OrientationHeterosexual or Yedivjch17/28/2024 11:31 AM EST Last Filed Vital Signs Vital SignReadingTime TakenCommentsBlood Kvnypdjq617/8804/08/2025 1:34 PM EDT Aeqdd769504/08/2025 1:34 PM EDTTemperature--Respiratory Tfzm968412/06/2022 11:15 AM EDTOxygen Hbnfacdcai03%04/08/2025 1:34 PM EDTInhaled Oxygen Concentration-- Wezhtw08.5 kg (204 lb)04/08/2025 1:34 PM SSJRglnvw599.6 cm (5' 4 )04/08/2025 1:34 PM EDTBody Mass Index35.02004/08/2025 1:34 PM EDT Plan of Treatment Health MaintenanceDue DateLast DoneCommentsCT Cmtbnnltzcng1958FIT-DNA 1958FIT1958FOBT1958Medicare Annual Wellness (AWV)1958 Dzxcoscdpwngy1958Depression Gofmmdkti76/04/1970Pneumococcal Vaccine: 50+ Years (1 of 2 - PCV)1977Zoster Vaccines (1 of 2)02/04/2008Fall Risk Xalseedut23/04/2023OVID-19 Vaccine ( - season), 04/12/2021, 03/15/2021Influenza Vaccine (#1), 06/28/2021, 09/08/2020, Additional history viiasvMycqdxrbm79/08/202608/04/2024, 04/08/2023 Adult Qznqngc32Colonoscopy, 09/20/2022 Colorectal Cancer Msbgowmsl78/19/2033HIB VaccinesAged OutNo longer eligible based on patient's age to complete this topicHPV VaccinesAged OutNo longer eligible based on patient's age to complete this topicIPV VaccinesAged OutNo longer eligible based on patient's age to complete this topicMeningococcal B VaccineAged OutNo longer eligible based on patient's age to complete this topic Meningococcal VaccineAged OutNo longer eligible based on patient's age to complete this topicRotavirus VaccinesAged OutNo longer eligible based on patient's age to complete this topic Insurance Care Teams Team MemberRelationshipSpecialtyStart DateEnd Date Saurabh Cm MD [address] [place] [address] [facility]11/27/22
--- OUTSIDE RECORDS SUMMARY | 2025-07-27 09:35 | XMS_ITS | Encounter Summary ---
Author Organization [facility] Address [address] [place] [address] Care Team Providers Care Branch Director Name Role Phone Saurabh Cm MD Primary Care Provider [phone] Saurabh Cm MD Unavailable Encounter Details DateTypeDepartmentCare Team (Latest Contact Info)Qwrdprbllgf44/24/2025amboo flowsheet [facility] [address] [place] [address] Huber Torres DO [address] Shea Alonzo, [facility] Social History Tobacco UseTypesPacks/DayYears UsedDateSmoking Tobacco: NeverSmokeless Tobacco: NeverAlcohol UseStandard Drinks/WeekCommentsYes0 (1 standard drink = 0.6 oz pure alcohol)Occasional, Caffeine intake: 1-2 cups per nyfL7021 Health LiteracyAnswer Date RecordedHow often do you [...] relatives?Once a week05/01/2025How often do you attend zoroastrian or advent services?1 to 4 times per year05/01/2025Do you belong to any clubs or organizations such as zoroastrian groups, unions, fraternal or athletic groups, or [...] at all 05/01/2025PHQ-2AnswerDate RecordedPatient Health Questionnaire-2 Score1 09/03/2024[facility] [place] [facility] - Occupational Stress QuestionnaireAnswerDate [...] steady place to sleep or slept in [facility] (including now)?No09/27/2023Housing Stability Vital SignAnswerDate RecordedIn the last 12 months, was there a time when you were not able to pay the mortgage or rent on time?No05/01/2025In the past 12 months, how many times have you moved where you were living?t any time in the past 12 months, were you homeless or living in a half-way (including now)?No 05/01/2025CommentsUnknownSex and Gender InformationValueDate RecordedSex Assigned at BirthNot on fileLegal LwdGyfxhw37/15/2023 7:34 PM EDTGender Identity Not on fileSexual OrientationNot on filedocumented as of this encounter Plan of Treatment Not on file documented as of this encounter Visit Diagnoses Not on filedocumented in this encounter Additional Health Concerns AssessmentNoted TimePHQ-9 Depression Total Score: 2:00 PM ESTA fall risk assessment has been completed for the opsrylo4902/14/2024 9:40 AM EDT documented as of this encounter Care Teams Team MemberRelationshipSpecialtyStart DateEnd Date Saurabh Cm MD [address] [place] [address] [facility]CP [facility]10/04/23 Saurabh Cm MD [address] [place] [address] PCP - [facility]12/01/24documented as of this encounter
--- OUTSIDE RECORDS SUMMARY | 2025-07-27 09:35 | XMS_ITS | Encounter Summary ---
Author Organization [facility] Address [address] [place] [address] Care Team Providers Care Leasing Specialist Name Role Phone Saurabh Cm MD Primary Care Provider [phone] Saurabh Cm MD Unavailable Encounter Details DateTypeDepartmentCare Team (Latest Contact Info)Kujkxeaphvw25/17/2025Telephone [facility] [address] [place] [address] RanjeetElizabeth, MA [address] [place] [address] Social History Tobacco UseTypesPacks/DayYears UsedDateSmoking Tobacco: NeverSmokeless Tobacco: NeverAlcohol UseStandard Drinks/WeekCommentsYes0 (1 standard drink = 0.6 oz pure alcohol)Occasional, Caffeine intake: 1-2 cups per elzK3603 Health LiteracyAnswer Date RecordedHow often do you [...] relatives?Once a week05/01/2025How often do you attend mormon or taoism services?1 to 4 times per year05/01/2025Do you belong to any clubs or organizations such as mormon groups, unions, fraManna Ministries or athletic groups, or school groups?Yes05/01/2025How often [...] Health Questionnaire-2 Score1 09/03/2024[facility] [place] of Occupational Health - Occupational Stress QuestionnaireAnswerDate [...] were you homeless or living in a residential (including now)?No 05/01/2025CommentsUnknownSex and Gender InformationValueDate RecordedSex Assigned at BirthNot on fileLegal TvwWlzcwt93/15/2023 7:34 PM EDTGender Identity Not on fileSexual OrientationNot on filedocumented as of this encounter Miscellaneous Notes * Telephone Encounter - Faith Pollack MA - 07/19/2025 12:55 PM EST Pt called left message she was seen at the ER for vaginal discharge and abdominal pain. A CT was done at the [facility] ER in [place] and results of abnormal appearance of cervix. Fluid distending theuterine cavity. May be causing endocervical stenosis or obstruction. And was advised to f/up w/Pastor.I tried calling pt back and phone continued ringing and unable to go to . Pt is to schedule a f/up ER visit w/Dr. Torres or Yue Reynoso. documented in this encounter Plan of Treatment Not on file documented as of this encounter Visit Diagnoses Not on filedocumented in this encounter Additional Health Concerns AssessmentNoted TimePHQ-9 Depression Total Score: 2:00 PM ESTA fall risk assessment has been completed for the tisvpxn4902/14/2024 9:40 AM EDT documented as of this encounter Care Teams Team MemberRelationshipSpecialtyStart DateEnd Date Saurabh Cm MD [address] [place] [address] PCP - GeneralFamily Medicine10/04/23 Saurabh Cm MD [address] [place] [address] PCP - Ricardo MCCABE12/01/24documented as of this encounter
--- OUTSIDE RECORDS SUMMARY | 2025-07-27 09:37 | XMS_ITS | CCD ---
Author Organization [facility] Care Team Providers Care Offset Press Assistant Name Role Phone Saurabh Purcell Primary Care Provider [phone] JOSE WATSON Attending Unavailable NADEREKaelyn, SAURABH ARVIZU [...] Unavailable Saurabh Purcell MD Primary Care Provider [phone] Saurabh Purcell MD Unavailable Herminio PRISON WARDEN, Lynne Unavailable Unavailable Madeleine PRISON WARDEN, Ardana Unavailable Unavailable Clovis Bolanos MA Unavailable Unavailable Horn MS, RDN, LD, CHES, Devon Unavailable U navailable Clovis Bolanos MA Unavailable Saurabh Purcell MD Unavailable Saurabh Purcell MD Primary Care Provider [phone] Saurabh Purcell MD Attending Provider CHAS RICHARD Attending Unavailable ANJEL BARCENAS Attending Unavailable Saurabh Purcell MD Primary Care Provider Saurabh Purcell MD Unavailable Saurabh Purcell MD Primary Care Provider Saurabh Purcell MD Unavailable SAURABH PURCELL Attending Unavailable LUC GUZMAN Attending Unavailable SAURABH PURCELL Attending Unavailable DEVON GABRIEL Attending Unavailable LUC GUZMAN Attending Unavailable HUBER TORRES Attending Unavailable SAURABH PURCELL Referring Unavailable SAURABH PURCELL Primary Care Unavailable SAURABH PURCELL Referring Unavailable PCP, NOT IN SYSTEM Primary Care Unavailable Allergies Allergy ClassificationReported Allergen(s)Allergy TypeDate of OnsetReaction(s) Facility (1 source)Sulfonamides (Antibiotic)Propensity to adverse reactions to drug 15-36-5863[employer] Work Phone: (20 sources)Sulfonamides (Antibiotic)Drug Ofavvgc71-24-8121GyeqdSaint [facility] (2 sources)Sulfonamides (Antibiotic); Translations: [SULFA (SULFONAMIDE ANTIBIOTICS)]Propensity to adverse reactions to drug (disorder)01-08-2017 [facility] Medications Current Medications MedicationDrug Class(es)DatesSig (Normalized)Sig (Original)[id number] 200 actuat albuterol 0.09 mg/actuat metered dose inhaler (20 sources)beta2-Adrenergic AgonistStart: 22-79-6620esul 1 puff(s) by inhalation every four to six hours as neededAlbuterol Sulfate 90 mcg/actuation HFA aerosol inhaler Active 2 PUFF INHALATION EVERY 4-6 HOURS as needed May 05, 2025 12:00am Complies with drug therapyStart: 09-23-2023 End: 14-80-3772chmh 2 puff(s) by inhalation every four hours for wheezing albuterol HFA 90 mcg/act inhaler Indications: Mild intermittent asthma, unspecified whether complicated (HCC) Inhale 2 puffs every 4 (four) hours if needed for wheezing 18 g 2 05/26/2024 06/01/2026 Activealbuterol sulfate HFA 108 (90 Base) MCG/ACT inhaler (1 source)take 2 puff(s) by inhalation every six hours as needed for wheezing albuterol sulfate HFA 108 (90 Base) MCG/ACT inhaler Inhale 2 puffs into the lungs every 6 hours as needed for Wheezing 0 Activeaspirin 81 mg oral tablet (20 sources)Platelet Aggregation Inhibitor, Nonsteroidal Anti-inflammatory Drug Start: 74-71-8216hobs 1 tablet by mouth once dailyAspirin 81 mg tablet Active 81 MG PO Daily May 05, 2025 12:00am Complies with drug therapytake 1 tablet by mouth once dailyaspirin 81 MG EC tablet Take 81 mg by mouth Daily Active atorvastatin 80 mg oral tablet (20 sources)HMG-CoA Reductase InhibitorStart: 75-70-7403spdd 1 tablet by mouth at bedtimeatorvastatin (Lipitor) 80 MG tablet Indications: Dyslipidemia TAKE 1 TABLET BY MOUTH AT BEDTIME 30 tablet 11/17/2024 ActiveStart: 44-73-4256iumu 1 tablet by mouth at bedtimeatorvastatin (Lipitor) 80 MG tablet Indications: Dyslipidemia (CMS/HCC) Take 1 tablet (80 mg) by mouth at bedtime 100 tablet 3 02/21/2024 ActiveStart: 10-55-9973ysbosqsddorv (Lipitor) 80 MG tabletcalcium carbonate 1250 mg oral tablet (1 source)take 1 tablet by mouth once dailycalcium carbonate (OSCAL) 500 MG TABS tablet Take 500 mg by mouth daily 0 Activecetirizine hydrochloride 10 mg oral tablet (1 source)Histamine-1 Receptor Antagonisttake 1 tablet by mouth once daily cetirizine (ZYRTEC) 10 MG tablet Take 10 mg by mouth daily 0 Active cholecalciferol 0.05 mg oral capsule (20 sources)Vitamin DStart: 31-68-3205uwsg 1 capsule by mouth once daily Cholecalciferol (Vitamin D3) 50 mcg (2,000 unit) capsule Active 50 MCG PO Daily May 052:00am Complies with drug therapyciprofloxacin 500 mg oral tablet (3 sources)Quinolone AntimicrobialStart: 09-03-2024 End: 48-14-0276ivlr 1 tablet by mouth in the morningciprofloxacin (Cipro) 500 MG tablet Indications: Acute UTI Take 1 tablet (500 mg) by mouth in the morning and 1 tablet (500 mg) before bedtime. Do all this for 7 days. 14 tablet 09/03/2024 5Activeestrogens, conjugated (skilled nursing) 0.625 mg oral tablet (4 sources)EstrogenStart: 32-29-3829dedj 1 tablet by mouth in the morning estrogens, conjugated, (Premarin) 0.625 MG tablet Indications: Dyspareunia in female Take 1 tablet (0.625 mg) by mouth in the morning. 30 tablet 5 10/04/2023 ActiveStart: 00-69-4742ycpp 1 tablet by mouth in the morningestrogens, conjugated, (Premarin) 0.625 MG tablet Indications: Dyspareunia in female Take 1 tablet (0.625 mg) by mouth in the morning. 30 tablet 5 10/04/2023 Active End: 54-93-8523pmyz 1 tablet by mouth once daily in the morningestrogens, conjugated, (Premarin) 0.625 MG tablet Take 1 tablet by mouth in the morning. Take dailyfor 21 days then do not take for 7 days.. 0 10/04/2023 Discontinued (Reorder)fluticasone propionate 0.05 mg/actuat metered dose nasal spray (20 sources)CorticosteroidStart: 31-19-4690bfsj 1 spray(s) nasal route once dailyFluticasone Propionate (Allergy Relief (Fluticasone)) 50 mcg/actuation spray,suspension Active 2 SPRAY INTRANASAL Daily May 05, 2025 12:00am administer into each nostril Complies with drug therapyStart: 77-47-2512norr 100 ug by inhalation once dailyFluticasone Furoate (Arnuity Ellipta) 100 mcg/actuation blister with device Active 1 INH INHALATIONDaily May 05, 2025 12:00am Complies with drug therapyStart: 76-82-9375lvvo 1 puff(s) by inhalation once dailyArnuity Ellipta 100 MCG/ACT inhaler Indications: 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 (HCC) INHALE 1 PUFF DAILY AND RINSE WITH WATER AFTER USE TO REDUCE AFTERTASTE AND INCIDENCE OFCANDIDASIS. DO NOT SWALLOW. 30 each 02/08/2025 ActiveStart: 15-10-7549ujps 2 spray(s) nasal route once dailyfluticasone (Flonase) 50 MCG/ACT nasal spray Indications: Seasonal allergic rhinitis due to pollen Administer 2 sprays into each nostril Daily 16 g 3 01/04/2025 ActiveStart: 09-53-3284imnr 1 puff(s) by mouth once dailyfluticasone furoate (Arnuity Ellipta) 100 MCG/ACT inhaler Indications: 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 Inhale 1 puff Daily Rinse mouth with water after use to reduce aftertaste and incidence of candidiasis. Do not swallow. 1 each 5 07/06/2024 ActiveStart: 10-07-2023 End: 80-55-9140acvw 1 puff(s) by mouth in the morningfluticasone furoate (Arnuity Ellipta) 100 MCG/ACT inhaler Indications: Mild intermittent intrinsic a sthma without complication (CMS/HCC) Inhale 1 puff in the morning. Rinse mouth with water after useto reduce aftertaste and incidence of candidiasis. Do not swallow.. 1 each 5 10/07/2023 07/06/2024 Discontinued (Reorder)Start: 10-04-2023 take 2 puff(s) by inhalation in the morningfluticasone (Flovent) 44 MCG/ACT inhaler Indications: 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 (CMS/HCC) Inhale 2 puffs in the morning and 2 puffs before bedtime. Rinse mouth with water after use to reduce aftertaste and incidence of candidiasis. Do not swallow.. 10.6 g 5 10/04/2023 ActiveStart: 76-36-1413icxd 2 puff(s) by inhalation in the morningfluticasone (Flovent) 44 MCG/ACT inhaler Indications: 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 (CMS/HCC) Inhale 2 puffs in the morning and 2 puffs before bedtime. Rinse mouth with water after use to reduce aftertaste and incidence of candidiasis. Do not swallow.. 10.6 g 5 10/04/2023 ActiveStart: 78-72-7701tlfy 2 spray(s) nasal route in the morning fluticasone (Flonase) 50 MCG/ACT nasal spray Administer 2 sprays into each nostril in the morning. 12/01/2022 Activelevothyroxine sodium 0.088 mg oral tablet (20 sources)l-ThyroxineStart: 59-45-7038aczb 1 tablet by mouth once daily levothyroxine (Synthroid, Levoxyl) 88 MCG tablet Indications: Acquired hypothyroidism Take 1 tabletby mouth once daily 30 tablet 12/07/2024 Active Start: 94-42-0989udya 1 tablet by mouth once dailylevothyroxine (Synthroid, Levoxyl) 88 MCG tablet Indications: Acquired hypothyroidism (CMS/HCC) Take 1 tablet by mouth once daily 30 tablet 07/16/2024 ActiveStart: 68-18-9298etwh 1 tablet by mouth once dailylevothyroxine (Synthroid, Levoxyl) 88 MCG tablet Indications: Acquired hypothyroidism (CMS/HCC) Take 1 tablet by mouth once daily 30 tablet 06/08/2024 ActiveStart: 31-68-6091upvl 1 tablet by mouth once daily levothyroxine (Synthroid, Levoxyl) 88 MCG tablet Indications: Acquired hypothyroidism (CMS/HCC) Take 1 tablet by mouth once daily 30 tablet 05/11/2024 Activetake 1 tablet by mouth in the morninglevothyroxine (Synthroid, Levoxyl) 88 MCG tablet Take 88 mcg by mouth in the morning. Activemagnesium oxide 400 mg oral tablet (20 sources)Start: 21-54-5399aouk 1 tablet by mouth once dailyMagnesium Oxide 400 mg (241.3 mg magnesium) tablet Active 400 MG PO Daily May 05, 2025 12:00am Complies with drug therapymelatonin 3 mg oral tablet (1 source)take 1 tablet by mouth once dailymelatonin 3 MG TABS tablet Take 3 mg by mouth daily 0 ActivemethylPREDNISolone (2 sources)CorticosteroidStart: 06-25-2023 End: 29-72-5917lsjxtnAAIOQGPyavcx (Medrol Dospak) 4 MG tablets Indications: Plantar fasciitis , Posterior tibial tendinitis of right lower extremity Take as directed on package. 21 tablet 0 06/25/2023 10/04/2023 DiscontinuedStart: 67-97-7777wgjwyePDMXZEPewrcs (Medrol Dospak) 4 MG tablets Indications: Plantar fasciitis , Posterior tibial tendinitis of right lower extremity Take as directed on package. 21 tablet 0 06/25/2023 Opqgul77 hr metoprolol succinate 25 mg extended release oral tablet (20 sources)beta-Adrenergic BlockerStart: 96-63-3788hrke 1 tablet by mouth once dailyMetoprolol Succinate 25 mg tablet extended release 24 hr Active 25 MG PO Daily May 05, 2025 12:00am Complies with drug therapytake 1 tablet by mouth every twenty-four hours in the morningmetoprolol succinate XL (Toprol-XL) 25 MG 24 hr tablet Take 25 mg by mouth in the morning. Activemontelukast 10 mg oral tablet (20 sources)Leukotriene Receptor AntagonistStart: 03-11-2025 End: 75-52-0222dmhb 1 tablet by mouth at bedtimemontelukast (Singulair) 10 MG tablet Indications: Seasonal allergic rhinitis due to pollen TAKE 1 TABLET BY MOUTH AT BEDTIME 30 tablet 5 04/28/2025 ActiveStart: 89-77-1344ljdd 1 tablet by mouth at bedtimemontelukast (Singulair) 10 MG tablet Indications: Seasonal allergic rhinitis due to pollen TAKE 1 TABLET BY MOUTH AT BEDTIME 30 tablet 12/07/2024 ActiveStart: 37-68-5182ilvb 1 tablet by mouth at bedtimemontelukast (Singulair) 10 MG tablet Indications: Seasonal allergic rhinitis due to pollen TAKE 1 TABLET BY MOUTH AT BEDTIME 30 tablet 09/03/2024 ActiveStart: 02-17-2024 take 1 tablet by mouth at bedtimemontelukast (Singulair) 10 MG tablet Indications: Seasonal allergic rhinitis due to pollen Take 1 tablet (10 mg) by mouth at bedtime 30 tablet 5 02/17/2024 ActiveStart: 86-38-1639zyvr 1 tablet by mouth at bedtimemontelukast (Singulair) 10 MG tablet Take 10 mg by mouth at bedtime. 0 06/13/2023 Active Completed/Discontinued Medications MedicationDrug Class(es)DatesSig (Normalized)Sig (Original)fluconazole 150 mg oral tablet (2 sources)Azole AntifungalStart: 06-23-2025 End: 69-92-9396ojlj 1 tablet by mouth oncefluconazole (Diflucan) 150 MG tablet Indications: Yeast infection Take 1 tablet (150 mg) by mouth 1(one) time for 1 dose 1 tablet 06/23/2025 06/23/2025 Problems Active Problems Problem ClassificationProblemDateDocumented DateEpisodic/ChronicAbdominal pain (1 source)Epigastric pain; Translations: [Epigastric pain]Onset: 06-30-2025 EpisodicAsthma (20 sources)Uncomplicated non-allergic asthma; Translations: [Mild intermittent asthma, uncomplicated]Onset: 099124-08-8528ZmelpwyKbgfshc ulcer of skin (4 sources)Non-pressure chronic ulcer of other part of left foot limited to breakdown of skin; Translations: [Ulcer of other part of foot]81-85-9784Hxvwubo Coronary atherosclerosis and other heart disease (20 sources)Coronary arteriosclerosis; Translations: [Atherosclerotic heart disease of tazlina coronary artery without angina pectoris]Onset: 09-09-2023 05-61-1932EkpxnbnYhvrmlitc of lipid metabolism (20 sources)Mixed hyperlipidemia; Translations: [Dyslipidemia]Onset: 02-22-2022 Resolved: 872284-61-5526EdpqdthTwgspebqzcezer and diverticulitis (20 sources)Diverticulosis of colon; Translations: [Diverticulosis of large intestine without perforation or abscess without bleeding]Onset: 10-04-2023 11-34-6663CztdckmOymaiglxj hypertension (20 sources)Hypertensive disorder; Translations: [Essential (primary) hypertension]Onset: 40-12-9631JvsnndhQcbjiyistc disorders (20 sources)Postmenopausal bleeding; Translations: [Postmenopausal bleeding] Onset: 548621-94-2932SrnuituWsirjhv (6 sources)Onychomycosis; Translations: [Tinea unguium]11-83-0411Xcznhmyd Neoplasms of unspecified nature or uncertain behavior (2 sources)Neoplasm of uterus; Translations: [Neoplasm of unspecified behavior of other genitourinary organ]05-11-0088QmnauizbGxekmkmqyub deficiencies (20 sources)Vitamin D deficiency, unspecified; Translations: [Vitamin D deficiency]Onset: 701423-55-0057ZythkohDjmsjvytiaa deficiencies (1 source)Vitamin A deficiency; Translations: [Vitamin A deficiency, unspecified]91-33-8824FtfrepccWnvtm connective tissue disease (2 sources)Pain in both feet; Translations: [Pain in right foot]06-01-2025 EpisodicOther nutritional; endocrine; and metabolic disorders (1 source)Body mass index 30+ - obesity; Translations: [Obesity, unspecified] 63-53-6822HqjjvemDqzzh skin disorders (4 sources)Dystrophia unguium; Translations: [Nail dystrophy]70-47-7051Oorcrufx Other upper respiratory disease (20 sources)Allergic rhinitis due to pollen; Translations: [Allergic rhinitis due to pollen]Onset: 667762-82-3221CuegtklOcitqfeh codes; unclassified (4 sources)Obstructive sleep apnea (adult) (pediatric); Translations: [OBSTRUCTIVE SLEEP APNEA]Onset: 72-03-0207KrctmetRqxsxpk disorders (20 sources)Hypothyroidism, unspecified; Translations: [Acquired hypothyroidism] Onset: 68-52-0293WcnhaosUkoxqxhkkiin (4 sources)CONTACT W/AND (SUSP) EXPOS COVID-19; Translations: [CONTACT W/AND (SUSP) EXPOS COVID-19]Onset: 02-19-2022 Past or Other Problems Problem ClassificationProblemDateDocumented DateEpisodic/ChronicAcute bronchitis (20 sources)Acute infective bronchitis; Translations: [Acute bronchitis due to other specified organisms]Onset: 01-23-2024 Resolved: 112229-98-6423KfvbpyroNekwyuoxad disorders (20 sources)Gastroesophageal reflux disease; Translations: [Gastro-esophageal reflux disease without esophagitis]Onset: 10-04-2023 Resolved: 223840-85-1892HvxslnoUjiggftiemxur symptoms and ill-defined conditions (19 sources)Blood in urine; Translations: [Hematuria, unspecified]Onset: 881043-12-5083DsvfgpoyVogg disorders (20 sources)Mood disordersOnset: Other aftercare (1 source)Other long-term (current) drug therapy; Translations: [OTH SKILLED NURSING CURRENT DRUG THERAPY]Onset: 66-36-2250XzxjddymOdsgn aftercare (7 sources)Patient encounter status; Translations: [Other long-term (current) drug therapy]Onset: 19-89-817172232251-32-7309OlkvsmgoZbkjd aftercare (20 sources)Long-term current use of drug therapy; Translations: [Other long-term (current) drug therapy]Onset: 755326-71-3467QfergbrkQtipj connective tissue disease (2 sources)Pain in right foot; Translations: [Pain in right foot]04-21-2024 EpisodicOther female genital disorders (20 sources)Pain in female genitalia on intercourse; Translations: [Unspecified dyspareunia]Onset: 10-04-2023 Resolved: 489667-64-4039NitshkeFgeqq non-traumatic joint disorders (20 sources)Pain in right knee; Translations: [Pain in joint, lower leg]Onset: 10-04-2023 Resolved: 289895-92-3820LyjphqmrFixpm screening for suspected conditions (not mental disorders or infectious disease) (20 sources)Abnormal result of other cardiovascular function study; Translations: [Thyroid hormone tests abnormal]Onset: 11-29-2022 Resolved: 41-18-5921PbqutdbzKnnabatl codes; unclassified (20 sources)Obstructive sleep apnea syndrome; Translations: [Obstructive sleep apnea (adult) (pediatric)]Onset: 10-04-2023 Resolved: 516928-95-9712SuvelcyHdoovifkksd injury; contusion (2 sources)Contusion of toe(s) with damage to nail; Translations: [Contusion of right lesser toe(s) with damage to nail, initial encounter]35-83-7021Eaqxozlp Unclassified (1 source)CONTACT W/AND (SUSP) EXPOS COVID-19; Translations: [CONTACT W/AND (SUSP) EXPOS COVID-19]Onset: 91-69-5772Wikboouasoda (20 sources)Onset: 169012-32-2690Bjtjkww tract infections (20 sources)Acute urinary tract infection; Translations: [Urinary tract infection, site not specified]Onset: 09-03-2024 Resolved: 151940-87-7233Buizsfyx Results Test NameValueInterpretationReference RangeFacilityH PYLORI BREATH ADULTon 36-96-3858QYTONAPUVMID PYLORI, C UREA BREATH TESTNegativeNormalNegativeProBaylor Scott & White Medical Center – TempleComment on above:Result Comment: Result indicates the absence of current Helicobacter pylori infection. Test Performed by: [facility] [address] [place] [address] Computer Programming Supervisor: Heather Morataya Ph.D.; CLIA# [id number] By: #### UBT #### [facility] ([facility]) [address] [place] [address] ETE50zf 26-72-328937Hnqlezvxg lab results from 04/20/2025: MD Mira Gustafson MA Lipids and AST ALT are very good. Continue current medications. Recheck in 6 months. Tried to contact patient. No VM.NormalTriHealthALL LIPID PROFILE (FASTING)on 70-87-5610FIKO HDL RATIO2.4NOMS HealthcareComment on above:3.3 - 4.4 LOW RISK 4.4 - 7.1 AVERAGE RISK 7.1 - 11.0 MODERATE RISK >11.0 HIGH RISK Cholesterol [Mass/Vol]138 mg/dLNINF - 200 mg/dLNOMS HealthcareCholesterol in HDL [Mass/Vol]58 mg/dL40 - 60 mg/dLNOMS HealthcareComment on above:> or =60 mg/dl - LOW CARDIOVASCULAR RISK <40 mg/dl - HIGH CARDIOVASCULAR RISK Magnesium [Mass/Vol]63.4 mg/dLNOMS HealthcareComment on above:<100 mg/dl OPTIMAL 100-129 mg/dl NEAR OR ABOVE OPTIMAL 130-159 mg/dl BORDERLINE HIGH 160-189 mg/dl HIGH >190 mg/dl VERY HIGH Magnesium [Mass/Vol]16.6 mg/dLNOMS HealthcareTriglyceride [Mass/Vol]83 mg/dLNINF - 150 mg/dLNOMS HealthcareCCF Rufino 71-01-0908UCA [Catalytic activity/Vol]27 U/L14 - 59 U/LNOMS HealthcareCCF Val 17-07-5101ASI [Catalytic activity/Vol]22 U/L15 - 37 U/LNOMS HealthcareNo Panel Informationon 40-23-2916SYERFOGMBNNVG HealthcareOffice Visiton 83-10-8035Livnxb-up [id number] Mira Snell 1960 F Date Provider Department Center 04/08/2025 08435-PYARSTCHAS RICHARD [facility] Family History Problem Relation Age of Onset Stroke Mother 70 Diabetes Mother Atrial fibrillation Father 70 Other Father Hypertension Father Other Brother 59 Diabetes Brother Family Status - Relation Status Age at Mother Father Brother Level of Service:43348 MA OFFICE/OUTPATIENT ESTABLISHED MOD MDM 30 MIN Reason for Visit and Comments: Hypertension [658361] Hyperlipidemia [182] 6 month follow up [Other] Coronary Artery Disease [187] Sleep Apnea [348] GERD [502133][facility] CenterUS PELVIS W/ TRANSVAGINAL on 52-[place] [address] Ultrasound Report Signed Patient: MIRA SNELL MR#: [id number] : 1960 Acct:[id number] Age/Sex: 64 / F ADM Date: 01/19/25 Loc: US Attending Dr: Saurabh Purcell M.D. Ordering Physician: Saurabh Purcell M.D. Date of Service: 01/19/25 Procedure(s): US pelvis w/ transvaginal Accession Number(s): [id number] cc: Saurabh Purcell M.D. [address] [address] Patient Name: MIRA SNELL MRN: [id number] date: 1960 Sex: F Assigned Patient Location: US Current Patient Location: US Accession/Order Number: [id number] Exam Date: 01/19/2025 09:52 Report Date: 01/19/2025 [...] Floyd M.D. 01/19/2025 9:56 AM Dictation Location: [place] [address] Electronically authenticated by: [id number] Y Date: 01/19/2025 09:56 Dictated By: Aayush Floyd M.D. Signed By: 01/19/25 0959 DD/ 0956 TD/TT: Continuous Pickling Line Pickler:TBHRadiology, Radiologist, - 01/19/2025 [place] [address] Ultrasound Report Signed Patient: MIRA SNELL MR#: [id number] : 1960 Acct:[id number] Age/Sex: 64 / F ADM Date: 01/19/25 Loc: US Attending Dr: Saurabh Purcell M.D. Ordering Physician: Saurabh Purcell M.D. Date of Service: 01/19/25 Procedure(s): US pelvis w/ transvaginal Accession Number(s): [id number] cc: Saurabh Purcell M.D. The [address] [address] Patient Name: MIRA SNELL MRN: [id number] date: 1960 Sex: F Assigned Patient Location: Current Patient Location: Accession/Order Number: [id number] Exam Date: 01/19/2025 09:52 Report Date: 01/19/2025 [...] Floyd M.D. 01/19/2025 9:56 AM Dictation Location: [place] [address] Electronically authenticated by: [id number] Y Date: 01/19/2025 09:56 Dictated By: Aayush Floyd M.D. Signed By: 01/19/2559 DD/ 5 TD/TT: Continuous Pickling Line Pickler: FREEDOM HealthcareRadiology Study observation (narrative)NOMVenu HealthcareUS PELVIS W/ TRANSVAGINALOrdered By: Radiologist Radiology on 79-75-6085WMLN FUELUP Work Phone: US RENAL BIon [phone] [address] Ultrasound Report Signed Patient: MIRA SNELL MR#: [id number] : 1960 Acct:[id number] Age/Sex: 64 / F ADM Date: 01/19/25 Loc: US Attending Dr: Saurabh Purcell M.D. Ordering Physician: Saurabh Purcell M.D. Date of Service: 01/19/25 Procedure(s): US renal BI Accession Number(s): [id number] cc: Saurabh Purcell M.D. [place] [id number] Patient Name: MIRA SNELL MRN: [id number] date: 1960 Sex: F Assigned Patient Location: Current Patient Location: Accession/Order Number: [id number] Exam Date: 01/19/2025 09:28 Report Date: 01/19/2025 [...] Floyd M.D. 01/19/2025 9:31 AM Dictation Location: [place] [address] Electronically authenticated by: [id number] Y Date: 01/19/2025 09:31 Dictated By: Aayush Floyd M.D. Signed By: 01/19/25 0933 DD/ 0 TD/TT: Continuous Pickling Line Pickler:FÉLIXadiology, Radiologist, - 01/19/2025 The [place] [id number] Ultrasound Report Signed Patient: MIRA SNELL MR#: [id number] : 1960 Acct:[id number] Age/Sex: 64 / F ADM Date: 01/19/25 Loc: US Attending Dr: Saurabh Purcell M.D. Ordering Physician: Saurabh Purcell M.D. Date of Service: 01/19/25 Procedure(s): US renal BI Accession Number(s): [id number] cc: Saurabh Purcell M.D. The [place] [address] Patient Name: MIRA SNELL MRN: [id number] date: 1960 Sex: F Assigned Patient Location: US Current Patient Location: US Accession/Order Number: [id number] Exam Date: 01/19/2025 09:28 Report Date: 01/19/2025 [...] Floyd M.D. 01/19/2025 9:31 AM Dictation Location: [place] [address] Electronically authenticated by: [id number] Y Date: 01/19/2025 09:31 Dictated By: Aayush Floyd M.D. Signed By: 01/19/25932 DD/ 0 TD/TT: Continuous Pickling Line Pickler: FREEDOM HealthcareRadiology Study observation (narrative)FREEDOM HealthcareUS RENAL BI Ordered By: Radiologist Radiology on 83-48-2821IQAM Healthcare Work Phone: Office Visiton 84-82-5610Xdouqf-up [id number] Mira Snell 1960 F Date Provider Department Center 10/20/2024 3848-ANJEL BARCENAS CARD [facility] Family History Problem Relation Age of Onset Stroke Mother 70 Diabetes Mother Atrial fibrillation Father 70 Other Father Hypertension Father Other Brother 59 Diabetes Brother Family Status - Relation Status Age at Mother Father Brother Level of Service:05691 [place] OFFICE/OUTPATIENT ESTABLISHED LOW MDM 20 [facility] HospitalURINALYSISon 43-71-1778Tymyicjih Ql (U) NegativeNormalNEGProBaylor Scott & White Medical Center – TempleComment on above:Performed By: #### UA #### [facility] ([id number]) [address] [place] [address], [address] [place], [place] [address]JJIPA/HGBNegativeNormalNEGProMedica Memorial HospitalComment on above:Performed By: #### UA #### [facility] ([id number]) [address] [place] [address], [address] [place], [place] [address]Ratso (U)YELLOWNormalYELLOWProBaylor Scott & White Medical Center – TempleComment on above:Performed By: #### UA #### [facility] ([id number]) [address] [place] [address], [address] [place], [place] [address]Jlnfpbz Ql (U)NegativeNormalNEGProMedica Memorial HospitalComment on above:Performed By: #### UA #### [facility] ([id number]) [address] [place] [address], [address] [place], [place] [address]Swgmawc Ql (U)NegativeNormalNEGProBaylor Scott & White Medical Center – TempleComment on above:Performed By: #### UA #### [facility] ([id number]) [address] [place] [address], [address] [place], [place] [address]Rsswgspmm esterase Test strip Ql (U)MODERATEAbnormalNEGProBaylor Scott & White Medical Center – TempleComment on above:Performed By: #### UA #### [facility] ([id number]) [address] [place] [address], [address] [place], [place] [address]UTJEYHPSJUQJNTeykwgpcPQKUTieOmrmsj Fremont HospitalComment on above:Performed By: #### UA #### [facility] ([id number]) [address] [place] [address], [address] [place], [place] [address]Vntcpgv Ql (U)NegativeNormalNEGProMedica Memorial HospitalComment on above:Performed By: #### UA #### [facility] ([id number]) [address] [place] [address], [address] [place], [place] [address]mQ (U)6.5 [pH]Normal5.0-8.5PAdena Fayette Medical CenterComment on above:Performed By: #### UA #### [facility] ([id number]) [address] [place] [address], [address] [place], [place] [address]Dwwievt Ql (U)30 mg/dLAbnoalNEGProMedica Memorial Hospital Comment on above:Performed By: #### UA #### [facility] ([id number]) [address] [place] [address], [address] [place], [place] [address]B.B.CELLS2 /hpfNormal0-5PAdena Fayette Medical CenterComment on above:Performed By: #### UA #### [facility] ([id number]) [address] [place] [address], [address] [place], [place] [address]Ulpdrrby gravity (U) [Rel density]1.027Dgmgrq8.003-1.035 ProMedica Kindred HospitalComment on above:Performed By: #### UA #### [facility] ([id number]) [address], [address] [place], [place] [address]KVQYYSGI EPITHELIUM1 /hpfNormal0-5PAdena [facility] Medical Center Comment on above:Performed By: #### UA #### [facility] ([id number]) [address] [facility] [address] [place], [place] [address]WCWYRDOAEUUYFYFytbwvMFXUAYnvLbyaic Fremont HospitalComment on above:Performed By: #### UA #### [facility] ([id number]) [address] [facility] [place], [place] [address]Oliyfukdvsys (U) [Mass/Vol]mg/dLNormal<1.1PAdena Fayette Medical CenterComment on above:Performed By: #### UA #### [facility] ([id number]) [address] [facility] [place], [place] [address]G.B.CELLS4 /hpfNormal0-5PAdena Fayette Medical CenterComment on above:Performed By: #### UA #### [facility] ([id number]) [address] [facility] [address] [place], [place] [address]FFWRQ CULTUREon [id number] identified Cx Nom (U)CULTURE RESULTS >100,000 ORGANISMS/ML NORMAL UROGENITAL FLORAUniversity Hospitals Geneva Medical Center Comment on above:Performed By: #### 630-4 #### [facility] ([id number]) [address], [address] [place], [place] [address]Vktidvjmks, manual onlyon [id number] Ql (U)Negative NegativeNOMS HealthcareColor (U)YELLOWYELLOWNOMS HealthcareEpithelial cells Auto (Urine sed) [#/Area]1NOMS HealthcareGlucose (U) [Mass/Vol]NegativeNegative mg/dLNOMS HealthcareHemoglobin Auto test strip Ql (U)NegativeNegativeNOMS HealthcareInterpretation and review of laboratory resultsAbnormalNOIA Healthcare Ketones (U) [Mass/Vol]NegativeNegative mg/dLNOBarnes-Jewish West County HospitalLeukocyte esterase Auto test strip Ql (U)MODERATEAbnormalNegativeNOIA HealthcareMucus Ql (Urine sed)PRESENTAbnormalNONENOMS HealthcareNitrite Auto test strip Ql (U)Negative NegativeNOIA HealthcarepH (U)6.5 [pH]5.0 - 8.5NOMS HealthcareProtein (U) [Mass/Vol]30 mg/dLAbnormalNegativeNOBarnes-Jewish West County HospitalRBC Auto (Urine sed) [#/Area]2 NOMS HealthcareSpecific gravity Refractometry automated (U) [Rel density]1.017 1.003 - 1.035NOMS HealthcareTurbidity Ql (U)CLEARCLEARNOBarnes-Jewish West County Hospital Urobilinogen Qn (U)<1.1NINFNOIA HealthcareWBC Auto (Urine sed) [#/Area]4NOIA HealthcareComment on above:PERFORMED AT [facility] [address],[place], [place] [address]WEMZ HealthcareALL CBC WITH AUTO DIFFon 09-03-2024 BASOPHILS ABSOLUTE [id number] HealthcareBasophils/100 WBC (Bld)0.5 %0.2 - 2.0 % NOMS HealthcareEosinophils/100 WBC (Bld)2 %0.9 - 7.0 %NOMS [facility], Cancer CenterErythrocyte distribution width (RBC) [Ratio]12.5 %11.0 - 15.0 %NOMS HealthcareHematocrit (Bld) [Volume fraction]39 %36.0 - 48.0 %NOMS [facility] Cancer CenterHemoglobin (Bld) [Mass/Vol]13 g/dL12.0 - 16.0 g/dLNOBarnes-Jewish West County HospitalIMMATURE GRANULOCYTES ABS AUTO 0.02NOMS HealthcareImmature granulocytes/100 WBC (Bld)0.3 %0.0 - 0.5 %NOMS HealthcareInterpretation and review of laboratory resultsAbnormalNOBarnes-Jewish [facility] Hospital LYMPHOCYTES ABSOLUTE AUTO1.6NOMS [facility], Cancer CenterLymphocytes/100 WBC (Bld)25.7 %20.5 - 60.0 %NOMS [facility] Cancer CenterMCH (RBC) [Entitic mass]31 pg26.7 - 34.0 pgNOMS Healthcare MCHC (RBC) [Mass/Vol]33.3 g/dL29.9 - 35.2 g/dLNOBarnes-Jewish West County HospitalMCV (RBC) [Entitic vol]93.1 fL81.0 - 99.0 fLSaint Luke's East HospitalMONOCYTES ABSOLUTE AUTO0.5NOIA HealthcareMonocytes/100 WBC (Bld)8 %1.7 - 12.0 %[facility] HospitalNEUTROPHILS ABSOLUTE AUTO4.1NOMS HealthcareNeutrophils/100 WBC (Bld)63.5 %43.0 - 75.0 %[facility] HospitalPlatelet mean volume (Bld) [Entitic vol]9.9 fL9.5 - 13.5 fLSaint Luke's East HospitalTBH EO #0.1NOMS HealthcareTBH [id number] [facility] Cancer CenterTBH RBC4.19LowNOMS [facility], Cancer CenterTBH WBC6.4NOMS HealthcareCLINISYNCNOMS HealthcareXR Foot - right 3 Viewson [id number] Result: AP, medial oblique, lateral views are weight-bearing. No fractures or dislocations. Multiple contracted digits. Enthesophyte at the insertion of the Achilles tendon and plantar fascia. Orthopedic implant noted in the tibia.Critical access hospitalRadiology Study observation (narrative) [facility] HospitalALL CBC WITH AUTO DIFFon [id number] ABSOLUTE AUTO0.0NOMS HealthcareBasophils/100 WBC (Bld)0.5 %0.2 - 2.0 %[facility] HospitalEosinophils/100 WBC (Bld)1.6 %0.9 - 7.0 %[facility] HospitalErythrocyte distribution width (RBC) [Ratio]12.5 %11.0 - 15.0 %[facility] HospitalHematocrit (Bld) [Volume fraction]40.7 %36.0 - 48.0 %[facility] HospitalHemoglobin (Bld) [Mass/Vol]13.6 g/dL12.0 - 16.0 g/dLSaint Luke's East HospitalIMMATURE GRANULOCYTES ABS AUTO0.01NOBarnes-Jewish West County HospitalImmature granulocytes/100 WBC (Bld)0.2 %0.0 - 0.5 %[facility] HospitalLYMPHOCYTES ABSOLUTE AUTO1.9NOMS HealthcareLymphocytes/100 WBC (Bld)30.9 %20.5 - 60.0 %University HospitalH (RBC) [Entitic mass]30.6 pg26.7 - 34.0 pgNOMS HealthcareMCHC (RBC) [Mass/Vol]33.4 g/dL29.9 - 35.2 g/dLNOBarnes-Jewish West County HospitalMCV (RBC) [Entitic vol]91.7 fL 81.0 - 99.0 fLNOMS HealthcareMONOCYTES ABSOLUTE AUTO0.6N[facility] Healthcare Monocytes/100 WBC (Bld)8.9 %1.7 - 12.0 %NOMS HealthcareNEUTROPHILS ABSOLUTE AUTO 3.6NOMS HealthcareNeutrophils/100 WBC (Bld)57.9 %43.0 - 75.0 %[facility] Platelet mean volume (Bld) [Entitic vol]10.8 fL9.5 - 13.5 fLNOMS HealthcareTBH EO #0.1NOMS HealthcareTBH [id number] HealthcareTBH RBC4.44NOMS [facility] Cancer CenterTB WBC 6.2NOMS HealthcareCLINISYNCNOMS HealthcareCovid-19 PCR ([facility])on 12-04-2022 SARS-CoV-2 (COVID-19) RNA LETICIA+probe Ql (Unsp spec)Not detectedNormalNOT DETECTED The [facility] HospitalComment on above:Result Comment: This test is not yet approved or cleared by the [place] FDA. When there are no FDA-approved or cleared tests available, and other criteria are met, FDA can make tests available under an emergency access mechanism called an Emergency Use Authorization (EUA). The EUA for this test is supported by the [employer] Operator of Health and Human Service's (HHS's) [...] of clinical signs and symptoms consistent with SARS-CoV-2.Performed By: #### CVDTBH #### [facility] [address] [place] [address] Dr. Emilia DelongWAYNE [facility] AUTO DIFFon [id number] #0.0 103/ulNormal0.0-0.1The [facility] HospitalComment on above:Performed By: #### CBC #### [facility] [address] [place] [address] Dr. Emilia DelongBasophils/100 WBC (Bld)0.6 %Normal0.2-2.0The [facility] Comment on above:Performed By: #### CBC #### [facility] [address] [place] [address] Dr. Emilia Khan #0.1 103/ulNormal0.0-0.7The [facility] HospitalComment on above: Performed By: #### CBC #### [facility] [address] [place] [address] Dr. Emilia Espinalosinophils/100 WBC (Bld)1.6 %Normal0.9-7.0The [facility] Comment on above:Performed By: #### CBC #### [facility] [address] [place] [address] Dr. Emilia Espinalrythrocyte distribution width (RBC) [Ratio]12.2 %Pbporf23.0-15.0 The [facility] HospitalComment on above:Performed By: #### CBC #### [facility] [address] [place] [address] Dr. Emilia DelongHematocrit (Bld) [Volume fraction]40.2 %Lstqae10.0-48.0The [facility] HospitalComment on above:Performed By: #### CBC #### [facility] [address] [place] [address] Dr. Emilia DelongHemoglobin (Bld) [Mass/Vol]13.9 g/iZOgiefp78.0-16.0The [facility] HospitalComment on above:Performed By: #### CBC #### [facility] [address] [place] [address] Dr. Emilia Viramontes #0.01 10e3/ulNormal0.00-0.03The [facility] HospitalComment on above:Performed By: #### CBC #### [facility] [address] [address] [address] Emilia Viramontes %0.2 %Normal0.0-0.5The [facility] HospitalComment on above: Performed By: #### CBC #### [facility] [address] [place] [address] Dr. Emilia Pacheco #1.9 103/ulNormal1.2-3.8The [facility] HospitalComment on above:Performed By: #### CBC #### [facility] [address] [place] [address] Dr. Emilia Sousahocytes/100 WBC (Bld)36.7 %Isxyuq05.5-60.0The [facility] HospitalComment on above:Performed By: #### CBC #### [facility] [address] [place] [address] Dr. Emilia SoUAL DIFF REQNONormalThe [facility] HospitalComment on above: Performed By: #### CBC #### [facility] [address] [place] [address] Dr. Emilia Wade (RBC) [Entitic mass]31.1 woHteiqw01.7-34.0The [facility] HospitalComment on above:Performed By: #### CBC #### [facility] [address] [place] [address] Dr. Emilia Wade (RBC) [Mass/Vol]34.6 g/kMHnhshg25.9-35.2The [facility] HospitalCommclaren flint on above:Performed By: #### CBC #### [facility] [address] [place] [address] Dr. Emilia Wade (RBC) [Entitic vol]89.9 eNKcgwwv61.0-99.0The [facility] HospitalComment on above:Performed By: #### CBC #### [facility] [address] [place] [address] Dr. Emilia Chapa #0.4 103/ulNormal0.3-0.8The [facility] HospitalComment on above:Performed By: #### CBC #### [facility] [address] [address] [address] Emilia Fordocytes/100 WBC (Bld)7.7 %Normal1.7-12.0The [facility] Comment on above:Performed By: #### CBC #### [facility] [address] [place] [address] Dr. Emilia HaywardUT #2.7 103/ulNormal1.4-6.5The [facility] HospitalComment on above:Performed By: #### CBC #### [facility] [address] [place] [address] Dr. Emilia Haywardutrophils/100 WBC (Bld)53.2 %Kbebls42.0-75.0The [facility] HospitalComment on above:Performed By: #### CBC #### [facility] [address] [place] [address] Dr. Emilia DelongPlatelet mean volume (Bld) [Entitic vol]10.4 fLNormal9.5-13.5The [facility] HospitalComment on above:Performed By: #### CBC #### [facility] [address] [place] [address] Dr. Emilia DelongPLT220 103/qzOsezvu793-763Wgr [facility] HospitalComment on above: Performed By: #### CBC #### [facility] [address] [place] [address] Dr. Emilia DelongRBC4.47 106/ulNormal4.20-5.40The [facility] HospitalComment on above:Performed By: #### CBC #### [facility] [address] [place] [address] Dr. Emilia DelongWBC5.1 103/ulNormal4.0-11.0The [facility] HospitalComment on above: Performed By: #### CBC #### [facility] [address] [place] [address] Dr. Emilia DelongGLYCOHEMOGLOBIN A1Con [id number] RECOMMENDATIONSEE BELOWNormal The [facility] HospitalCommclaren flint on above:Result Comment: ADA RECOMMENDED LIMIT 4.0 - 6.0 ADA THERAPEUTIC TARGET < 7.0 ACTION SUGGESTED > 7.0Performed By: #### A1C #### [facility] [address] [address] [address] Emilia DelongGlucose [Mass/Vol]105 mg/dLMorrow County Hospital on above:Performed By: #### A1C #### [facility] [address] [place] [address] Dr. Emilia DelongHbA1c (Bld) [Mass fraction]5.3 %Normal4.5-6.2[facility] on above:Performed By: #### A1C #### [facility] [address] [place] [address] Dr. Emilia DelongLIPID PROFILEon [id number]-HDL RATIO NORMSTrumbull Memorial Hospital on above:Result Comment: 3.3 - 4.4 LOW RISK 4.4 - 7.1 AVERAGE RISK 7.1 - 11.0 MODERATE RISK >11.0 HIGH RISKPerformed By: #### FT4, VITAD #### [facility] [address] [place] [address] Dr. Emilia DelongCholesterol [Mass/Vol]319 mg/dLCritically high<=200The [facility] on above:Performed By: #### FT4, VITAD #### [facility] [address] [place] [address] Dr. Emilia DelongCholesterol in HDL [Mass/Vol]65 mg/dLCritically eofu27-57Ggl [facility] on above:Performed By: #### FT4, VITAD #### [facility] [address] [place] [address] Dr. Emilia DelongCholesterol in LDL [Mass/Vol]212.6 mg/dLMorrow County Hospital on above:Performed By: #### FT4, VITAD #### [facility] [address] [place] [address] Dr. Emilia Wesleyesterol.total/Cholesterol in HDL [Mass ratio]4.9 {ratio} NormalThe Cheri HospitalComment on above:Performed By: #### FT4, VITAD #### [facility] [address] [address] [address] Emilia Keita NORMAL> or = 60 mg/dl - LOW CARDIOVASCULAR RISK <40 mg/dl - HIGH CARDIOVASCULAR RISKLakeHealth Beachwood Medical CenterComment on above:Performed By: #### FT4, VITAD #### [facility] [address] [place] [address] Dr. Emilia DelongLDL CALC NORMALSEE BELOWLakeHealth Beachwood Medical CenterComment on above:Result Comment: <100 mg/dl OPTIMAL 100 - 129 mg/dl NEAR OR ABOVE OPTIMAL 130 - 159 mg/dl BORDERLINE HIGH 160 - 189 mg/dl HIGH >190 mg/dl VERY HIGH Performed By: #### FT4, VITAD #### [facility] [address] [place] [address] Dr. Emilia DelongTriglyceride [Mass/Vol]207 mg/dLCritically high<=150The [facility] HospitalComment on above:Performed By: #### FT4, VITAD #### [facility] [address] [place] [address] Dr. Emilia DelongVLDL CALC41.4 mg/dLNoAdena Pike Medical CenterComment on above: Performed By: #### FT4, VITAD #### [facility] [address] [place] [address] Dr. Emilia DelongPROF 14(COMP METB)on [id number] [Mass/Vol]4.0 g/dLNormal 3.4-5.0The [facility] HospitalComment on above:Performed By: #### FT4, VITAD #### [facility] [address] [place] [address] Dr. Emilia DelongAlbumin/Globulin [Mass ratio]1.3 {ratio}NormalThe [facility] on above:Performed By: #### FT4, VITAD #### [facility] [address] [place] [address] Dr. Emilia DonisP [Catalytic activity/Vol]81 U/WPtdbam32-710Aip Cheri HospitalComment on above:Performed By: #### FT4, VITAD #### [facility] [address] [address] [address] Emilia Lerner [Catalytic activity/Vol]23 U/ZMuzrza68-29Vlv [facility] HospitalComment on above:Performed By: #### FT4, VITAD #### [facility] [address] [address] [address] Emilia Blankenshipon gap [Moles/Vol]12.5 mmol/LNormalThe [facility] Comment on above:Performed By: #### FT4, VITAD #### [facility] [address] [place] [address] Dr. Emilia DelongAST [Catalytic activity/Vol]18 U/QRdevqk15-76Fqj [facility] HospitalComment on above:Performed By: #### FT4, VITAD #### [facility] [address] [place] [address] Dr. Emilia DelongBilirubin [Mass/Vol]0.4 mg/dLNormal0.2-1.0[facility] Comment on above:Performed By: #### FT4, VITAD #### [facility] [address] [place] [address] Dr. Emilia DelongCalcium [Mass/Vol]9.5 mg/dLNormal8.5-10.1[facility] Comment on above:Performed By: #### FT4, VITAD #### [facility] [address] [place] [address] Dr. Emilia DelongChloride [Moles/Vol]107 mmol/YEjjegn99-125Nfa [facility] Comment on above:Performed By: #### FT4, VITAD #### [facility] [address] [place] [address] Dr. Emilia DelongCO2 [Moles/Vol]26.4 mmol/HLmofgh82.0-32.0The [facility] Comment on above:Performed By: #### FT4, VITAD #### [facility] [address] [place] [address] Dr. Emilia DelongCreatinine [Mass/Vol]0.73 mg/dLNormal0.55-1.02The [facility] HospitalComment on above:Performed By: #### FT4, VITAD #### [facility] [address] [place] [address] Dr. Emilia EspinalGFR-AF MAURITANIAN>60Normal>=60The [facility] HospitalComment on above:Performed By: #### FT4, VITAD #### [facility] [address] [place] [address] Dr. Emilia EspinalGFR-NON AF MAURITANIAN>60Normal>=60The [facility] HospitalComment on above:Performed By: #### FT4, VITAD #### [facility] [address] [place] [address] Dr. Emilia DelongGlobulin (S) [Mass/Vol]3.1 g/dLNormalThe [facility] HospitalComment on above:Performed By: #### FT4, VITAD #### [facility] [address] [place] [address] Dr. Emilia DelongGlucose [Mass/Vol]95 mg/kZKdzvlt57-105XktMercy Health Will[facility] Hospital Comment on above:Performed By: #### FT4, VITAD #### [facility] [address] [place] [address] Dr. Emilia DelongPotassium [Moles/Vol]3.9 mmol/LNormal3.5-5.1[facility] Comment on above:Performed By: #### FT4, VITAD #### [facility] [address] [place] [address] Dr. Emilia DelongProtein [Mass/Vol]7.1 g/dLNormal6.4-8.2[facility] Comment on above:Performed By: #### FT4, VITAD #### [facility] [address] [place] [address] Dr. Emilia DelongSodium [Moles/Vol]142 mmol/HMylrwk732-707NqqMercy Health Willard Hospital Comment on above:Performed By: #### FT4, VITAD #### [facility] [address] [place], [place] [address] Dr. Emilia Aguirre nitrogen [Mass/Vol]11.0 mg/dLNormal7.0-18.0The [facility] HospitalComment on above:Performed By: #### FT4, VITAD #### [facility] [address] [place] [address] Dr. Emilia DelongUrea nitrogen/Creatinine [Mass ratio]15.1 mg/mgNormalThe [facility] HospitalComment on above:Performed By: #### FT4, VITAD #### [facility] [address] [place] [address] Dr. Emilia LittlejohnHokristi 71-08-6198QTI6.903 uIU/mLNormal0.358-3.740[facility] HospitalCommclaren flint on above:Performed By: #### FT4, VITAD #### [facility] [address] [place] [address] Dr. Emilia Black AUTO DIFFon 21-02-2628LZGY #0.0 103/ulNormal0.0-0.1The [facility] HospitalComment on above:Performed By: #### CBC #### [facility] [address] [place] [address] Dr. Emilia DelongBasophils/100 WBC (Bld)0.6 %Normal0.2-2.0[facility] Comment on above:Performed By: #### CBC #### [facility] [address] [place] [address] Dr. Emilia Khan #0.1 103/ulNormal0.0-0.7The [facility] on above: Performed By: #### CBC #### [facility] [address] [place] [address] Dr. Emilia Espinalosinophils/100 WBC (Bld)0.9 %Normal0.9-7.0The [facility] Comment on above:Performed By: #### CBC #### [facility] [address] [place] [address] Dr. Emilia Espinalrythrocyte distribution width (RBC) [Ratio]12.6 %Onibus10.0-15.0 The [facility] HospitalComment on above:Performed By: #### CBC #### [facility] [address] [place] [address] Dr. Emilia Jensenatocrit (Bld) [Volume fraction]37.8 %Suawsg94.0-48.0The [facility] HospitalComment on above:Performed By: #### CBC #### [facility] [address] [place] [address] Dr. Emilia DelongHemoglobin (Bld) [Mass/Vol]12.3 g/sRCzieev44.0-16.0The [facility] HospitalComment on above:Performed By: #### CBC #### [facility] [address] [place] [address] Dr. Emilia Viramontes #0.03 10e3/ulNormal0.00-0.03The [facility] HospitalComment on above:Performed By: #### CBC #### [facility] [address] [place] [address] Dr. Emilia Viramontes %0.5 %Normal0.0-0.5The [facility] HospitalComment on above: Performed By: #### CBC #### [facility] [address] [place] [address] Dr. Emilia Pachceo #1.7 103/ulNormal1.2-3.8The [facility] HospitalComment on above:Performed By: #### CBC #### [facility] [address] [place] [address] Dr. Emilia Sousahocytes/100 WBC (Bld)26.6 %Yioypy81.5-60.0The [facility] HospitalComment on above:Performed By: #### CBC #### [facility] [address] [place] [address] Dr. Emilia SoUAL DIFF REQNONormalThe [facility] HospitalComment on above: Performed By: #### CBC #### [facility] [address] [place] [address] Dr. Emilia Miller (RBC) [Entitic mass]30.7 weNjoilg95.7-34.0The [facility] HospitalComment on above:Performed By: #### CBC #### [facility] [address] [place] [address] Dr. Emilia Wade (RBC) [Mass/Vol]32.5 g/iDUzbgba14.9-35.2The [facility] HospitalComment on above:Performed By: #### CBC #### [facility] [address] [place], [place] [address] Dr. Emilia Mccabe (RBC) [Entitic vol]94.3 uCShbrkw23.0-99.0The [facility] HospitalComment on above:Performed By: #### CBC #### [facility] [address] [place] [address] Dr. Emilia Chapa #0.5 103/ulNormal0.3-0.8The [facility] HospitalComment on above:Performed By: #### CBC #### [facility] [address] [place] [address] Dr. Emilia Fordocytes/100 WBC (Bld)7.2 %Normal1.7-12.0The [facility] Comment on above:Performed By: #### CBC #### [facility] [address] [place] [address] Dr. Emilia Frank #4.1 103/ulNormal1.4-6.5The [facility] HospitalComment on above:Performed By: #### CBC #### [facility] [address] [place] [address] Dr. Emilia Phanophils/100 WBC (Bld)64.2 %Xidqhn37.0-75.0The [facility] HospitalComment on above:Performed By: #### CBC #### [facility] [address] [place] [address] Dr. Emilia Koo mean volume (Bld) [Entitic vol]10.0 fLNormal9.5-13.5The [facility] HospitalComment on above:Performed By: #### CBC #### [facility] [address] [place] [address] Dr. Emilia DelongPLT297 103/bdBfajmg080-368Pnx [facility] HospitalCommclaren flint on above: Performed By: #### CBC #### [facility] [address] [place] [address] Dr. Emilia DelongRBC4.01 106/ulCritically low4.20-5.40The [facility] HospitalComment on above:Performed By: #### CBC #### [facility] [address] [place] [address] Dr. Emilia DelongWBC6.4 103/ulNormal4.0-11.0The [facility] HospitalCommclaren flint on above: Performed By: #### CBC #### [facility] [address] [place] [address] Dr. Eimlia Monterroso T3on 77-89-4107GZDR T32.44 pg/mlLNormal2.18-3.98The [facility] on above:Performed By: #### FT3, TSH, LIPID, BMP #### [facility] [address] [place] [address] Dr. Emilia Monterroso T4on 93-18-3821Pmeg T4 [Mass/Vol]0.81 ng/dLNormal0.76-1.46 The [facility] HospitalCommclaren flint on above:Performed By: #### FT4, VITAD #### [facility] [address] [place] [address] Dr. Emilia DelongLIPID PROFILEon 25-15-9362ITAC-HDL RATIO NORMSEE BELOWNoAdena Pike Medical CenterComment on above:Result Comment: 3.3 - 4.4 LOW RISK 4.4 - 7.1 AVERAGE RISK 7.1 - 11.0 MODERATE RISK >11.0 HIGH RISKPerformed By: #### FT4, VITAD #### [facility] [address] [place] [address] Dr. Emilia DelongCholesterol [Mass/Vol]281 mg/dLCritically high<=200The [facility] on above:Performed By: #### FT4, VITAD #### [facility] [address] [address] [address] Emilia DelongCholesterol in HDL [Mass/Vol]59 mg/hWXclotd27-52Zuk [facility] on above:Performed By: #### FT4, VITAD #### [facility] [address] [place] [address] Dr. Emilia DelongCholesterol in LDL [Mass/Vol]182.8 mg/dLLakeHealth Beachwood Medical CenterCommclaren flint on above:Performed By: #### FT4, VITAD #### [facility] [address] [place] [address] Dr. Emilia Wesleyestersunita.total/Cholesterol in HDL [Mass ratio]4.8 {ratio} NormalThe [facility] on above:Performed By: #### FT4, VITAD #### [facility] [address] [place] [address] Dr. Emilia Keita NORMAL> or = 60 mg/dl - LOW CARDIOVASCULAR RISK <40 mg/dl - HIGH CARDIOVASCULAR RISKNoAdena Pike Medical CenterCommclaren flint on above:Performed By: #### FT4, VITAD #### [facility] [address] [place] [address] Dr. Emilia Levine CALC NORMALSEE BELOWLakeHealth Beachwood Medical CenterCommclaren flint on above:Result Comment: <100 mg/dl OPTIMAL 100 - 129 mg/dl NEAR OR ABOVE OPTIMAL 130 - 159 mg/dl BORDERLINE HIGH 160 - 189 mg/dl HIGH >190 mg/dl VERY HIGH Performed By: #### FT4, VITAD #### [facility] [address] [place] [address] Dr. Emilia DelongTriglyceride [Mass/Vol]196 mg/dLCritically high<=150The [facility] on above:Performed By: #### FT4, VITAD #### [facility] [address] [place] [address] Dr. Emilia DelongVLDL CALC39.2 mg/dLNoAdena Pike Medical CenterComment on above: Performed By: #### FT4, VITAD #### [facility] [address] [place] [address] Dr. Emilia TaylorF CHEM 8 (BAS METB)on 09-22-3256Xaxie gap [Moles/Vol]12.7 mmol/LNormalThe [facility] HospitalComment on above:Performed By: #### FT3, TSH, LIPID, BMP #### [facility] [address] [address] [address] Emilia DelongCalcium [Mass/Vol]9.7 mg/dLNormal8.5-10.1The [facility] Comment on above:Performed By: #### FT3, TSH, LIPID, BMP #### [facility] [address] [address] [address] Emilia DelongChloride [Moles/Vol]105 mmol/PBzblpr70-154Jvd [facility] Comment on above:Performed By: #### FT3, TSH, LIPID, BMP #### [facility] [address] [place] [address] Dr. Emilia DelongCO2 [Moles/Vol]26.0 mmol/KDxdpbg27.0-32.0[facility] Comment on above:Performed By: #### FT3, TSH, LIPID, BMP #### [facility] [address] [address] [address] Emilia DelongCreatinine [Mass/Vol]0.82 mg/dLNormal0.55-1.02The [facility] HospitalComment on above:Performed By: #### FT3, TSH, LIPID, BMP #### [facility] [address] [place] [address] Dr. Emilia EspinalGFR-AF MAURITANIAN>60Normal>=60The [facility] HospitalComment on above:Performed By: #### FT3, TSH, LIPID, BMP #### [facility] [address] [place] [address] Dr. Emilia Gannon-NON AF MAURITANIAN>60Normal>=60The [facility] Hospitalment on above:Performed By: #### FT3, TSH, LIPID, BMP #### [facility] [address] [place] [address] Dr. Emilia DelongGlucose [Mass/Vol]95 mg/xEIcihdt17-845Qsj [facility] Comment on above:Performed By: #### FT3, TSH, LIPID, BMP #### [facility] [address] [place] [address] Dr. Emilia DelongPotassium [Moles/Vol]3.7 mmol/LNormal3.5-5.1The [facility] Comment on above:Performed By: #### FT3, TSH, LIPID, BMP #### [facility] [address] [address] [address] Emilia DelongSodium [Moles/Vol]140 mmol/CSisepl572-601Rgr [facility] Comment on above:Performed By: #### FT3, TSH, LIPID, BMP #### [facility] [address] [place] [address] Dr. Emilia DelongUrea nitrogen [Mass/Vol]12.0 mg/dLNormal7.0-18.0The [facility] HospitalComment on above:Performed By: #### FT3, TSH, LIPID, BMP #### [facility] [address] [place] [address] Dr. Emilia Aguirre nitrogen/Creatinine [Mass ratio]14.6 mg/mgLakeHealth Beachwood Medical CenterComment on above:Performed By: #### FT3, TSH, LIPID, BMP #### [facility] [address] [place] [address] Dr. Emilia LittlejohnHokristi 10-08-3342MHQ7.012 uIU/mLNormal0.358-3.740The [facility] HospitalComment on above:Performed By: #### FT3, TSH, LIPID, BMP #### [facility] [address] [place] [address] Dr. Emilia DelongVITAMIN D 25 OHon 59-02-6506VWJ D 25-OH34.5 ng/mLNormalThe [facility] HospitalComment on above:Performed By: #### FT4, VITAD #### [facility] [address] [place] [address] Dr. Emilia Baeza D RANGESSEE BELOWLakeHealth Beachwood Medical CenterComment on above: Result Comment: <20 ng/mL Vit D deficient 20 - <30 ng/mL Vit D insufficient 30 - 100 ng/mL Vit D sufficient >100 ng/mL Potential ToxicityPerformed By: #### FT4, VITAD #### [facility] [address] [place] [address] Dr. Emilia DelongCovid-19 PCR ([facility])on 96-13-1627RWFZ-CoV-2 (COVID-19) RNA LETICIA+probe Ql (Unsp spec)Not detectedNormalNOT DETECTEDThe [facility] Comment on above:Result Comment: This test is not yet approved or cleared by the [place] FDA. When there are no FDA-approved or cleared tests available, and other criteria are met, FDA can make tests available under an emergency access mechanism called an Emergency Use Authorization (EUA). The EUA for this test is supported by the [employer] Operator of Health and Human Service's (HHS's) declaration that circumstances exist to justify the emergency use of in vitro diagnostics for the detection and/or diagnosis of the virus that causes COVID- 19. This EUA will remain in effect (meaning [...] of clinical signs and symptoms consistent with SARS-CoV-2.Performed By: #### CVDTBH #### [facility] [address] [place], [place] [id number] Dr. Emilia DelongUrinalysis w/ Microon 10-05-2019-----NormalBerger Hospital Comment on above:Performed By: #### UAMIC #### [facility] [address] [place] [address] Computer Programming Supervisor: Francois Justice, ROGELIOcetoacetic Acid,UrNegativeNormalNEGBerger HospitalComment on above:Performed By: #### UAMIC #### [facility] [address] [place] [address] Computer Programming Supervisor: Francois Justice MDBacteria LM.HPF (Urine sed) [#/Area]TRACEAbnormal NONEUniversity Hospitals [facility] HospitalComment on above:Performed By: #### UAMIC #### [facility] [address] [place] [address] Computer Programming Supervisor: Francois Justice MDBilirubin, SemiQt,UrNegativeNormalNEGMerBrown Memorial Hospital HospitalComment on above:Performed By: #### UAMIC #### [facility] [address] [place] [address] Computer Programming Supervisor: KURT Walkerolor (U)YELLOWNormalYKettering Health Miamisburg Comment on above:Performed By: #### UAMIC #### [address] [place] [address] Computer Programming Supervisor: Francois Justice MDEpithelial cells LM.HPF (Urine sed) [#/Area]0 TO 3Kbywfv2-47Qefyd [place] HospitalComment on above:Performed By: #### UAMIC #### [address] [place] [address] Computer Programming Supervisor: Francois Justice MDGlucose Ql (U)NegativeNormalNEGCentervillecy [place] HospitalComment on above:Performed By: #### UAMIC #### [address] [place] [address] Computer Programming Supervisor: Francois Justice MDHemoglobin, UrNegativeNormalNEGMerBrown Memorial Hospital HospitalComment on above:Performed By: #### UAMIC #### [address] [place] [address] Computer Programming Supervisor: Francois Justice MDLeukocyte esterase Test strip Ql (U)Negative NormalNEGMercy Gaylord HospitalComment on above:Performed By: #### UAMIC #### [address] [place] [address] Computer Programming Supervisor: Emmie Walker,UrNegativeNormalNEGBerger Hospital Comment on above:Performed By: #### UAMIC #### [facility] [address] [place], [place] [address] Computer Programming Supervisor: Ashlie WalkerH (U)6.5 [pH]Normal5.0-9.0[facility] Comment on above:Performed By: #### UAMIC #### [facility] [address] [place], [place] [address] Computer Programming Supervisor: ASHLEI Walkerrotein Ql (U)NegativeNormalMercy Health West HospitalComment on above:Performed By: #### UAMIC #### [facility] [address] [place], [place] [address] Computer Programming Supervisor: Francois Justice MDRBC (U) [#/Vol]0 TO 8Xqiwfh7-1Awkuu [facility] HospitalComment on above:Performed By: #### UAMIC #### [facility] [address] [place], [place] [address] Computer Programming Supervisor: LOLITA Walkerpecific gravity (U) [Rel density]1.015Normal 1.010-1.020Berger HospitalComment on above:Performed By: #### UAMIC #### [facility] [address] [place], [place] [address] Computer Programming Supervisor: RUDY WalkerurbidityCLEARNormalCLEARBerger Hospital Comment on above:Performed By: #### UAMIC #### [facility] [address] [place], [place] [address] Computer Programming Supervisor: Palmira Walker,UrNormalNormalNORMBerger HospitalComment on above:Performed By: #### UAMIC #### [facility] [address] [place], [place] [address] Computer Programming Supervisor: Francois Justice MDWBC (U) [#/Vol]0 TO 5Bdhxxg1-0Llnjp [place] HospitalComment on above:Performed By: #### UAMIC #### [facility] [address] [place] [address] Computer Programming Supervisor: Clara Walkerrphouvenu sediment LM Ql (Urine sed)NOT REPORTED NormalNONEMeMississippi State Hospital HospitalComment on above:Performed By: #### UAMIC #### [facility] [address] [place] [address] Computer Programming Supervisor: Dallin Walker LM.LPF (Urine sed) [#/Area]NOT REPORTED NormalMercy [place] HospitalComment on above:Performed By: #### UAMIC #### [facility] [address] [place] [address] Computer Programming Supervisor: KURT WalkerommentNOT REPORTEDNormalMercy [place] [facility] Comment on above:Performed By: #### UAMIC #### [facility] [address] [place] [address] Computer Programming Supervisor: KURT Walkerrystals LM Nom (Urine sed)NOT REPORTEDNormalNONE [facility] HospitalComment on above:Performed By: #### UAMIC #### [facility] [address] [place], [facility] Computer Programming Supervisor: Francois Justice MDEpithelial, RenalNOT ZRRVAWNSIsxpqk7Wyxnm [place] HospitalComment on above:Performed By: #### UAMIC #### [facility] [address] [place] [address] Computer Programming Supervisor: BLANCA Walkerucus StrandsNOT REPORTEDNormalNONEMeMississippi State Hospital HospitalComment on above:Performed By: #### UAMIC #### [facility] [address] [place] [address] Computer Programming Supervisor: Francois Justice MDOther ObservationsNOT REPORTEDNormalNREQCentervillecy [place] HospitalComment on above:Performed By: #### UAMIC #### [facility] [address] [place] [address] Computer Programming Supervisor: Francois Justice MDTrichomonasNOT REPORTEDNormalNONEMey [place] HospitalComment on above:Performed By: #### UAMIC #### [facility] [address] [place], [place] [address] Computer Programming Supervisor: Francois Justice MDYeast LM Ql (Urine sed)NOT REPORTEDNormalNONE [facility] HospitalComment on above:Performed By: #### UAMIC #### [facility] [address] [place], [place] [address] Computer Programming Supervisor: Francois Justice MDUrinalysis with microscopicon 10-05-2019 Amorphous, UANOT REPORTEDNoneMercy Health Work Phone: bacteria, UATRACEAbnormalNoneMercy Health Work Phone: bilirubin UrineNegativeNEGATIVEMercy Health Work Phone: casts UANOT REPORTED/LPFMercy Health Work Phone: color, UAYELLOWYELLOWMercy Health Work Phone: crystals UANOT REPORTEDNone /HPFMercy Health Work Phone: epithelial Cells UA0 TO 2[facility] Work Phone: Glucose, UrNegativeNEGATIVECentervillecy Health Work Phone: Interpretation and review of laboratory results AbnormalMercy Health Work Phone: Ketones Ql (U)NegativeNEGATIVEMercy Health Work Phone: leukocyte esterase Test strip Ql (U)NegativeNEGATIVE [facility] Work Phone: Mucus, UANOT REPORTEDNoneMercy Health Work Phone: Nitrite, UrineNegativeNEGATIVEMercy Health Work Phone: Other Observations UANOT REPORTEDNOT REQ.[facility] Work Phone: pH, UA6.5[facility] Work Phone: protein (U) [Mass/Vol]NegativeNEGATIVEMercy Health Work Phone: rBC (U) [#/Vol]0 TO 2[facility] Work Phone: renal Epithelial, UrineNOT REPORTED0 /HPFMercy Health Work Phone: specific [place], UA1.015[facility] Work Phone: Trichomonas, UANOT REPORTEDNoneMercy Health Work Phone: Turbidity UACLEARCLEARMercy Health Work Phone: Urinalysis CommentsNOT REPORTEDMercy Health Work Phone: Urine HgbNegativeNEGATIVEMercy Health Work Phone: Urobilinogen, UrineNormalNormalMercy Health Work Phone: WBC, UA0 TO 2[facility] Work Phone: Yeast, UANOT REPORTEDNoneMercy Health Work Phone: -[facility] Work Phone: Vital Signs Date TimeVital SignValuePerforming EksihswfuLvuktbsy12-08-8195 16:01-0400Body .1 cmAntdallas Guzman DPM Work Phone: [facility] HospitalFmuuzqkxrd01-81-2376 16:01-0400Body mass index (BMI) [Ratio]32.78 kg/x0Yoolecr Rusher DPM Work Phone: [facility] HospitalKewqfcjlgu30-62-9137 16:01-0400Body .36 kgAnthony Rusher DPM Work Phone: [facility] HospitalSivztazgwh40-43-8694 13:03-0400Body oabkqe018.1 Andrea Rusher DPM Work Phone: [facility] HospitalHjwwytoitx67-34-3957 13:03-0400Body mass index (BMI) [Ratio]32.78 kg/k7Iguilvf Rusher DPM Work Phone: [facility] HospitalUqufpgvoyv09-57-1139 13:03-0400Body uiyrkq12.36 kgAnthony Rusher DPM Work Phone: [facility] HospitalWzfmxacxpd05-23-7781 11:58-0400Body fazpzx879.1 cmSaurabh Purcell MD Work Phone: [phone]09-04-2025 11:58-0400 Body mass index (BMI) [Ratio]33.9 kg/m2Saurabh Purcell MD Work Phone: [phone]09-04-2025 11:58-0400 Body xrykluhpohf83 [degF]Saurabh Purcell MD Work Phone: [phone]09-04-2025 11:58-0400 Body .53 kgSaurabh Purcell MD Work Phone: [phone] [place], [place] [address]09-04-2025 11:58-0400 Diastolic blood trnljjum44 mm[Hg]Saurabh Purcell MD Work Phone: [phone]09-04-2025 11:58-0400 Heart rate78 /minSaurabh Purcell MD Work Phone: [phone]09-04-2025 11:58-0400 Respiratory rate20 /minSaurabh Purcell MD Work Phone: [phone]09-04-2025 11:58-0400 SaO2% (BldA) [Mass fraction]97 %Saurabh Purcell MD Work Phone: [phone]09-04-2025 11:58-0400 Systolic blood qurdebyn174 mm[Hg]Saurabh Purcell MD Work Phone: 1(439)978-[address] [place], [place] 3947605-13-2025 11:45-0400 Body .1 cmSaurabh Purcell MD Work Phone: [facility] HospitalYzwtbeusmq56-06-3204 11:45-0400Body mass index (BMI) [Ratio]34.95 kg/m2Saurabh Purcell MD Work Phone: [phone] [place], [place] [address]Zhjthmsmpc26-32-2316 11:45-0400Body temperature 97.3 [degF]Saurabh Purcell MD Work Phone: [phone] [place], [place] [address]Hucrzrrlyq80-12-0423 11:45-0400Body kvhiwp75.25 kgSaurabh Purcell MD Work Phone: [facility] HospitalAhxfuxzqid78-31-8253 11:45-0400Diastolic blood honwobvv13 mm[Hg]Saurabh Purcell MD Work Phone: [phone] [place], [place] [address]Iznpskhpcy02-31-3540 11:45-0400Heart rate72 /min Saurabh Purcell MD Work Phone: [phone] HospitalNpztnfrxkj70-59-2193 11:45-0400Respiratory rate22 /minSaurabh Purcell MD Work Phone: [facility] HospitalLlcxdrypeb17-39-4093 11:45-3222PsJ0% (BldA) [Mass fraction]97 %Saurabh Purcell MD Work Phone: [phone] HospitalHugtvdrkbu42-70-6307 11:45-0400Systolic blood gmhdaknt928 mm[Hg]Saurabh Purcell MD Work Phone: [facility] HospitalUgwjpvnrdn21-82-8341 14:34-0500Body .1 cmSaurabh Purcell MD Work Phone: [facility] HospitalFrshgagnfd45-72-2164 14:34-0500Body mass index (BMI) [Ratio]34.61 kg/m2Saurabh Purcell MD Work Phone: [facility] HospitalOwmvnmstpk63-90-9657 14:34-0500Body temperature 96.6 [degF]Saurabh Purcell MD Work Phone: [facility] HospitalGwrwiglybw53-10-6875 14:34-0500Body .35 kgSaurabh Purcell MD Work Phone: [facility] HospitalBueilynwct89-54-6913 14:34-0500Diastolic blood mdwyxtum72 mm[Hg]Saurabh Purcell MD Work Phone: [facility] HospitalStvfwrmdem49-07-1929 14:34-0500Heart rate72 /min Saurabh Purcell MD Work Phone: [facility] HospitalMyfaacidel40-31-7312 14:34-0500Respiratory rate20 /minSaurabh Purcell MD Work Phone: [facility] HospitalUhoknyurzg41-65-6417 14:34-4383BrP3% (BldA) [Mass fraction]98 %Saurabh Purcell MD Work Phone: [facility] HospitalTcmnfmbguc06-32-0819 14:34-0500Systolic blood zktwfdia679 mm[Hg]Saurabh Purcell MD Work Phone: [facility] HospitalYrmnjaexxc21-29-0424 16:32-0400Body gmeuwe019.1 cmAnthony Rusher DPM Work Phone: [facility] HospitalGukntqybez96-25-2069 16:32-0400Body mass index (BMI) [Ratio]34.28 kg/d5Lzgyncn Rusher DPM Work Phone: [facility] HospitalBdbkizznau03-38-5249 16:32-0400Body .44 kgBarbieony Rusher DPM Work Phone: [facility] HospitalMfjrhihhpq54-19-8383 10:13-0500Body meuynp222.1 cmSaurabh Purcell MD Work Phone: [facility] HospitalUiqzjqcnjp96-87-9882 10:13-0500Body mass index (BMI) [Ratio]33.95 kg/m2Saurabh Purcell MD Work Phone: [facility] HospitalQulrjohluo58-08-8557 10:13-0500Body temperature 96.6 [degF]Saurabh Purcell MD Work Phone: [facility] HospitalPxuyjvukph65-30-4295 10:13-0500Body .53 kgSaurabh Purcell MD Work Phone: [facility] HospitalCjexpcdxfd49-67-0161 10:13-0500Diastolic blood jujuardd08 mm[Hg]Saurabh Purcell MD Work Phone: [facility] HospitalStlsjpvvzz12-67-2876 10:13-0500Heart rate72 /min Saurabh Purcell MD Work Phone: [facility] HospitalYrsihfgfoc88-99-7111 10:13-7344NuM0% (BldA) [Mass fraction]96 %Saurabh Purcell MD Work Phone: [facility] HospitalMdokkjggap13-59-7840 10:13-0500Systolic blood lhjovjjd333 mm[Hg]Saurabh Purcell MD Work Phone: [facility] HospitalHtqofyigzh82-58-6223 18:15-0500BP Mxzvsyxzl06 mm[Hg][employer] Work Phone: 1(714) 685-513902-03-2020 18:15-0500BP Gjjilytk639 mm[Hg][employer] Work Phone: 1(648) 831-645802-03-2020 18:15-0500Respiratory Rate18 /minWoodburn [employer] Work Phone: 1(291) 572-435702-03-2020 16:18-0500Pulse (Heart Rate)63 /minMicohio state east hospital [employer] Work Phone: 1(115) 484-534302-03-2020 15:44-0500Body Vubxntdwlqn38.7 [degF] [employer] Work Phone: 1(449) 124-150802-03-2020 15:44-0500Body yzotrx55.27 kgMicohio state east hospital [employer] Work Phone: 1(297) 630-962302-03-2020 15:44-0500Pulse Bvdjefso06 %[employer] Work Phone: Encounters Encounter DateEncounter TypeCare ProviderFacilityStart: 24-94-6878zsnnpkpmeqQEKE NADERERProMedica Easton HospitalStart: 06-23-2025 End: 52-19-3286Smviku outpatient new 20 minutesCorey Melissa DO Work Phone: noms Cheri OBGYNComment on above:Postmenopausal bleeding; Yeast infectionStart: 06-23-2025 End: 36-16-9620olpqfxadfdUWCDB FAZIONot AvailableStart: 06-23-2025 End: 45-85-1018Xfzpom flowsheetCorey Melissa DO Work Phone: noms Scott OBGYNStart: 06-23-2025 End: 48-09-8006Hyvhok flowsheetCorey Melissa DO Work Phone: noms Cheri OBGYNStart: 06-16-2025 End: 05-87-1021Bdaelp outpatient visit 15 minutesAnthony S Rusher DPM Work Phone: noMS [facility] PodiatryComment on above:Onychomycosis (Primary Dx); Onychodystrophy; Ulcer of left foot, limited to breakdown of skin (HCC)Start: 06-16-2025 End: 09-57-8132yqmjbszbucGZTXWAE S RUSHERNot AvailableStart: 06-16-2025 End: 31-31-0839Nhzfbl flowsheetAnthony S Rusher DPM Work Phone: NOIA [facility] PodiatryStart: 06-16-2025 End: 02-68-4477Deurxf flowsheetAnthony S Rusher DPM Work Phone: noMS [facility] PodiatryStart: 06-01-2025 End: 55-22-4645Hmcdiq flowsheetAnthony S Rusher DPM Work Phone: noMS [place] PodiatryStart: 06-01-2025 End: 47-74-7187Qmgyqb flowsheetAnthony S Rusher DPM Work Phone: noMS [place] [facility]ryStart: 06-01-2025 End: 35-87-3612Bvpyod outpatient visit 15 minutesAnthafshan Guzman DPM Work Phone: noms [place] PodiatryComment on above:Onychomycosis (Primary Dx); Onychodystrophy; Ulcer of left foot, limited to breakdown of skin (HCC); Pain in both feetStart: 06-01-2025 End: 37-11-8718lvkmjwlxpbGPECFCD S RUSHERNot AvailableStart: 05-06-2025 End: 37-28-6177augzlxzlwnHfqs Naderer MD Work Phone: [facility] Work Phone: Start: 05-06-2025 End: 43-41-6976Rvedcro encounter procedureSaurabh Purcell MD-[facility] [place] Work Phone: Start: 04-28-2025 End: 06-87-7837AtjhmgBfck Naderer MD Work Phone: [facility]oms [facility] FMComment on above:Seasonal allergic rhinitis due to pollenStart: 04-20-2025 End: 73-69-7605Pxvaspxfe Result EncounterGeneric External Data ProviderNOMS External Department UnsolicitedStart: 04-20-2025 End: 23-67-6910Bkixbyeup Result EncounterGeneric External Data ProviderNOMS External Department UnsolicitedStart: 04-08-2025 End: 43-20-2458qycrtnznxqSDEHFGalion Hospitaltart: 01-19-2025 End: 46-27-7627Wwwviyiin Result EncounterSaurabh Purcell MD Work Phone: noms External Department UnsolicitedStart: 01-19-2025 End: 84-74-4662Kkjiupwnf Result EncounterSaurabh Purcell MD Work Phone: noms External Department UnsolicitedStart: 01-12-2025 End: 08-85-8045Mxvcxk flowsheetSaurabh Purcell MD Work Phone: noms C[facility] FMStart: 01-12-2025 End: 80-81-8886Dwunfw flowsheetSaurabh Purcell MD Work Phone: noms C[facility] FMStart: 01-12-2025 End: 31-70-2317phxljbxotdDMQE NADERERNot AvailableStart: 01-12-2025 End: 21-43-1707Vczbsm outpatient visit 25 minutesSaurabh Purcell MD Work Phone: noms [facility] FMComment on above:Hematuria, unspecified type (Primary Dx); Postmenopausal bleedingStart: 10-20-2024 End: 96-68-5031vhctpiznnxDKLJTKKMiami Valley Hospital Start: 09-29-2024 End: 11-12-0026msncxuucecIKJF NADEREMercy Health Clermont Hospitaltart: 09-29-2024 End: 11-11-9872Yywoqson Result EncounterSaurabh Purcell MD Work Phone: noms External Department UnsolicitedStart: 09-29-2024 End: 63-11-6890Usyrwnfx Result EncounterSaurabh Purcell MD Work Phone: noms External Department UnsolicitedStart: 09-15-2024 End: 91-06-3925yfnglovnsoUMTMWB HORNNot AvailableStart: 09-03-2024 End: 13-79-6279Jfsgkb outpatient visit 15 minutesSaurabh Purcell MD Work Phone: noms C[facility] FMComment on above:Medicare annual wellness visit, subsequent (Primary Dx); Encounter for long-term (current) use of medications; Benign essential hypertension (CMS/HCC); Subclinical hypothyroidism (CMS/HCC); Dyslipidemia (CMS/HCC); Acute UTIStart: 09-03-2024 End: 90-74-5745zidecirquaWLHR NADERERNot AvailableStart: 09-03-2024 End: 29-91-4370Vbvrkbbja Result EncounterSaurabh Purcell MD Work Phone: noms External Department UnsolicitedStart: 09-03-2024 End: 26-60-4912Zcbnlkpcv Result EncounterSaurabh Purcell MD Work Phone: noms External Department UnsolicitedStart: 09-03-2024 End: 92-47-2142Covclpf encounter procedureSaurabh Purcell MD Work Phone: [facility] Work Phone: Start: 07-06-2024 End: 08-18-7428LujzvbLlhz Naderer MD Work Phone: noms CWM FMComment on above: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 (CMS/HCC)Start: 05-26-2024 End: 42-25-0967dgarnlyypjGtyday Finn [facility] POPULATION HEALTHStart: 05-12-2024 End: 31-73-3470Xogkha flowsheetKendra Horn MS, RDN, LD, CHESNOMS CI BHStart: 05-12-2024 End: 04-78-5990Cagogj flowsheetKendra Horn MS, RDN, LD, CHESNOMS CI BHStart: 04-21-2024 End: 58-94-4417Sbzqqm outpatient visit 15 minutesLuc Guzman DPM Work Phone: noms PODIATRYComment on above:Contusion of lesser toe of right foot with damage to nail, initial encounter (Primary Dx); Right foot painStart: 04-21-2024 End: 89-67-4243Zihktn flowsheetKendra Horn MS, RDN, LD, CHESNOMS CI BHStart: 04-21-2024 End: 83-19-6200Rrrdcg flowsheetKendra Horn MS, RDN, LD, CHESNOMS CI BHStart: 16-58-7210Rpswvj Alfredo Purcell MD Work Phone: noms CWM FMStart: 76-06-2103Kogsyi Alfredo Purcell MD Work Phone: noms CWM FMStart: 05-84-4154Fmxphdoez Result Encounter Saurabh Purcell MD Work Phone: noms External Department UnsolicitedStart: 10-04-2023 End: 47-12-1220Eyeffw outpatient visit 25 minutesMar Soila ISAAC Work Phone: noms [facility] FMComment on above:Benign essential hypertension (CMS/HCC) (Primary Dx); 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 (CMS/HCC); Seasonal allergic rhinitis due to pollen; Coronary artery disease involving 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 (CMS/HCC); SAL (obstructive sleep apnea); Dyspareunia in female; Dyslipidemia (CMS/HCC); Encounter for long-term (current) use of medications; Vitamin D deficiency; Obesity (BMI 30-39.9)Start: 05-92-5680Pojuyazmu for other preprocedural examinationDR DOCTOR [facility] Centertart: 12-04-2022 End: 77-72-2625cppuctstvxZZ DOCTOR MISCFacility:W2Hzmqd: 12-04-2022 End: 23-47-9367Lchuozzdx for other preprocedural examinationDR DOCTOR MISC Facility:F2Jzbic: 11-29-2022 End: 25-26-1439kqhzritpnqZV SAURABH Lares NADERERFacility:P0Ioiza: 10-03-2022 End: 10-34-3291iaeknjjutrHYSWSH H FAWWADFacility:V7Jpite: 09-13-2022 End: 80-74-1327qpjxnowptfNU SAURABH Lares NADERERFacility:C0Ohrnw: 02-20-2022 End: 76-71-1518othomugaoyPO SAURABH A NADERERFacility:T3Osjni: 02-16-2022 End: 53-06-9397jedryvlzweMW SAURABH Lares NADERERFacility:G6Iugsm: 10-05-2019 End: 01-55-0889Bfjjhyvrc department patient visitMICChillicothe VA Medical Centertart: 10-05-2019 End: 80-28-1374Umrpwlyfm department patient visitMicWalker Baptist Medical Center Work Phone: [facility] EDComment on above:Hypertension, unspecified type (Primary Dx) Procedures DateProcedureProcedure DetailPerforming ClinicianStart: 38-39-4904ICL LIPID PROFILE (FASTING)Generic External Data ProviderStart: 74-06-2840GWT ALTGeneric External Data ProviderStart: 50-04-4459STH ASTGeneric External Data Provider Start: 43-79-0765LH PELVIS W/ TRANSVAGINALSaurabh Purcell MD Work Phone: Start: 99-58-3794PD RENAL BIMsanty Purcell MD Work Phone: Start: 36-96-9509Tnolh dip stick/tablet rgnt non-auto w/o micrscpMsanty Purcell MD Work Phone: Start: 14-08-8033KTE CBC WITH AUTO DIFFSaurabh Purcell MD Work Phone: Start: 69-21-4410Bwaaa foot complete minimum 3 views Luc Guzman DPM Work Phone: Start: 27-21-0823ZhozvbnrxhhYyxont Horn MS, RDN, LD, CHESStart: 24-11-3695TTC CBC WITH AUTO Rudy Purcell MD Work Phone: Start: 97-80-2911DgtilsdjazzBrbs Naderer MD Work Phone: Start: 60-04-5617YqbdszwfkhpFugksc Horn MS, RDN, LD, CHESStart: 39-70-8043QsvjeswrgktVtgm Naderer MD Work Phone: Start: 29-59-1445Mdn routine ecg w/least 12 lds w/i&r JOSE BRADSHAWRTLYStart: 86-91-7678Loluq dip stick/tablet reagent auto microscopy JOSE BRADSHAWRTLYStart: 04-78-5235Qvl routine ecg w/least 12 lds w/i&rMichquinten Watson Work Phone: Start: 24-55-4745Qeect dip stick/tablet reagent auto microscopyMicmarysel Corina Work Phone: Plan of Treatment DateCare ActivityDetailAuthorStart: 24-87-6477Zbogbvpeq for malignant neoplasm of colonNOMS HealthcareStart: 56-92-2317Hurxzrslt for malignant neoplasm of colonNOMS HealthcareStart: 01-02-2026Medicare Annual Wellness (AWV)Medicare Annual Wellness (AWV)NOMS HealthcareStart: 07-26-2025 End: 67-10-9617Qpzzazr encounter fawgrhsll15/24/2025 1:20 PM EST Consult [facility] [address] [address] Huber Torres DO [address] [place] [address] [facility] [place] OBGYNStart: 06-23-2025 End: 68-46-2521Jfirwyl encounter procedureNOMS Herreraue OBGYNComment on above: ArrivedStart: 06-16-2025 End: 13-15-4863Scgmqcm encounter procedureNOMS [place] PodiatryComment on above: ArrivedStart: 06-01-2025 End: 34-54-1027Cfiiwea encounter /30/2025 1:00 PM EDT Office Visit [facility] [address] [place] [address] Luc Guzman, DPM [address] [place] [address] ArrivedNOMS [place] PodiatryComment on above:ArrivedStart: 05-06-2025 End: 02-71-4064Xzslsbm encounter iftngzsdw87/04/2025 11:30 AM EDT Office Visit [facility] [address] [place] [id number] Saurabh Purcell MD [address] [place] [address] [facility] FMStart: 36-79-8247JSKUN-19 Vaccine ( season)COVID-19 Vaccine ( season)[facility] HealthcareStart: 72-27-8064Rasiolrvl vaccinationInfluenza Vaccine (#1)[facility] HealthcareStart: 63-83-7892Petsqlapc for malignant neoplasm of breastMammogramOGDEN REGIONAL MEDICAL [facility] HealthcareStart: 03-02-2025 End: 63-39-1828Ozcfkpt encounter hjubbhaff28/01/2025 10:00 AM EDT [facility] [address] [place] [address] Saurabh Purcell MD [address] [place] [address] [facility] FMStart: 01-12-2025 End: 77-14-8575RFPAOPT TRACT INFECTION (HTRX)URINARY TRACT INFECTION (HTRX) Lab Routine Hematuria, unspecified type Expected: 01/12/2025 (Approximate), Expires: 01/12/2026NOIA HealthcareComment on above:Expected: 01/12/2025 (Approximate), Expires: 01/12/2026Start: 01-12-2025 End: 21-21-9793LS KidneyUS renal complete Imaging Routine Hematuria, unspecified type Expected: 01/12/2025, Expires: 01/12/2026[facility] HealthcareComment on above: Expected: 01/12/2025, Expires: 01/12/2026Start: 01-12-2025 End: 09-58-2678SZ PelvisUS Pelvis w/ TV Imaging Routine Postmenopausal bleeding Expected: 01/12/2025, Expires: 01/12/2026[facility] Healthcare Work Phone: Comment on above:Expected: 01/12/2025, Expires: 01/12/2026Start: 11-24-2024 End: 11-37-8766Tjrnzcym SupportNOIA CI BHStart: 09-03-2024 End: 47-91-9299Sanml metabolic 1998 panel - Serum or PlasmaBasic metabolic panel Lab Routine Benign essential hypertension (CMS/HCC) Expected: 09/03/2024 (Appr oximate), Expires: 09/03/2025[facility] Healthcare Work Phone: Comment on above:Expected: 09/03/2024 (Approximate), Expires: 09/03/2025Start: 09-03-2024 End: 14-28-4917WNX W Auto Differential panel - BloodCBC and differential Lab Routine Encounter for long-term (current) use of medications Expected: 10/2024 (Approximate), Expires: 09/03/2025NO[facility] HealthcareComment on above: Expected: 09/03/2024 (Approximate), Expires: 09/03/2025Start: 09-03-2024 End: 70-25-7152Ogldwph function 2000 panel - Serum or PlasmaHepatic function panel Lab Routine Encounter for long-term (current) use of medications Expected: 09/03/2024 (Approximate), Expires: 09/03/2025[facility] HealthcareComment on above: Expected: 09/03/2024 (Approximate), Expires: 09/03/2025Start: 09-03-2024 End: 03-20-1051Izemn 1996 panel - Serum or PlasmaLipid panel Lab Routine Dyslipidemia (CMS/HCC) Expected: 09/03/2024 (Approximate), Expires: 09/03/2025 NOMS HealthcareComment on above:Expected: 09/03/2024 (Approximate), Expires: 09/03/2025Start: 09-03-2024 End: 72-42-5969Kcsacssnoot [Units/volume] in Serum or PlasmaTSH Lab Routine Subclinical hypothyroidism (CMS/HCC) Expected: 09/03/2024 (Approximate), Expires: 09/03/2025[facility] HealthcareComment on above:Expected: 09/03/2024 (Approximate), Expires: 09/03/2025Start: 09-03-2024 End: 52-00-6448Cinnzrydo (T4) free [Mass/volume] in Serum or PlasmaT4, free Lab Routine Subclinical hypothyroidism (CMS/HCC) Expected: 09/03/2024 (Approximate), Expires: 09/03/2025[facility] HealthcareComment on above:Expected: 09/03/2024 (Approximate), Expires: 09/03/2025Start: 07-23-2024 End: 86-81-1068Jxgazbg encounter /21/2024 10:00 AM EST Office Visit [facility] [address] [place] [address] Saurabh Purcell MD [address] [place] [address] N[facility] R[facility] FMStart: 05-12-2024 End: 36-30-9025Huytkunl Earmkhn3705/12/2024 9:30 AM EDT Clinical Support [facility] [address] [facility] [place] [address] Devon Gabriel, MS, RDN, LD, CHES [address] [facility] CI BHStart: 05-03-2024 Influenza vaccinationInfluenza Vaccine (#1)NOMS HealthcareStart: 04-22-2024 End: 21-70-1375Rzujiloijieh / ancillary services oapwqudtjq75/21/2024 8:00 AM EDT Ancillary Procedure [facility] [address] [place] [address] [facility]rivedSEATT[facility] PODIATRYComment on above:ArrivedStart: 04-21-2024 End: 97-86-2234Nkwtxum encounter ntrvyyhrt15/20/2024 4:30 PM EDT Office Visit [facility] [address] [facility] [place] [address] Luc Guzman DPRoss [address] [place], [place] [phone] [facility] PODIATRYStart: 03-34-4513Crjitantg for malignant neoplasm of breastMammogramNOIA HealthcareStart: 08-01-2024Medicare Annual Wellness (AWV) Medicare Annual Wellness (AWV)NOMS HealthcareStart: 01-01-2024 End: 34-33-1526Hkvfuyf encounter aholdcqgt31/01/2024 10:00 AM EDT Office Visit [facility] [address] [place] [address] Saurabh Purcell MD [address] [place] [address] NOMS JORI FMStart: 10-04-2023 End: 897753-rjezgibpqsxnnp D3 [Mass/volume] in Serum or PlasmaVitamin D 25 hydroxy Lab Routine Vitamin D deficiency Expected: 10/04/2023 (Approximate), Expires: 10/04/2024[facility] HealthcareComment on above:Expected: 10/04/2023 (Approximate), Expires: 10/04/2024Start: 10-04-2023 End: 58-52-3401Ppqne metabolic 1998 panel - Serum or PlasmaBasic metabolic panel Lab Routine Benign essential hypertension (CMS/HCC) Expected: 10/04/2023 (Appr oximate), Expires: 10/04/2024[facility] Healthcare Work Phone: Comment on above:Expected: 10/04/2023 (Approximate), Expires: 10/04/2024Start: 10-04-2023 End: 13-50-4323QZZ W Auto Differential panel - BloodCBC and differential Lab Routine Encounter for long-term (current) use of medications Expected: 10/2023 (Approximate), Expires: 10/04/2024[facility] HealthcareComment on above: Expected: 10/04/2023 (Approximate), Expires: 10/04/2024Start: 10-04-2023 End: 93-42-5582Pssfenj function 2000 panel - Serum or PlasmaHepatic function panel Lab Routine Encounter for long-term (current) use of medications Expected: 10/04/2023 (Approximate), Expires: 10/04/2024[facility] HealthcareComment on above: Expected: 10/04/2023 (Approximate), Expires: 10/04/2024Start: 10-04-2023 End: 04-55-0862Jdpbg 1996 panel - Serum or PlasmaLipid panel Lab Routine Dyslipidemia (CMS/HCC) Expected: 10/04/2023 (Approximate), Expires: 10/04/2024 NOMS HealthcareComment on above:Expected: 10/04/2023 (Approximate), Expires: 10/04/2024Start: 10-04-2023 End: 60-82-6714Xroqtopqesy [Units/volume] in Serum or PlasmaTSH Lab Routine Obesity (BMI 30-39.9) Expected: 10/04/2023 (Approximate), Expires: 10/04/2024 NOMS HealthcareComment on above:Expected: 10/04/2023 (Approximate), Expires: 10/04/2024Start: 04-56-4472Pjoxziuxz vaccinationInfluenza Vaccine (#1)NOM HealthcareStart: 46-29-0922Ywawubfiqadp Vaccine: 65+ Years (1 - PCV)Pneumococcal Vaccine: 65+ Years (1 - PCV)NOM HealthcareStart: 97-59-8359JBjO/Tdap/Td Vaccines (2 - Td or Tdap)DTaP/Tdap/Td Vaccines (2 - Td or Tdap)[facility] Healthcare Start: 88-61-5481Hlylxkdzo vaccinationFlu vaccine (#1)[place] Phone: start: 84-12-6191Gzfhdwfci for malignant neoplasm of cervixNOMS HealthcareStart: 28-05-4626Ofpcwrfcx for malignant neoplasm of cervix Pap SmearNOMS HealthcareStart: 64-75-5771Slddjtlgbveo Vaccine: 65+ Years (1 of 2 - PCV)Pneumococcal Vaccine: 65+ Years (1 of 2 - PCV)[facility] HealthcareStart: 68-26-3744Tmlthluzvykl Vaccine: 65+ Years (1 - PCV)Pneumococcal Vaccine: 65+ Years (1 - PCV)NOM HealthcareStart: 15-59-8757Npybmigpibqn Vaccine: 65+ Years (1 of 2 - PCV)Pneumococcal Vaccine: 65+ Years (1 of 2 - PCV)[facility] Healthcare Start: 1958Medicare Annual Wellness (AWV)Medicare Annual Wellness (AWV) NOM HealthcareStart: 35-87-0196Ohwqbdkxx for malignant neoplasm of colonNOMS HealthcareEKG 12 LeadEKG 12 Lead ECG STAT 10/05/2019 6:12 PM [facility] Work Phone: Immunizations Immunization DateImmunizationNotesCare ZukmputeXdbyxwwv24-37-4389ojjtkocoe virus vaccine, unspecified formulationGeneric ProviderSaint Luke's East HospitalHbhhjqpkyk52-28-3557 influenza, injectable, quadrivalent, preservative Rubin Purcell MD Work Phone: [facility] HospitalYzfvdwvwri49-56-1886ooppqwhlb virus vaccine, unspecified formulationSaurabh Purcell MD Work Phone: [phone] [place], [place] [address]Znqsgoolra61-07-7199ctfjgytxt, injectable, quadrivalent, preservative Rubin Purcell MD Work Phone: [phone] [place], [place] [address]Fdkjudydhg18-98-7334Qigiswuq, quadrivalent, recombinant, injectable influenza vaccine, preservative freeSaurabh Purcell MD Work Phone: [phone] [place], [place] [address]Xyitqmgugy09-66-9141Qxhtbyfc, quadrivalent, recombinant, injectable influenza vaccine, preservative freeSaurabh Purcell MD Work Phone: [phone] [place], [place] [address]Plwuftckmk19-09-1077qdmfquw toxoid, reduced diphtheria toxoid, and acellular pertussis vaccine, adsorbedSaurabh Purcell MD Work Phone: [phone] [place], [place] [address]Nomfwvsraj52-63-4098vgigria, mumps and rubella virus vaccineSaurabh Purcell MD Work Phone: [phone] [place], [place] [address]Qwddtvohqh28-49-8100rdoxtkrfn, injectable, quadrivalent, contains preservativeSaurabh Purcell MD Work Phone: [phone] [place], [place] [address]Psrgaamfre00-73-8983aswcwtaxr, injectable, quadrivalent, preservative Rubin Purcell MD Work Phone: [facility] HospitalFckzyevkak49-10-0310aatyevyhn, injectable, quadrivalent, contains preservativeSaurabh Purcell MD Work Phone: [facility] HospitalSphcdumwmw30-36-2358bwahkkwaj B vaccine, adult dosageSaurabh Purcell MD Work Phone: [facility] HospitalUpixpmwmls78-89-9878keuqssyly B vaccine, adult dosageMarc Soila ISAAC Work Phone: [facility] HospitalCuevjjowjw72-07-4542urryfqtts B vaccine, adult dosageSusic Soila ISAAC Work Phone: [facility] Payers DatePayer CategoryPayerPolicy [id number] [id number] 2023Medicare (Managed Care) [id number] HEALTH DEVOTED HEALTH [id number] 2022-Present [address] [place] [address] [id number]NA25-57-9161Dbymnze Health [id number] [employer] [address] xxxxxxxxxxxx 2019-Present [phone] [address] [place] [address]dmurckjwbydj [id number] Private Health Fnhqmrras90954626342-46-6579Iqaikpl395645643317-10-6052Oqhtmtq [id number] 2.16.840.1.151905.3.57[id number] 2.16.840.1.721539.3.57[id number] 2.16.840.1.978023.3.57[id number] 2.16.840.1.313783.3.57[id number] 2.16840.1.796981.3.57[id number] 2.840.1.585305.3.57[id number] 2.840.1.929349.3.57[id number] 2.16840.1.531295.3.57[id number] 2.840.1.644576.3.57[id number] 2.0.1.404286.3.57[id number] 2.0.1.499063.3.57[id number] 2.0.1.406464.3.57[id number] 2.0.1.940186.3.57[id number] 2.0.1.191405.3.57[id number] 2.0.1.615724.3.579.2.1286UnknownAntheForrest General Hospital [id number] Social History DateTypeDetailFacilityStart: 10-05-2019 End: 07-43-2598Ddlfaap smoking status NHISNever smokerNOIA HealthcareStart: 46-71-4374Unjeuow intakeLifetime non-drinker (finding)[facility] [employer] Work Phone: start: 12-34-1273Bdvobae SDOH Alcohol Maryematw0Jnuhg [employer] Work Phone: start: 05-23-5604Uri Assigned At BirthNot on filePremier Health Miami [facility] [employer] Work Phone: start: 42-17-1814Svcptes use and exposureSmokeless tobacco non-userNOMS HealthcareStart: 09-18-2023 End: 59-79-6523Duognnq intakeCurrent drinker of alcohol (finding)[facility] Start: 09-27-2023 End: 03-43-0316Navzqcx of Social functionNOMS HealthcareStart: 09-27-2023 End: 77-95-0276Ljapbcudysw, Afraid, Rape, and Kick questionnaire [HARK]NOMS HealthcareWithin the last year, have you been afraid of your partner or ex-partner?NoNOMS HealthcareDo you belong to any clubs or organizations such as adventist groups, unions, fraternal or athletic groups, or school groups?YesNOMS HealthcareAre you now , , , , never or living with a partner?MarriedNOMS HealthcareHow often to you have a drink containing alcohol?NeverNOMS HealthcareStart: 14-69-2919Qes many standard drinks containing alcohol do you have on a typical day?Patient does not drinkNOMS HealthcareDo you feel stress - tense, restless, nervous, or anxious, or unable to sleep at night because yourmind is troubled all the time - these days [OSQ] Not at allNOMS Healthcare(I/We) worried whether (my/our) food would run out before (I/we) got money to buy more.Never trueNOMS HealthcareStart: 07-22-2023 Alcohol CommentOccasional, Caffeine intake: 1-2 cups per dayNOMS HealthcareSex Female (finding)[facility] Hospitaltart: 78-23-2645Mls Assigned [facility] HospitalHow often to you have a drink containing alcohol?Monthly or lessNOMS HealthcareHow many standard drinks containing alcohol do you have on a typical day?1 or 2NCHOCTAW N[facility] Clinical Notes 10-04-2023 to 06-23-2025 Note Date & WsxqHnqhDineruyt93-47-6630 History of Present illness Narrative* Jade Tess, NOAH - 06/23/2025 3:10 PM EDT Reason for Appointment: Patient ID: Mira Snell is a 65 y.o. female who presents for Consult Patient presents today for Acute Visit. and Consult appointment. MEDICATIONS Current Outpatient Medications Medication Instructions albuterol HFA 90 mcg/act inhaler 2 puffs, Inhalation, Every 4 hours PRN Arnuity Ellipta 100 MCG/ACT inhaler INHALE 1 PUFF DAILY AND RINSE WITH WATER AFTER USE TO REDUCE AFTERTASTE AND INCIDENCE OF CANDIDASIS. DO NOT SWALLOW. aspirin 81 mg, Daily atorvastatin (LIPITOR) 80 mg, Oral, Nightly Cholecalciferol (Vitamin D) 50 MCG (1999) capsule 1 capsule, Every 24 hours fluticasone (Flonase) 50 MCG/ACT nasal spray 2 sprays, Each Nostril, Daily levothyroxine (SYNTHROID, LEVOXYL) 88 mcg, Oral, Daily magnesium oxide (MAG-OX) 400 mg, Daily metoprolol succinate XL (TOPROL-XL) 25 mg, Every morning montelukast (SINGULAIR) 10 mg, Oral, Nightly ALLERGIES Allergies Allergen Reactions Sulfa Antibiotics Hives and Rash Other reaction(s): Unknown PROBLEMS Active Ambulatory Problems Diagnosis Date Noted Subclinical hypothyroidism 10/04/2023 Diverticulosis of colon 10/04/2023 Dyslipidemia 10/04/2023 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 (HCC) 10/04/2023 Vitamin D deficiency 10/04/2023 Seasonal allergic rhinitis due to pollen 10/04/2023 Coronary artery disease involving 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 09/09/2023 Benign essential hypertension 10/04/2023 Encounter for long-term (current) use of medications 10/04/2023 Medicare annual wellness visit, subsequent 09/03/2024 Hematuria 01/12/2025 Postmenopausal bleeding 01/12/2025 Resolved Ambulatory Problems Diagnosis Date Noted Chronic pain of both knees 10/04/2023 Gastroesophageal reflux disease 10/04/2023 Mixed hyperlipidemia 10/04/2023 SAL (obstructive sleep apnea) 10/04/2023 Dyspareunia in female 10/04/2023 Abnormal TSH 10/05/2023 Acute bronchitis due to other specified organisms 01/23/2024 Acute UTI 09/03/2024 Past Medical History: Diagnosis Date Adult hypothyroidism Asthma (HCC) 07/06/2016 Asthma ([facility]) At low risk for fall GERD (gastroesophageal reflux disease) Hot flashes HTN (hypertension) Hypercholesteremia Neurogenic syncope Obesity with body mass index (BMI) of 30.0 to 39.9 Sleep apnea, obstructive Thyroid activity decreased Varicella 05/10/1987 HISTORY PAST MEDICAL HISTORY SOCIAL HISTORY Past Medical History: Diagnosis Date Adult hypothyroidism Asthma (HCC) 07/06/2016 Asthma ([facility]) At low risk for fall Benign essential hypertension Chronic pain of both knees Diverticulosis of colon Dyslipidemia Encounter for long-term (current) use of medications GERD (gastroesophageal reflux disease) Hot flashes HTN (hypertension) Hypercholesteremia Neurogenic syncope Obesity with body mass index (BMI) of 30.0 to 39.9 Seasonal allergic rhinitis due to pollen Sleep apnea, obstructive Thyroid activity decreased Varicella 05/10/1987 Vitamin D deficiency Social History Tobacco Use Smoking status: Never Smokeless tobacco: Never Vaping Use Vaping status: Never Used Substance Use Topics Alcohol use: Yes Comment: Occasional, Caffeine intake: 1-2 cups per day Drug use: Never FAMILY HISTORY Family History Problem Relation Name Age of Onset Stroke Mother Jewell Schwartz Ovarian cancer Mother Jewell Schwartz Diabetes Mother Jewell Schwartz Heart disease Father Joaquim Schwartz Sr Diabetes Brother Joaquim Schwartz Heart disease Brother Joaquim Schwartz Hypertension Brother Joaquim Schwartz SURGICAL HISTORY Past Surgical History: Procedure Laterality Date SECTION, LOW TRANSVERSE 10/10/1969, 07/25/81, 07/01/84, 11/20/86 HERNIA REPAIR 01/28/95, 01/06/97 TIBIA FRACTURE SURGERY Right Right leg tibial and fibula fx metal TUBAL LIGATION 07/24/1987 REVIEW OF SYSTEMS Review of Systems: Review of Systems Constitutional: Negative. HENT: Negative. Eyes: Negative. Respiratory: Negative. Cardiovascular: Negative. Gastrointestinal: Negative. Genitourinary: Positive for menstrual problem. Musculoskeletal: Negative. Skin: Negative. Neurological: Negative. All other systems reviewed and are negative. Hematological: Negative. Endocrine: Negative. Allergic/Immunologic: Negative. OBJECTIVE Objective: Physical Exam Constitutional: Appearance: Normal appearance. She is well-developed. Cardiovascular: Rate and Rhythm: Normal rate and regular rhythm. Pulmonary: Effort: Pulmonary effort is normal. Breath sounds: Normal breath sounds. Abdominal: General: Bowel sounds are normal. There is no distension. Palpations: Abdomen is soft. Tenderness: There is no abdominal tenderness. There is no guarding or rebound. Musculoskeletal: General: No swelling. Normal range of motion. Right lower leg: No edema. Left lower leg: No edema. Neurological: Mental Status: She is alert and oriented to person, place, and time. Skin: General: Skin is warm and dry. Psychiatric: Mood and Affect: Mood normal. Behavior: Behavior normal. Vitals and nursing note reviewed. Exam conducted with a recycling collections driver present. Vitals: Estimated body mass index is 32.78 kg/m as calculated from the following: Height as of 06/16/25: 5' 5 . Weight as of 06/16/25: 197 lb. BP: No LMP recorded. Assessment/Plan ICD-10-CM 1. Postmenopausal bleeding N95.0 Pt presents as a referral from [facility] for post-menopausal bleeding. Pt had yeast infection, rx fordiflucan faxed to pharmacy. Reviewed ultrasound with pt in detail. Pt to be scheduled for D&C hysteroscopy with poss myosure. Pt to return for preop. Documented by Jade Pulido LPN on behalf of: Huber Torres DO documented in this encounterSaint Luke's East [id number] History of Present illness Narrative* Luc Guzman DPM - 06/16/2025 4:00 PM EDT Images from the original note were not included. Subjective Patient ID: Mira Snell is a 65 y.o. female who presents for FUV (Mira Snell is a 65 y.o. female. Patient presents today for Lt great toenail FUV. Patient has been changing band aid and antibiotic SS: 9.5). HPI Established patient returns to clinic for follow up evaluation of left hallux toenail. Patient notes significant improvement in symptoms. She has some mild drainage but otherwise it is feeling much better. No tenderness to palpation. Review of Systems Constitutional: Negative for activity change and appetite change. Respiratory: Negative for chest tightness and shortness of breath. Cardiovascular: Positive for leg swelling. Negative for chest pain. Musculoskeletal: Positive for arthralgias. Negative for gait problem. Skin: Negative for color change and wound. Neurological: Negative for weakness and numbness. Psychiatric/Behavioral: Negative for agitation and behavioral problems. Hematological: Does not bruise/bleed easily. Endocrine: Negative for cold intolerance and heat intolerance. Allergic/Immunologic: Negative for immunocompromised state. Past medical History Past Medical History: Diagnosis Date Adult hypothyroidism Asthma (HCC) 07/06/2016 Asthma (HCC) At low risk for fall Benign essential hypertension Chronic pain of both knees Diverticulosis of colon Dyslipidemia Encounter for long-term (current) use of medications GERD (gastroesophageal reflux disease) Hot flashes HTN (hypertension) Hypercholesteremia Neurogenic syncope Obesity with body mass index (BMI) of 30.0 to 39.9 Seasonal allergic rhinitis due to pollen Sleep apnea, obstructive Thyroid activity decreased Varicella 05/10/1987 Vitamin D deficiency Medications Current Outpatient Medications: albuterol HFA 90 mcg/act inhaler, Inhale 2 puffs every 4 (four) hours if needed for wheezing, Disp:18 g, Rfl: 2 Arnuity Ellipta 100 MCG/ACT inhaler, INHALE 1 PUFF DAILY AND RINSE WITH WATER AFTER USE TO REDUCE AFTERTASTE AND INCIDENCE OF CANDIDASIS. DO NOT SWALLOW., Disp: 30 each, Rfl: 0 aspirin 81 MG EC tablet, Take 81 mg by mouth Daily, Disp: , Rfl: atorvastatin (Lipitor) 80 MG tablet, TAKE 1 TABLET BY MOUTH AT BEDTIME, Disp: 30 tablet, Rfl: 0 Cholecalciferol (Vitamin D) 50 MCG (1999) capsule, Take 1 capsule by mouth 1 (one) time each dayat the same time, Disp: , Rfl: fluticasone (Flonase) 50 MCG/ACT nasal spray, Administer 2 sprays into each nostril Daily, Disp: 16g, Rfl: 3 levothyroxine (Synthroid, Levoxyl) 88 MCG tablet, Take 1 tablet by mouth once daily, Disp: 30 tablet, Rfl: 0 magnesium oxide (Mag-Ox) 400 mg tablet, Take 400 mg by mouth Daily, Disp: , Rfl: metoprolol succinate XL (Toprol-XL) 25 MG 24 hr tablet, Take 25 mg by mouth in the morning., Disp: , Rfl: montelukast (Singulair) 10 MG tablet, TAKE 1 TABLET BY MOUTH AT BEDTIME, Disp: 30 tablet, Rfl: 5 Allergies Sulfa [...] Diabetes Mother Jewell Schwartz Heart disease Father Joaquim Schwartz Sr Diabetes Brother Joaquim Schwartz Heart disease Brother Joaquim Schwartz Hypertension Brother Joaquim Schwartz Objective Physical Exam Constitutional: General: She is not in acute distress. HENT: Head: Atraumatic. Cardiovascular: Comments: DP, PT pulses 1/4. Musculoskeletal: Cervical back: No tenderness. Skin: Capillary Refill: Capillary refill takes less than 2 seconds. Comments: There has been aggressive debridement of the left hallux nail. Subungual erosion appears to be epithelialized. No drainage or tenderness. Neurological: General: No focal deficit present. Mental Status: She is alert. Psychiatric: Mood and Affect: Mood normal. Behavior: Behavior normal. Assessment/Plan ICD-10-CM 1. Onychomycosis B35.1 2. Onychodystrophy L60.3 3. Ulcer of left foot, limited to breakdown of skin ([facility]) L97.521 Patient examined and evaluated. Subungual erosion of the left hallux seems to have resolved completely after aggressive debridement of the nail. I would recommend keeping the nail trimmed short to reduce any pressure on the nail. She will continue to trim the nail to reduce impingement issues as well as rubbing along the nailbed. She will call immediately if she notices increasing redness, drainage, pain. If she were to develop issues with this nail again I may consider temporary or permanent nail removal. If she has issues trimming the nails I would recommend follow up with our office to discuss this service as well. Follow up as needed. This note was created with the assistance of a speech recognition program. While intending to generate a timely document that accurately reflects the content of the visit, no guarantee can be provided that every grammatical or spelling mistake has been or will be identified or corrected. Thank you for your understanding. Luc Guzman DPM documented in this encounterSaint Luke's East [id number] History of Present illness Narrative* Luc Guzman DPM - 06/01/2025 1:00 PM EDT Images from the original note were not included. Subjective Patient ID: Mira Snell is a 65 y.o. female who presents for Toenail Problem (Pt is here today for Lt great toenail issue. She states it has been a little tender for possibly a few weeks./SS: 9.5). HPI Established patient returns to clinic with concern of painful left hallux nail. She states that herdog has been licking it and so she thought there was some sort of infection of the toe. She states that she may have hit the toe but she can not remember. It has been bothering her for a few weeks and getting worse. She denies any drainage. No treatment tried. She is also concerned about thickened,elongated, painful toenails. Review of Systems Constitutional: Negative for activity [...] Past Medical History: Diagnosis Date Adult hypothyroidism Asthma (HCC) 07/06/2016 Asthma (HCC) At low risk for fall Benign essential hypertension Chronic pain of both knees Diverticulosis of colon Dyslipidemia Encounter for long-term (current) use of medications GERD (gastroesophageal reflux disease) Hot flashes HTN (hypertension) Hypercholesteremia Neurogenic syncope Obesity with body mass index (BMI) of 30.0 to 39.9 Seasonal allergic rhinitis due to pollen Sleep apnea, obstructive Thyroid activity decreased Varicella 05/10/1987 Vitamin D deficiency Medications Current Outpatient Medications: albuterol HFA 90 mcg/act inhaler, Inhale 2 puffs every 4 (four) hours if needed for wheezing, Disp:18 g, Rfl: 2 Arnuity Ellipta 100 MCG/ACT inhaler, INHALE 1 PUFF DAILY AND RINSE WITH WATER AFTER USE TO REDUCE AFTERTASTE AND INCIDENCE OF CANDIDASIS. DO NOT SWALLOW., Disp: 30 each, Rfl: 0 aspirin 81 MG EC tablet, Take 81 mg by mouth Daily, Disp: , Rfl: atorvastatin (Lipitor) 80 MG tablet, TAKE 1 TABLET BY MOUTH AT BEDTIME, Disp: 30 tablet, Rfl: 0 Cholecalciferol (Vitamin D) 50 MCG (1999) capsule, Take 1 capsule by mouth 1 (one) time each dayat the same time, Disp: , Rfl: fluticasone (Flonase) 50 MCG/ACT nasal spray, Administer 2 sprays into each nostril Daily, Disp: 16g, Rfl: 3 levothyroxine (Synthroid, Levoxyl) 88 MCG tablet, Take 1 tablet by mouth once daily, Disp: 30 tablet, Rfl: 0 magnesium oxide (Mag-Ox) 400 mg tablet, Take 400 mg by mouth Daily, Disp: , Rfl: metoprolol succinate XL (Toprol-XL) 25 MG 24 hr tablet, Take 25 mg by mouth in the morning., Disp: , Rfl: montelukast (Singulair) 10 MG tablet, TAKE 1 TABLET BY MOUTH AT BEDTIME, Disp: 30 tablet, Rfl: 5 Allergies Sulfa antibiotics Past Surgical History Past Surgical History: Procedure Laterality Date SECTION, LOW TRANSVERSE 10/10/1969, 07/25/81, 07/01/84, 11/20/86 HERNIA REPAIR 01/28/95, 01/06/97 TIBIA FRACTURE SURGERY Right Right leg tibial and fibula fx metal TUBAL LIGATION 07/24/1987 Family History Family History Problem Relation Name Age of Onset Stroke Mother Jewell Gideon Lana Ovarian cancer Mother Jewell Schwartz Diabetes Mother Jewell Gideon Schwartz Heart disease Father Joaquim Schwartz Sr Diabetes Brother Joaquim Schwartz Heart disease Brother Joaquim Schwartz Hypertension Brother Joaquim Schwartz Objective Physical Exam Constitutional: General: She is not in acute distress. HENT: Head: Atraumatic. Cardiovascular: Comments: DP, PT pulses 1/4. Musculoskeletal: Cervical back: No tenderness. Skin: Capillary Refill: Capillary refill takes less than 2 seconds. Comments: Left hallux nail exhibits 50 percent onycholysis with subungual erosion along the centralportion of the nail. There is some mild granulomatous tissue in this area. I do not appreciate any tunneling, probing, undermining. No cellulitis or purulence encountered. Permanent nail avulsion of the right hallux. Remaining 9 toenails are significantly elongated. There is yellow discoloration, thickened appearance with crumbly texture and subungual debris. Subungualerosion of the right 3rd nail as well. Neurological: General: No focal deficit present. Mental Status: She is alert. Psychiatric: Mood and Affect: Mood normal. Behavior: Behavior normal. Assessment/Plan ICD-10-CM 1. Onychomycosis B35.1 2. Onychodystrophy L60.3 3. Ulcer of left foot, limited to breakdown of skin ([facility]) L97.521 4. Pain in both feet M79.671 M79.672 Patient was examined and evaluated. Patient had severe thickening and elongation of the 9 toenails.There was about 50 percent onycholysis of the left hallux toenail which likely led to subungual erosion from repetitive microtrauma. After debridement the remaining nail was intact without drainage or cellulitis and so I elected not to perform a nail avulsion today. After debridement of the nail I flushed the area with saline and applied a clean dressing. Recommend applying antibiotic ointment and a Band-Aid daily. Remaining 8 toenails were debrided in length and thickness today utilizing a nail nipper and electric bur tool grinder operator surface without incident. Patient noted relief of symptomatology post-debridement. I have recommended moisturizing the feet on a daily basis and discussed proper pedal hygiene. Follow-up 2 weeks to evaluate healing of subungual erosion of the left hallux. She also had mild erosion to the right 3rd toe and a Band-Aid was place over this after debridement today. Change dressing daily as noted above for the left hallux. Consider nail avulsion if she is still having significant issues in a couple of weeks. This note was created with the assistance of a speech recognition program. While intending to generate a timely document that accurately reflects the content of the visit, no guarantee can be provided that every grammatical or spelling mistake has been or will be identified or corrected. Thank you for your understanding. Luc Guzman DPM documented in this encounterSaint Luke's East [id number] [facility] Subjective Mira Snell is a 65 y.o. year old female patient nonobstructive coronary artery disease, obstructive sleep apnea, hyperlipidemia, and hypertension seen in follow-up. Patient used to follow with Dr Barcenas. She reports that overall she is feeling [...] Benign essential HTN Coronary artery disease involving 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 Abnormal TSH Acute [...] occasional Drug use: Never HPI 11/28/2022 Mira Snell is a 62 y.o. female with [...] She presented to the ED through the [facility] system on 11/02/2022 for evaluation of symptoms. [...] tablet, Rfl: 3 calcium carb/D3/magnesium/zinc (calcium carb-D3-mag wwp39-srop) [phone] my-abbz-kr-mg tablet, Take by mouth in the morning., [...] morning., Disp: , R (more content not included)...[facility] 01-12-2025 History of Present illness Narrative* Saurabh Purcell MD - 01/12/2025 12:10 PM EDTAssociated Problem(s): Postmenopausal bleeding C/o vaginal bleeding and check pelvic US. * Saurabh Purcell MD - 01/12/2025 12:09 PM EDTAssociated Problem(s): Hematuria C/o blood in urine but UA normal. Check culture. Increase fluids. Check US kidneys. If symptoms persist will need to see urology. * Saurabh Purcell MD - 01/12/2025 11:30 AM EDT Images from the original note were not included. Subjective Patient ID: Mira Snell is a 64 y.o. female who presents for UTI (@urgent care on 12/24/24 was oncypro). Concerned of UTI. To urgent care for [...] US Pelvis w/ TV documented in this encounterSaint Luke's East [id number] NoteCardiology Clinic Note Subjective Mira Snell is a 64 y.o. year old [...] Benign essential HTN Coronary artery disease involving 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 Abnormal TSH Acute [...] Not Currently Drug use: Never HPI Mira Snell is a 62 y.o. female with [...] [facility] for evaluation of symptoms. [...] tablet, Rfl: 3 calcium carb/D3/magnesium/zinc (calcium carb-D3-mag uii24-tupr) [phone] xk-uhdu-mf-mg tablet, Take by mouth in the morning., [...] into the left ant (more content not included)...[facility] 09-03-2024 History of Present illness Narrative* Saurabh Purcell MD - 09/03/2024 3:21 PM ESTAssociated Problem(s): Medicare annual wellness visit, subsequent Due for labs. Discussed proper diet and regular aerobic exercise. Need aerobic exercise 5-6 days a week for 30 minutes at a time. Smaller portions and limit total calories. Colonoscopy every 10 years. Tetanus every 10 years. Advised not to smoke. Discussed daily Aspirin therapy. * Saurabh Purcell MD - 09/03/2024 3:20 PM ESTAssociated Problem(s): Benign essential hypertension (CMS/HCC) BP elevated but previously controlled and monitor PRN. * Saurabh Purcell MD - 09/03/2024 3:20 PM ESTAssociated Problem(s): Acute UTI History suggestive of UTI and treat. Take cipro for infection. Increase water intake and cranberry juice. Use motrin or tylenol for discomfort. * Saurabh Purcell MD - 09/03/2024 2:30 PM EST Images from the original note were not included. Subjective Patient ID: Mira Snell is a 64 y.o. female who [...] (Cipro) 500 MG tablet documented in this [facility]09-24-2024 History of Present illness Narrative* Lynne Durham LPN - 05/26/2024 9:31 AM EDT <May 26, 2024, 09:31 - Lynne Durham LPN> Spoke to patient for routine outreach. She states that she has been doing pretty well. She requestsrefill on Albuterol inhaler and request is submitted to PCP. Confirmed [facility] pharmacy in [place]. She has an appointment with Dr. Purcell 07/23/24 for MAW and plans to keep this visit. She is given my name and number to reach if she needs anything until new advocate is established for Jeramy webster. She verbalizes an understanding of this. documented in this encounterSaint Luke's East [id number] History of Present illness Narrative* Luc Guzman DPM - 04/21/2024 4:30 PM EDT Images from the original note were not included. Subjective Patient ID: Mira Snell is a 64 y.o. female who [...] Past Medical History: Diagnosis Date Adult hypothyroidism ([facility] Asthma ([facility]) 07/06/2016 Asthma ([facility]) At low risk for fall Benign essential hypertension ([facility]) Chronic pain of both knees Diverticulosis of colon Dyslipidemia ([facility]) Encounter for long-term (current) use of medications GERD (gastroesophageal reflux disease) Hot flashes HTN (hypertension) ([facility]) Hypercholesteremia ([facility]) Neurogenic syncope Obesity with body mass index (BMI) of 30.0 to 39.9 Seasonal allergic rhinitis due to pollen Sleep apnea, obstructive Thyroid activity decreased ([facility]) Vitamin D deficiency Medications Current Outpatient Medications: albuterol HFA 90 mcg/act inhaler, Inhale 2 puffs every 4 (four) hours if needed for wheezing, Disp:18 g, Rfl: 2 aspirin 81 MG EC tablet, Take 81 mg by mouth in the morning., Disp: , Rfl: atorvastatin (Lipitor) 80 MG tablet, Take 1 tablet (80 mg) by mouth at bedtime, Disp: 100 tablet, Rfl: 3 Cholecalciferol (Vitamin D) 50 MCG (1999 [place]) capsule, Take 1 capsule by mouth 1 (one) time each dayat the same time, Disp: , Rfl: fluticasone [...] to nail, initial encounter S90.221A XR foot 3+views right 2. Right foot pain M79.671 XR foot 3+ views right Patient examined and evaluated. She was concerned about fracture of the toe and so 3 radiographs ofthe right foot were taken in office and [...] or corrected. Thank you for your understanding. Luc Guzman DPM documented in this encounterSaint Luke's East [id number] History of Present illness Narrative* Saurabh Purcell MD - 10/04/2023 11:00 AM ESTAssociated Problem(s): Seasonal allergic rhinitis due to pollen Symptoms controlled with medication and continue. * Saurabh Purcell MD - 10/04/2023 11:00 AM ESTAssociated Problem(s): SAL (obstructive sleep apnea) Not using CPAP and need to use nightly. * Saurabh Purcell MD - 10/04/2023 10:59 AM ESTAssociated Problem(s): 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 (CMS/HCC) Increased SOB and add flovent. * Saurabh Purcell MD - 10/04/2023 10:59 AM ESTAssociated Problem(s): Dyspareunia in female Pain with intercourse and add premarin. * Saurabh Purcell MD - 10/04/2023 10:59 AM ESTAssociated Problem(s): Coronary artery disease involving 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 (CMS/HCC) No pain and continue medication. Follow up with cardiology. * Saurabh Purcell MD - 10/04/2023 10:59 AM ESTAssociated Problem(s): Benign essential hypertension (CMS/HCC) BP controlled and monitor PRN. * Saurabh Purcell MD - 10/04/2023 10:00 AM EST Subjective Patient ID: Mira Snell is a 63 y.o. female who [...] plugged or popping. Following with cardiology for non- obstructive CAD. On medication and doing well. No chest pain or palpitations. Diagnosed with SAL and not using CPAP. [place] more tired with machine and stopped. Requests [...] medication and continue. Coronary artery disease involving 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 (CMS/HCC) No pain [...] 30-39.9) Relevant Orders TSH documented in this encounterNOMS HealthcareEvaluation note* Diagnosis Benign essential hypertension (CMS/HCC)- Primary Essential hypertension, benign 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 (CMS/HCC) Seasonal allergic rhinitis due to pollen Coronary artery disease involving 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 (CMS/HCC) SAL (obstructive [...] due to pollen Coronary artery disease involving 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 ([facility]/HCC) SAL (obstructive sleep apnea) Obstructive sleep apnea (adult) (pediatric) Dyspareunia in female Dyslipidemia ([facility]/HCC) Other and unspecified hyperlipidemia Encounter for long-term (current) use of medications Encounter for long-term (current) use of other medications Vitamin D deficiency Obesity (BMI 30-39.9) Benign essential hypertension ([facility])- Primary Essential hypertension, benign 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 ([facility]) Seasonal allergic rhinitis due to pollen Acute bronchitis due to other specified organisms 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 ([facility]) documented in this encounter [facility] HealthcareEvaluation note* Diagnosis Contusion of lesser toe of right foot with damage to nail, initial encounter- Primary Right foot pain Pain in soft tissues of limb documented in this encounter [facility] HealthcareEvaluation note* Diagnosis Mild intermittent asthma, unspecified whether complicated ([facility])- Primary Essential (primary) hypertension ([facility]) Unspecified essential hypertension documented [facility] [facility]* Diagnosis Benign essential hypertension ([facility])- Primary Essential hypertension, benign 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 ([facility]) Seasonal allergic rhinitis due to pollen Coronary artery disease involving 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 ([facility]) SAL (obstructive sleep apnea) Obstructive sleep apnea (adult) (pediatric) Dyspareunia in female Dyslipidemia ([facility]/HCC) Other and unspecified hyperlipidemia Encounter for long-term (current) use of medications Encounter for long-term (current) use of other medications Vitamin D deficiency Obesity (BMI 30-39.9) Benign essential hypertension ([facility])- Primary Essential hypertension, benign 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 ([facility]) Seasonal allergic rhinitis due to pollen Acute bronchitis due to other specified organisms Medicare annual wellness visit, subsequent- Primary Encounter for long-term (current) use of medications Encounter for long-term (current) use of other medications Benign essential hypertension ([facility]) Essential hypertension, benign Subclinical hypothyroidism ([facility]) Other specified acquired hypothyroidism Dyslipidemia ([facility]) Other and unspecified hyperlipidemia Acute UTI Urinary tract infection, site not specified documented in this encounter [facility] HealthcareEvaluation note* Diagnosis Benign essential hypertension ([facility])- Primary Essential hypertension, benign 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 Seasonal allergic rhinitis due to pollen Coronary artery disease involving 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 (CMS/HCC) SAL (obstructive sleep apnea) Obstructive sleep apnea (adult) (pediatric) Dyspareunia in female Dyslipidemia (CMS/HCC) Other and unspecified hyperlipidemia Encounter for long-term (current) use of medications Encounter for long-term (current) use of other medications Vitamin D deficiency Obesity (BMI 30-39.9) Benign essential hypertension ([facility]/HCC)- Primary Essential hypertension, benign 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 Seasonal allergic rhinitis due to pollen Acute bronchitis due to other specified organisms Medicare annual wellness visit, subsequent- Primary Encounter for long-term (current) use of medications Encounter for long-term (current) use of other medications Benign essential hypertension ([facility]/HCC) Essential hypertension, benign Subclinical hypothyroidism ([facility]) Other specified acquired hypothyroidism Dyslipidemia ([facility]) Other and unspecified hyperlipidemia Acute UTI Urinary tract infection, site not specified Hematuria, unspecified type- Primary Postmenopausal bleeding documented in this encounter [facility] HealthcareEvaluation note* Diagnosis Benign essential hypertension- Primary Essential hypertension, benign 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 (HCC) Seasonal allergic rhinitis due to pollen Coronary artery disease involving 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 SAL (obstructive sleep apnea) Obstructive sleep apnea (adult) (pediatric) Dyspareunia in female Dyslipidemia Other and unspecified hyperlipidemia Encounter for long-term (current) use of medications Encounter for long-term (current) use of other medications Vitamin D deficiency Obesity (BMI 30-39.9) Benign essential hypertension- Primary Essential hypertension, benign 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 (HCC) Seasonal allergic rhinitis due to pollen Acute bronchitis due to other specified organisms Medicare annual wellness visit, subsequent- Primary Encounter for long-term (current) use of medications Encounter for long-term (current) use of other medications Benign essential hypertension Essential hypertension, benign Subclinical hypothyroidism Other specified acquired hypothyroidism Dyslipidemia Other and unspecified hyperlipidemia Acute UTI Urinary tract infection, site not specified Hematuria, unspecified type- Primary Postmenopausal bleeding Seasonal allergic rhinitis due to pollen documented in this encounter [facility] HealthcareEvaluation note* Diagnosis Onset Date Resolution Status Admit Date Benign essential hypertension acuteSept2024 11:41am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acuteSept2024 11:41amPostmenopausal bleedingacute May 06, 2025 11:41amSeasonal allergic rhinitis due to pollenacute May 06, 2025 11:41amUterine neoplasmacuteSept2024 11:41am [facility] Work Phone: Evaluation note* Diagnosis Benign essential hypertension- Primary Essential hypertension, benign 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 (HCC) Seasonal allergic rhinitis due to pollen Coronary artery disease involving 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 SAL (obstructive sleep apnea) Obstructive sleep apnea (adult) (pediatric) Dyspareunia in female Dyslipidemia Other and unspecified hyperlipidemia Encounter for long-term (current) use of medications Encounter for long-term (current) use of other medications Vitamin D deficiency Obesity (BMI 30-39.9) Benign essential hypertension- Primary Essential hypertension, benign 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 (HCC) Seasonal allergic rhinitis due to pollen Acute bronchitis due to other specified organisms Medicare annual wellness visit, subsequent- Primary Encounter for long-term (current) use of medications Encounter for long-term (current) use of other medications Benign essential hypertension Essential hypertension, benign Subclinical hypothyroidism Other specified acquired hypothyroidism Dyslipidemia Other and unspecified hyperlipidemia Acute UTI Urinary tract infection, site not specified Hematuria, unspecified type- Primary Postmenopausal bleeding Onychomycosis- Primary Dermatophytosis of nail Onychodystrophy Other specified disease of nail Ulcer of left foot, limited to breakdown of skin (HCC) Pain in both feet documented in this encounter [facility] HealthcareEvaluation note* Diagnosis Benign essential hypertension- Primary Essential hypertension, benign 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 (HCC) Seasonal allergic rhinitis due to pollen Coronary artery disease involving 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 SAL (obstructive sleep apnea) Obstructive sleep apnea (adult) (pediatric) Dyspareunia in female Dyslipidemia Other and unspecified hyperlipidemia Encounter for long-term (current) use of medications Encounter for long-term (current) use of other medications Vitamin D deficiency Obesity (BMI 30-39.9) Benign essential hypertension- Primary Essential hypertension, benign 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 (HCC) Seasonal allergic rhinitis due to pollen Acute bronchitis due to other specified organisms Medicare annual wellness visit, subsequent- Primary Encounter for long-term (current) use of medications Encounter for long-term (current) use of other medications Benign essential hypertension Essential hypertension, benign Subclinical hypothyroidism Other specified acquired hypothyroidism Dyslipidemia Other and unspecified hyperlipidemia Acute UTI Urinary tract infection, site not specified Hematuria, unspecified type- Primary Postmenopausal bleeding Onychomycosis- Primary Dermatophytosis of nail Onychodystrophy Other specified disease of nail Ulcer of left foot, limited to breakdown of skin (HCC) documented in this encounter [facility] HealthcareEvaluation note* Diagnosis Benign essential hypertension- Primary Essential hypertension, benign 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 (HCC) Seasonal allergic rhinitis due to pollen Coronary artery disease involving 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 SAL (obstructive sleep apnea) Obstructive sleep apnea (adult) (pediatric) Dyspareunia in female Dyslipidemia Other and unspecified hyperlipidemia Encounter for long-term (current) use of medications Encounter for long-term (current) use of other medications Vitamin D deficiency Obesity (BMI 30-39.9) Benign essential hypertension- Primary Essential hypertension, benign 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 (HCC) Seasonal allergic rhinitis due to pollen Acute bronchitis due to other specified organisms Medicare annual wellness visit, subsequent- Primary Encounter for long-term (current) use of medications Encounter for long-term (current) use of other medications Benign essential hypertension Essential hypertension, benign Subclinical hypothyroidism Other specified acquired hypothyroidism Dyslipidemia Other and unspecified hyperlipidemia Acute UTI Urinary tract infection, site not specified Hematuria, unspecified type- Primary Postmenopausal bleeding Postmenopausal bleeding Yeast infection documented in this encounter [facility] HealthcareReason for referral (narrative)No reason for referral information availableRegency Hospital [facility] Work Phone: Discharge Instructions * Attachments The following attachments cannot be sent through Care Everywhere. * Hypertension: General Info (Setswana) documented in this encounter Assessments Diagnosis Hypertension, unspecified type- Primary Advance Directives No Advanced Directives Records FoundDocuments on File TypeDate RecordedPatient RepresentativeExplanationAdvance Directives and Living WillPower of Manager Country Advance Directive Response Recorded Date/ Time Advance Directives No May 1:24pm Summary Purpose Family History No Family History Records FoundNo Family History Records FoundNo Family History Records FoundNo Family History Records FoundNo Family History Records Found Chief Complaint and Reason for Visit Chief Complaint Admit Date f/u May 06, 2025 11:41am Reason for Visit Admit Date Benign essential hypertension May 06, 2025 11:41am Mild intermittent intrinsic asthma witho ut complication May 06, 2025 11:41am Postmenopausal bleeding May 06, 2 025 11:41am Seasonal allergic rhinitis due to pollen May 06, 2025 11:41am Uterine neoplasm May 06, 2025 11:41am Additional Source Comments Reason for Visit (unrecogniz ed section and content) ReasonCommentsHypertensionpt states her blood pressure has been high todayReason CommentsFollow-upChest congestionReasonOnset DateCommentsMed Lwjckw4207/06/2024 ReasonCommentsToe InjuryMira Perez 64yo. Patient relates she stubbed Right 4th toe, 04/20/2024. The toenail is loose. Patient wearing guaze to protect the nail. ReasonCommentsMedicare Annual Wellness Visit SubsequentwellnessReasonCommentsUTI @urgent care on 12/24/24 was on cyproReasonCommentsMed RefillReasonComments Toenail ProblemPt is here today for Lt great toenail issue. She states it has been a little tender for possibly a few weeks.SS: 9.5ReasonCommentsFUVSdaysih Gideon Snell is a 65 y.o. female. Patient presents today for Lt great toenail FUV. Patient has been changing band aid and antibiotic SS: 9.5ReasonCommentsConsult INFORMATION SOURCE (unrecogn ized section and content) DATE CREATED AUTHOR 10/05/2019 [facility] DATE CREATED AUTHOR AUTHOR'S ORGANIZ ATION 12/09/2022 [facility] DATE CREATED AUTHOR AUTHOR'S ORGANIZ ATION 05/23/2025 [facility] DATE CREATED AUTHOR AUTHOR'S ORGANIZ ATION 06/25/2025 [facility] DATE CREATED AUTHOR AUTHOR'S ORGANIZ ATION 07/02/2025 [facility] Care Teams (unrecognized sec tion and content) Team MemberRelationshipSpecialtyStart DateEnd Date Saurabh Purcell MD [address] [place] [address] PCP - Roikhej64/1/23 Saurabh Purcell MD [address] [place] [address] PCP - [facility]Chi [facility] Medicine10/04/23Team MemberRelationshipSpecialtyStart DateEnd Date Saurabh Purcell MD [address] [place] [address] PCP - Nohoibi12/1/23 Saurabh Purcell MD [address] [place] [address] PCP - [facility] Medicine10/04/23Team MemberRelationshipSpecialtyStart DateEnd Date Saurabh Purcell MD [address] [place] [address] PCP - Npiexzq70/1/23 Saurabh Purcell MD [address] [place] [address] [facility]10/04/23Team MemberRelationshipSpecialtyStart DateEnd Date Saurabh Purcell MD [address] [place] [address] PCP - [facility]01/31/23 Saurabh Purcell MD [address] [place] [address] [facility] Medicine10/04/23 Lynne Durham LPN Licensed Practical NurseChi Health [facility] Valleyly Medicine05/14/24Team MemberRelationshipSpecialty Start DateEnd Date Saurabh Purcell MD [address] [place] [address] PCP - [facility]01/31/23 Saurabh Purcell MD [address] [place] [address] PCP - GeneralFamily Medicine10/04/23 Diana Salvador LPN Licensed Practical NurseFamily Medicine02/07/24Team MemberRelationshipSpecialty Start DateEnd Date Saurabh Purcell MD [address] [place] [address] PCP - [facility]01/31/23 Saurabh Purcell MD [address] [place] [address] PCP - GeneralChi [facility] Medicine10/04/23 Diana Salvador LPN Licensed Practical Nursemily Medicine02/07/24Team MemberRelationshipSpecialty Start DateEnd Date Saurabh Purcell MD [address] [place] [address] PCP - [facility]01/31/23 Saurabh Purcell MD [address] [place] [address] PCP - Generalmily Medicine10/04/23 Lynne Durham LPN Licensed Practical NurseFamily Medicine05/14/24Team MemberRelationshipSpecialty Start DateEnd Date Saurabh Purcell MD [address] [place] [address] PCP - [facility]01/31/23 Saurabh Purcell MD [address] [place] [address] PCP - GeneralFamily Medicine10/04/23 Clovis Bolanos MA [facility]07/07/24 Devon Gabriel, MS, RDN, LD, CHES [address] [place] [address] DietitianNutrition03/03/24Team MemberRelationshipSpecialtyStart DateEnd Date Saurabh Purcell MD [address] [place] [address] PCP - [facility]01/31/23 Saurabh Purcell MD [address] [place] [address] PCP - [facility] Medicine10/04/23 Clovis Bolanos MA [facility]07/07/24 Devon Gabriel, MS, RDN, LD, CHES [address] [place] [address] DietitianNutrition03/03/24Team MemberRelationshipSpecialtyStart DateEnd Date Saurabh Purcell MD [address] [place] [address] PCP - [facility]01/31/23 Saurabh Purcell MD [address] [place] [address] PCP - [facility] Medicine10/04/23 Clovis Bolanos MA [facility]07/07/24Team MemberRelationshipSpecialtyStart DateEnd Date Saurabh Purcell MD [address] [place] [address] PCP - [facility] Medicine10/04/23 Clovis Bolanos MA [facility]07/07/24Team MemberRelationshipSpecialtyStart DateEnd Date Saurabh Purcell MD [address] [place] [address] PCP - [facility]10/04/23 Clovis Bolanos [facility]07/07/24Team MemberRelationshipSpecialtyStart DateEnd Date Saurabh Purcell MD [address] [place] [address] PCP - [facility]10/04/23 Clovis Bolanos MA [facility]07/07/24Team MemberRelationshipSpecialtyStart DateEnd Date Saurabh Purcell MD [address] [place] [address] PCP - [facility]10/04/23 Saurabh Purcell MD [address] [place] [address] PCP - [place]12/01/24 Clovis Bolanos, [place] [address] [place] [address] [facility]07/07/24Team MemberRelationshipSpecialtyStart DateEnd Date Saurabh Purcell MD [address] [place] [address] PCP - [facility]10/04/23 Saurabh Purcell MD [address] [place] [address] PCP - Ricardo MCCABE12/01/24 Team Status: Active Member Role Status Dates Saurabh Purcell MD Primary Care Provider Active Team Status: Inactive Member Role Status Dates Saurabh Purcell MD Primary Care Provider Active S tart: May 06, 2025 End: May 06, 2025[facility] ROGELIO Purcellttending ProviderActiveStart: May 06, 2025 End: May 06, 2025Team MemberRelationshipSpecialtyStart DateEnd Date Saurabh Purcell MD [address] [place] [address] PCP - [facility]Robert [facility] Medicine10/04/23 Saurabh Purcell MD [address] [place] [address] PCP - [place]12/01/24Team MemberRelationshipSpecialtyStart DateEnd Date Saurabh Purcell MD [address] [place] [address] [facility]10/04/23 Saurabh Purcell MD [address] [place] [address] PCP - [place]12/01/24Team MemberRelationshipSpecialtyStart DateEnd Date Saurabh Purcell MD [address] [place] [address] [facility] - [facility]10/04/23 Saurabh Purcell MD [address] [place] [address] PCP - [place]12/01/24Team MemberRelationshipSpecialtyStart DateEnd Date Saurabh Purcell MD [address] [place] [address] [facility] - Man [facility]10/04/23 Saurabh Purcell MD [address] [place] [address] [facility]12/01/24Team MemberRelationshipSpecialtyStart DateEnd Date Saurabh Purcell MD [address] [place] [address] [facility]10/04/23 Saurabh Purcell MD [address] [place] [address] [facility] [place]12/01/24 Goals (unrecognized section and content) Goals may be documented in a n alternate section FOR RECORDS PERTAINING TO PATIENTS WHO ARE [...] BE BASED ON THE PRIMARY CLINICAL RECORDS. [facility] [employer] [facility]. provides no warranty or guarantee of the accuracy or completeness of information in this document.
--- NOTE | 2025-07-27 10:28 | ECG_ITS ---
[facility] Test Date: 2025-07-27 Pat Name: ANITA SNELL Department: Room: - Gender: Female Qa Architect: : [id number] Requested By: VIVEK PURCELL Order Number: [id number] Reading MD: RENETTA AU Measurements Intervals [place] Rate: 74 P: 56 DC: 180 QRS: 6 QRSD: 94 T: 61 QT: 361 QTc: 402 Interpretive Statements SINUS RHYTHM WITH SINUS ARRHYTHMIA No previous ECG available for comparison Electronically Signed On 07-27-2025 15:20:03 EST by RENETTA AU
[2025-07-27 11:05] LABS: Anion Gap 11.9; Blood Urea Nitrogen 11.0 mg/dL (7.0-18.0); Calcium 8.8 mg/dL (8.5-10.1); Carbon Dioxide 26.7 mmol/L (21.0-32.0); Chloride 102 mmol/L (98-107); Estimated GFR (African America >60 (>=60 mL/min/1.73m^2); Estimated GFR (Non-African Ame >60 (>=60 mL/min/1.73m^2); Glucose 121 mg/dL (74-106); Potassium 3.6 mmol/L (3.5-5.1); Sodium 137 mmol/L (136-145)
[2025-07-27 11:10] LABS: Hematocrit 30.3 % (36.0-48.0); Hemoglobin 9.4 g/dL (12.0-16.0); Immature Granulocytes Abs Auto 0.02 10^3/uL (0.00-0.03); Immature Granulocytes Pct Auto 0.2 % (0.0-0.5); Lymphocytes Absolute Auto 1.9 10^3/uL (1.2-3.8); Mean Corpuscular HGB Conc 31.0 g/dL (29.9-35.2); Mean Corpuscular Hemoglobin 25.5 pg (26.7-34.0); Mean Corpuscular Volume 82.3 fL (81.0-99.0); Platelet Count 301 10^3/uL (150-450); Red Blood Count 3.68 10^6/uL (4.20-5.40); White Blood Count 8.6 10^3/uL (4.0-11.0)
[2025-07-27 11:37] LABS: INR 1.06; Partial Thromboplastin Time 25.7 sec (22.3-36.2); Prothrombin Time 11.2 sec (9.0-11.6)
== END 2025-07-27 09:32 | disposition home or self-care (01) ==
PROVIDERS: Anesthesiology; PCP Family Medicine; Visit Provider Obstetrics & Gynecology
DX: Z01.810 Encounter for preprocedural cardiovascular examination (principal); Z01.812 Encounter for preprocedural laboratory examination; N88.8 Other specified noninflammatory disorders of cervix uteri
CPT/HCPCS: 36415; 80048; 85025; 85610; 85730; 93005

== ENCOUNTER 2025-07-28 06:05 | Day surgery (SDC) | payer MEDICARE, OTHER, SELFPAY ==
--- OUTSIDE RECORDS SUMMARY | 2025-07-18 09:02 | XMS_ITS | Encounter Summary ---
Author Organization [facility] tem Address [facility] [id number] [address] 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 Torres in a month. Has fibroids in her uterus. C/O abd cramping that will not recede. Denies any N/V/D. Encounter Details DateTypeDepartmentCare Team (Latest Contact Info)Bmsqyqxhypp74/16/2025 9:02 AM EST - 07/18/2025 11:36 AM [facility] - Emergency [address] [place] [id number] Star Calle MD [address] [place] [address] Dysphagia, unspecified type (Primary Dx); Anemia, unspecified type; Vaginal bleeding Discharge Disposition: Home Social History Tobacco UseTypesPacks/DayYears UsedDateSmoking Tobacco: NeverSmokeless Tobacco: NeverAlcohol UseStandard Drinks/WeekCommentsYes0 (1 standard drink = 0.6 oz pure alcohol)sociallyChildcareAnswerDate KsqekfcwIjiamjxhoYxyyime34/12/2019Employment AnswerDate SvvfmsjyBnpxmamgnpRmrasoa20/12/2019Hunger ScreeningAnswerDate RecordedWithin the past 12 months we worried whether our food would run out before we got money to buy more.Never True07/18/2025Within the past 12 months the food we bought just didn't last and we didn't have money to get more.Never True07/18/2025Purpose - LifeAnswerDate RecordedPurpose and direction in life Nomkyfj56/11/2021CommentsNoSex and Gender InformationValueDate Recorded Sex Assigned at BirthNot on fileLegal KpnIwmmcv23/06/2015 11:45 AM EDTGender IdentityNot on fileSexual OrientationNot on filedocumented as of this encounter Last Filed Vital Signs Vital SignReadingTime TakenCommentsBlood Xzwgripb075/7807/18/2025 9:08 AM EST Zykrf340807/18/2025 9:08 AM GFIQtliuvakazx31.9 ??C (98.4 ??F)07/18/2025 9:08 AM ESTRespiratory Nuha946409/17/2024 9:08 AM ESTOxygen Cakqxrsysh73%07/18/2025 9:08 AM ESTInhaled Oxygen Concentration--Dbjydd82.3 kg (199 lb)07/18/2025 9:08 AM EST Bahqzr318.1 cm (5' 5 )07/18/2025 9:08 AM ESTBody Mass Index33.12109/17/2024 9:08 AM ESTdocumented in this encounter Discharge Instructions * Attachments The following attachments cannot be sent through Care Everywhere. * Dysphagia (Czech) * Anemia overview (Czech) documented in this encounter Medications at Time of Discharge MedicationSigDispense QuantityRefillsLast FilledStart DateEnd Date albuterol (PROVENTIL HFA;VENTOLIN HFA) 90 mcg/actuation inhaler Inhale 2 puffs every 6 (six) hours as needed for wheezing. aspirin 81 mg Take 1 tablet (81 mg total) by mouth in the morning. B-complex with vitamin C tablet Take 1 tablet by mouth in the morning. calcium carb/D3/magnesium/zinc (calcium carb-D3-mag dui04-cwlb) [phone] zp-sblr-pa-mg tablet Take by mouth daily. cetirizine (ZyrTEC) 10 mg tablet Take 1 tablet (10 mg total) by mouth as needed. hydroCHLOROthiazide (HYDRODIURIL) 25 mg tablet Take 0.5 tablets (12.5 mg total) by mouth as needed. Only if blood pressure is elevated levothyroxine (SYNTHROID, LEVOTHROID) 50 MCG tablet Take 88 mcg by mouth daily. metoprolol succinate XL (TOPROL XL) 25 mg 24 hr tablet Take 1 tablet (25 mg total) by mouth every morning. TAKE 25 MG BY MOUTH IN THE YPSSWIS3005/05/2025 montelukast (SINGULAIR) 10 mg tablet Take 1 tablet (10 mg total) by mouth in the morning.06/17/2022 MULTIVITAMIN ORAL Take by mouth daily. pantoprazole (PROTONIX) 20 mg EC tablet Take 2 tablets (40 mg total) by mouth in the morning. 60 tablet 07/18/2025 CEPHalexin (KEFLEX) 500 mg capsule Take 1 capsule (500 mg total) by mouth 3 (three) times a day for 7 days. 21 capsule metroNIDAZOLE (FLAGYL) 500 mg tablet Take 1 tablet (500 mg total) by mouth in the morning and 1 tablet (500 mg total) before bedtime. Doall this for 7 days. 14 tablet documented as of this encounter ED Notes * Star Calle MD - 07/18/2025 9:39 AM EST Images from the original note were not included. [facility] Pt Name: Mira Santos Birthdate: 1960 Chief Complaint: Chief Complaint Patient presents with Vaginal Discharge Pt states has a scheduled D and C with Dr. Torres in a month. Has fibroids in her uterus. C/O abd cramping that will not recede. Denies any N/V/D. History of Present Illness: Presents for evaluation of gradual onset of dysphagia and indigestion over the past few weeks to months. States she is able to even if she eats she had significant indigestion and nausea. Denies any vomiting also reports she just feels fatigued and unwell. History provided by: Patient Past Medical History: Past Medical History: Diagnosis Date Allergic 07/01/2016 Started taking over the counter medicine Asthma 07/18/2016 Was sick with cold, work sent me to Emergency room. Chest pain Hypertension Hypothyroid PONV (postoperative nausea and vomiting) Seasonal allergies Sleep apnea C-PAP Varicella 05/17/1986 Child came home from school with chicken pox, all the siblings and I got chicken pox Visual impairment 04/16/1964 Used glasses since about [age] years old Past Surgical History: Past Surgical History: Procedure Laterality Date ADENOIDECTOMY When I was [age] years old my adenoids and tonsils were removed at the same time. SECTION x4 COLONOSCOPY 07/26/2012 Nothing was found with Colonoscopy COLONOSCOPY N/A 09/20/2022 Performed by Thanh Arriaga DO at [facility] HERNIA REPAIR TIBIA FRACTURE SURGERY Right TONSILLECTOMY TUBAL LIGATION Family History: Family History Problem Relation Age of Onset Clotting disorder Mother Always needed more platelets for surgery. Diabetes Mother When she was older she became diabetic Ovarian cancer Mother Not sure why she got this. Stroke Mother It was only a small one. Heart disease Father Problems with heart when older Breast cancer Neg Hx Social History: Social History Socioeconomic History Marital status: Tobacco Use Smoking status: Never Smokeless tobacco: Never Vaping Use Vaping status: Never Used Substance and Sexual Activity Alcohol use: Yes Comment: socially Drug use: No Sexual activity: Yes Partners: Male control/protection: Surgical Social Drivers of Health Financial Resource Strain: Low Risk (05/01/2025) Received from [facility] Overall Financial Resource Strain (CARDIA) Difficulty of Paying Living Expenses: Not hard at all Food Insecurity: No Food Insecurity (07/18/2025) Hunger Screening Food Insecurity - Worry: Never True Food Insecurity - Inability: Never True Transportation Needs: No Transportation Needs (05/01/2025) Received from [facility] PRAPARE - Transportation Lack of Transportation (Medical): No Lack of Transportation (Non-Medical): No Physical Activity: Sufficiently Active (05/01/2025) Received from [facility] Exercise Vital Sign On average, how many days per week do you engage in moderate to strenuous exercise (like a brisk walk)?: 5 days On average, how many minutes do you engage in exercise at this level?: 150+ min Recent Concern: Physical Activity - Insufficiently Active (03/29/2025) Received from [facility] Exercise Vital Sign Days of Exercise per Week: 3 days Minutes of Exercise per Session: 40 min Stress: No Stress Concern Present (05/01/2025) Received from [facility] [place] [facility] [employer] - Occupational Stress Questionnaire Feeling of Stress : Not at all Social Connections: Socially Integrated (05/01/2025) Received from [facility] Social Connection and Isolation Panel In a typical week, how many times do you talk on the phone with family, friends, or neighbors?: Twice a week How often do you get together with friends or relatives?: Once a week How often do you attend temple or synagogue services?: 1 to 4 times per year Do you belong to any clubs or organizations such as temple groups, unions, fraternal or athletic groups, or school groups?: Yes How often do you attend meetings of the clubs or organizations you belong to?: 1 to 4 times per year Are you , , , , never , or living with a partner?: Interpersonal Safety: Not At Risk (05/01/2025) Received from [facility] Humiliation, Afraid, Rape, and Kick questionnaire Within the last year, have you been afraid of your partner or ex-partner?: No Within the last year, have you been humiliated or emotionally abused in other ways by your partner or ex-partner?: No Within the last year, have you been kicked, hit, slapped, or otherwise physically hurt by your partner or ex-partner?: No Within the last year, have you been raped or forced to have any kind of sexual activity by your partner or ex-partner?: No Housing Instability: Low Risk (05/01/2025) Received from [facility] Housing Stability Vital Sign In the last 12 months, was there a time when you were not able to pay the mortgage or rent on time?: No In the past 12 months, how many times have you moved where you were living?: 0 At any time in the past 12 months, were you homeless or living in a alf (including now)?: No Review of Systems: Review of Systems Physical Exam: ED Triage Vitals [07/18/25 0908] Temp Heart Rate Resp BP SpO2 36.9 ??C (98.4 ??F) 73 16 163/78 95 % Temp Source Heart Rate Source Patient Position BP Location FiO2 (%) Oral Monitor Semi-fowlers Left arm -- Vitals: 07/18/25 0908 BP: 163/78 Temp: 36.9 ??C (98.4 ??F) TempSrc: Oral Pulse: 73 Resp: 16 SpO2: 95% Height: 165.1 cm (5' 5 ) Weight: 90.3 kg (199 lb) Physical Exam Vitals and nursing note reviewed. Constitutional: General: She is not in acute distress. Appearance: Normal appearance. She is not ill-appearing, toxic-appearing or diaphoretic. Eyes: Extraocular Movements: Extraocular movements intact. Pupils: Pupils are equal, round, and reactive to light. Cardiovascular: Rate and Rhythm: Normal rate and regular rhythm. Pulses: Normal pulses. Heart sounds: Normal heart sounds. No murmur heard. No friction rub. No gallop. Pulmonary: Effort: Pulmonary effort is normal. No respiratory distress. Breath sounds: Normal breath sounds. No stridor. No wheezing, rhonchi or rales. Chest: Chest wall: No tenderness. Abdominal: General: Abdomen is flat. There is no distension. Palpations: There is no mass. Tenderness: There is no abdominal tenderness. There is no guarding. Hernia: No hernia is present. Musculoskeletal: Cervical back: Normal range of motion and neck supple. Skin: General: Skin is warm. Capillary Refill: Capillary refill takes 2 to 3 seconds. Neurological: General: No focal deficit present. Mental Status: She is alert and oriented to person, place, and time. Procedure: Procedures Re-evaluation: Re-Evaluation Medical Decision Making My exam the patient looks good she is alert orient x3 pleasant cooperative interactive in no acute distress. She does not appear slightly pale to me. There is no abdominal tenderness or abnormalitiesof the heart and lungs. I am hoping this is just GERD however with her symptoms I am going to pursue workup to make sure there is no other acute process. I am going to do serology and imaging to ruleout masses tumors and other acute process that would warrant intervention today. Serology reveals slight anemia of with hemoglobin of 9.5 compared to her baseline. Renal panel lipase hepatic panel all within normal limits. My independent interpretation of the CT scan shows no acute process. The radiologist does state there was an abnormal appearance of the uterus. Based on the patient's history physical exam results of testing I do not see any signs of an acute life-threatening process at this time that would warrant admission today. I do think there is multiple thinks that she needs follow-up for him. 1. I think she is going to follow up with OBGYN for the abnormalities in the CT scan of the abdomen and pelvis 2. I think she has a follow up with GI for endoscopy.. The patient and family members are agreeable with the plan of care. Amount and/or Complexity of Data Reviewed Labs: ordered. Radiology: ordered. Risk Prescription drug management. ED Course: Clinical Impressions as of 07/18/25 1017 Dysphagia, unspecified type Anemia, unspecified type Vaginal bleeding . ED Disposition None . Please note that portions of this note were completed with a voice recognition program. Efforts were made to edit the dictations but occasionally words are mis-transcribed. Star Calle MD 07/18/25 0940 Star Calle MD 07/18/25 1013 Stra Calle MD 07/18/25 1133 Star Calle MD 07/18/25 1211 documented in this encounter Plan of Treatment DateTypeDepartmentCare Team (Latest Contact Info)Baesydumnlx71/10/2025 8:45 AM ESTHospital Encounter [facility] -Endoscopy [address] [place] [address] [place] [address] Rohini Palacios, DO [address] [place] [address] 08/11/2025 8:45 AM EST - 08/11/2025 9:15 AM ESTSurgery [facility] [address] [place] [address] [place] [address] Rohini Palacios, DO [address] [place] [address] ESOPHAGOGASTRODUODENOSCOPY DIAGNOSTIC [61396 (CPT??)]09/17/2025 3:00 PM EST Office Visit Judi Paige [facility] - Medical Oncology [address] [place] [address] Baljeet Clemente MD [address] [place] [address] 10/21/2025 10:00 AM ESTOffice Visit [facility] Department of [facility] [address] [place] [phone] Rohini Palacios, [address] [place] [address] NamePriorityAssociated DiagnosesDate/TimeESOPHAGOGASTRODUODENOSCOPY DIAGNOSTIC Dysphagia, unspecified type Gastroesophageal reflux disease, unspecified whether esophagitis present Anemia, unspecified type 08/11/2025 8:45 AM ESTdocumented as of this encounter Procedures Procedure NamePriorityDate/TimeAssociated DiagnosisCommentsCT ABDOMEN AND PELVIS W GXEZPVKN81/16/2025 9:53 AM EST EXTRA TUBES BLUE GLUWgyvbus93/16/2025 9:23 AM EST EXTRA LOIADBxrvujx26/16/2025 9:23 AM EST CBC WITH AUTO YAFZBTXBHLMAYNTO26/16/2025 9:23 AM EST CA 125Add-On07/18/2025 9:23 AM EST XFZPBPZJLB25/16/2025 9:23 AM EST LIVER YZVCRBCNN30/16/2025 9:23 AM EST BASIC METABOLIC NKFOTGADT80/16/2025 9:23 AM EST documented in this encounter Results * CT abdomen and pelvis with contrast (07/18/2025 9:53 AM EST)Anatomical Region LateralityModalityBody, Abdomen, Body CoveraN/AComputed TomographySpecimen (Source)Anatomical Location / LateralityCollection Method / VolumeCollection TimeReceived Time07/18/2025 9:53 AM EST Narrative 07/18/2025 10:00 AM EST HISTORY: Abdomen pain. Dysphagia COMPARISON: None TECHNIQUE: Routine CT abdomen and pelvis obtained after the uncomplicated intravenous administration of contrast material.Multiplanar reformats obtained from the axial data. Automated exposure control was utilized. CONTRAST: ??Omnipaque FINDINGS/IMPRESSION: Liver and gallbladder: Normal Spleen: Normal. Pancreas: Normal. Adrenal glands: Normal. Kidneys: No hydronephrosis. No acute renal process. Bowel: Right of midline ventral hernia is appreciated. This contains a portion of the transverse colon. No evidence of obstruction at this time. Aorta: Normal. Pelvis: Abnormal appearance to the cervix. Mottled masslike appearance is appreciated. There is also fluid distending the uterine cavity. This may be causing endocervical stenosis or obstruction. Follow-up with gynecology is requested. Urinary bladder is unremarkable Osseous structures: No acute findings. All CT scans at this facility use dose modulation, iterative reconstruction, and/or weight based dosing when appropriate to reduce radiation dose to as low as reasonably achievable. Finalized by Yue Hernadez MD on 07/18/2025 10:00 AM Procedure Note Yue Hernadez MD - 07/18/2025 HISTORY: Abdomen pain. Dysphagia COMPARISON: None TECHNIQUE: Routine CT abdomen and pelvis obtained after the uncomplicated intravenous administration of contrast material.Multiplanar reformatsobtained from the axial data. Automated exposure control was utilized. CONTRAST: Omnipaque FINDINGS/IMPRESSION: Liver and gallbladder: Normal Spleen: Normal. Pancreas: Normal. Adrenal glands: Normal. Kidneys: No hydronephrosis. No acute renal process. Bowel: Right of midline ventral hernia is appreciated. This contains aportion of the transverse colon. No evidence of obstruction at thistime. Aorta: Normal. Pelvis: Abnormal appearance to the cervix. Mottled masslike appearance is appreciated. There is also fluid distending the uterine cavity. This maybe causing endocervical stenosis or obstruction. Follow-up with gynecologyis requested. Urinary bladder is unremarkable Osseous structures: No acute findings. All CT scans at this facility use dose modulation, iterativereconstruction, and/or weight based dosing when appropriate to reduceradiation dose to as low as reasonably achievable. Finalized by Yue Hernadez MD on 07/18/2025 10:00 AM Authorizing ProviderResult TypeResult StatusStar GOFF CT ORDERABLES Final Result * (ABNORMAL) CA 125 (07/18/2025 9:23 AM EST)ComponentValueRef RangeTest Method Analysis TimePerformed AtPathologist SignatureCA 247881(H)<=35 U/mL07/18/2025 10:14 PM [facility]Comment: The method used for this test is ValenTx DXI chemiluminescent immunoassay. Values obtained by different assay methods cannot be used interchangeably. Specimen (Source)Anatomical Location / LateralityCollection Method / Volume Collection TimeReceived TimeBloodVenous blood / UnknownVenipuncture / Unknown 07/18/2025 9:23 AM EST07/18/2025 9:34 AM EST Narrative Authorizing ProviderResult TypeResult StatusStar ARGUETA BLOOD ORDERABLESFinal ResultPerforming OrganizationAddressCity/State/ZIP CodePhone Number [facility] [address] [place] [address], [place] [phone] * Light Blue Top (07/18/2025 9:23 AM EST)ComponentValueRef RangeTest Method Analysis TimePerformed AtPathologist SignatureExtra TubeAuto Resulted 07/18/2025 11:01 AM ESTPROMEDICA POMERADO HOSPITALpecimen (Source) Anatomical Location / LateralityCollection Method / VolumeCollection Time Received TimeBloodVenous blood / Euxhyfo3107/18/2025 9:23 AM EST07/18/2025 9:35 AM EST Narrative Authorizing ProviderResult TypeResult StatusStar ARGUETA BLOOD ORDERABLESFinal ResultPerforming OrganizationAddressCity/State/ZIP CodePhone Number [facility] [address] [place] [address], [place] * Lipase (07/18/2025 9:23 AM EST)ComponentValueRef RangeTest MethodAnalysis Time Performed AtPathologist BsrxqjhcsXLWYMR9105 - 40 U/L109/17/2024 9:57 AM EST [facility] mcduffie (Source)Anatomical Location / LateralityCollection Method / VolumeCollection TimeReceived TimeBloodVenous blood / UnknownVenipuncture / Sxuixnd9107/18/2025 9:23 AM EST07/18/2025 9:34 AM EST Narrative Authorizing ProviderResult TypeResult StatusPatricchantell Calle MDLAB BLOOD ORDERABLESFinal ResultPerforming OrganizationAddressCity/State/ZIP CodePhone Number [facility] [address] [place] [address], [place] * (ABNORMAL) Liver panel (07/18/2025 9:23 AM EST)ComponentValueRef RangeTest MethodAnalysis TimePerformed AtPathologist SignatureTOTAL PROTEIN7.06.0 - 8.0 g/dL07/18/2025 10:[address] [facility]ITALALBUMIN2.8(L)3.2 - 5.3 g/dL07/18/2025 10:[address] [facility] BILIRUBIN,TOTAL0.60.3 - 1.2 mg/dL07/18/2025 10:[address] [facility]ITALALKALINE RQOJPFZNZQW3485 - 130 U/L109/17/2024 10:03 AM EST [facility]ITALAST21<=41 U/L109/17/2024 10:03 AM EST [facility]ALT19<=31 U/L109/17/2024 10:03 AM EST [facility]OSPITALBILIRUBIN,DIRECT0.1<=0.4 mg/dL07/18/2025 10:03 AM [facility]ENTERpecimen (Source)Anatomical Location / LateralityCollection Method / VolumeCollection TimeReceived Time BloodVenous blood / UnknownVenipuncture / Cexfngn2807/18/2025 9:23 AM EST 07/18/2025 9:34 AM EST Narrative Authorizing ProviderResult TypeResult StatusPatricchantell Calle MDLAB BLOOD ORDERABLESFinal ResultPerforming OrganizationAddressCity/State/ZIP CodePhone Number [facility] [address] [place] [address], * (ABNORMAL) Basic Metabolic Panel (07/18/2025 9:23 AM EST)ComponentValueRef RangeTest MethodAnalysis TimePerformed AtPathologist AneaxvethJKHBPG037575 - 146 mmol/L109/17/2024 10:[address] [facility]OSPITALPOTASSIUM 3.73.5 - 5.0 mmol/L109/17/2024 10:[address] [facility] EQTHMNQF36031 - 109 mmol/L109/17/2024 10:[address] [facility]ITALCARBON KCGUUFV0739 - 32 mmol/L109/17/2024 10:[address] [facility]ITALANION CVP056 - 15 mmol/L109/17/2024 10:[address] [facility]OSPITALBLOOD UREA CRLJMNVO04 - 27 mg/dL07/18/2025 10:[address] [facility]ITALCREATININE0.660.40 - 1.00 mg/dL 07/18/2025 10:[address] [facility]OSPITALComment:METHOD TRACEABLE TO IDMS KYCVHEITGKBNDKM747(H)65 - 99 mg/dL07/18/2025 10:03 AM EST [facility]ITALCALCIUM8.88.5 - 10.5 mg/dL07/18/2025 10:[address] [facility] HOSPITALEGFR Non-Race Dependent>90>=60 ml/min/1.73sq.m109/17/2024 10:[address] [facility] Comment: eGFR not reported due to non-numeric value for Creatinine. Reported eGFR is based on the CKD-EPI 2020 equation that does not use a race coefficient. Specimen (Source)Anatomical Location / LateralityCollection Method / Volume Collection TimeReceived TimeBloodVenous blood / UnknownVenipuncture / Unknown 07/18/2025 9:23 AM EST07/18/2025 9:34 AM EST Narrative Authorizing ProviderResult TypeResult StatusPacherelle Calle MDLAB BLOOD ORDERABLESFinal ResultPerforming OrganizationAddressCity/State/ZIP CodePhone Number [facility] [address] [place] [address], * (ABNORMAL) CBC auto differential (07/18/2025 9:23 AM EST)ComponentValueRef RangeTest MethodAnalysis TimePerformed AtPathologist SignatureWBC8.44 - 11 X10^9/L109/17/2024 9:[address] [facility]OSPITALRBC Count3.66 (L)3.8 - 5.2 X10^12/L109/17/2024 9:[address] [facility] Hemoglobin9.7(L)11.7 - 15.5 g/dL07/18/2025 9:[address] [facility]PITALHematocrit29.2(L)35 - 47 %07/18/2025 9:42 AM ESTAULTMAN ALLIANCE COMMUNITY HOSPITALMCV8080 - 100 fL07/18/2025 9:[address] [facility]PITALMCH26.5(L)27 - 34 pg07/18/2025 9:42 AM ESTAULTMAN ALLIANCE COMMUNITY HOSPITALMCHC33.232 - 36 g/dL07/18/2025 9:[address] [facility]OSPITALRDW14.811.5 - 15 %07/18/2025 9:[address] [facility]PITALPlatelet Rckov291257 - 450 X10^9/L109/17/2024 9:42 AM ESTAULTMAN ALLIANCE COMMUNITY HOSPITALMPV7.37 - 12 fL07/18/2025 9:42 AM EST [facility]ITALNeutrophils %57.4%07/18/2025 9:42 AM EST [facility]ITALLymphocytes %29.9%07/18/2025 9:42 AM EST [facility]ITALMonocytes %11.0%07/18/2025 9:42 AM EST [facility]ITALEosinophils %1.4%07/18/2025 9:42 AM EST [facility]ITALBasophils %0.3%07/18/2025 9:42 AM EST [facility] HOSPITALNeutrophils Absolute (A)4.81.5 - 6.6 X10^9/L109/17/2024 9:[address] [facility]ITALLymphocytes Absolute2.51.0 - 3.5 X10^9/L109/17/2024 9:42 AM ESTAULTMAN ALLIANCE COMMUNITY HOSPITALMonocytes Absolute0.90.0 - 0.9 X10^9/L109/17/2024 9:[address] [facility]ITALEosinophils Absolute0.10.0 - 0.4 X10^9/L109/17/2024 9:[address] [facility]ITALBasophils Absolute0.00.0 - 0.2 X10^9/L109/17/2024 9:[address] [facility]PITALDifferential TypeAUTOMATED OXSPMSLOGDXI87/16/2025 9:42 AM [facility]ENTERpecimen (Source)Anatomical Location / LateralityCollection Method / VolumeCollection TimeReceived TimeBloodVenous blood / UnknownVenipuncture / Bnlmjru9907/18/2025 9:23 AM EST07/18/2025 9:34 AM EST Narrative Authorizing ProviderResult TypeResult StatusStar Calle MDLAB BLOOD ORDERABLESFinal ResultPerforming OrganizationAddressCity/State/ZIP CodePhone Number [facility] [address] [place] [address], documented in this encounter Visit Diagnoses Diagnosis Dysphagia, unspecified type- Primary Anemia, unspecified type Vaginal bleeding Other specified noninflammatory disorder of vagina documented in this encounter Administered Medications Medication OrderMAR ActionAction DateDoseRateSite famotidine (PF) (PEPCID) injection 40 mg 40 mg, intravenous, Once, On 07/18/25 at 0912, For 1 dose, Dilute to total volume of 5 mL with 0.9% sod chl and administer IVP over 2 minutes. Given07/18/2025 9:29 AM EST40 mg iohexoL (OMNIPAQUE) 300 mg iodine/mL 100 mL 100 mL, intravenous, Once in imaging, contrast, Starting on 07/18/25 at 0936, For 1 dose, VESICANT (RED) Given07/18/2025 9:45 AM DOY590 mL ondansetron (PF) (ZOFRAN) injection 4 mg 4 mg, intravenous, Once, On 07/18/25 at 0913, For 1 dose, Intravenous administration preferred to be given over 2-5 minutes. Given07/18/2025 9:27 AM EST4 mg sodium chloride 0.9 % flush 10 mL 10 mL, intravenous, As needed, line care, Starting on 07/18/25 at 0936 Given07/18/2025 9:45 AM EST10 mL sodium chloride 0.9 % flush 3 mL 3 mL, intravenous, As needed, line care, before and after each intermittent use, Starting on 07/18/25 at 0911 sodium chloride 0.9 % radiology injection 80 mL, intravenous, Once in imaging, pre/post contrast, Starting on 07/18/25 at 0936, For 1 dose Given07/18/2025 9:45 AM EST80 mLdocumented in this encounter Active and Recently Administered Medications Times are shown in EST.Medication Order// famotidine (PF) (PEPCID) injection 40 mg (COMPLETED) 40 mg, intravenous, Once, On 07/18/25 at 0912, For 1 dose, Dilute to total volume of 5 mL with 0.9% sod chl and administer IVP over 2 minutes. * 0929 (Given - Provider: Bentley Washington Jr., JOSE ANTONIO) ondansetron (PF) (ZOFRAN) injection 4 mg (COMPLETED) 4 mg, intravenous, Once, On 07/18/25 at 0913, For 1 dose, Intravenous administration preferred to be given over 2-5 minutes. * 0927 (Given - Provider: Bentley Washington Jr., JOSE ANTONIO) Medication Order// iohexoL (OMNIPAQUE) 300 mg iodine/mL 100 mL (COMPLETED) 100 mL, intravenous, Once in imaging, contrast, Starting on 07/18/25 at 0936, For 1 dose, VESICANT (RED) * 0945 (Given - Provider: SHARMAINE Major) sodium chloride 0.9 % flush 10 mL 10 mL, intravenous, As needed, line care, Starting on 07/18/25 at 0936 * 0945 (Given - Provider: SHARMAINE Major) sodium chloride 0.9 % flush 3 mL 3 mL, intravenous, As needed, line care, before and after each intermittent use, Starting on 07/18/25 at 0911 sodium chloride 0.9 % radiology injection (COMPLETED) 80 mL, intravenous, Once in imaging, pre/post contrast, Starting on 07/18/25 at 0936, For 1 dose * 0945 (Given - Provider: SHARMAINE Major) documented in this encounter Care Teams Team MemberRelationshipSpecialtyStart DateEnd Date Pcp, [place] [address] PCP - GeneralFamily Fscsucoh97/29/25documented as of this encounter
--- OUTSIDE RECORDS SUMMARY | 2025-07-20 09:30 | XMS_ITS | Encounter Summary ---
Author Organization [facility] tem Address [id number] [address] [place] [address] Care Team Providers Care Clinical Research Tech Name Role Phone Pcp, Not In System Primary Care Provider Unavail able Reason for Referral * Consultation (Routine) - Pending ReviewSpecialtyDiagnoses / ProceduresReferred By ContactReferred To ContactMedical Oncology / Hematology and Oncology Diagnoses Anemia, unspecified type Abhishek Palacios DO [address] [place] [address] Phone: tel: fax: [facility] Hematology Oncology, A Department of [address] [address] Phone: tel: fax: Referral IDStatusReasonStart DateExpiration DateVisits RequestedVisits [id number] Review Specialty Services Required * Gastroenterology (Routine) - Pending ReviewSpecialtyDiagnoses / Procedures Referred By ContactReferred To Contact Diagnoses Dysphagia, unspecified type Gastroesophageal reflux disease, unspecified whether esophagitis present Anemia, unspecified type Procedures EGD Abhishek Palacios, [address] [place] [address] Phone: tel: fax: Referral IDSNela DateExpiration DateVisits RequestedVisits [id number] Reason for Visit * ReasonCommentsGI ProblemPatient here for anemia / occasional dysphagia and states food gets stuck once a month. Denies all other GI symptoms. Encounter Details DateTypeDepartmentCare Team (Latest Contact Info)Bvsdueyvzjx94/18/2025 9:30 AM ESTOffice Visit [facility] of [facility] [address] [place] [address] MeganSarah BethPaul macdonaldika Eileen, DO [address] [place] [address] Dysphagia, unspecified type (Primary Dx); Gastroesophageal reflux disease, unspecified whether esophagitis present; Anemia, unspecified type Social History Tobacco UseTypesPacks/DayYears UsedDateSmoking Tobacco: NeverSmokeless Tobacco: NeverAlcohol UseStandard Drinks/WeekCommentsYes0 (1 standard drink = 0.6 oz pure alcohol)sociallyChildcareAnswerDate GfpguzqpHvogfyyjtUqcwyln84/12/2019Employment AnswerDate PidtzullNcilispakeXqjivqb42/12/2019Hunger ScreeningAnswerDate RecordedWithin the past 12 months we worried whether our food would run out before we got money to buy more.Never True07/18/2025Within the past 12 months the food we bought just didn't last and we didn't have money to get more.Never True07/18/2025Purpose - LifeAnswerDate RecordedPurpose and direction in life Duqtbvg38/11/2021CommentsNoSex and Gender InformationValueDate Recorded Sex Assigned at BirthNot on fileLegal RezGbeahl94/06/2015 11:45 AM EDTGender IdentityNot on fileSexual OrientationNot on filedocumented as of this encounter Last Filed Vital Signs Vital SignReadingTime TakenCommentsBlood Cxicijoa825/7707/20/2025 9:46 AM EST Pulse--Temperature--Respiratory Rate--Oxygen Saturation--Inhaled Oxygen Concentration--Dnwqnu63.3 kg (199 lb)07/20/2025 9:46 AM RLWTmzbgx313.1 cm (5' 5 )07/20/2025 9:46 AM ESTBody Mass Index33.12109/19/2024 9:46 AM ESTdocumented in this encounter Patient Instructions * Patient Instructions* Abhishek Palacios DO - 07/20/2025 9:30 AM EST Stop Protonix 40 mg until EGD (procedure) See hematology documented in this encounter Progress Notes * Abhishek Palacios DO - 07/20/2025 9:30 AM EST [facility] New Patient Visit - History & Physical Chief Complaint Patient presents with GI Problem Patient here for anemia / occasional dysphagia and states food gets stuck once a month. Denies all other GI symptoms. HISTORY OF PRESENT ILLNESS: Mira Santos is a 65 y.o. 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 who presents today for dysphagia. Patient states that she gets food stuck in her esophagus approximately once a month. She does endorse heartburn and reflux and she is currently on Protonix 40 mg daily from the ED. Patient was in theED on 07/18/2025 for gradual onset dysphagia and indigestion. She states the symptoms have been ongoing for the past few months. During the ED visit she had lab work which showed slight anemia of with hemoglobin of 9.5 compared to her baseline. Renal panel lipase hepatic panel all within normal limits. CT A/P showed Abnormal appearance to the cervix. Mottled masslike appearance is appreciated. There is also fluid distending the uterine cavity. This may be causing endocervical stenosis or obstruction. Follow-up with gynecology is requested. Urinary bladder is unremarkable. She is scheduled to have a D&C with gynecology. She report an increase in acid reflux months ago. She noted dysphagia a few years. Food got stuck one time when she was eating. She has modified her diet to avoid dysphagia. Spasm? She usually waits until the sensation resolved. She is also endorsing a poor appetite. Denies melena or hematochezia. Identifies trigger foods. She may have lost approx. 5 lbs due to poor appetite. Patient also presents with anemia. Hemoglobin is 9.7 which is a drop from 13.1 in 2022, MCV 80, WBCcount 8.4, platelets 364. Of note patient had a elevated CA 125 to 272. She is having significant vaginal bleeding. PREVIOUS GI WORK UP: Colonoscopy 09/2022: Diverticulosis in sigmoid colon, multiple non-bleeding colonic angioectasias. No intervention EGD: no prior IMAGING: CT abdomen and pelvis with contrast Result Date: 07/18/2025 HISTORY: Abdomen pain. Dysphagia COMPARISON: None TECHNIQUE: Routine CT abdomen and pelvis obtainedafter the uncomplicated intravenous administration of contrast material.Multiplanar [...] Yue Hernadez MD on 07/18/2025 10:00 AM Past Medical History: Past Medical History: Diagnosis [...] 09/20/2022 Performed by Thanh Arriaga DO at [facility] HERNIA REPAIR TIBIA FRACTURE SURGERY Right TONSILLECTOMY TUBAL LIGATION Current Medications: Current Outpatient Medications: albuterol (PROVENTIL HFA;VENTOLIN HFA) 90 mcg/actuation inhaler, Inhale 2 puffs every 6 (six) hoursas needed for wheezing., Disp: , Rfl: aspirin 81 mg, Take 1 tablet (81 mg total) by mouth in the morning., Disp: , Rfl: B-complex with vitamin C tablet, Take 1 tablet by mouth in the morning., Disp: , Rfl: calcium carb/D3/magnesium/zinc (calcium carb-D3-mag myy59-zqsk) [phone] ft-dltt-bh-mg tablet,Take by mouth daily., Disp: , Rfl: CEPHalexin (KEFLEX) 500 mg capsule, Take 1 capsule (500 mg total) by mouth 3 (three) times a day for 7 days., Disp: 21 capsule, Rfl: 0 cetirizine (ZyrTEC) 10 mg tablet, Take 1 tablet (10 mg total) by mouth as needed., Disp: , Rfl: levothyroxine (SYNTHROID, LEVOTHROID) 50 MCG tablet, Take 88 mcg by mouth daily., Disp: , Rfl: metoprolol succinate XL (TOPROL XL) 25 mg 24 hr tablet, Take 1 tablet (25 mg total) by mouth every morning. TAKE 25 MG BY MOUTH IN THE MORNING, Disp: , Rfl: metroNIDAZOLE (FLAGYL) 500 mg tablet, Take 1 tablet (500 mg total) by mouth in the morning and 1 tablet (500 mg total) before bedtime. Do all this for 7 days., Disp: 14 tablet, Rfl: 0 montelukast (SINGULAIR) 10 mg tablet, Take 1 tablet (10 mg total) by mouth in the morning., Disp: ,Rfl: MULTIVITAMIN ORAL, Take by mouth daily., Disp: , Rfl: pantoprazole (PROTONIX) 20 mg EC tablet, Take 2 tablets (40 mg total) by mouth in the morning., Disp: 60 tablet, Rfl: 0 hydroCHLOROthiazide (HYDRODIURIL) 25 mg tablet, Take 0.5 tablets (12.5 mg total) by mouth as needed. Only if blood pressure is elevated, Disp: , Rfl: I reviewed and reconciled this patient's medication list today. The list included in this note is the most up to date list that I can attest to at this time based on the information that the patient has provided me and the electronic medical record. ALLERGIES: Sulfa (sulfonamide antibiotics) SOCIAL HISTORY: Social History Tobacco Use Smoking status: Never Smokeless tobacco: Never Vaping Use Vaping status: Never Used Substance Use Topics Alcohol use: Yes Comment: socially Drug use: No FAMILY HISTORY: Family History Problem Relation Age of Onset Clotting disorder Mother Always needed more platelets for surgery. Diabetes Mother When she was older she became diabetic Ovarian cancer Mother Not sure why she got this. Stroke Mother It was only a small one. Heart disease Father Problems with heart when older Breast cancer Neg Hx ASSESSMENTS: REVIEW OF SYSTEMS: See HPI, otherwise ROS as below CONSTITUTIONAL: negative HEENT: negative RESPIRATORY: negative CARDIOVASCULAR: negative GASTROINTESTINAL: As in HPI GENITOURINARY: negative INTEGUMENT/BREAST: negative HEMATOLOGIC/LYMPHATIC: negative ALLERGIC/IMMUNOLOGIC: negative ENDOCRINE: negative MUSCULOSKELETAL: negative NEUROLOGICAL: negative BEHAVIOR/PSYCH: negative PHYSICAL EXAM: Vitals: 07/20/25 0946 BP: 162/77 Weight: 90.3 kg (199 lb) Height: 165.1 cm (5' 5 ) Body mass index is 33.12 kg/m??. CONSTITUTIONAL: awake, alert and no apparent distress EYES: pupils equal, round; conjunctiva pink and normal appearing ENT: oral pharynx with moist mucus membranes LUNGS: No increased work of breathing, good air exchange, clear to auscultation bilaterally, no crackles or wheezing CARDIOVASCULAR: regular rate and rhythm, normal S1 and S2, no murmur noted and no edema ABDOMEN: normal bowel sounds, soft, non-distended and non-tender SKIN: no bruising or bleeding, no rashes and no jaundice NEURO: no focal deficits, moves all 4 extremities spontaneously, ambulates from chair to the exam table without difficulty DATA: CBC: Lab Results Component Value Date WBC 8.4 07/18/2025 HGB 9.7 (L) 07/18/2025 HCT 29.2 (L) 07/18/2025 MCV 80 07/18/2025 RDW 14.8 07/18/2025 RDW 13.1 11/02/2022 PLT 364 07/18/2025 CMP: Lab Results Component Value Date K 3.7 07/18/2025 CL 104 07/18/2025 CL 106 11/02/2022 CO2 24 07/18/2025 BUN 9 07/18/2025 GLU 102 (H) 07/18/2025 GLU 96 12/31/2016 ASSESSMENT AND PLAN: Mira Santos is a 65 y.o. 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 who presents for dysphagia and anemia. Mira was seen today for gi problem. Diagnoses and all orders for this visit: Dysphagia, unspecified type - EGD; Future Gastroesophageal reflux disease, unspecified whether esophagitis present - EGD; Future Anemia, unspecified type - EGD; Future - [facility] [place], [place]; Future Patient presents with a history of heart burn and reflux that worsened over the past few months andis endorsing dysphagia that has also worsened as feels like a spasm Will plan for EGD for further evaluation (off PPI) If negative, will obtain a high resolution manometry In regards to the anemia, she has a history of colonoic AVMs on previous colonoscopy (no anemia at the time) She is having a lot of vaginal bleeding and believes this is causing her anemia I did recommend a colonoscopy as well, but she would like to hold off and focus on the vaginal bleeding Recommend referral to hematology for iron supplementation as needed Return in about 3 months (around 10/20/2025). Total time spent was 30 minutes: ABHISHEK PALACIOS DO [facility] Digestive [facility] [address] [place] [address] PH: [phone] documented in this encounter Plan of Treatment DateTypeDepartmentCare Team (Latest Contact Info)Pskcwszvpwy84/10/2025 8:45 AM ESTHospital Encounter [facility] -Endoscopy [address] [place] [address] [place] [address] Abhishek Palacios DO [address] [place] [address] 08/11/2025 8:45 AM EST - 08/11/2025 9:15 AM ESTSurgery [facility] [address] [place] [address] [place] [phone] Abhishek Palacios DO [address] [place] [address] ESOPHAGOGASTRODUODENOSCOPY DIAGNOSTIC [03711 (CPT??)]09/17/2025 3:00 PM EST Office Visit [facility] - Medical Oncology [address] [place] [phone] Baljeet Clemente MD [address] [place] [address] [address] [place] [address] 10/21/2025 10:00 AM ESTOffice Visit [facility] Department of [facility] [address] [place] [address] SophiaAbhishek Burleson, DO [address] [place] [address] NameTypePriorityAssociated DiagnosesOrder ScheduleEGDGIRoutine Dysphagia, unspecified type Gastroesophageal reflux disease, unspecified whether esophagitis present Anemia, unspecified type 1 Occurrences starting 07/20/2025 until 07/20/2026NamePriorityAssociated DiagnosesDate/TimeESOPHAGOGASTRODUODENOSCOPY DIAGNOSTIC Dysphagia, unspecified type Gastroesophageal reflux disease, unspecified whether esophagitis present Anemia, unspecified type 08/11/2025 8:45 AM ESTNameTypePriorityAssociated DiagnosesOrder Schedule [facility] [place], [place] Outpatient ReferralRoutine Anemia, unspecified type 1 Occurrences starting 07/20/2025 until 07/20/2026documented as of this encounter Visit Diagnoses Diagnosis Dysphagia, unspecified type- Primary Gastroesophageal reflux disease, unspecified whether esophagitis present Anemia, unspecified type documented in this encounter Care Teams Team MemberRelationshipSpecialtyStart DateEnd Date Pcp, [place] [address] PCP - GeneralFamily Uauftlso41/29/25documented as of this encounter
--- OUTSIDE RECORDS SUMMARY | 2025-07-26 13:20 | XMS_ITS | Encounter Summary ---
Author Organization [facility] Address [address] [place] [address] Care Team Providers Care Bright Cutter Name Role Phone Saurabh Cm MD Primary Care Provider [phone] Saurabh Cm MD Unavailable Reason for Visit * ReasonCommentsPre-op VisitFollow-up Encounter Details DateTypeDepartmentCare Team (Latest Contact Info)Mikasozchal61/24/2025 1:20 PM ESTConsult [facility] [address] [place] [phone] Huber Torres DO [address] Shea Alonzo, [facility]11 Pre-op examination; Cervical mass; Uterine mass Social History Tobacco UseTypesPacks/DayYears UsedDateSmoking Tobacco: NeverSmokeless Tobacco: NeverAlcohol UseStandard Drinks/WeekCommentsYes0 (1 standard drink = 0.6 oz pure alcohol)Occasional, Caffeine intake: 1-2 cups per [id number] Health LiteracyAnswer Date RecordedHow often do you need to have someone help you when you read instructions, pamphlets, or other written material from your doctor or pharmacy? Never05/01/2025Humiliation, Afraid, Rape, and Kick questionnaireAnswerDate RecordedWithin the last year, have you been afraid of your partner or ex-partner?No05/01/2025Within the last year, have you been humiliated or emotionally abused in other ways by your partner or ex-partner?No05/01/2025 Within the last year, have you been kicked, hit, slapped, or otherwise physically hurt by your partner or ex-partner?No05/01/2025Within the last year, have you been raped or forced to have any kind of sexual activity by your part ner or ex-partner?No05/01/2025Social Connection and Isolation PanelAnswerDate RecordedIn a typical week, how many times do you talk on the phone with family, friends, or neighbors?Twice a week05/01/2025How often do you get together with friends or relatives?Once a week05/01/2025How often do you attend evangelical or anglican services?1 to 4 times per year05/01/2025Do you belong to any clubs or organizations such as evangelical groups, unions, fraternal or athletic groups, or school groups?Yes05/01/2025How often do you attend meetings of the clubs or organizations you belong to?1 to 4 times per year05/01/2025re you , , , , never , or living with a partner? 05/01/2025UDIT-CAnswerDate RecordedQ1: How often do you have a drink containing alcohol?Monthly or less05/01/2025Q2: How many drinks containing alcohol do you have on a typical day when you are drinking?1 or Q3: How often do you have six or more drinks on one occasion?Never05/01/2025Overall Financial Resource Strain (CARDIA)AnswerDate RecordedHow hard is it for you to pay for the very basics like food, housing, medical care, and heating?Not hard at all 05/01/2025PHQ-2AnswerDate RecordedPatient Health Questionnaire-2 Score1 09/03/2024[facility] [place] [facility] Occup[facility] Health - Occupational Stress QuestionnaireAnswerDate RecordedDo you feel stress - tense, restless, nervous, or anxious, or unable to sleep at night because yourmind is troubled all the time - these days?Not at all05/01/2025Exercise Vital SignAnswerDate RecordedOn average, how many days per week do you engage in moderate to strenuous exercise (like a brisk walk)?5 days05/01/2025On average, how many minutes do you engage in exercise at this level?150+ min05/01/2025Hunger Vital SignAnswerDate Recorded Within the past 12 months, you worried that your food would run out before you got the money to buymore.Never true05/01/2025Within the past 12 months, the food you bought just didn't last and you didn't have money to get more.Never true 05/01/2025PRAPARE - TransportationAnswerDate RecordedIn the past 12 months, has lack of transportation kept you from medical appointments or from getting medications?No05/01/2025In the past 12 months, has lack of transportation kept you from meetings, work, or from getting things needed for daily living?No 05/01/2025Housing Stability Vital SignAnswerDate RecordedIn the last 12 months, was there a time when you were not able to pay the mortgage or rent on time?No 09/27/2023In the last 12 months, how many places have you lived?In the last 12 months, was there a time when you did not have a steady place to sleep or slept in [facility] (including now)?No09/27/2023Housing Stability Vital SignAnswerDate RecordedIn the last 12 months, was there a time when you were not able to pay the mortgage or rent on time?No05/01/2025In the past 12 months, how many times have you moved where you were living?t any time in the past 12 months, were you homeless or living in a [facility] (including now)?No 05/01/2025CommentsUnknownSex and Gender InformationValueDate RecordedSex Assigned at BirthNot on fileLegal XfsAxvolx98/15/2023 7:34 PM EDTGender Identity Not on fileSexual OrientationNot on filedocumented as of this encounter Last Filed Vital Signs Vital SignReadingTime TakenCommentsBlood Pjiexexp155/7007/26/2025 1:47 PM EST Pulse--Temperature--Respiratory Rate--Oxygen Saturation--Inhaled Oxygen Concentration--Ehbkyf65 kg (194 lb)07/26/2025 1:47 PM ESTHeight--Body Mass Index 32.281 4:01 PM EDTdocumented in this encounter Plan of Treatment Not on file documented as of this encounter Visit Diagnoses Diagnosis Pre-op examination Cervical mass Other specified noninflammatory disorder of cervix Uterine mass Other specified symptom associated with female genital organs documented in this encounter Additional Health Concerns AssessmentNoted TimePHQ-9 Depression Total Score: 2:00 PM ESTA fall risk assessment has been completed for the oxdjlhi8002/14/2024 9:40 AM EDT documented as of this encounter Care Teams Team MemberRelationshipSpecialtyStart DateEnd Date Saurabh Cm MD [address] [place] [phone] [facility] - [facility]23 Saurabh Cm MD [address] [place] [address] PCP - Ricardo MCCABE12/01/24documented as of this encounter
[2025-07-27 10:22] VITALS: BP 160/81; PULSE 89; TEMP 36.5; O2SAT 20; BMI 32.5
--- OUTSIDE RECORDS SUMMARY | 2025-07-28 06:08 | XMS_ITS | CCD ---
Author Organization [facility] Care Team Providers Care Global Account Executive Name Role Phone Saurabh Purcell Primary Care [...] Unavailable FAWWAD, QUEZADA H Consulting Unavailable FAWWAD, QUEZAAD H Primary Care Unavailable FAWWAD, QUEZADA H [...] Care Provider Saurabh Purcell MD Unavailable Herminio EXECUTIVE VICE PRESIDENT OF SALES, Lynne Unavailable Unavailable Madeleine EXECUTIVE VICE PRESIDENT OF SALES, Ardana Unavailable Unavailable Clovis Bolanos MA Unavailable Unavailable Horn MS, RDN, LD, CHES, Devon Unavailable U navailable Clovis Bolanos MA Unavailable Saurabh Purcell MD Unavailable Saurabh Purcell MD Primary Care Provider [phone] Saurabh Purcell MD Attending Provider CHAS RICHARD [...] source)Sulfonamides (Antibiotic)Propensity to adverse reactions to drug 91-14-9754[employer] Work Phone: (20 sources)Sulfonamides (Antibiotic)Drug Ttpyuvu58-35-9755OnqizSelect [facility] Hospital (2 sources)Sulfonamides (Antibiotic); Translations: [SULFA (SULFONAMIDE ANTIBIOTICS)]Propensity to adverse reactions to drug (disorder)01-08-2017 [facility] Repository Medications Current Medications MedicationDrug Class(es)DatesSig (Normalized)Sig (Original)[id number] 200 actuat albuterol 0.09 mg/actuat metered dose inhaler (20 sources)beta2-Adrenergic AgonistStart: 48-07-8011wdam 1 puff(s) by inhalation every four to six hours as neededAlbuterol Sulfate 90 mcg/actuation HFA aerosol inhaler Active 2 PUFF INHALATION EVERY 4-6 HOURS as needed May 05, 2025 12:00am Complies with drug therapyStart: 09-23-2023 End: 63-78-7435ycqr 2 puff(s) by inhalation every four hours [...] sources)Platelet Aggregation Inhibitor, Nonsteroidal Anti-inflammatory Drug Start: 99-29-0905vthq 1 tablet by mouth once dailyAspirin 81 mg tablet Active 81 MG PO Daily May 05, 2025 12:00am Complies with drug therapytake 1 tablet by mouth once dailyaspirin 81 MG EC tablet Take 81 mg by mouth Daily Active atorvastatin 80 mg oral tablet (20 sources)HMG-CoA Reductase InhibitorStart: 13-95-0878kqix 1 tablet by mouth at bedtimeatorvastatin (Lipitor) 80 MG tablet Indications: Dyslipidemia TAKE 1 TABLET BY MOUTH AT BEDTIME 30 tablet 11/17/2024 ActiveStart: 00-52-3410pqlc 1 tablet by mouth at bedtimeatorvastatin (Lipitor) 80 MG tablet Indications: Dyslipidemia (CMS/HCC) Take 1 tablet (80 mg) by mouth at bedtime 100 tablet 3 02/21/2024 ActiveStart: 70-28-4863lkcrumdxadcz (Lipitor) 80 MG tabletcalcium carbonate 1250 mg [...] 0.05 mg oral capsule (20 sources)Vitamin DStart: 34-98-2658trvs 1 capsule by mouth once daily Cholecalciferol (Vitamin D3) 50 mcg (2,000 unit) capsule Active 50 MCG PO Daily May 052:00am Complies with drug therapyciprofloxacin 500 mg oral tablet (3 sources)Quinolone AntimicrobialStart: 09-03-2024 End: 57-21-3893fdcr 1 tablet by mouth in the morningciprofloxacin (Cipro) 500 MG tablet Indications: Acute UTI Take 1 tablet (500 mg) by mouth in the morning and 1 tablet (500 mg) before bedtime. Do all this for 7 days. 14 tablet 09/03/2024 5Activeestrogens, conjugated (custodial) 0.625 mg oral tablet (4 sources)EstrogenStart: 67-66-0098bseu 1 tablet by mouth in the morning estrogens, conjugated, (Premarin) 0.625 MG tablet Indications: Dyspareunia in female Take 1 tablet (0.625 mg) by mouth in the morning. 30 tablet 5 10/04/2023 ActiveStart: 73-97-9410fwxw 1 tablet by mouth in the morningestrogens, conjugated, (Premarin) 0.625 MG tablet Indications: Dyspareunia in female Take 1 tablet (0.625 mg) by mouth in the morning. 30 tablet 5 10/04/2023 Active End: 09-61-6224cbuk 1 tablet by mouth once daily in the morningestrogens, conjugated, (Premarin) 0.625 MG tablet Take 1 tablet by mouth in the morning. Take dailyfor 21 days then do not take for 7 days.. 0 10/04/2023 Discontinued (Reorder)fluticasone propionate 0.05 mg/actuat metered dose nasal spray (20 sources)CorticosteroidStart: 91-85-7053pflt 1 spray(s) nasal route once dailyFluticasone Propionate (Allergy Relief (Fluticasone)) 50 mcg/actuation spray,suspension Active 2 SPRAY INTRANASAL Daily May 05, 2025 12:00am administer into each nostril Complies with drug therapyStart: 16-27-9671omhr 100 ug by inhalation once dailyFluticasone Furoate (Arnuity Ellipta) 100 mcg/actuation blister with device Active 1 INH INHALATIONDaily May 05, 2025 12:00am Complies with drug therapyStart: 79-87-9116aoij 1 puff(s) by inhalation once dailyArnuity Ellipta 100 MCG/ACT inhaler Indications: 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 (HCC) INHALE 1 PUFF DAILY AND RINSE WITH WATER AFTER USE TO REDUCE AFTERTASTE AND INCIDENCE OFCANDIDASIS. DO NOT SWALLOW. 30 each 02/08/2025 ActiveStart: 72-03-6779irbw 2 spray(s) nasal route once dailyfluticasone (Flonase) 50 MCG/ACT nasal spray Indications: Seasonal allergic rhinitis due to pollen Administer 2 sprays into each nostril Daily 16 g 3 01/04/2025 ActiveStart: 92-18-4404gpkg 1 puff(s) by mouth once dailyfluticasone furoate (Arnuity Ellipta) 100 MCG/ACT inhaler Indications: 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 Inhale 1 puff Daily Rinse mouth with water after use to reduce aftertaste and incidence of candidiasis. Do not swallow. 1 each 5 07/06/2024 ActiveStart: 10-07-2023 End: 86-61-8006rzxc 1 puff(s) by mouth in the morningfluticasone [...] not swallow.. 10.6 g 5 10/04/2023 ActiveStart: 39-21-6146bvvs 2 puff(s) by inhalation in the morningfluticasone (Flovent) 44 MCG/ACT inhaler Indications: 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 (CMS/HCC) Inhale 2 puffs in the morning and 2 puffs before bedtime. Rinse mouth with water after use to reduce aftertaste and incidence of candidiasis. Do not swallow.. 10.6 g 5 10/04/2023 ActiveStart: 36-94-7237vwyy 2 spray(s) nasal route in the morning fluticasone (Flonase) 50 MCG/ACT nasal spray Administer 2 sprays into each nostril in the morning. 12/01/2022 Activelevothyroxine sodium 0.088 mg oral tablet (20 sources)l-ThyroxineStart: 98-05-4132svbv 1 tablet by mouth once daily levothyroxine (Synthroid, Levoxyl) 88 MCG tablet Indications: Acquired hypothyroidism Take 1 tabletby mouth once daily 30 tablet 12/07/2024 Active Start: 21-13-7435utkq 1 tablet by mouth once dailylevothyroxine (Synthroid, Levoxyl) 88 MCG tablet Indications: Acquired hypothyroidism (CMS/HCC) Take 1 tablet by mouth once daily 30 tablet 07/16/2024 ActiveStart: 35-70-0243jzxi 1 tablet by mouth once dailylevothyroxine (Synthroid, Levoxyl) 88 MCG tablet Indications: Acquired hypothyroidism (CMS/HCC) Take 1 tablet by mouth once daily 30 tablet 06/08/2024 ActiveStart: 83-94-0221amnc 1 tablet by mouth once daily levothyroxine (Synthroid, Levoxyl) 88 MCG tablet Indications: Acquired hypothyroidism (CMS/HCC) Take 1 tablet by mouth once daily 30 tablet 05/11/2024 Activetake 1 tablet by mouth in the morninglevothyroxine (Synthroid, Levoxyl) 88 MCG tablet Take 88 mcg by mouth in the morning. Activemagnesium oxide 400 mg oral tablet (20 sources)Start: 30-30-3267faqk 1 tablet by mouth once dailyMagnesium Oxide 400 mg (241.3 mg magnesium) tablet Active 400 MG PO Daily May 05, 2025 12:00am Complies with drug therapymelatonin 3 mg oral tablet (1 source)take 1 tablet by mouth once dailymelatonin 3 MG TABS tablet Take 3 mg by mouth daily 0 ActivemethylPREDNISolone (2 sources)CorticosteroidStart: 06-25-2023 End: 18-83-1392wvdavkTHEHLPOlkzkv (Medrol Dospak) 4 MG tablets Indications: Plantar fasciitis , Posterior tibial tendinitis of right lower extremity Take as directed on package. 21 tablet 0 06/25/2023 10/04/2023 DiscontinuedStart: 47-28-9318ovbqutDFMVWUJvxfts (Medrol Dospak) 4 MG tablets Indications: Plantar fasciitis , Posterior tibial tendinitis of right lower extremity Take as directed on package. 21 tablet 0 06/25/2023 Ejezhe13 hr metoprolol succinate 25 mg extended release oral tablet (20 sources)beta-Adrenergic BlockerStart: 44-72-1145hxdl 1 tablet by mouth once dailyMetoprolol Succinate [...] tablet (20 sources)Leukotriene Receptor AntagonistStart: 03-11-2025 End: 75-67-3927xpqp 1 tablet by mouth at bedtimemontelukast (Singulair) 10 MG tablet Indications: Seasonal allergic rhinitis due to pollen TAKE 1 TABLET BY MOUTH AT BEDTIME 30 tablet 5 04/28/2025 ActiveStart: 26-72-5879pyze 1 tablet by mouth at bedtimemontelukast (Singulair) 10 MG tablet Indications: Seasonal allergic rhinitis due to pollen TAKE 1 TABLET BY MOUTH AT BEDTIME 30 tablet 12/07/2024 ActiveStart: 53-40-8910gzkz 1 tablet by mouth at bedtimemontelukast (Singulair) 10 MG tablet Indications: Seasonal allergic rhinitis due to pollen TAKE 1 TABLET BY MOUTH AT BEDTIME 30 tablet 09/03/2024 ActiveStart: 02-17-2024 take 1 tablet by mouth at bedtimemontelukast (Singulair) 10 MG tablet Indications: Seasonal allergic rhinitis due to pollen Take 1 tablet (10 mg) by mouth at bedtime 30 tablet 5 02/17/2024 ActiveStart: 10-55-9602gkpb 1 tablet by mouth at bedtimemontelukast (Singulair) 10 MG tablet Take 10 mg by mouth at bedtime. 0 06/13/2023 Active Completed/Discontinued Medications MedicationDrug Class(es)DatesSig (Normalized)Sig (Original)fluconazole 150 mg oral tablet (2 sources)Azole AntifungalStart: 06-23-2025 End: 08-91-5371pzdo 1 tablet by mouth oncefluconazole (Diflucan) 150 MG tablet Indications: Yeast infection Take 1 tablet (150 mg) by mouth 1(one) time for 1 dose 1 tablet 06/23/2025 06/23/2025 Problems Active Problems Problem ClassificationProblemDateDocumented DateEpisodic/ChronicAbdominal pain (1 source)Epigastric pain; Translations: [Epigastric pain]Onset: 06-30-2025 EpisodicAsthma (20 sources)Uncomplicated non-allergic asthma; Translations: [Mild intermittent asthma, uncomplicated]Onset: 990451-05-9298UozyyjyCwjxblm ulcer of skin (4 sources)Non-pressure chronic ulcer of other part of left foot limited to breakdown of skin; Translations: [Ulcer of other part of foot]71-00-3865Jmbimmo Coronary atherosclerosis and other heart disease (20 sources)Coronary arteriosclerosis; Translations: [Atherosclerotic heart disease of [place] coronary artery without angina pectoris]Onset: 09-09-2023 67-64-3472VeyzvbuNoproupdc of lipid metabolism (20 sources)Mixed hyperlipidemia; Translations: [Dyslipidemia]Onset: 02-22-2022 Resolved: 911453-92-6926JmzrcyhJoferrlekuhzlv and diverticulitis (20 sources)Diverticulosis of colon; Translations: [Diverticulosis of large intestine without perforation or abscess without bleeding]Onset: 10-04-2023 43-69-3147WxakkjsVdvwhekze hypertension (20 sources)Hypertensive disorder; Translations: [Essential (primary) hypertension]Onset: 05-68-1900JnfecetCqbgvwogaw disorders (20 sources)Postmenopausal bleeding; Translations: [Postmenopausal bleeding] Onset: 185598-52-0040DpqoaipSounwrv (6 sources)Onychomycosis; Translations: [Tinea unguium]55-29-5417Vxupiexq Neoplasms of unspecified nature or uncertain behavior (2 sources)Neoplasm of uterus; Translations: [Neoplasm of unspecified behavior of other genitourinary organ]68-54-3713UggesbdnHirnfkllinv deficiencies (20 sources)Vitamin D deficiency, unspecified; Translations: [Vitamin D deficiency]Onset: 978309-74-5276RyqyywqEdjptnuvbnm deficiencies (1 source)Vitamin A deficiency; Translations: [Vitamin A deficiency, unspecified]51-47-9960FjwswbopIphug connective tissue disease (2 sources)Pain in both feet; Translations: [Pain in right foot]06-01-2025 EpisodicOther nutritional; endocrine; and metabolic disorders (1 source)Body mass index 30+ - obesity; Translations: [Obesity, unspecified] 21-85-1952WrmhmffChyef skin disorders (4 sources)Dystrophia unguium; Translations: [Nail dystrophy]66-32-1394Ofloexzg Other upper respiratory disease (20 sources)Allergic rhinitis due to pollen; Translations: [Allergic rhinitis due to pollen]Onset: 801063-43-6097QtkowjgMjcyxgdo codes; unclassified (4 sources)Obstructive sleep apnea (adult) (pediatric); Translations: [OBSTRUCTIVE SLEEP APNEA]Onset: 54-39-0379IpmpptcXgfeuke disorders (20 sources)Hypothyroidism, unspecified; Translations: [Acquired hypothyroidism] Onset: 31-75-6626CtgwbkyYzxenvbuwttt (4 sources)CONTACT W/AND (SUSP) EXPOS COVID-19; Translations: [CONTACT W/AND (SUSP) EXPOS COVID-19]Onset: 02-19-2022 Past or Other Problems Problem ClassificationProblemDateDocumented DateEpisodic/ChronicAcute bronchitis (20 sources)Acute infective bronchitis; Translations: [Acute bronchitis due to other specified organisms]Onset: 01-23-2024 Resolved: 919071-10-4078SmdnchjcJuxfqahoxa disorders (20 sources)Gastroesophageal reflux disease; Translations: [Gastro-esophageal reflux disease without esophagitis]Onset: 10-04-2023 Resolved: 810007-73-5895SwoghifOgvrcrttlyptx symptoms and ill-defined conditions (19 sources)Blood in urine; Translations: [Hematuria, unspecified]Onset: 239803-13-0541UmsqxjigCsdf disorders (20 sources)Mood disordersOnset: Other aftercare (1 source)Other snf (current) drug therapy; Translations: [OTH SHELTER CURRENT DRUG THERAPY]Onset: 07-77-7463OewxahglAktre aftercare (7 sources)Patient encounter status; Translations: [Other snf (current) drug therapy]Onset: 84-06-624803079513-52-9305MyunpbhlNpmpw aftercare (20 sources)Long-term current use of drug therapy; Translations: [Other snf (current) drug therapy]Onset: 899436-46-2046KfywmyqsGcsoc connective tissue disease (2 sources)Pain in right foot; Translations: [Pain in right foot]04-21-2024 EpisodicOther female genital disorders (20 sources)Pain in female genitalia on intercourse; Translations: [Unspecified dyspareunia]Onset: 10-04-2023 Resolved: 625524-02-1728NmcmrzbUafxt non-traumatic joint disorders (20 sources)Pain in right knee; Translations: [Pain in joint, lower leg]Onset: 10-04-2023 Resolved: 930057-49-0887JibpvjskFuqad screening for suspected conditions (not mental disorders or infectious disease) (20 sources)Abnormal result of other cardiovascular function study; Translations: [Thyroid hormone tests abnormal]Onset: 11-29-2022 Resolved: 86-37-1949QfimcdmoDcnkdfot codes; unclassified (20 sources)Obstructive sleep apnea syndrome; Translations: [Obstructive sleep apnea (adult) (pediatric)]Onset: 10-04-2023 Resolved: 389524-60-7910AocdlamWckcgypyrem injury; contusion (2 sources)Contusion of toe(s) with damage to nail; Translations: [Contusion of right lesser toe(s) with damage to nail, initial encounter]15-21-8619Rwavocoz Unclassified (1 source)CONTACT W/AND (SUSP) EXPOS COVID-19; Translations: [CONTACT W/AND (SUSP) EXPOS COVID-19]Onset: 99-97-0383Vfvbqsraffna (20 sources)Onset: 210942-95-7514Mephmph tract infections (20 sources)Acute urinary tract infection; Translations: [Urinary tract infection, site not specified]Onset: 09-03-2024 Resolved: 496210-73-2825Juskragj Results Test NameValueInterpretationReference RangeFacilityH PYLORI BREATH ADULTon 60-19-9913CGFUKIDSOQFY PYLORI, C UREA BREATH TESTNegativeNormalNegativeProCovenant Medical CenterComment on above:Result Comment: Result indicates the absence of current Helicobacter pylori infection. Test Performed by: [facility] [address] [place] [address] Hospital Monitor: Heather Morataya Ph.D.; CLIA# [id number] By: #### UBT #### [facility] ([facility] [address] [place] [address] YPK60at 48-15-246885Zmpbpbedi lab results from 04/20/2025: MD Mira Gustafson MA Lipids and AST ALT are very good. Continue current medications. Recheck in 6 months. Tried to contact patient. No VM.NormalEast Liverpool City HospitalALL LIPID PROFILE (FASTING)on 61-73-4178PNRA HDL RATIO2.4NOMS HealthcareComment on above:3.3 - 4.4 [...] [Mass/Vol]83 mg/dLNINF - 150 mg/dLNOMS HealthcareCCF Rufino 35-85-6619KZZ [Catalytic activity/Vol]27 U/L14 - 59 U/LNOMS HealthcareCCF Val 41-31-0189OST [Catalytic activity/Vol]22 U/L15 - 37 U/LNOMS HealthcareNo Panel Informationon 15-77-2965VPMTCPZUOMDTW HealthcareOffice Visiton 22-39-0527Spejbq-up [id number] Mira Snell 1960 F Date Provider Department Center 04/08/2025 87903-KNUZEHCHAS RICHARD [facility] Family History Problem Relation Age of Onset Stroke Mother 70 Diabetes Mother Atrial fibrillation Father 70 Other Father Hypertension Father Other Brother 59 Diabetes Brother Family Status - Relation Status Age at Mother Father Brother Level of Service:36308 [place] OFFICE/OUTPATIENT ESTABLISHED MOD MDM 30 MIN Reason for Visit and Comments: Hypertension [630394] Hyperlipidemia [182] 6 month follow up [Other] Coronary Artery Disease [187] Sleep Apnea [348] GERD [369561][facility] HospitalUS PELVIS W/ TRANSVAGINAL on 61-12[place] [address] Ultrasound Report Signed Patient: MIRA SNELL MR#: [id number] : 1960 Acct:[id number] Age/Sex: 64 / F ADM Date: 01/19/25 Loc: US Attending Dr: Saurabh Purcell M.D. Ordering Physician: Saurabh Purcell M.D. Date of Service: 01/19/25 Procedure(s): US pelvis w/ transvaginal Accession Number(s): [id number] cc: Saurabh Purcell M.D. [address] [address] Patient Name: MIRA SNELL MRN: [id number] date: 1960 Sex: F Assigned Patient Location: US Current Patient Location: US Accession/Order Number: [id number] Exam Date: 01/19/2025 09:52 Report Date: 01/19/2025 [...] Floyd M.D. 01/19/2025 9:56 AM Dictation Location: [place] [address] Electronically authenticated by: [id number] Y Date: 01/19/2025 09:56 Dictated By: Aayush Floyd M.D. Signed By: 01/19/25 0959 DD/ 0956 TD/TT: Library Information Technician:TBHRadiology, Radiologist, - 01/19/2025 [place] [address] Ultrasound Report Signed Patient: MIRA SNELL MR#: [id number] : 1960 Acct:[id number] Age/Sex: 64 / F ADM Date: 01/19/25 Loc: US Attending Dr: Saurabh Purcell M.D. Ordering Physician: Saurabh Purcell M.D. Date of Service: 01/19/25 Procedure(s): US pelvis w/ transvaginal Accession Number(s): [id number] cc: Saurabh Purcell M.D. The [address] [address] Patient Name: MIRA SNELL MRN: [id number] date: 1960 Sex: F Assigned Patient Location: Current Patient Location: Accession/Order Number: [id number] Exam Date: 01/19/2025 09:52 Report Date: 01/19/2025 [...] Floyd M.D. 01/19/2025 9:56 AM Dictation Location: [place] [address] Electronically authenticated by: [id number] Y Date: 01/19/2025 09:56 Dictated By: Aayush Floyd M.D. Signed By: 01/19/2559 DD/ 5 TD/TT: Library Information Technician: FREEDOM HealthcareRadiology Study observation (narrative)NOMVenu HealthcareUS PELVIS W/ TRANSVAGINALOrdered By: Radiologist Radiology on 41-20-0996EJSB [employer] Work Phone: US RENAL BIon 19-09-[address] [address] Ultrasound Report Signed Patient: MIRA SNELL MR#: [id number] : 1960 Acct:[id number] Age/Sex: 64 / F ADM Date: 01/19/25 Loc: US Attending Dr: Saurabh Purcell M.D. Ordering Physician: Saurabh Purcell M.D. Date of Service: 01/19/25 Procedure(s): US renal BI Accession Number(s): [id number] cc: Saurabh Purcell M.D. [place] [id number] Patient Name: MIRA SNELL MRN: [id number] date: 1960 Sex: F Assigned Patient Location: Current Patient Location: Accession/Order Number: [id number] Exam Date: 01/19/2025 09:28 Report Date: 01/19/2025 [...] Floyd M.D. 01/19/2025 9:31 AM Dictation Location: [place] [address] Electronically authenticated by: [id number] Y Date: 01/19/2025 09:31 Dictated By: Aayush Floyd M.D. Signed By: 01/19/25 0933 DD/ 0 TD/TT: Library Information Technician:FÉLIXadiology, Radiologist, - 01/19/2025 The [place] [address] Ultrasound Report Signed Patient: MIRA SNELL MR#: [id number] : 1960 Acct:[id number] Age/Sex: 64 / F ADM Date: 01/19/25 Loc: US Attending Dr: Saurabh Purcell M.D. Ordering Physician: Saurabh Purcell M.D. Date of Service: 01/19/25 Procedure(s): US renal BI Accession Number(s): [id number] cc: Saurabh Purcell M.D. The [place] [address] Patient Name: MIRA SNELL MRN: [id number] date: 1960 Sex: F Assigned Patient Location: US Current Patient Location: US Accession/Order Number: [id number] Exam Date: 01/19/2025 09:28 Report Date: 01/19/2025 [...] Floyd M.D. 01/19/2025 9:31 AM Dictation Location: [place] [address] Electronically authenticated by: [id number] Y Date: 01/19/2025 09:31 Dictated By: Aayush Floyd M.D. Signed By: 01/19/25932 DD/ 0 TD/TT: Library Information Technician: FREEDOM HealthcareRadiology Study observation (narrative)FREEDOM HealthcareUS RENAL BI Ordered By: Radiologist Radiology on 04-52-5698RLKW Healthcare Work Phone: Office Visiton [phone]-up [id number] Mira Snell 1960 F Date Provider Department Center 10/20/2024 3848-ANJEL BARCENAS CARD [facility] Family History Problem Relation Age of Onset Stroke Mother 70 Diabetes Mother Atrial fibrillation Father 70 Other Father Hypertension Father Other Brother 59 Diabetes Brother Family Status - Relation Status Age at Mother Father Brother Level of Service:13358 [place] OFFICE/OUTPATIENT ESTABLISHED LOW MDM 20 [facility] GeneralURINALYSISon 36-27-6836Rcagcfxow Ql (U) NegativeNormalNEGProCovenant Medical CenterComment on above:Performed By: #### UA #### [facility] ([id number]) [address] [place] [address], [address] [place], [place] [address]SRURB/HGBNegativeNormalNEGUniversity Hospitals Conneaut Medical CenterComment on above:Performed By: #### UA #### [facility] ([id number]) [address] [place] [address], [address] [place], [place] [address]Eiklp (U)YELLOWNormalYELLOWProCovenant Medical CenterComment on above:Performed By: #### UA #### [facility] ([id number]) [address] [place] [address], [address] [place], [place] [address]Jdooxoz Ql (U)NegativeNormalNEGUniversity Hospitals Conneaut Medical CenterComment on above:Performed By: #### UA #### [facility] ([id number]) [address] [place] [address], [address] [place], [place] [address]Nuvnsei Ql (U)NegativeNormalNEGProCovenant Medical CenterComment on above:Performed By: #### UA #### [facility] ([id number]) [address] [place] [address], [address] [place], [place] [address]Nonvkkrhw esterase Test strip Ql (U)MODERATEAbnormalNEGProCovenant Medical CenterComment on above:Performed By: #### UA #### [facility] ([id number]) [address] [place] [address], [address] [place], [place] [address]YIXKHVRQQXMRCHkwocxmsXXWLRzdXevxbn Fremont HospitalComment on above:Performed By: #### UA #### [facility] ([id number]) [address] [place] [address], [address] [place], [place] [address]Xihntuh Ql (U)NegativeNormalNEGUniversity Hospitals Conneaut Medical CenterComment on above:Performed By: #### UA #### [facility] ([id number]) [address] [place] [address], [address] [place], [place] [address]mP (U)6.5 [pH]Normal5.0-8.5PRegency Hospital CompanyComment on above:Performed By: #### UA #### [facility] ([id number]) [address] [place] [address], [address] [place], [place] [address]Cmynjcm Ql (U)30 mg/dLAbnoalNEGUniversity Hospitals Conneaut Medical Center Comment on above:Performed By: #### UA #### [facility] ([id number]) [address] [place] [address], [address] [place], [place] [address]A.B.CELLS2 /hpfNormal0-5PRegency Hospital CompanyComment on above:Performed By: #### UA #### [facility] ([id number]) [address] [place] [address], [address] [place], [place] [address]Taldvvsw gravity (U) [Rel density]1.856Bkqtlf5.003-1.035 [facility] Medical CenterComment on above:Performed By: #### UA #### [facility] ([id number]) [address], [address] [place], [place] [address]HVIVJZEE EPITHELIUM1 /hpfNormal0-5PRegency Hospital Company Comment on above:Performed By: #### UA #### [facility] ([id number]) [address] [place], [place] [address]NTRQJCECCFIRUSFuvvtlSIFZDQpdNrzadv [facility]ont HospitalComment on above:Performed By: #### UA #### [facility] ([id number]) [address] [place], [place] [address]Vlhgrzrrqvpm (U) [Mass/Vol]mg/dLNormal<1.1PRegency Hospital CompanyComment on above:Performed By: #### UA #### [facility] ([id number]) [address] [facility], [address] [place], [place] [address]E.B.CELLS4 /hpfNormal0-5PRegency Hospital CompanyComment on above:Performed By: #### UA #### [facility] ([id number]) [address] [place], [place] [address]KNHBO CULTUREon [id number] identified Cx Nom (U)CULTURE RESULTS >100,000 ORGANISMS/ML NORMAL UROGENITAL FLORAKettering Health Comment on above:Performed By: #### 630-4 #### [facility] ([id number]) [address], [address] [place], [place] [address]Twfzotuzkz, manual onlyon [id number] Ql (U)Negative NegativeNOMS HealthcareColor (U)YELLOWYELLOWNOMS HealthcareEpithelial cells Auto (Urine sed) [#/Area]1NOMS HealthcareGlucose (U) [Mass/Vol]NegativeNegative mg/dLNOMS HealthcareHemoglobin Auto test strip Ql (U)NegativeNegativeNOMS HealthcareInterpretation and review of laboratory resultsAbnormalNONJ Healthcare Ketones (U) [Mass/Vol]NegativeNegative mg/dLNOGolden Valley Memorial HospitalLeukocyte esterase Auto test strip Ql (U)MODERATEAbnormalNegativeNONJ HealthcareMucus Ql (Urine sed)PRESENTAbnormalNONENOMS HealthcareNitrite Auto test strip Ql (U)Negative NegativeNONJ HealthcarepH (U)6.5 [pH]5.0 - 8.5NOMS HealthcareProtein (U) [Mass/Vol]30 mg/dLAbnormalNegativeNOGolden Valley Memorial HospitalRBC Auto (Urine sed) [#/Area]2 NOMS HealthcareSpecific gravity Refractometry automated (U) [Rel density]1.017 1.003 - 1.035NOMS HealthcareTurbidity Ql (U)CLEARCLEARNOGolden Valley Memorial Hospital Urobilinogen Qn (U)<1.1NINFNONJ HealthcareWBC Auto (Urine sed) [#/Area]4NONJ HealthcareComment on above:PERFORMED AT [facility] [address],[place], [place] [address]IHAS HealthcareALL CBC WITH AUTO DIFFon 09-03-2024 BASOPHILS ABSOLUTE VEAS2GAIA HealthcareBasophils/100 WBC (Bld)0.5 %0.2 - 2.0 % NOMS HealthcareEosinophils/100 WBC (Bld)2 %0.9 - 7.0 %NOMS [facility] LimaErythrocyte distribution width (RBC) [Ratio]12.5 %11.0 - 15.0 %NOMS HealthcareHematocrit (Bld) [Volume fraction]39 %36.0 - 48.0 %NOMS [facility] LimaHemoglobin (Bld) [Mass/Vol]13 g/dL12.0 - 16.0 g/dLNOGolden Valley Memorial HospitalIMMATURE GRANULOCYTES ABS AUTO 0.02NOMS HealthcareImmature granulocytes/100 WBC (Bld)0.3 %0.0 - 0.5 %NOMS HealthcareInterpretation and review of laboratory resultsAbnormalNOGolden Valley Memorial Hospital LYMPHOCYTES ABSOLUTE AUTO1.6NOMS [facility] LimaLymphocytes/100 WBC (Bld)25.7 %20.5 - 60.0 %NOMS [facility] LimaMCH (RBC) [Entitic mass]31 pg26.7 - 34.0 pgNOMS Healthcare MCHC (RBC) [Mass/Vol]33.3 g/dL29.9 - 35.2 g/dLNOGolden Valley Memorial HospitalMCV (RBC) [Entitic vol]93.1 fL81.0 - 99.0 fLNortheast Regional Medical CenterMONOCYTES ABSOLUTE AUTO0.5NONJ HealthcareMonocytes/100 WBC (Bld)8 %1.7 - 12.0 %[facility] CenterNEUTROPHILS ABSOLUTE AUTO4.1NOMS HealthcareNeutrophils/100 WBC (Bld)63.5 %43.0 - 75.0 %[facility] CenterPlatelet mean volume (Bld) [Entitic vol]9.9 fL9.5 - 13.5 fLNortheast Regional Medical CenterTBH EO #0.1NOMS HealthcareTBH [id number] [facility] Hospital LimaTBH RBC4.19LowNOMS [facility]cci Hospital LimaTBH WBC6.4NOMS HealthcareCLINISYNCNOMS HealthcareXR Foot - right 3 Viewson [id number] Result: AP, medial oblique, lateral views are weight-bearing. No fractures or dislocations. Multiple contracted digits. Enthesophyte at the insertion of the Achilles tendon and plantar fascia. Orthopedic implant noted in the tibia.[facility]okeRad[facility] Study observation (narrative) [facility] CenterALL CBC WITH AUTO DIFFon [id number] ABSOLUTE AUTO0.0NOMS HealthcareBasophils/100 WBC (Bld)0.5 %0.2 - 2.0 %[facility] CenterEosinophils/100 WBC (Bld)1.6 %0.9 - 7.0 %[facility] CenterErythrocyte distribution width (RBC) [Ratio]12.5 %11.0 - 15.0 %[facility] CenterHematocrit (Bld) [Volume fraction]40.7 %36.0 - 48.0 %[facility] CenterHemoglobin (Bld) [Mass/Vol]13.6 g/dL12.0 - 16.0 g/dLNortheast Regional Medical CenterIMMATURE GRANULOCYTES ABS AUTO0.01NOGolden Valley Memorial HospitalImmature granulocytes/100 WBC (Bld)0.2 %0.0 - 0.5 %[facility] CenterLYMPHOCYTES ABSOLUTE AUTO1.9NOMS HealthcareLymphocytes/100 WBC (Bld)30.9 %20.5 - 60.0 %[facility] HospitalH (RBC) [Entitic mass]30.6 pg26.7 - 34.0 pgNOMS HealthcareMCHC (RBC) [Mass/Vol]33.4 g/dL29.9 - 35.2 g/dLNOGolden Valley Memorial HospitalMCV (RBC) [Entitic vol]91.7 fL 81.0 - 99.0 fLNOMS HealthcareMONOCYTES ABSOLUTE AUTO0.6NOMS Healthcare Monocytes/100 WBC (Bld)8.9 %1.7 - 12.0 %NOMS HealthcareNEUTROPHILS ABSOLUTE AUTO 3.6NOMS HealthcareNeutrophils/100 WBC (Bld)57.9 %43.0 - 75.0 %[facility] Platelet mean volume (Bld) [Entitic vol]10.8 fL9.5 - 13.5 fLNOMS HealthcareTBH EO #0.1NOMS HealthcareTBH [id number] HealthcareTBH RBC4.44NOMS [facility]cci Hospital LimaTB WBC 6.2NOMS HealthcareCLINISYNCNOMS HealthcareCovid-19 PCR ([facility]WOR[facility])on 12-04-2022 SARS-CoV-2 (COVID-19) RNA LETICIA+probe Ql (Unsp spec)Not detectedNormalNOT DETECTED The [facility] HospitalComment on above:Result Comment: This test is not yet approved or cleared by the [place] FDA. When there are no FDA-approved or cleared tests available, and other criteria are met, FDA can make tests available under an emergency access mechanism called an Emergency Use Authorization (EUA). The EUA for this test is supported by the Dog Handler Or Trainer of Health and Human Service's (HHS's) declaration [...] consistent with SARS-CoV-2.Performed By: #### CVDTBH #### [facility] [address] [place] [address] Dr. Emilia DelongDEACONESS HEALTH SYSTEM AUTO DIFFon [id number] #0.0 103/ulNormal0.0-0.1The [facility] HospitalComment on above:Performed By: #### CBC #### [facility] [address] [place] [address] Dr. Emilia DelongBasophils/100 WBC (Bld)0.6 %Normal0.2-2.0The [facility] Comment on above:Performed By: #### CBC #### [facility] [address] [place] [address] Dr. Emilia Khan #0.1 103/ulNormal0.0-0.7The [facility] Memorial HospitalComment on above: Performed By: #### CBC #### [facility] [address] [place] [address] Dr. Emilia Espinalosinophils/100 WBC (Bld)1.6 %Normal0.9-7.0The [facility] Comment on above:Performed By: #### CBC #### [facility] [address] [place] [address] Dr. Emilia Espinalrythrocyte distribution width (RBC) [Ratio]12.2 %Jmujjt63.0-15.0 The [facility] HospitalComment on above:Performed By: #### CBC #### [facility] [address] [place] [address] Dr. Emilia DelongHematocrit (Bld) [Volume fraction]40.2 %Qzufsj34.0-48.0The [facility] HospitalComment on above:Performed By: #### CBC #### [facility] [address] [place] [address] Dr. Emilia DelongHemoglobin (Bld) [Mass/Vol]13.9 g/sKKlzxbk39.0-16.0The [facility] HospitalComment on above:Performed By: #### CBC #### [facility] [address] [place] [address] Dr. Emilia Viramontes #0.01 10e3/ulNormal0.00-0.03The [facility] Memorial HospitalComment on above:Performed By: #### CBC #### [facility] [address] [address] [address] Emilia Viramontes %0.2 %Normal0.0-0.5The [facility] HospitalComment on above: Performed By: #### CBC #### [facility] [address] [place] [address] Dr. Emilia Pacheco #1.9 103/ulNormal1.2-3.8The [facility] HospitalComment on above:Performed By: #### CBC #### [facility] [address] [place] [address] Dr. Emilia Sousahocytes/100 WBC (Bld)36.7 %Srcxlu87.5-60.0The [facility] HospitalComment on above:Performed By: #### CBC #### [facility] [address] [place] [address] Dr. Emilia SoUAL DIFF REQNONormalThe [facility] HospitalComment on above: Performed By: #### CBC #### [facility] [address] [place] [address] Dr. Emilia Wade (RBC) [Entitic mass]31.1 bwLbnwqg71.7-34.0The [facility] HospitalComment on above:Performed By: #### CBC #### [facility] [address] [place] [address] Dr. Emilia Wade (RBC) [Mass/Vol]34.6 g/jTUlgsnt11.9-35.2The [facility] HospitalComjohn d. [facility] [facility] on above:Performed By: #### CBC #### [facility] [address] [place] [address] Dr. Emilia Wade (RBC) [Entitic vol]89.9 lGYvywfq30.0-99.0The [facility] HospitalComment on above:Performed By: #### CBC #### [facility] [address] [place] [address] Dr. Emilia Chapa #0.4 103/ulNormal0.3-0.8The [facility] HospitalComment on above:Performed By: #### CBC #### [facility] [address] [address] [address] Emilia Fordocytes/100 WBC (Bld)7.7 %Normal1.7-12.0The [facility] Comment on above:Performed By: #### CBC #### [facility] [address] [place] [address] Dr. Emilia HaywardUT #2.7 103/ulNormal1.4-6.5The [facility] HospitalComment on above:Performed By: #### CBC #### [facility] [address] [place] [address] Dr. Emilia Haywardutrophils/100 WBC (Bld)53.2 %Tshpxo96.0-75.0The [facility] HospitalComment on above:Performed By: #### CBC #### [facility] [address] [place] [address] Dr. Emilia DelongPlatelet mean volume (Bld) [Entitic vol]10.4 fLNormal9.5-13.5The [facility] HospitalComment on above:Performed By: #### CBC #### [facility] [address] [place] [address] Dr. Emilia DelongPLT220 103/ppDyyznt094-162Xgl [facility] HospitalComment on above: Performed By: #### CBC #### [facility] [address] [place] [address] Dr. Emilia DelongRBC4.47 106/ulNormal4.20-5.40The [facility] HospitalComment on above:Performed By: #### CBC #### [facility] [address] [place] [address] Dr. Emilia DelongWBC5.1 103/ulNormal4.0-11.0The [facility] HospitalComment on above: Performed By: #### CBC #### [facility] [address] [place] [address] Dr. Emilia DelongGLYCOHEMOGLOBIN A1Con [id number] RECOMMENDATIONSEE BELOWNormal The [facility] HospitalComjohn d. [facility] [facility] on above:Result Comment: ADA RECOMMENDED LIMIT 4.0 - 6.0 ADA THERAPEUTIC TARGET < 7.0 ACTION SUGGESTED > 7.0Performed By: #### A1C #### [facility] [address] [address] [address] Emilia DelongGlucose [Mass/Vol]105 mg/dLFostoria City Hospital on above:Performed By: #### A1C #### [facility] [address] [place] [address] Dr. Emilia DelongHbA1c (Bld) [Mass fraction]5.3 %Normal4.5-6.2[facility] on above:Performed By: #### A1C #### [facility] [address] [place] [address] Dr. Emilia DelongLIPID PROFILEon [id number]-HDL RATIO NORMSOhioHealth Marion General Hospital on above:Result Comment: 3.3 - 4.4 LOW RISK 4.4 - 7.1 AVERAGE RISK 7.1 - 11.0 MODERATE RISK >11.0 HIGH RISKPerformed By: #### FT4, VITAD #### [facility] [address] [place] [address] Dr. Emilia DelongCholesterol [Mass/Vol]319 mg/dLCritically high<=200The [facility] on above:Performed By: #### FT4, VITAD #### [facility] [address] [place] [address] Dr. Emilia DelongCholesterol in HDL [Mass/Vol]65 mg/dLCritically nlhd41-94Ikh [facility] on above:Performed By: #### FT4, VITAD #### [facility] [address] [place] [address] Dr. Emilia DelongCholesterol in LDL [Mass/Vol]212.6 mg/dLFostoria City Hospital on above:Performed By: #### FT4, VITAD #### [facility] [address] [place] [address] Dr. Emilia Wesleyesterol.total/Cholesterol in HDL [Mass ratio]4.9 {ratio} NormalThe Cheri HospitalComment on above:Performed By: #### FT4, VITAD #### [facility] [address] [address] [address] Emilia Keita NORMAL> or = 60 mg/dl - LOW CARDIOVASCULAR RISK <40 mg/dl - HIGH CARDIOVASCULAR RISKWhite HospitalComment on above:Performed By: #### FT4, VITAD #### [facility] [address] [place] [address] Dr. Emilia DelongLDL CALC NORMALSEE BELOWWhite HospitalComment on above:Result Comment: <100 mg/dl OPTIMAL 100 - 129 mg/dl NEAR OR ABOVE OPTIMAL 130 - 159 mg/dl BORDERLINE HIGH 160 - 189 mg/dl HIGH >190 mg/dl VERY HIGH Performed By: #### FT4, VITAD #### [facility] [address] [place] [address] Dr. Emilia DelongTriglyceride [Mass/Vol]207 mg/dLCritically high<=150The [facility] HospitalComment on above:Performed By: #### FT4, VITAD #### [facility] [address] [place] [address] Dr. Emilia DelongVLDL CALC41.4 mg/dLNoLima City HospitalComment on above: Performed By: #### FT4, VITAD #### [facility] [address] [place] [address] Dr. Emilia DelongPROF 14(COMP METB)on 52-90-9034Ybfnbfc [Mass/Vol]4.0 g/dLNormal 3.4-5.0The [facility] HospitalComment on above:Performed By: #### FT4, VITAD #### [facility] [address] [place] [address] Dr. Emilia DelongAlbumin/Globulin [Mass ratio]1.3 {ratio}NormalThe [facility] on above:Performed By: #### FT4, VITAD #### [facility] [address] [place] [address] Dr. Emilia DonisP [Catalytic activity/Vol]81 U/GCunlyi10-857Den Cheri HospitalComment on above:Performed By: #### FT4, VITAD #### [facility] [address] [address] [address] Emilia Lerner [Catalytic activity/Vol]23 U/IIbgift98-93Sja [facility] HospitalComment on above:Performed By: #### FT4, VITAD #### [facility] [address] [address] [address] Emilia Blankenshipon gap [Moles/Vol]12.5 mmol/LNormalThe [facility] Comment on above:Performed By: #### FT4, VITAD #### [facility] [address] [place] [address] Dr. Emilia DelongAST [Catalytic activity/Vol]18 U/UEzrvbv77-86Pip [facility] HospitalComment on above:Performed By: #### FT4, VITAD #### [facility] [address] [place] [address] Dr. Emilia DelongBilirubin [Mass/Vol]0.4 mg/dLNormal0.2-1.0[facility] Comment on above:Performed By: #### FT4, VITAD #### [facility] [address] [place] [address] Dr. Emilia DelongCalcium [Mass/Vol]9.5 mg/dLNormal8.5-10.1[facility] Comment on above:Performed By: #### FT4, VITAD #### [facility] [address] [place] [address] Dr. Emilia DelongChloride [Moles/Vol]107 mmol/FZfhqif27-164Vee [facility] Comment on above:Performed By: #### FT4, VITAD #### [facility] [address] [place] [address] Dr. Emilia DelongCO2 [Moles/Vol]26.4 mmol/CLhjskd74.0-32.0The [facility] Comment on above:Performed By: #### FT4, VITAD #### [facility] [address] [place] [address] Dr. Emilia DelongCreatinine [Mass/Vol]0.73 mg/dLNormal0.55-1.02The [facility] HospitalComment on above:Performed By: #### FT4, VITAD #### [facility] [address] [place] [address] Dr. Emilia EspinalGFR-AF ROMANIAN>60Normal>=60The [facility] HospitalComment on above:Performed By: #### FT4, VITAD #### [facility] [address] [place] [address] Dr. Emilia EspinalGFR-NON AF ROMANIAN>60Normal>=60The [facility] HospitalComment on above:Performed By: #### FT4, VITAD #### [facility] [address] [place] [address] Dr. Emilia DelongGlobulin (S) [Mass/Vol]3.1 g/dLNormalThe [facility] HospitalComment on above:Performed By: #### FT4, VITAD #### [facility] [address] [place] [address] Dr. Emilia DelongGlucose [Mass/Vol]95 mg/eDOwwwfe45-481ImoUniversity [facility]als [facility] Comment on above:Performed By: #### FT4, VITAD #### [facility] [address] [place] [address] Dr. Emilia DelongPotassium [Moles/Vol]3.9 mmol/LNormal3.5-5.1[facility] Comment on above:Performed By: #### FT4, VITAD #### [facility] [address] [place] [address] Dr. Emilia DelongProtein [Mass/Vol]7.1 g/dLNormal6.4-8.2[facility] Comment on above:Performed By: #### FT4, VITAD #### [facility] [address] [place] [address] Dr. Emilia DelongSodium [Moles/Vol]142 mmol/VGxitpk541-096RvhUniversity Hospitals Ahuja [facility] Comment on above:Performed By: #### FT4, VITAD #### [facility] [address] [place], [place] [id number] Dr. Emilia Aguirre nitrogen [Mass/Vol]11.0 mg/dLNormal7.0-18.0The [facility] HospitalComment on above:Performed By: #### FT4, VITAD #### [facility] [address] [place] [address] Dr. Emilia DelongUrea nitrogen/Creatinine [Mass ratio]15.1 mg/mgNormalThe [facility] HospitalComment on above:Performed By: #### FT4, VITAD #### [facility] [address] [place] [address] Dr. Emilia LittlejohnHokristi 30-52-8736GTH7.903 uIU/mLNormal0.358-3.740[facility] CenterComjohn d. [facility] [facility] on above:Performed By: #### FT4, VITAD #### [facility] [address] [place] [address] Dr. Emilia Black AUTO DIFFon [id number] #0.0 103/ulNormal0.0-0.1The [facility] HospitalComment on above:Performed By: #### CBC #### [facility] [address] [place] [address] Dr. Emilia DelongBasophils/100 WBC (Bld)0.6 %Normal0.2-2.0[facility] Comment on above:Performed By: #### CBC #### [facility] [address] [place] [address] Dr. Emilia Khan #0.1 103/ulNormal0.0-0.7The [facility] on above: Performed By: #### CBC #### [facility] [address] [place] [address] Dr. Emilia Espinalosinophils/100 WBC (Bld)0.9 %Normal0.9-7.0The [facility] Comment on above:Performed By: #### CBC #### [facility] [address] [place] [address] Dr. Emilia Espinalrythrocyte distribution width (RBC) [Ratio]12.6 %Tvldry06.0-15.0 The [facility] HospitalComment on above:Performed By: #### CBC #### [facility] [address] [place] [address] Dr. Emilia Jensenatocrit (Bld) [Volume fraction]37.8 %Hawqft60.0-48.0The [facility] HospitalComment on above:Performed By: #### CBC #### [facility] [address] [place] [address] Dr. Emilia DelongHemoglobin (Bld) [Mass/Vol]12.3 g/vGRmfpec32.0-16.0The [facility] HospitalComment on above:Performed By: #### CBC #### [facility] [address] [place] [address] Dr. Emilia Viramontes #0.03 10e3/ulNormal0.00-0.03The [facility] HospitalComment on above:Performed By: #### CBC #### [facility] [address] [place] [address] Dr. Emilia Viramontes %0.5 %Normal0.0-0.5The [facility] HospitalComment on above: Performed By: #### CBC #### [facility] [address] [place] [address] Dr. Emilia Pacheco #1.7 103/ulNormal1.2-3.8The [facility] HospitalComment on above:Performed By: #### CBC #### [facility] [address] [place] [address] Dr. Emilia Sousahocytes/100 WBC (Bld)26.6 %Pfnbqz63.5-60.0The [facility] HospitalComment on above:Performed By: #### CBC #### [facility] [address] [place] [address] Dr. Emilia SoUAL DIFF REQNONormalThe [facility] HospitalComment on above: Performed By: #### CBC #### [facility] [address] [place] [address] Dr. Emilia Miller (RBC) [Entitic mass]30.7 phHemthl12.7-34.0The [facility] HospitalComment on above:Performed By: #### CBC #### [facility] [address] [place] [address] Dr. Emilia Wade (RBC) [Mass/Vol]32.5 g/mLSabfqx09.9-35.2The [facility] HospitalComment on above:Performed By: #### CBC #### [facility] [address] [place] [address] Dr. Emilia Mccabe (RBC) [Entitic vol]94.3 iYMhxcmq44.0-99.0The [facility] HospitalComment on above:Performed By: #### CBC #### [facility] [address] [place] [address] Dr. Emilia Chapa #0.5 103/ulNormal0.3-0.8The [facility] HospitalComment on above:Performed By: #### CBC #### [facility] [address] [place] [address] Dr. Emilia Fordocytes/100 WBC (Bld)7.2 %Normal1.7-12.0The [facility] Comment on above:Performed By: #### CBC #### [facility] [address] [place] [address] Dr. Emilia Frank #4.1 103/ulNormal1.4-6.5The [facility] HospitalComment on above:Performed By: #### CBC #### [facility] [address] [place] [address] Dr. Emilia Phanophils/100 WBC (Bld)64.2 %Vcpqic57.0-75.0The [facility] HospitalComment on above:Performed By: #### CBC #### [facility] [address] [place] [address] Dr. Emilia Koo mean volume (Bld) [Entitic vol]10.0 fLNormal9.5-13.5The [facility] HospitalComment on above:Performed By: #### CBC #### [facility] [address] [place] [address] Dr. Emilia DelongPLT297 103/arQaqfoy725-186Laz [facility] HospitalComjohn d. [facility] [facility] on above: Performed By: #### CBC #### [facility] [address] [place] [address] Dr. Emilia DelongRBC4.01 106/ulCritically low4.20-5.40The [facility] HospitalComment on above:Performed By: #### CBC #### [facility] [address] [place] [address] Dr. Emilia DelongWBC6.4 103/ulNormal4.0-11.0The [facility] HospitalComjohn d. [place] [facility] on above: Performed By: #### CBC #### [facility] [address] [place] [address] Dr. Emilia Monterroso T3on 77-51-7596KGRW T32.44 pg/mlLNormal2.18-3.98The [facility] on above:Performed By: #### FT3, TSH, LIPID, BMP #### [facility] [address] [place] [address] Dr. Emilia Monterroso T4on [id number] T4 [Mass/Vol]0.81 ng/dLNormal0.76-1.46 The [facility] HospitalComjohn [facility]. [facility] [facility] on above:Performed By: #### FT4, VITAD #### [facility] [address] [place] [address] Dr. Emilia DelongLIPID PROFILEon [id number]-HDL RATIO NORMSEE BELOWNoLima City HospitalComment on above:Result Comment: 3.3 - 4.4 LOW RISK 4.4 - 7.1 AVERAGE RISK 7.1 - 11.0 MODERATE RISK >11.0 HIGH RISKPerformed By: #### FT4, VITAD #### [facility] [address] [place] [address] Dr. Emilia DelongCholesterol [Mass/Vol]281 mg/dLCritically high<=200The [facility] on above:Performed By: #### FT4, VITAD #### [facility] [address] [address] [address] Emilia DelongCholesterol in HDL [Mass/Vol]59 mg/mUMuurjw10-21Olt [facility] on above:Performed By: #### FT4, VITAD #### [facility] [address] [place] [address] Dr. Emilia DelongCholesterol in LDL [Mass/Vol]182.8 mg/dLWhite HospitalComjohn d. [facility] [facility] on above:Performed By: #### FT4, VITAD #### [facility] [address] [place] [address] Dr. Emilia Wesleyestersunita.total/Cholesterol in HDL [Mass ratio]4.8 {ratio} NormalThe [facility] on above:Performed By: #### FT4, VITAD #### [facility] [address] [place] [address] Dr. Emilia Keita NORMAL> or = 60 mg/dl - LOW CARDIOVASCULAR RISK <40 mg/dl - HIGH CARDIOVASCULAR RISKNoLima City HospitalComjohn d. [facility] [facility] on above:Performed By: #### FT4, VITAD #### [facility] [address] [place] [address] Dr. Emilia Levine CALC NORMALSEE BELOWWhite HospitalComjohn d. [facility] [facility] on above:Result Comment: <100 mg/dl OPTIMAL 100 - 129 mg/dl NEAR OR ABOVE OPTIMAL 130 - 159 mg/dl BORDERLINE HIGH 160 - 189 mg/dl HIGH >190 mg/dl VERY HIGH Performed By: #### FT4, VITAD #### [facility] [address] [place] [address] Dr. Emilia DelongTriglyceride [Mass/Vol]196 mg/dLCritically high<=150The [facility] on above:Performed By: #### FT4, VITAD #### [facility] [address] [place] [address] Dr. Emilia DelongVLDL CALC39.2 mg/dLNoLima City HospitalComment on above: Performed By: #### FT4, VITAD #### [facility] [address] [place] [address] Dr. Emilia TaylorF CHEM 8 (BAS METB)on 65-42-0780Bcupb gap [Moles/Vol]12.7 mmol/LNormalThe [facility] HospitalComment on above:Performed By: #### FT3, TSH, LIPID, BMP #### [facility] [address] [address] [address] Emilia DelongCalcium [Mass/Vol]9.7 mg/dLNormal8.5-10.1The [facility] Comment on above:Performed By: #### FT3, TSH, LIPID, BMP #### [facility] [address] [address] [address] Emilia DelongChloride [Moles/Vol]105 mmol/LGxbinx08-320Fvz [facility] Comment on above:Performed By: #### FT3, TSH, LIPID, BMP #### [facility] [address] [place] [address] Dr. Emilia DelongCO2 [Moles/Vol]26.0 mmol/BTzpvam13.0-32.0[facility] Comment on above:Performed By: #### FT3, TSH, LIPID, BMP #### [facility] [address] [address] [address] Emilia DelongCreatinine [Mass/Vol]0.82 mg/dLNormal0.55-1.02The [facility] HospitalComment on above:Performed By: #### FT3, TSH, LIPID, BMP #### [facility] [address] [place] [address] Dr. Emilia EspinalGFR-AF ROMANIAN>60Normal>=60The [facility] HospitalComment on above:Performed By: #### FT3, TSH, LIPID, BMP #### [facility] [address] [place] [address] Dr. Emilia Gannon-NON AF ROMANIAN>60Normal>=60The [facility] Dublinment on above:Performed By: #### FT3, TSH, LIPID, BMP #### [facility] [address] [place] [address] Dr. Emilia DelognGlucose [Mass/Vol]95 mg/yZAzwslj00-784Qyz [facility] Comment on above:Performed By: #### FT3, TSH, LIPID, BMP #### [facility] [address] [place] [address] Dr. Emilia DelongPotassium [Moles/Vol]3.7 mmol/LNormal3.5-5.1The [facility] Comment on above:Performed By: #### FT3, TSH, LIPID, BMP #### [facility] [address] [address] [address] Emilia DelongSodium [Moles/Vol]140 mmol/AQljdsv213-619Wpu [facility] Comment on above:Performed By: #### FT3, TSH, LIPID, BMP #### [facility] [address] [place] [address] Dr. Emilia DelongUrea nitrogen [Mass/Vol]12.0 mg/dLNormal7.0-18.0The [facility] HospitalComment on above:Performed By: #### FT3, TSH, LIPID, BMP #### [facility] [address] [place] [address] Dr. Emilia Aguirre nitrogen/Creatinine [Mass ratio]14.6 mg/mgWhite HospitalComment on above:Performed By: #### FT3, TSH, LIPID, BMP #### [facility] [address] [place] [address] Dr. Emilia LittlejohnHokristi 93-74-4793SER4.012 uIU/mLNormal0.358-3.740The [facility] HospitalComment on above:Performed By: #### FT3, TSH, LIPID, BMP #### [facility] [address] [place] [address] Dr. Emilia DelongVITAMIN D 25 OHon 54-26-8900FJH D 25-OH34.5 ng/mLNormalThe [facility] HospitalComment on above:Performed By: #### FT4, VITAD #### [facility] [address] [place] [address] Dr. Emilia Baeza D [place]ANGES[place] BELOWWhite HospitalComment on above: Result Comment: <20 ng/mL Vit D deficient 20 - <30 ng/mL Vit D insufficient 30 - 100 ng/mL Vit D sufficient >100 ng/mL Potential ToxicityPerformed By: #### FT4, VITAD #### [facility] [address] [place] [address] Dr. Emilia DelongCovid-19 PCR ([facility])on 57-73-8232PHFW-CoV-2 (COVID-19) RNA LETICIA+probe Ql (Unsp spec)Not detectedNormalNOT DETECTEDThe [facility] Comment on above:Result Comment: This test is not yet approved or cleared by the [place] FDA. When there are no FDA-approved or cleared tests available, and other criteria are met, FDA can make tests available under an emergency access mechanism called an Emergency Use Authorization (EUA). The EUA for this test is supported by the Dog Handler Or Trainer of Health and Human Service's (HHS's) declaration [...] consistent with SARS-CoV-2.Performed By: #### CVDTBH #### [facility] [address] [place], [place] [address] Dr. Emilia DelongUrinalysis w/ Microon 10-05-2019-----NormalUniversity Hospitals Health System Comment on above:Performed By: #### UAMIC #### [facility] [address] [place] [address] Hospital Monitor: Francois Justice, ROGELIOcetoacetic Acid,UrNegativeNormalNEGUniversity Hospitals Health SystemComment on above:Performed By: #### UAMIC #### [facility] [address] [place] [address] Hospital Monitor: Francois Justice MDBacteria LM.HPF (Urine sed) [#/Area]TRACEAbnormal NONEThe [facility] Hospital HospitalComment on above:Performed By: #### UAMIC #### [facility] [address] [place] [address] Hospital Monitor: Francois Justice MDBilirubin, SemiQt,UrNegativeNormalNEGMerUC Medical Center HospitalComment on above:Performed By: #### UAMIC #### [facility] [address] [place] [address] Hospital Monitor: KURT Walkerolor (U)YELLOWNormalYCleveland Clinic Fairview Hospital Comment on above:Performed By: #### UAMIC #### [address] [place] [address] Hospital Monitor: Francois Justice MDEpithelial cells LM.HPF (Urine sed) [#/Area]0 TO 6Ocmdtb1-24Isjrh [place] HospitalComment on above:Performed By: #### UAMIC #### [address] [place] [address] Hospital Monitor: Francois Justice MDGlucose Ql (U)NegativeNormalNEGMercy Health Anderson Hospitalcy [place] HospitalComment on above:Performed By: #### UAMIC #### [address] [place] [address] Hospital Monitor: Francois Justice MDHemoglobin, UrNegativeNormalNEGMerUC Medical Center HospitalComment on above:Performed By: #### UAMIC #### [address] [place] [address] Hospital Monitor: Francois Justice MDLeukocyte esterase Test strip Ql (U)Negative NormalNEGMercy Johnson Memorial HospitalComment on above:Performed By: #### UAMIC #### [address] [place] [address] Hospital Monitor: Emmie Walker,UrNegativeNormalNEGUniversity Hospitals Health System Comment on above:Performed By: #### UAMIC #### [facility] [address] [place], [place] [address] Hospital Monitor: Ashlie WalkerH (U)6.5 [pH]Normal5.0-9.0[facility] Comment on above:Performed By: #### UAMIC #### [facility] [address] [place], [place] [address] Hospital Monitor: ASHLIE Walkerrotein Ql (U)NegativeNormalWestern Reserve HospitalComment on above:Performed By: #### UAMIC #### [facility] [address] [place], [place] [address] Hospital Monitor: Francois Justice MDRBC (U) [#/Vol]0 TO 2Omyhsb7-2Kkyca Johnson Memorial HospitalComment on above:Performed By: #### UAMIC #### [facility] [address] [place], [place] [address] Hospital Monitor: LOLITA Walkerpecific gravity (U) [Rel density]1.015Normal 1.010-1.020University Hospitals Health SystemComment on above:Performed By: #### UAMIC #### [facility] [address] [place], [place] [address] Hospital Monitor: RUDY WalkerurbidityCLEARNormalCLEARUniversity Hospitals Health System Comment on above:Performed By: #### UAMIC #### [facility] [address] [place], [place] [address] Hospital Monitor: Palmira Walker,UrNormalNormalNORMUniversity Hospitals Health SystemComment on above:Performed By: #### UAMIC #### [facility] [address] [place], [place] [address] Hospital Monitor: Francois Justice MDWBC (U) [#/Vol]0 TO 5Smnexa5-8Nkyrk [place] HospitalComment on above:Performed By: #### UAMIC #### [facility] [address] [place] [address] Hospital Monitor: Clara Walkerrphouvenu sediment LM Ql (Urine sed)NOT REPORTED NormalNONEMeMerit Health Woman's Hospital HospitalComment on above:Performed By: #### UAMIC #### [facility] [address] [place] [address] Hospital Monitor: Dallin Walker LM.LPF (Urine sed) [#/Area]NOT REPORTED NormalMercy [place] HospitalComment on above:Performed By: #### UAMIC #### [facility] [address] [address] Hospital Monitor: KURT WalkerommentNOT REPORTEDNormalMercy [place] [facility] Comment on above:Performed By: #### UAMIC #### [facility] [address] [place] [address] Hospital Monitor: KURT Walkerrystals LM Nom (Urine sed)NOT REPORTEDNormalNONE [facility] HospitalComment on above:Performed By: #### UAMIC #### [facility] [address] [place], [facility] Hospital Monitor: Francois Justice MDEpithelial, RenalNOT CMRWFNWOCelita2Mpyvh [place] HospitalComment on above:Performed By: #### UAMIC #### [facility] [address] [place] [address] Hospital Monitor: BLANCA Walkerucus StrandsNOT REPORTEDNormalNONEMeMerit Health Woman's Hospital HospitalComment on above:Performed By: #### UAMIC #### [facility] [address] [place] [address] Hospital Monitor: Francois Justice MDOther ObservationsNOT REPORTEDNormalNREQMercy Health Anderson Hospitalcy [place] HospitalComment on above:Performed By: #### UAMIC #### [facility] [address] [place] [address] Hospital Monitor: Francois Justice MDTrichomonasNOT REPORTEDNormalNONEMey [place] HospitalComment on above:Performed By: #### UAMIC #### [facility] [address] [place], [place] [address] Hospital Monitor: Francois Justice MDYeast LM Ql (Urine sed)NOT REPORTEDNormalNONE [facility] HospitalComment on above:Performed By: #### UAMIC #### [facility] [address] [place], [place] [address] Hospital Monitor: Francois Justice MDUrinalysis with microscopicon 10-05-2019 Amorphous, UANOT REPORTEDNoneMercy Health Work Phone: bacteria, UATRACEAbnormalNoneMercy Health Work Phone: bilirubin UrineNegativeNEGATIVEMercy Health Work Phone: casts UANOT REPORTED/LPFMercy Health Work Phone: color, UAYELLOWYELLOWMercy Health Work Phone: crystals UANOT REPORTEDNone /HPFMercy Health Work Phone: epithelial Cells UA0 TO 2[facility] Work Phone: Glucose, UrNegativeNEGATIVEMercy Health Anderson Hospitalcy Health Work Phone: Interpretation and review of laboratory results AbnormalMercy Health Work Phone: Ketones Ql (U)NegativeNEGATIVEMercy Health Work Phone: leukocyte esterase Test strip Ql (U)NegativeNEGATIVE [facility] Work Phone: Mucus, UANOT REPORTEDNoneMercy Health Work Phone: Nitrite, UrineNegativeNEGATIVEMercy Health Work Phone: Other Observations UANOT REPORTEDNOT REQ.[facility] Work Phone: pH, UA6.5[facility] Work Phone: protein (U) [Mass/Vol]NegativeNEGATIVEMercy Health Work Phone: rBC (U) [#/Vol]0 TO 2[facility] Work Phone: renal Epithelial, UrineNOT REPORTED0 /HPFMercy Health Work Phone: specific [place], UA1.015[facility] Work Phone: Trichomonas, UANOT REPORTEDNoneMercy Health Work Phone: Turbidity UACLEARCLEARMercy Health Work Phone: Urinalysis CommentsNOT REPORTEDMercy Health Work Phone: Urine HgbNegativeNEGATIVEMercy Health Work Phone: Urobilinogen, UrineNormalNormalMercy Health Work Phone: WBC, UA0 TO 2[facility] Work Phone: Yeast, UANOT REPORTEDNoneMercy Health Work Phone: -[facility] Work Phone: Vital Signs Date TimeVital SignValuePerforming LerocfqeuKhxzejhe29-52-6237 16:01-0400Body .1 cmAntdallas Guzman DPM Work Phone: [facility] CenterWqhqqvyvrw43-79-1504 16:01-0400Body mass index (BMI) [Ratio]32.78 kg/l7Gcwxwah Rusher DPM Work Phone: [facility] CenterOwigpeofhh48-53-8855 16:01-0400Body cviggl60.36 kgAnthony Rusher DPM Work Phone: [facility] CenterXtqsflkheh61-61-0100 13:03-0400Body .1 Andrea Rusher DPM Work Phone: [facility] CenterJcndupkvsv36-07-1210 13:03-0400Body mass index (BMI) [Ratio]32.78 kg/p3Gyfscoy Rusher DPM Work Phone: [facility] CenterSsdszdyyjr55-26-2005 13:03-0400Body rwifin62.36 kgAnthony Rusher DPM Work Phone: [facility] CenterTcxqmlquey73-20-6939 11:58-0400Body ctgesh385.1 cmSaurabh Purcell MD Work Phone: [phone]09-04-2025 11:58-0400 Body mass index (BMI) [Ratio]33.9 kg/m2Saurabh Purcell MD Work Phone: [phone]09-04-2025 11:58-0400 Body lglarkyxqst00 [degF]Saurabh Purcell MD Work Phone: [phone]09-04-2025 11:58-0400 Body arplld98.53 kgSaurabh Purcell MD Work Phone: [phone] [place], [place] [address]2509-04-2025 11:58-0400 Diastolic blood qinctspv37 mm[Hg]Saurabh Purcell MD Work Phone: [phone]09-04-2025 11:58-0400 Heart rate78 /minSaurabh Purcell MD Work Phone: [phone]09-04-2025 11:58-0400 Respiratory rate20 /minSaurabh Purcell MD Work Phone: [phone]09-04-2025 11:58-0400 SaO2% (BldA) [Mass fraction]97 %Saurabh Purcell MD Work Phone: [phone]09-04-2025 11:58-0400 Systolic blood igwdkagu112 mm[Hg]Saurabh Purcell MD Work Phone: [phone] [place], [place] [address]571905-13-2025 11:45-0400 Body syuvpt073.1 cmSaurabh Purcell MD Work Phone: [facility] CenterKuiaglyxcc94-36-9247 11:45-0400Body mass index (BMI) [Ratio]34.95 kg/m2Saurabh Purcell MD Work Phone: [phone] [place], [place] [address]Oerjmrgqlq83-18-2436 11:45-0400Body temperature 97.3 [degF]Saurabh Purcell MD Work Phone: [phone] [place], [place] [address]Rxmnpwufwg32-13-1028 11:45-0400Body hytxbv93.25 kgSaurabh Purcell MD Work Phone: [facility] CenterNaeqerqhpd21-67-9515 11:45-0400Diastolic blood gzejqzpr51 mm[Hg]Saurabh Purcell MD Work Phone: [phone] [place], [place] [address]Ypxhphymae79-86-8646 11:45-0400Heart rate72 /min Saurabh Purcell MD Work Phone: [phone] CenterYrcatgbzfk95-20-0063 11:45-0400Respiratory rate22 /minSaurabh Purcell MD Work Phone: [facility] CenterXmoshpglpj47-39-7168 11:45-6553IuX8% (BldA) [Mass fraction]97 %Saurabh Purcell MD Work Phone: [phone] CenterGwmivfjhhs77-42-3258 11:45-0400Systolic blood hlefifdn027 mm[Hg]Saurabh Purcell MD Work Phone: [facility] CenterBlwirxyjsk60-91-5244 14:34-0500Body uovgah465.1 cmSaurabh Purcell MD Work Phone: [facility] CenterToqchwfwfw32-16-0998 14:34-0500Body mass index (BMI) [Ratio]34.61 kg/m2Saurabh Purcell MD Work Phone: [facility] CenterWoiwglwlqc11-78-9767 14:34-0500Body temperature 96.6 [degF]Saurabh Purcell MD Work Phone: [facility] CenterOkzxtthxtt79-51-2103 14:34-0500Body .35 kgSaurabh Purcell MD Work Phone: [facility] CenterOjmnuznorq38-15-0586 14:34-0500Diastolic blood whdmnbic82 mm[Hg]Saurabh Purcell MD Work Phone: [facility] CenterWcgoxyowcw86-17-4508 14:34-0500Heart rate72 /min Saurabh Purcell MD Work Phone: [facility] CenterCjujlbafvn34-11-6330 14:34-0500Respiratory rate20 /minSaurabh Purcell MD Work Phone: [facility] CenterUflxigfoln08-85-3534 14:34-0656PyG6% (BldA) [Mass fraction]98 %Saurabh Purcell MD Work Phone: [facility] CenterJunpryupdk46-34-5731 14:34-0500Systolic blood qausmkcy440 mm[Hg]Saurabh Purcell MD Work Phone: [facility] CenterHfpcsyrqyr42-61-2004 16:32-0400Body ixejqp206.1 cmAnthony Rusher DPM Work Phone: [facility] CenterRzuuzfbhjy15-19-7312 16:32-0400Body mass index (BMI) [Ratio]34.28 kg/f4Qbdsexr Rusher DPM Work Phone: [facility] CenterWxljqjserm94-32-1739 16:32-0400Body ckohkq92.44 kgBarbieony Rusher DPM Work Phone: [facility] CenterFlaqtgedae44-85-8549 10:13-0500Body qbcike388.1 cmSaurabh Purcell MD Work Phone: [facility] CenterXnspqohtzl97-48-4694 10:13-0500Body mass index (BMI) [Ratio]33.95 kg/m2Saurabh Purcell MD Work Phone: [facility] CenterHbnwujdopz59-17-6441 10:13-0500Body temperature 96.6 [degF]Saurabh Purcell MD Work Phone: [facility] CenterSfagkgsjjq17-72-6255 10:13-0500Body frruqx86.53 kgSaurabh Purcell MD Work Phone: [facility] CenterWuninymepj59-42-8640 10:13-0500Diastolic blood mhiopnrv06 mm[Hg]Saurabh Purcell MD Work Phone: [facility] CenterFxofvpqvel26-75-5086 10:13-0500Heart rate72 /min Saurabh Purcell MD Work Phone: [facility] CenterZatlsqudof30-53-4633 10:13-0002ZrK4% (BldA) [Mass fraction]96 %Saurabh Purcell MD Work Phone: [facility] CenterBmkwqohreo21-57-7527 10:13-0500Systolic blood yucigpvy860 mm[Hg]Saurabh Purcell MD Work Phone: [facility] CenterHpapgmylzh99-29-4420 18:15-0500BP Ecpsczesx01 mm[Hg][employer] Work Phone: 1([phone] 515-498702-03-2020 18:15-0500BP Hmthdvgt489 mm[Hg][employer] Work Phone: 1(697) 395-465802-03-2020 18:15-0500Respiratory Rate18 /minManly [employer] Work Phone: 1(151) 481-697002-03-2020 16:18-0500Pulse (Heart Rate)63 /minMicscci hospital lima [employer] Work Phone: 1([phone] 651-832502-03-2020 15:44-0500Body Dtbgwewxbcq58.7 [degF] [employer] Work Phone: 1(412) 314-869602-03-2020 15:44-0500Body qczipj91.27 kgMicscci hospital lima [employer] Work Phone: 1(169) 557-634902-03-2020 15:44-0500Pulse Jrefkkrt67 %[employer] Work Phone: Encounters Encounter DateEncounter TypeCare ProviderFacilityStart: 71-06-8523tnuolcsqjeNIUA NADERERProMedica Brilliant HospitalStart: 06-23-2025 End: 92-12-6362Rlcnch outpatient new 20 minutesCorey Melissa DO Work Phone: noms Cheri OBGYNComment on above:Postmenopausal bleeding; Yeast infectionStart: 06-23-2025 End: 80-16-2188xnvqicjhuuJRZZQ FAZIONot AvailableStart: 06-23-2025 End: 35-58-5420Fimwbf flowsheetCorey Melissa DO Work Phone: noms [place] OBGYNStart: 06-23-2025 End: 35-68-3936Hglgxk flowsheetCorey Melissa DO Work Phone: noms Cheri OBGYNStart: 06-16-2025 End: 62-75-6230Lbownk outpatient visit 15 minutesAnthony S Rusher DPM Work Phone: noMS Brilliant PodiatryComment on above:Onychomycosis (Primary Dx); Onychodystrophy; Ulcer of left foot, limited to breakdown of skin (HCC)Start: 06-16-2025 End: 67-53-1654brvbwbxwmqGIEDPIG S RUSHERNot AvailableStart: 06-16-2025 End: 07-19-9896Qeesli flowsheetAnthony S Rusher DPM Work Phone: NONJ Brilliant PodiatryStart: 06-16-2025 End: 69-23-8987Irmwkl flowsheetAnthony S Rusher DPM Work Phone: noMS Brilliant PodiatryStart: 06-01-2025 End: 91-19-3111Vodjla flowsheetAnthony S Rusher DPM Work Phone: noMS Brilliant PodiatryStart: 06-01-2025 End: 28-96-6727Yskhyx flowsheetAnthony S Rusher DPM Work Phone: noMS Brilliant PodiatryStart: 06-01-2025 End: 30-28-9820Ahzmwy outpatient visit 15 minutesAnthafshan Guzman DPM Work Phone: noms Brilliant PodiatryComment on above:Onychomycosis (Primary Dx); Onychodystrophy; Ulcer of left foot, limited to breakdown of skin (HCC); Pain in both feetStart: 06-01-2025 End: 53-48-9618xkwvkbmnnlZJITACZ S RUSHERNot AvailableStart: 05-06-2025 End: 57-99-6087cnqdqbydemKvjf Naderer MD Work Phone: [facility] Work Phone: Start: 05-06-2025 End: 96-19-5130Belqacy encounter procedureSaurabh Purcell MD-[facility] [place] Work Phone: Start: 04-28-2025 End: 46-69-1366EknophOzvh Naderer MD Work Phone: noms [facility] FMComment on above:Seasonal allergic rhinitis due to pollenStart: 04-20-2025 End: 01-31-6906Cldlmjpyj Result EncounterGeneric External Data ProviderNOMS External Department UnsolicitedStart: 04-20-2025 End: 38-75-8060Uhovuljbq Result EncounterGeneric External Data ProviderNOMS External Department UnsolicitedStart: 04-08-2025 End: 31-41-3054zwkgiogxdqMFLYUGrand Lake Joint Township District Memorial Hospitaltart: 01-19-2025 End: 10-43-8911Whqroweaz Result EncounterSaurabh Purcell MD Work Phone: noms External Department UnsolicitedStart: 01-19-2025 End: 09-20-7718Zkgbvggpb Result EncounterSaurabh Purcell MD Work Phone: noms External Department UnsolicitedStart: 01-12-2025 End: 82-44-0400Zinmxx flowsheetSaurabh Purcell MD Work Phone: noms CWM FMStart: 01-12-2025 End: 71-30-6860Ddeqkg flowsheetSaurabh Purcell MD Work Phone: noms [facility] FMStart: 01-12-2025 End: 30-94-7327aprogqxbzhIMPI NADERERNot AvailableStart: 01-12-2025 End: 36-44-9394Wzuxrg outpatient visit 25 minutesSaurabh Purcell MD Work Phone: noms CWM FMComment on above:Hematuria, unspecified type (Primary Dx); Postmenopausal bleedingStart: 10-20-2024 End: 19-66-8454gdilqkaumzSQHSTVOSt. Elizabeth Hospital Start: 09-29-2024 End: 86-78-2584fnmbytkjyeJYFX NADERECleveland Clinic Children's Hospital for Rehabilitationtart: 09-29-2024 End: 30-07-2057Vmcgndhf Result EncounterSaurabh Purcell MD Work Phone: noms External Department UnsolicitedStart: 09-29-2024 End: 19-85-6461Asatjijm Result EncounterSaurabh Purcell MD Work Phone: noms External Department UnsolicitedStart: 09-15-2024 End: 65-27-3912ogtqwuctnnFCFTJY HORNNot AvailableStart: 09-03-2024 End: 11-73-5148Dgumwb outpatient visit 15 minutesSaurabh Purcell MD Work Phone: noms CWM FMComment on above:Medicare annual wellness visit, subsequent (Primary Dx); Encounter for long-term (current) use of medications; Benign essential hypertension (CMS/HCC); Subclinical hypothyroidism (CMS/HCC); Dyslipidemia (CMS/HCC); Acute UTIStart: 09-03-2024 End: 16-53-1735ggnqjcezhfORGJ NADERERNot AvailableStart: 09-03-2024 End: 85-24-9430Kezhazqyo Result EncounterSaurabh Purcell MD Work Phone: noms External Department UnsolicitedStart: 09-03-2024 End: 21-34-2512Gsgurxzzs Result EncounterSaurabh Purcell MD Work Phone: noms External Department UnsolicitedStart: 09-03-2024 End: 88-71-3410Ciruqnk encounter procedureSaurabh Purcell MD Work Phone: [facility] Work Phone: Start: 07-06-2024 End: 65-05-2354BhlymgNcty Naderer MD Work Phone: noms CWM FMComment on above: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 (CMS/HCC)Start: 05-26-2024 End: 35-69-8838qolhhosuxtPcwyuy Finn [facility] POPULATION HEALTHStart: 05-12-2024 End: 13-96-8793Gcarao flowsheetKendra Horn MS, RDN, LD, CHESNOMS CI BHStart: 05-12-2024 End: 45-15-2980Nmcysr flowsheetKendra Horn MS, RDN, LD, CHESNOMS CI BHStart: 04-21-2024 End: 28-63-8352Lamktv outpatient visit 15 minutesLuc Guzman DPM Work Phone: noms PODIATRYComment on above:Contusion of lesser toe of right foot with damage to nail, initial encounter (Primary Dx); Right foot painStart: 04-21-2024 End: 65-75-1862Owrvyr flowsheetKendra Horn MS, RDN, LD, CHESNOMS CI BHStart: 04-21-2024 End: 13-84-3731Szvoco flowsheetKendra Horn MS, RDN, LD, CHESNOMS CI BHStart: 74-84-0487Oenzqr Alfredo Purcell MD Work Phone: noms CWM FMStart: 49-41-5043Pzstof Alfredo Purcell MD Work Phone: noms CWM FMStart: 96-86-9325Gtbjbfmdl Result Encounter Saurabh Purcell MD Work Phone: noms External Department UnsolicitedStart: 10-04-2023 End: 63-18-4388Vcxpti outpatient visit 25 minutesMar Soila ISAAC Work Phone: noms [facility] FMComment on above:Benign essential hypertension (CMS/HCC) (Primary Dx); 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 (CMS/HCC); Seasonal allergic rhinitis due to pollen; Coronary artery disease involving naknek coronary artery of naknek heart without angina pectoris (CMS/HCC); SAL (obstructive sleep apnea); Dyspareunia in female; Dyslipidemia (CMS/HCC); Encounter for long-term (current) use of medications; Vitamin D deficiency; Obesity (BMI 30-39.9)Start: 21-52-1208Vceyybnok for other preprocedural examinationDR DOCTOR [facility] Centertart: 12-04-2022 End: 70-35-1612zicjufufuwYQ DOCTOR MISCFacility:M0Pgbrl: 12-04-2022 End: 32-13-0815Yjlpmqybv for other preprocedural examinationDR DOCTOR MISC Facility:X9Bhhft: 11-29-2022 End: 12-92-9919mtneudvrimTY SAURABH Lares NADERERFacility:D3Vzqgh: 10-03-2022 End: 40-86-8963uccnrgvnuuNENEEV H FAWWADFacility:L8Mzmkm: 09-13-2022 End: 10-06-0104rxxjcuiurcSG SAURABH Lares NADERERFacility:X2Yqrfv: 02-20-2022 End: 42-80-4299xibrrdxriaKD SAURABH A NADERERFacility:L9Lztgl: 02-16-2022 End: 54-72-2705rmaictwqkzLG SAURABH Lares NADERERFacility:M7Pyfid: 10-05-2019 End: 05-55-6390Wgpzofudk department patient visitMICSt. Vincent Hospitaltart: 10-05-2019 End: 90-43-2894Zqradbxvr department patient visitMicDCH Regional Medical Center Work Phone: [facility] EDComment on above:Hypertension, unspecified type (Primary Dx) Procedures DateProcedureProcedure DetailPerforming ClinicianStart: 47-47-6649MMI LIPID PROFILE (FASTING)Generic External Data ProviderStart: 41-82-6337ORW ALTGeneric External Data ProviderStart: 92-72-1922JQF ASTGeneric External Data Provider Start: 63-00-2630KZ PELVIS W/ TRANSVAGINALSaurabh Purcell MD Work Phone: Start: 00-36-1692HB RENAL BIMsanty Purcell MD Work Phone: Start: 82-93-6780Ijkzk dip stick/tablet rgnt non-auto w/o micrscpMsanty Purcell MD Work Phone: Start: 72-14-6595NPG CBC WITH AUTO DIFFSaurabh Purcell MD Work Phone: Start: 31-46-9575Zanyi foot complete minimum 3 views Luc Guzman DPM Work Phone: Start: 78-55-0815YsmlxypdziyLkbmjm Horn MS, RDN, LD, CHESStart: 90-96-2581ZND CBC WITH AUTO Rudy Purcell MD Work Phone: Start: 93-14-3756MqhjytxztynQsvl Naderer MD Work Phone: Start: 54-71-4422OdaixghtgsnHgmdub Horn MS, RDN, LD, CHESStart: 81-66-9072XhfeygdwaggQsfa Naderer MD Work Phone: Start: 72-32-3332Qjf routine ecg w/least 12 lds w/i&r JOSE BRADSHAWRTLYStart: 98-50-9487Odjtp dip stick/tablet reagent auto microscopy JOSE BRADSHAWRTLYStart: 78-76-9166Bbs routine ecg w/least 12 lds w/i&rMichquinten Watson Work Phone: Start: 70-19-0560Vkmdz dip stick/tablet reagent auto microscopyMicmarysel Corina Work Phone: Plan of Treatment DateCare ActivityDetailAuthorStart: 84-32-8398Kbhzwfdzx for malignant neoplasm of colonNOMS HealthcareStart: 51-05-4201Ppgbdriie for malignant neoplasm of colonNOMS HealthcareStart: 01-02-2026Medicare Annual Wellness (AWV)Medicare Annual Wellness (AWV)NOMS HealthcareStart: 07-26-2025 End: 31-49-1960Slixoqe encounter icosnmiyn98/24/2025 1:20 PM EST Consult [facility] [address] [address] Huber Torres DO [address] [place] [address] [facility] [place] OBGYNStart: 06-23-2025 End: 03-68-2603Ksognow encounter procedureNOMS Herreraue OBGYNComment on above: ArrivedStart: 06-16-2025 End: 36-22-2553Vquwltr encounter procedureNOMS [place] PodiatryComment on above: ArrivedStart: 06-01-2025 End: 66-96-5179Sdnrnuv encounter ikmpcyngz50/30/2025 1:00 PM EDT Office Visit [facility] [place] [address] [place] [address] Luc Guzman, DPM [address] [place] [address] ArrivedNOMS [place] PodiatryComment on above:ArrivedStart: 05-06-2025 End: 47-99-2776Ikcjcrv encounter cizfwcatl86/04/2025 11:30 AM EDT Office Visit [facility] [address] [place] [address] Saurabh Purcell MD [address] [place] [address] [facility] FMStart: 45-47-2907FWBCR-19 Vaccine ( season)COVID-19 Vaccine ( season)[facility] HealthcareStart: 07-32-0480Fweqjzbmx vaccinationInfluenza Vaccine (#1)[facility] HealthcareStart: 35-55-5600Qtuelmgjq for malignant neoplasm of breastMammogramHIGHLAND RIDGE HOSPITAL HealthcareStart: 03-02-2025 End: 61-10-2997Psxruqa encounter zmwqagdim21/01/2025 10:00 AM EDT [facility] [address] [place] [address] Saurabh Purcell MD [address] [place] [address] [facility] FMStart: 01-12-2025 End: 70-51-0726SDGTRXO TRACT INFECTION (HTRX)URINARY TRACT INFECTION (HTRX) Lab Routine Hematuria, unspecified type Expected: 01/12/2025 (Approximate), Expires: 01/12/2026NONJ HealthcareComment on above:Expected: 01/12/2025 (Approximate), Expires: 01/12/2026Start: 01-12-2025 End: 66-76-5988HE KidneyUS renal complete Imaging Routine Hematuria, unspecified type Expected: 01/12/2025, Expires: 01/12/2026[facility] HealthcareComment on above: Expected: 01/12/2025, Expires: 01/12/2026Start: 01-12-2025 End: 96-29-2869HZ PelvisUS Pelvis w/ TV Imaging Routine Postmenopausal bleeding Expected: 01/12/2025, Expires: 01/12/2026[facility] Healthcare Work Phone: Comment on above:Expected: 01/12/2025, Expires: 01/12/2026Start: 11-24-2024 End: 12-51-3573Hjdknqtz SupportNONJ CI BHStart: 09-03-2024 End: 98-74-0176Dthex metabolic 1998 panel - Serum or PlasmaBasic metabolic panel Lab Routine Benign essential hypertension (CMS/HCC) Expected: 09/03/2024 (Appr oximate), Expires: 09/03/2025[facility] Healthcare Work Phone: Comment on above:Expected: 09/03/2024 (Approximate), Expires: 09/03/2025Start: 09-03-2024 End: 45-31-3876YIK W Auto Differential panel - BloodCBC and differential Lab Routine Encounter for long-term (current) use of medications Expected: 10/2024 (Approximate), Expires: 09/03/2025NONJ HealthcareComment on above: Expected: 09/03/2024 (Approximate), Expires: 09/03/2025Start: 09-03-2024 End: 06-74-0187Lfycpjz function 2000 panel - Serum or PlasmaHepatic function panel Lab Routine Encounter for long-term (current) use of medications Expected: 09/03/2024 (Approximate), Expires: 09/03/2025[facility] HealthcareComment on above: Expected: 09/03/2024 (Approximate), Expires: 09/03/2025Start: 09-03-2024 End: 29-15-7394Wjtpf 1996 panel - Serum or PlasmaLipid panel Lab Routine Dyslipidemia (CMS/HCC) Expected: 09/03/2024 (Approximate), Expires: 09/03/2025 NOMS HealthcareComment on above:Expected: 09/03/2024 (Approximate), Expires: 09/03/2025Start: 09-03-2024 End: 47-80-3282Tibmmzrwaib [Units/volume] in Serum or PlasmaTSH Lab Routine Subclinical hypothyroidism (CMS/HCC) Expected: 09/03/2024 (Approximate), Expires: 09/03/2025NONJ HealthcareComment on above:Expected: 09/03/2024 (Approximate), Expires: 09/03/2025Start: 09-03-2024 End: 76-59-8603Gareqztco (T4) free [Mass/volume] in Serum or PlasmaT4, free Lab Routine Subclinical hypothyroidism (CMS/HCC) Expected: 09/03/2024 (Approximate), Expires: 09/03/2025NONJ HealthcareComment on above:Expected: 09/03/2024 (Approximate), Expires: 09/03/2025Start: 07-23-2024 End: 31-71-8837Acfacxy encounter ajctxorzq32/21/2024 10:00 AM EST Office Visit [facility] [address] [place] [address] Saurabh Purcell MD [address] [place] [address] [facility] FMStart: 05-12-2024 End: 96-50-2476Iijtamlv Inywruw7105/12/2024 9:30 AM EDT Clinical Support [facility] [address] [facility] [place] [phone] Devon Gabriel, MS, RDN, LD, CHES [address] [facility] CI BHStart: 05-03-2024 Influenza vaccinationInfluenza Vaccine (#1)NOMS HealthcareStart: 04-22-2024 End: 48-19-8902Mgzwrkeluynj / ancillary services yyekrvbjsn99/21/2024 8:00 AM EDT Ancillary Procedure [facility] [address] [place] [address] ArrivedMULTICARE ALLENMORE [facility]ITAL PODIATRYComment on above:ArrivedStart: 04-21-2024 End: 60-66-5743Terbfvz encounter kvusqpase01/20/2024 4:30 PM EDT Office Visit [facility] [address] [facility] [place] [address] Luc Guzman DPRoss [address] [place], [place] [id number] [facility] PODIATRYStart: 16-55-8368Lruvhqdvf for malignant neoplasm of breastMammogramNONJ HealthcareStart: 08-01-2024Medicare Annual Wellness (AWV) Medicare Annual Wellness (AWV)NOMS HealthcareStart: 01-01-2024 End: 09-64-4382Oivpayj encounter eqteyzmgq21/01/2024 10:00 AM EDT Office Visit [facility] [address] [place] [address] Saurabh Purcell MD [address] [place] [address] NOMS JORI FMStart: 10-04-2023 End: 617391-fjyjihefjltgbj D3 [Mass/volume] in Serum or PlasmaVitamin D 25 hydroxy Lab Routine Vitamin D deficiency Expected: 10/04/2023 (Approximate), Expires: 10/04/2024[facility] HealthcareComment on above:Expected: 10/04/2023 (Approximate), Expires: 10/04/2024Start: 10-04-2023 End: 63-12-1216Sfuiq metabolic 1998 panel - Serum or PlasmaBasic metabolic panel Lab Routine Benign essential hypertension (CMS/HCC) Expected: 10/04/2023 (Appr oximate), Expires: 10/04/2024[facility] Healthcare Work Phone: Comment on above:Expected: 10/04/2023 (Approximate), Expires: 10/04/2024Start: 10-04-2023 End: 63-36-6361ULK W Auto Differential panel - BloodCBC and differential Lab Routine Encounter for long-term (current) use of medications Expected: 10/2023 (Approximate), Expires: 10/04/2024[facility] HealthcareComment on above: Expected: 10/04/2023 (Approximate), Expires: 10/04/2024Start: 10-04-2023 End: 34-00-5553Zdnjvjq function 2000 panel - Serum or PlasmaHepatic function panel Lab Routine Encounter for long-term (current) use of medications Expected: 10/04/2023 (Approximate), Expires: 10/04/2024[facility] HealthcareComment on above: Expected: 10/04/2023 (Approximate), Expires: 10/04/2024Start: 10-04-2023 End: 29-32-9033Xeuad 1996 panel - Serum or PlasmaLipid panel Lab Routine Dyslipidemia (CMS/HCC) Expected: 10/04/2023 (Approximate), Expires: 10/04/2024 NOMS HealthcareComment on above:Expected: 10/04/2023 (Approximate), Expires: 10/04/2024Start: 10-04-2023 End: 63-02-6575Mosmqrjpeob [Units/volume] in Serum or PlasmaTSH Lab Routine Obesity (BMI 30-39.9) Expected: 10/04/2023 (Approximate), Expires: 10/04/2024 NOMS HealthcareComment on above:Expected: 10/04/2023 (Approximate), Expires: 10/04/2024Start: 46-23-1961Azipxrqsp vaccinationInfluenza Vaccine (#1)NOM HealthcareStart: 76-10-8354Wevdtwrrglze Vaccine: 65+ Years (1 - PCV)Pneumococcal Vaccine: 65+ Years (1 - PCV)NOM HealthcareStart: 32-09-4420KZlW/Tdap/Td Vaccines (2 - Td or Tdap)DTaP/Tdap/Td Vaccines (2 - Td or Tdap)[facility] Healthcare Start: 69-10-0647Jaoidcdcp vaccinationFlu vaccine (#1)Intelligize Phone: start: 49-50-6784Ayrzmdrfn for malignant neoplasm of cervixNOMS HealthcareStart: 25-27-4158Jqrbbknul for malignant neoplasm of cervix Pap SmearNOMS HealthcareStart: 82-51-9383Ewcttbzkiroc Vaccine: 65+ Years (1 of 2 - PCV)Pneumococcal Vaccine: 65+ Years (1 of 2 - PCV)[facility] HealthcareStart: 41-10-7115Kirwvrzfxrvv Vaccine: 65+ Years (1 - PCV)Pneumococcal Vaccine: 65+ Years (1 - PCV)NOM HealthcareStart: 86-17-5781Uvhbrownofse Vaccine: 65+ Years (1 of 2 - PCV)Pneumococcal Vaccine: 65+ Years (1 of 2 - PCV)[facility] Healthcare Start: 1958Medicare Annual Wellness (AWV)Medicare Annual Wellness (AWV) NOM HealthcareStart: 91-00-4922Kypjzpjer for malignant neoplasm of colonNOMS HealthcareEKG 12 LeadEKG 12 Lead ECG STAT 10/05/2019 6:12 PM [facility] Work Phone: Immunizations Immunization DateImmunizationNotesCare WywtquspLjlnxwfo66-33-8467ycasfwups virus vaccine, unspecified formulationGeneric ProviderNortheast Regional Medical CenterLpkqowpsal04-38-8255 influenza, injectable, quadrivalent, preservative Rubin Purcell MD Work Phone: [facility] CenterWpedezvbhm10-83-6341snywivkey virus vaccine, unspecified formulationSaurabh Purcell MD Work Phone: [phone] [place], [place] [address]Pwopordtie37-34-4985jfyaifekm, injectable, quadrivalent, preservative Rubin Purcell MD Work Phone: [phone] [place], [place] [address]Xlaqdopods60-25-3792Gsdsxkyc, quadrivalent, recombinant, injectable influenza vaccine, preservative freeSaurabh Purcell MD Work Phone: [phone] [place], [place] [address]Tgbaiqzuol66-56-7639Vrecmhkv, quadrivalent, recombinant, injectable influenza vaccine, preservative freeSaurabh Purcell MD Work Phone: [phone] [place], [place] [address]Dvkvmqxbjb89-70-4896fiofvkl toxoid, reduced diphtheria toxoid, and acellular pertussis vaccine, adsorbedSaurabh Purcell MD Work Phone: [phone] [place], [place] [address]Pneldxlfcw68-36-3793jszhirb, mumps and rubella virus vaccineSaurabh Purcell MD Work Phone: [phone] [place], [place] [address]Lqkhoaftmb85-76-6179aceupmwru, injectable, quadrivalent, contains preservativeSaurabh Purcell MD Work Phone: [phone] [place], [place] [address]Srxpentukv41-93-4974cgdkocisg, injectable, quadrivalent, preservative Rubin Purcell MD Work Phone: [facility] Medical CenterBbldmbabee27-62-7044tsnbkpmog, injectable, quadrivalent, contains preservativeSaurabh Purcell MD Work Phone: [facility] CenterHeurtzcjgq36-95-2910xybpaosrt B vaccine, adult dosageSaurabh Purcell MD Work Phone: [facility] CenterIqzxwaasjz18-39-4088lftatarrr B vaccine, adult dosageMarc Soila ISAAC Work Phone: [facility] Medical CenterCtuybgitoi54-61-3249tqeqaqlmz B vaccine, adult dosageSusic Soila ISAAC Work Phone: [facility] Payers DatePayer CategoryPayerPolicy [id number] [id number] 2023Medicare (Managed Care) [id number] HEALTH DEVOTED HEALTH [id number] 2022-Present [address] [place] [address] [id number]98Gpmezhj Health [id number] [employer] [address] xxxxxxxxxxxx 2019-Present [phone] [address] [place] [address]vesbvtkomjcl [id number] Private Health [id number] [id number] 2.16.840.1.575236.3.57[id number] 2.16.840.1.198046.3.57[id number] 2.16.840.1.534470.3.57[id number] 2.16.840.1.332662.3.579.[id number] 2.16840.1.647099.3.579.2.31403-11-1192Vnalxcg1248106 2.840.1.046911.3.579.[id number] 2.840.1.250927.3.57[id number] 2.16840.1.660428.3.579.2.728952-10-0481Ibkbpvz12240056 2.840.1.151911.3.579.2.1[id number] 2.0.1.176510.3.579.2.394029-59-0403Dmoatjg8479016 2.0.1.053867.3.579.2.52[id number] 2.0.1.861423.3.579.2.028448-72-1351Xrenujb0746589 2.0.1.392843.3.579.[id number] 2.0.1.163477.3.579.2.[id number] 2.0.1.335879.3.579.2.1286UnknownAntheMemorial Hospital at Stone County [id number] Social History DateTypeDetailFacilityStart: 10-05-2019 End: 49-92-9821Daoknpf smoking status NHISNever smokerNONJ HealthcareStart: 06-52-6645Nolpauh intakeLifetime non-drinker (finding)[facility] [employer] Work Phone: start: 55-12-6284Rzcxnks SDOH Alcohol Igrinxoue9Kwzqg [employer] Work Phone: start: 31-40-1980Txn Assigned At BirthNot on fileMartins Ferry Hospital [employer] Work Phone: start: 75-23-5315Noeyapk use and exposureSmokeless tobacco non-userNOMS HealthcareStart: 09-18-2023 End: 40-49-3798Pqmfqwp intakeCurrent drinker of alcohol (finding)[facility] Start: 09-27-2023 End: 33-82-8698Rwdgklb of Social functionNOMS HealthcareStart: 09-27-2023 End: 49-75-1863Lcboqynjdir, Afraid, Rape, and Kick questionnaire [HARK]NOMS HealthcareWithin the last year, have you been afraid of your partner or ex-partner?NoNOMS HealthcareDo you belong to any clubs or organizations such as zoroastrianism groups, unions, fraternal or athletic groups, or school groups?YesNOMS HealthcareAre you now , , , , never or living with a partner?MarriedNOMS HealthcareHow often to you have a drink containing alcohol?NeverNOMS HealthcareStart: 39-19-1047Ixn many standard drinks containing alcohol do you [...] intake: 1-2 cups per dayNOMS HealthcareSex Female (finding)[facility] Miamisburgtart: 32-94-9194Vop Assigned At [facility] CenterHow often to you have a drink containing alcohol?Monthly or lessNOMS HealthcareHow many standard drinks containing alcohol do you have on a typical day?1 or 2NIN[facility]GR[facility] Clinical Notes 10-04-2023 to 06-23-2025 Note Date & GocoLqmiLnahlvqg64-37-0852 History of Present illness Narrative* Jade Tess, [...] to pollen 10/04/2023 Coronary artery disease involving naknek coronary artery of naknek heart without angina pectoris 09/09/2023 Benign essential [...] Date Adult hypothyroidism Asthma (HCC) 07/06/2016 Asthma ([facility]) At low risk for fall GERD (gastroesophageal reflux disease) Hot flashes HTN (hypertension) Hypercholesteremia Neurogenic syncope Obesity with body mass index (BMI) of 30.0 to 39.9 Sleep apnea, obstructive Thyroid activity decreased Varicella 05/10/1987 HISTORY PAST MEDICAL HISTORY SOCIAL HISTORY Past Medical History: Diagnosis Date Adult hypothyroidism Asthma (HCC) 07/06/2016 Asthma ([facility]) At low risk for fall Benign essential [...] nursing note reviewed. Exam conducted with a custom applicator present. Vitals: Estimated body mass index is 32.78 kg/m as calculated from the following: Height as of 06/16/25: 5' 5 . Weight as of 06/16/25: 197 lb. BP: No LMP recorded. Assessment/Plan ICD-10-CM 1. Postmenopausal bleeding N95.0 Pt presents as a [facility] from [facility] for post-menopausal bleeding. Pt had yeast infection, rx fordiflucan faxed to pharmacy. Reviewed ultrasound with pt in detail. Pt to be scheduled for D&C hysteroscopy with poss myosure. Pt to return for preop. Documented by Jade Pulido LPN on behalf of: Huber Torres DO documented in this encounterNortheast Regional Medical CenterIljmbejtic24-22-1860 History of Present illness Narrative* Luc Guzman [...] Mother Jewell Schwartz Heart disease Father Joaquim Schwratz Sr Diabetes Brother Joaquim Schwartz Heart disease Brother Joaquim Scwhartz Hypertension Brother Joaquim Schwartz Objective Physical Exam [...] left foot, limited to breakdown of skin ([facility]) L97.521 Patient examined and evaluated. Subungual erosion [...] understanding. Luc Guzman DPM documented in this encounterNortheast Regional Medical CenterRpsvaktfqj14-95-2616 History of Present illness Narrative* Luc Guzman [...] left foot, limited to breakdown of skin ([facility]) L97.521 4. Pain in both feet M79.671 [...] utilizing a nail nipper and electric bur grinder operator automatic without incident. Patient noted relief of symptomatology [...] understanding. Luc Guzman DPM documented in this encounterNortheast Regional Medical CenterTylgchcupw38-16-7841 NoteBellevue cardiology Clinic Note Subjective Mira Snell [...] Benign essential HTN Coronary artery disease involving naknek coronary artery of naknek heart without angina pectoris Abnormal TSH Acute [...] She presented to the ED through the [facility] system on 11/02/2022 for evaluation of [...] tablet, Rfl: 3 calcium carb/D3/magnesium/zinc (calcium carb-D3-mag upm83-xmvp) [phone] bh-clbf-pk-mg tablet, Take by mouth in the morning., [...] morning., Disp: , R (more content not included)...[facility] 01-12-2025 History of Present illness Narrative* Saurabh uPrcell MD - 01/12/2025 12:10 PM EDTAssociated Problem(s): [...] US Pelvis w/ TV documented in this encounterNortheast Regional Medical CenterBfipvsyfpq30-96-4303 NoteCardiology Clinic Note Subjective Mira Snell is [...] Benign essential HTN Coronary artery disease involving naknek coronary artery of naknek heart without angina pectoris Abnormal TSH Acute [...] [facility] for evaluation of symptoms. [...] tablet, Rfl: 3 calcium carb/D3/magnesium/zinc (calcium carb-D3-mag kdt96-oisf) [phone] ab-lrty-zd-mg tablet, Take by mouth in the morning., [...] into the left ant (more content not included)...[facility] 09-03-2024 History of Present illness Narrative* Saurabh [...] (Cipro) 500 MG tablet documented in this [facility]09-24-2024 History of Present illness Narrative* Lynne Durham LPN - 05/26/2024 9:31 AM EDT <May 26, 2024, 09:31 - Lynne Durham LPN> Spoke to patient for routine outreach. She states that she has been doing pretty well. She requestsrefill on Albuterol inhaler and request is submitted to PCP. Confirmed [facility] pharmacy in [place]. She has an appointment with Dr. Purcell 07/23/24 for MAW and plans to keep this visit. She is given my name and number to reach if she needs anything until new advocate is established for Jeramy webster. She verbalizes an understanding of this. documented in this encounterNortheast Regional Medical CenterPfixdjozny38-23-5276 History of Present illness Narrative* Luc Guzman [...] Past Medical History: Diagnosis Date Adult hypothyroidism ([facility]) Asthma ([facility]) 07/06/2016 Asthma ([facility]) At low risk for fall Benign essential hypertension ([facility]) Chronic pain of both knees Diverticulosis of colon Dyslipidemia ([facility]) Encounter for long-term (current) use of medications GERD (gastroesophageal reflux disease) Hot flashes HTN (hypertension) ([facility]) Hypercholesteremia ([facility]) Neurogenic syncope Obesity with body mass index (BMI) of 30.0 to 39.9 Seasonal allergic rhinitis due to pollen Sleep apnea, obstructive Thyroid activity decreased ([facility]) Vitamin D deficiency Medications Current Outpatient Medications: [...] understanding. Luc Guzman DPM documented in this encounterNortheast Regional Medical CenterVxkhlbzszs53-52-4437 History of Present illness Narrative* Saurabh Purcell [...] AM ESTAssociated Problem(s): Coronary artery disease involving naknek coronary artery of naknek heart without angina pectoris (CMS/HCC) No pain [...] Diagnosed with SAL and not using CPAP. [place] more tired with machine and stopped. Requests [...] medication and continue. Coronary artery disease involving naknek coronary artery of naknek heart without angina pectoris (CMS/HCC) No pain [...] due to pollen Coronary artery disease involving naknek coronary artery of naknek heart without angina pectoris (CMS/HCC) SAL (obstructive [...] due to pollen Coronary artery disease involving naknek coronary artery of naknek heart without angina pectoris ([facility]/HCC) SAL (obstructive sleep apnea) Obstructive sleep apnea (adult) (pediatric) Dyspareunia in female Dyslipidemia ([facility]/HCC) Other and unspecified hyperlipidemia Encounter for long-term (current) use of medications Encounter for long-term (current) use of other medications Vitamin D deficiency Obesity (BMI 30-39.9) Benign essential hypertension ([facility])- Primary Essential hypertension, benign 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 ([facility]) Seasonal allergic rhinitis due to pollen Acute bronchitis due to other specified organisms 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 ([facility]) documented in this encounter [facility] HealthcareEvaluation note* Diagnosis Contusion of lesser toe of right foot with damage to nail, initial encounter- Primary Right foot pain Pain in soft tissues of limb documented in this encounter [facility] HealthcareEvaluation note* Diagnosis Mild intermittent asthma, unspecified whether complicated ([facility])- Primary Essential (primary) hypertension ([facility]) Unspecified essential hypertension documented in this encounter [facility] HealthcareEvaluation note* Diagnosis Benign essential hypertension ([facility])- Primary Essential hypertension, benign 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 ([facility]) Seasonal allergic rhinitis due to pollen Coronary artery disease involving naknek coronary artery of naknek heart without angina pectoris ([facility]) SAL (obstructive sleep apnea) Obstructive sleep apnea (adult) (pediatric) Dyspareunia in female Dyslipidemia ([facility]/HCC) Other and unspecified hyperlipidemia Encounter for long-term (current) use of medications Encounter for long-term (current) use of other medications Vitamin D deficiency Obesity (BMI 30-39.9) Benign essential hypertension ([facility])- Primary Essential hypertension, benign 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 ([facility]) Seasonal allergic rhinitis due to pollen Acute bronchitis due to other specified organisms Medicare annual wellness visit, subsequent- Primary Encounter for long-term (current) use of medications Encounter for long-term (current) use of other medications Benign essential hypertension ([facility]) Essential hypertension, benign Subclinical hypothyroidism ([facility]) Other specified acquired hypothyroidism Dyslipidemia ([facility]) Other and unspecified hyperlipidemia Acute UTI Urinary tract infection, site not specified documented in this encounter [facility] HealthcareEvaluation note* Diagnosis Benign essential hypertension ([facility])- Primary Essential hypertension, benign 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 Seasonal allergic rhinitis due to pollen Coronary artery disease involving naknek coronary artery of naknek heart without angina pectoris (CMS/HCC) SAL (obstructive sleep apnea) Obstructive sleep apnea (adult) (pediatric) Dyspareunia in female Dyslipidemia (CMS/HCC) Other and unspecified hyperlipidemia Encounter for long-term (current) use of medications Encounter for long-term (current) use of other medications Vitamin D deficiency Obesity (BMI 30-39.9) Benign essential hypertension ([facility]/H[facility])- Primary Essential hypertension, benign 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 Seasonal allergic rhinitis due to pollen Acute bronchitis due to other specified organisms Medicare annual wellness visit, subsequent- Primary Encounter for long-term (current) use of medications Encounter for long-term (current) use of other medications Benign essential hypertension ([facility]/HCC) Essential hypertension, benign Subclinical hypothyroidism ([facility]) Other specified acquired hypothyroidism Dyslipidemia ([facility]) Other and unspecified hyperlipidemia Acute UTI Urinary tract infection, site not specified Hematuria, unspecified type- Primary Postmenopausal bleeding documented in this encounter [facility] HealthcareEvaluation note* Diagnosis Benign essential hypertension- Primary Essential hypertension, benign 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 (HCC) Seasonal allergic rhinitis due to pollen Coronary artery disease involving naknek coronary artery of nak[place] heart without angina pectoris SAL (obstructive sleep [...] due to pollen documented in this encounter [facility] HealthcareEvaluation note* Diagnosis Onset Date Resolution Status Admit Date Benign essential hypertension acuteSept2024 11:41am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acuteSept2024 11:41amPostmenopausal bleedingacute May 06, 2025 11:41amSeasonal allergic rhinitis due to pollenacute May 06, 2025 11:41amUterine neoplasmacuteSept2024 11:41am [facility] Work Phone: Evaluation note* Diagnosis Benign essential hypertension- Primary Essential hypertension, benign 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 (HCC) Seasonal allergic rhinitis due to pollen Coronary artery disease involving naknek coronary artery of nak[place] heart without angina pectoris SAL (obstructive sleep [...] in both feet documented in this encounter [facility] HealthcareEvaluation note* Diagnosis Benign essential hypertension- Primary Essential hypertension, benign 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 (HCC) Seasonal allergic rhinitis due to pollen Coronary artery disease involving naknek coronary artery of nak[place] heart without angina pectoris SAL (obstructive sleep [...] of skin (HCC) documented in this encounter [facility] HealthcareEvaluation note* Diagnosis Benign essential hypertension- Primary Essential hypertension, benign 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 (HCC) Seasonal allergic rhinitis due to pollen Coronary artery disease involving naknek coronary artery of nak[place] heart without angina pectoris SAL (obstructive sleep [...] bleeding Yeast infection documented in this encounter [facility] HealthcareReason for referral (narrative)No reason for referral information availableWood [facility] Work Phone: Discharge Instructions * Attachments The following attachments cannot be sent through Care Everywhere. * Hypertension: General Info (Urdu) documented in this encounter Assessments Diagnosis Hypertension, unspecified type- Primary Advance Directives No Advanced Directives Records FoundDocuments on File TypeDate RecordedPatient RepresentativeExplanationAdvance Directives and Living WillPower of Capacitor Repairer Advance Directive Response Recorded Date/ Time Advance [...] has been high todayReason CommentsFollow-upChest congestionReasonOnset DateCommentsMed Wotdvt2807/06/2024 ReasonCommentsToe InjuryMira Perez 64yo. Patient relates she [...] section and content) DATE CREATED AUTHOR 10/05/2019 [facility] DATE CREATED AUTHOR AUTHOR'S ORGANIZ ATION 12/09/2022 [facility] DATE CREATED AUTHOR AUTHOR'S ORGANIZ ATION 05/23/2025 [facility] DATE CREATED AUTHOR AUTHOR'S ORGANIZ ATION 06/25/2025 [facility] DATE CREATED AUTHOR AUTHOR'S ORGANIZ ATION 07/02/2025 [facility] Care Teams (unrecognized sec tion and content) Team MemberRelationshipSpecialtyStart DateEnd Date Saurabh Purcell MD [address] [place] [address] PCP - Bhvsyoo72/1/23 Saurabh Purcell MD [address] [place] [address] PCP - [facility] Medicine10/04/23Team MemberRelationshipSpecialtyStart DateEnd Date Saurabh Purcell MD [address] [place] [address] PCP - Nqxefyo58/1/23 Saurabh Purcell MD [address] [place] [address] PCP - [facility] Medicine10/04/23Team MemberRelationshipSpecialtyStart DateEnd Date Saurabh Purcell MD [address] [place] [address] PCP - Qkoxunq31/1/23 Saurabh Purcell MD [address] [place] [address] [facility]10/04/23Team MemberRelationshipSpecialtyStart DateEnd Date Saurabh Purcell MD [address] [place] [address] PCP - [facility]01/31/23 Saurabh Purcell MD [address] [place] [address] [facility] Medicine10/04/23 Lynne Durham LPN Licensed Practical NurseUnitypoint Health-[facility] Medicine05/14/24Team MemberRelationshipSpecialty Start DateEnd Date Saurabh Purcell MD [address] [place] [address] PCP - [facility]01/31/23 Saurabh Purcell MD [address] [place] [address] PCP - GeneralFamily Medicine10/04/23 Diana Salvador LPN Licensed Practical NurseFamily Medicine02/07/24Team MemberRelationshipSpecialty Start DateEnd Date Saurabh Purcell MD [address] [place] [address] PCP - [facility]01/31/23 Saurabh Purcell MD [address] [place] [address] PCP - GeneralUnity[facility] Medicine10/04/23 Diana Salvador LPN Licensed Practical Nursemily Medicine02/07/24Team MemberRelationshipSpecialty Start DateEnd Date Saurabh Purcell MD [address] [place] [address] PCP - [facility]01/31/23 Saurabh Purcell MD [address] [place] [address] PCP - Generalmily Medicine10/04/23 Lynne Durham LPN Licensed Practical NurseFamily Medicine05/14/24Team MemberRelationshipSpecialty Start DateEnd Date Saurabh Purcell MD [address] [place] [address] PCP - [facility]01/31/23 Saurabh Purcell MD [address] [place] [address] PCP - GeneralFamily Medicine10/04/23 Clovis Bolanos MA [facility]07/07/24 Devon Gabriel, MS, RDN, LD, CHES [address] [place] [address] DietitianNutrition03/03/24Team MemberRelationshipSpecialtyStart DateEnd Date Saurabh Purcell MD [address] [place] [address] PCP - [facility]01/31/23 Saurabh Purcell MD [address] [place] [address] PCP - [facility] Medicine10/04/23 Clovis Bolanos MA [facility]07/07/24 Devon Gabriel, MS, RDN, LD, CHES [address] [place] [address] DietitianNutrition03/03/24Team MemberRelationshipSpecialtyStart DateEnd Date Saurabh Purcell MD [address] [place] [address] PCP - [facility]01/31/23 Saurabh Purcell MD [address] [place] [address] PCP - [facility] Medicine10/04/23 Clovis Bolanos MA [facility]07/07/24Team MemberRelationshipSpecialtyStart DateEnd Date Saurabh Purcell MD [address] [place] [address] PCP - [facility] Medicine10/04/23 Clovis Bolanos MA [facility]07/07/24Team MemberRelationshipSpecialtyStart DateEnd Date Saurabh Purcell MD [address] [place] [address] PCP - [facility]10/04/23 Clovis Bolanos [facility]07/07/24Team MemberRelationshipSpecialtyStart DateEnd Date Saurabh Purcell MD [address] [place] [address] PCP - [facility]10/04/23 Clovis Bolanos MA [facility]07/07/24Team MemberRelationshipSpecialtyStart DateEnd Date Saurabh Purcell MD [address] [place] [address] PCP - [facility]10/04/23 Saurabh Purcell MD [address] [place] [address] PCP - Ricardo [place]12/01/24 Clovis Bolanos, [place] [address] [place] [address] [facility]07/07/24Team MemberRelationshipSpecialtyStart DateEnd Date Saurabh Purcell MD [address] [place] [address] PCP - [facility]10/04/23 Saurabh Purcell MD [address] [place] [address] PCP - Ricardo MCCABE12/01/24 Team Status: Active Member Role Status Dates Saurabh Purecll MD Primary Care Provider Active Team Status: Inactive Member Role Status Dates Saurabh Purcell MD Primary Care Provider Active S tart: May 06, 2025 End: May 06, 2025[facility] ROGELIO Purcellttending ProviderActiveStart: May 06, 2025 End: May 06, 2025Team MemberRelationshipSpecialtyStart DateEnd Date Saurabh Purcell MD [address] [place] [address] [facility]/04/23 Saurabh Purcell MD [address] [place] [address] PCP - [place]12/01/24Team MemberRelationshipSpecialtyStart DateEnd Date Saurabh Purcell MD [address] [place] [address] [facility] - [facility]10/04/23 Saurabh Purcell MD [address] [place] [address] PCP - [place]12/01/24Team MemberRelationshipSpecialtyStart DateEnd Date Saurabh Purcell MD [address] [place] [address] [facility] - [facility]10/04/23 Saurabh Purcell MD [address] [place] [address] PCP - [place]12/01/24Team MemberRelationshipSpecialtyStart DateEnd Date Saurabh Purcell MD [address] [place] [address] [facility]10/04/23 Saurabh Purcell MD [address] [place] [address] [facility]12/01/24Team MemberRelationshipSpecialtyStart DateEnd Date Saurabh Purcell MD [address] [place] [address] [facility]10/04/23 Saurabh Purcell MD [address] [place] [address] [facility] Oral [place]12/01/24 Goals (unrecognized section and content) Goals [...] BE BASED ON THE PRIMARY CLINICAL RECORDS. [facility] [employer] [facility]. provides no warranty or guarantee of the accuracy or completeness of information in this document.
--- OUTSIDE RECORDS SUMMARY | 2025-07-28 06:09 | XMS_ITS | Clinical Summary ---
Author Organization [employer] tem Address [id number] [address] [place] [address] Care Team Providers Care Nozzle Tender Name Role Phone Pcp, Not In System [...] by mouth daily.Active calcium carb/D3/magnesium/zinc (calcium carb-D3-mag imc04-zywu) [phone] ns-rice-lv-mg tablet Take by mouth daily.Active aspirin 81 [...] TAKE 25 MG BY MOUTH IN THE GDZLPPJ78/03/2025Active metroNIDAZOLE (FLAGYL) 500 mg tablet Take 1 [...] Problems No known active problems Encounters DateTypeDepartmentCare MileKvxlzgcnnvb28/18/2025 9:30 AM ESTOffice Visit [facility] of [address] [address] Rohini Palacios DO Dysphagia, unspecified type (Primary Dx); Gastroesophageal reflux disease, unspecified whether esophagitis present; Anemia, unspecified type07/20/20257685Izvefr55/16/2025 9:02 AM EST - 07/18/2025 11:36 AM ESTEmergency [facility] [address] [place] [address] Star Calle MD Dysphagia, unspecified type (Primary Dx); Anemia, unspecified type; Vaginal bleeding Discharge Disposition: Home07/18/20252063Alvnoa70/29/2025Travelfrom Last 3 Months Immunizations ImmunizationAdministration DatesNext EqoEfwe5804/20/2019 Family History Medical HistoryRelationNameCommentsHeart diseaseFatherMerrill Lana SrProblems with heart when olderClotting disorderMotherHelen KeiserAlways needed more platelets for surgery.DiabetesMotherHelen KeiserWhen she was older she became diabeticOvarian cancerMotherHelen KevenitaNot sure why she got this.StrokeMother Jewell Summers was only a small one.Breast cancerNeg HxRelationNameStatus CommentsFatherMerrill Vesper SrDeceasedMotherHelen KeiserDeceased Social History Tobacco UseTypesPacks/DayYears UsedDateSmoking Tobacco: NeverSmokeless Tobacco: Never Tobacco Cessation:Counseling Given: Not Answered Alcohol UseStandard Drinks/WeekCommentsYes0 (1 standard drink = 0.6 oz pure alcohol)sociallyChildcareAnswerDate MzhcnxwkClzwdlgoqHwremuj44/12/2019Employment AnswerDate LuuphqjbXufxvoagqmQtusjxi92/12/2019Hunger ScreeningAnswerDate RecordedWithin the past 12 months we worried whether our food would run out before we got money to buy more.Never True07/18/2025Within the past 12 months the food we bought just didn't last and we didn't have money to get more.Never True07/18/2025Purpose - LifeAnswerDate RecordedPurpose and direction in life Bqwznhr43/11/2021CommentsNoSex and Gender InformationValueDate Recorded Sex Assigned at BirthNot on fileLegal NygMhrktu76/06/2015 11:45 AM EDTGender IdentityNot on fileSexual OrientationNot on file Last Filed Vital Signs Vital SignReadingTime TakenCommentsBlood Xnzgdipr482/7707/20/2025 9:46 AM EST Wjoxs514107/18/2025 9:08 AM HXGPifaspgbaex01.9 ??C (98.4 ??F)07/18/2025 9:08 AM ESTRespiratory Tdxv648409/17/2024 9:08 AM ESTOxygen Yktiwujkbt88%07/18/2025 9:08 AM ESTInhaled Oxygen Concentration--Tthmps92.3 kg (199 lb)07/20/2025 9:46 AM EST Zjykav186.1 cm (5' 5 )07/20/2025 9:46 AM ESTBody Mass Index33.12109/19/2024 9:46 AM EST Plan of Treatment DateTypeDepartmentCare Team (Latest Contact Info)Rvfkhrpgnfq95/10/2025 8:45 AM ESTHospital Encounter [facility] -Endoscopy [address] [place] [address] Rohini Palacios, DO [address] [place] [address] 08/11/2025 8:45 AM EST - 08/11/2025 9:15 AM ESTSurgery [facility] -Endoscopy [address] [place] [address] [place] [address] Rohini Palacios, DO [address] [place] [address] ESOPHAGOGASTRODUODENOSCOPY DIAGNOSTIC [09364 (CPT??)]09/17/2025 3:00 PM EST Office Visit [facility] - Medical Oncology [address] [place] [phone] [place] [address] [place] [address] [address] [place] [phone] 10/21/2025 10:00 AM ESTOffice Visit [facility] of [facility] [address] [place] [phone] Rohini Palacios, DO [address] [place] [address] NamePriorityAssociated DiagnosesDate/TimeESOPHAGOGASTRODUODENOSCOPY DIAGNOSTIC Dysphagia, unspecified type Gastroesophageal reflux disease, unspecified whether esophagitis present Anemia, unspecified type 08/11/2025 8:45 AM ESTHealth MaintenanceDue DateLast DoneCommentsDepression Eqfeqoqem27/04/1970Adult BMI Follow Up Plan02/04/1976Zoster (Shingles) Vaccine (1 of 2)02/04/2008Fall Risk Gpymqvivx36/04/2023OVID-19 Vaccine (4 - season)5005/29/2024, 04/12/2021, 03/15/2021Influenza Euluihx7405/03/2025 05/29/2024, 06/28/2021, 09/08/2020, Additional history existsAdult BMI Screening Tobacco Iexiszujw82DTaP,Tdap and Td Vaccines (2 - Td or Tdap)Colonoscopy, 09/20/2022, 08/01/2012RSV ( or age 60+ yrs) (1 - 1-dose 75+ series) [employer] Not on file Procedures Procedure NamePriorityDate/TimeAssociated DiagnosisCommentsCT ABDOMEN AND PELVIS W DWSYZUIQ88/16/2025 9:53 AM EST EXTRA TUBES BLUE DTOYslobpc25/16/2025 9:23 AM EST CA 125Add-On07/18/2025 9:23 AM EST EXTRA FFDMJBbdjjvm88/16/2025 9:23 AM EST BJXHRGEOGY63/16/2025 9:23 AM EST LIVER PCLLCMVJW57/16/2025 9:23 AM EST BASIC METABOLIC EBOGATCZM06/16/2025 9:23 AM EST CBC WITH AUTO FIQBLYQVVEFPQFHU00/16/2025 9:23 AM EST H PYLORI BREATH XDGAGCifkbzh20/29/2025 11:55 AM EDT Epigastric pain XPPXLFDZBEU18/19/2023 8:10 AM EST from Last 3 Months [...] AtPathologist SignatureExtra TubeAuto Resulted 07/18/2025 11:01 AM [facility]imen (Source) Anatomical Location / LateralityCollection Method / VolumeCollection Time Received TimeBloodVenous blood / Whpkgxk6107/18/2025 9:23 AM EST07/18/2025 9:35 AM EST Narrative Authorizing ProviderResult TypeResult StatusStar Calle MDLAB BLOOD ORDERABLESFinal ResultPerforming OrganizationAddressCity/State/ZIP CodePhone Number [facility] [address] * (ABNORMAL) CBC auto differential (07/18/2025 9:23 AM EST)ComponentValueRef RangeTest MethodAnalysis TimePerformed AtPathologist SignatureWBC8.44 - 11 X10^9/L109/17/2024 9:42 AM [facility]ITALRBC Count3.66 (L)3.8 - 5.2 X10^12/L109/17/2024 9:42 AM [facility] Hemoglobin9.7(L)11.7 - 15.5 g/dL07/18/2025 9:42 AM [facility]ITALHematocrit29.2(L)35 - 47 %07/18/2025 9:42 AM [facility]ITALMCV8080 - 100 fL07/18/2025 9:42 AM [facility]ITALMCH26.5(L)27 - 34 pg07/18/2025 9:42 AM ESTPROMEDISAINT AGNES MEDICAL CENTERMCHC33.232 - 36 g/dL07/18/2025 9:42 AM ESTPROMEDISAINT AGNES MEDICAL CENTERRDW14.811.5 - 15 %07/18/2025 9:42 AM ESTPROLAKEWOOD REGIONAL MEDICAL CENTERPlatelet Eavsl531587 - 450 X10^9L109/17/2024 9:42 AM ESTPROMEDISAINT AGNES MEDICAL CENTERMPV7.37 - 12 fL07/18/2025 9:42 AM EST [facility]ENTERNeutrophils %57.4%07/18/2025 9:42 AM EST [facility] CENTERLymphocytes %29.9%07/18/2025 9:42 AM EST [facility]OSPITALMonocytes %11.0%07/18/2025 9:42 AM EST [facility] HOSPITALEosinophils %1.4%07/18/2025 9:42 AM EST [facility]RAN[facility] CENTERBasophils %0.3%07/18/2025 9:42 AM EST [facility]OMRANCHO [facility]INGS [facility] CENTERNeutrophils Absolute (A)4.81.5 - 6.6 X10^9L109/17/2024 9:42 AM ESTPROMEDISAINT AGNES MEDICAL CENTERLymphocytes Absolute2.51.0 - 3.5 X10^9L109/17/2024 9:42 AM ESTPROMEDIGARFIELD MEDICAL CENTER HOSPITALMonocytes Absolute0.90.0 - 0.9 X10^9/L109/17/2024 9:42 AM ESTPROMEDISAINT AGNES MEDICAL CENTEREosinophils Absolute0.10.0 - 0.4 X10^9L109/17/2024 9:42 AM ESTPROMEDISAINT AGNES MEDICAL CENTERBasophils Absolute0.00.0 - 0.2 X10^9L109/17/2024 9:42 AM ESTSELECT MEDICAL SPECIALTY [facility], INCDifferential TypeAUTOMATED RISYLGVQCFOA33/16/2025 9:42 AM ESTPROMEDICA KAIS[facility] MEDICAL CENTERpecimen (Source)Anatomical Location / LateralityCollection Method / VolumeCollection TimeReceived TimeBloodVenous blood / UnknownVenipuncture / Rumpwwu5207/18/2025 9:23 AM EST07/18/2025 9:34 AM EST Narrative Authorizing ProviderResult TypeResult StatusPatricchantell ARGUETA BLOOD ORDERABLESFinal ResultPerforming OrganizationAddressCity/State/ZIP CodePhone Number [facility] [address] [place] [address], * (ABNORMAL) [place] 125 (07/18/2025 9:23 AM EST)ComponentValueRef RangeTest Method Analysis TimePerformed AtPathologist SignatureCA 965569(H)<=35 U/mL07/18/2025 10:14 PM [facility]ORATORYComment: The method used for this test is Manuel N42 DXI chemiluminescent immunoassay. Values obtained by different assay methods cannot be used interchangeably. Specimen (Source)Anatomical Location / LateralityCollection Method / Volume Collection TimeReceived TimeBloodVenous blood / UnknownVenipuncture / Unknown 07/18/2025 9:23 AM EST07/18/2025 9:34 AM EST Narrative Authorizing ProviderResult TypeResult StatusSkylertricchantell ARGUETA BLOOD ORDERABLESFinal ResultPerforming OrganizationAddressCity/State/ZIP CodePhone Number [facility] [address] [place] [address], [place] [phone] * Lipase (07/18/2025 9:23 AM EST)ComponentValueRef RangeTest MethodAnalysis Time Performed AtPathologist KkuqhzpviCPKZAL0198 - 40 U/L109/17/2024 9:57 AM EST [facility] ([facility])Anatomical Location / LateralityCollection Method / VolumeCollection TimeReceived TimeBloodVenous blood / UnknownVenipuncture / Xpioszm7107/18/2025 9:23 AM EST07/18/2025 9:34 AM EST Narrative Authorizing ProviderResult TypeResult StatusSkylertricchantell ARGUETA BLOOD ORDERABLESFinal ResultPerforming OrganizationAddressCity/State/ZIP CodePhone Number [facility] [address] [facility] [place] [address], [place] * (ABNORMAL) Liver panel (07/18/2025 9:23 AM EST)ComponentValueRef RangeTest MethodAnalysis TimePerformed AtPathologist SignatureTOTAL PROTEIN7.06.0 - 8.0 g/dL07/18/2025 10:03 AM ESTSELECT MEDICAL SPECIALTY HOSPITAL [facility], INCALBUMIN2.8(L)3.2 - 5.3 g/dL07/18/2025 10:03 AM [facility] BILIRUBIN,TOTAL0.60.3 - 1.2 mg/dL07/18/2025 10:03 AM [facility]OSPITALALKALINE QHERLOFUZFS7860 - 130 U/L109/17/2024 10:03 AM EST [facility] INCAST21<=41 U/L109/17/2024 10:03 AM EST [facility] INCALT19<=31 U/L109/17/2024 10:03 AM EST [facility], INCBILIRUBIN,DIRECT0.1<=0.4 mg/dL07/18/2025 10:03 AM [facility]pecimen (Source)Anatomical Location / LateralityCollection Method / VolumeCollection TimeReceived Time BloodVenous blood / UnknownVenipuncture / Svvinge7707/18/2025 9:23 AM EST 07/18/2025 9:34 AM EST Narrative Authorizing ProviderResult TypeResult StatusPacherelle Calle MDLAB BLOOD ORDERABLESFinal ResultPerforming OrganizationAddressCity/State/ZIP CodePhone Number [place] [phone] [facility] [place] [address], [place] * (ABNORMAL) Basic Metabolic Panel (07/18/2025 9:23 AM EST)ComponentValueRef RangeTest MethodAnalysis TimePerformed AtPathologist JugyxywxkUZZJZX360862 - 146 mmol/L109/17/2024 10:03 AM [facility]ITALPOTASSIUM 3.73.5 - 5.0 mmol/L109/17/2024 10:03 AM [facility] VHDWYIKX12333 - 109 mmol/L109/17/2024 10:03 AM [facility]OSPITALCARBON LABPVPD1028 - 32 mmol/L109/17/2024 10:03 AM [facility]ITALANION HSH814 - 15 mmol/L109/17/2024 10:03 AM [facility]OSPITALBLOOD UREA KNUQFIOG62 - 27 mg/dL07/18/2025 10:03 AM [facility]OSPITALCREATININE0.660.40 - 1.00 mg/dL 07/18/2025 10:03 AM [facility]OSPITALComment:METHOD TRACEABLE TO IDMS TTSRFKRMWEGGHSL100(H)65 - 99 mg/dL07/18/2025 10:03 AM EST [facility], INCCALCIUM8.88.5 - 10.5 mg/dL07/18/2025 10:03 AM [facility] HOSPITALEGFR Non-Race Dependent>90>=60 ml/min/1.73sq.m109/17/2024 10:03 AM [facility] Comment: eGFR not reported due to non-numeric value for Creatinine. Reported eGFR is based on the CKD-EPI 2020 equation that does not use a race coefficient. Specimen (Source)Anatomical Location / LateralityCollection Method / Volume Collection TimeReceived TimeBloodVenous blood / UnknownVenipuncture / Unknown 07/18/2025 9:23 AM EST07/18/2025 9:34 AM EST Narrative Authorizing ProviderResult TypeResult StatusPatricchantell Calle MDLAB BLOOD ORDERABLESFinal ResultPerforming OrganizationAddressCity/State/ZIP CodePhone Number [facility] [address] [place] [address], * H pylori breath adult (06/30/2025 11:55 AM EDT)ComponentValueRef RangeTest MethodAnalysis TimePerformed AtPathologist SignatureHELICOBACTER PYLORI, C UREA BREATH TQLKPyfxqhciSclrwrbz25/30/2025 10:08 AM EDTMSENTARA MARTHA JEFFERSON HOSPITAL LABORATORIESComment: Result indicates the absence of current Helicobacter pylori infection. Test Performed by: [facility] [address] [place] [address] Entertainer & Comic: Heather Morataya Ph.D.; CLIA# [id number] Specimen (Source)Anatomical Location / LateralityCollection Method / Volume Collection TimeReceived TimeBreathLung structure / Gwwkeqc3206/30/2025 11:55 AM EDT1 11:55 AM EDT Narrative Authorizing ProviderResult TypeResult StatusMarc Soila ISAACBODY FLUIDS AND STOOLS ORDERABLESFinal ResultPerforming OrganizationAddressCity/State/ZIP Code Phone Number [facility] [address] [place] [address], * Colonoscopy (09/20/2022 8:10 AM EST)Specimen (Source)Anatomical Location / LateralityCollection Method / VolumeCollection TimeReceived Time09/20/2022 8:10 AM EST Narrative PM CARDIOVASCULAR - 09/20/2022 8:41 AM EST [facility] Patient Name: Mira Santos ?? Procedure Date No Time: 09/20/2022 ?? CSN : [id number] Date of : 1960 Admit Type: Outpatient Age: 62 Room: [place] [address] Gender: Female Note Status: Finalized Attending MD: [...] saturations were monitored continuously. The OLYMPUS ? -[id number] #[id number] ADULT COLONOSCOPE was introduced ? through the [...] abscess ? without bleeding CPT copyright 2020 [employer]. All rights reserved. The codes documented in this report are preliminary and upon surgical coder review may be revised to meet current compliance requirements. DO Thanh Arceo DO 09/20/2022 8:41:26 AM Number of Addenda: 0 Note Initiated On: 09/20/2022 8:10 AM Procedure Note Thanh Arriaga DO - 09/20/2022 [facility] Patient Name: Mira Santos Procedure Date No Time: 09/20/2022 CSN : [id number] Date of : 1960 Admit Type: Outpatient Age: 62 Room: [place] [address] Gender: Female Note Status: Finalized Attending MD: Thanh Arriaga DO Procedure: Colonoscopy Indications: Screening for colorectal malignant neoplasm Providers: Thanh Arriaga DO Referring MD: Thanh Arriaga DO Medicines: Propofol per Anesthesia Complications: No immediate complications. Procedure: After I obtained informed consent, the scope was passed under direct vision. Throughout theprocedure, the patient's blood pressure, pulse, and oxygen saturations were monitored continuously. TheACE Film ProductionsPRESBYTERIAN HOS[facility]ITAL [id number] #[id number] ADULT COLONOSCOPE was introduced through the anus [...] perforation orabscess without bleeding CPT copyright 2020 [employer]. All rights reserved. The codes documented in this report are preliminary and upon surgical coder reviewmay be revised to meet current compliance requirements. DO Thanh Arceo DO 09/20/2022 8:41:26 AM Number of Addenda: 0 Note Initiated On: 09/20/2022 8:10 AM Authorizing ProviderResult TypeResult StatusMicbonnie SULLIVANI PROCEDURE ORDERABLESFinal ResultPerforming OrganizationAddressCity/State/ZIP CodePhone Number PM CARDIOVASCULAR from Last 3 Months or Most Recently Relevant to Health Maintenance Insurance * Guarantor: Mira SantosAccorivera TypeRelation to PatientDate of BirthPhone Billing HazhwanPczcygJrxo[address] [place] [id number] Care Teams Team MemberRelationshipSpecialtyStart DateEnd Date Pcp, [place] [address] PCP - GeneralFamily Uyanwbtf97/29/25
--- OUTSIDE RECORDS SUMMARY | 2025-07-28 06:09 | XMS_ITS | Clinical Summary ---
Author Organization [facility] Address [address] [place] [address] Care Team Providers Care Director Perioperative Name Role Phone Saurabh Cm MD Primary Care Provider [phone] Saurabh Cm MD Unavailable Allergies Active AllergyReactionsCriticalityNoted [...] 30 tablet 505Active Active Problems ProblemNoted DateDiagnosed SuzySvwfnogmj74/13/2025 Assessment & Plan (01/12/2025 12:10 PM EDT): C/o blood in urine but UA normal. Check culture. Increase fluids. Check US kidneys. If symptoms persist will need to see urology. Postmenopausal zakkkxhw68/13/2025 Assessment & Plan (01/12/2025 12:10 PM EDT): C/o vaginal bleeding and check pelvic US. Medicare annual wellness visit, tojcclcdrq41/02/2025 Assessment & Plan (09/03/2024 3:21 PM EST): Due for labs. Discussed proper diet and regular aerobic exercise. Need aerobic exercise 5-6 days a week for 30 minutes at a time. Smaller portions and limit total calories. Colonoscopy every 10 years. Tetanus every 10 years. Advised not to smoke. Discussed daily Aspirin therapy. Subclinical pgtvuizatsvaqc81/02/2024iverticulosis of colon10/04/2023 Adsunoksxqrv65/02/2024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 10/04/2023 Assessment & Plan (01/23/2024 9:55 AM EDT): Symptoms controlled with inhaled steroid and continue. Use albuterol PRN. Assessment & Plan (10/04/2023 10:59 AM EST): Increased SOB and add flovent. Vitamin D nqugkrfurf53/02/2024Seasonal allergic rhinitis due to cqjets5310/04/2023 Assessment & Plan (01/23/2024 9:55 AM EDT): Symptoms controlled with medication and continue. Assessment & Plan (10/04/2023 11:00 AM EST): Symptoms controlled with medication and continue. Benign essential zcabmknszypq62/02/2024 Assessment & Plan (09/03/2024 3:20 PM EST): BP elevated but previously controlled and monitor PRN. Assessment & Plan (01/23/2024 9:54 AM EDT): BP controlled and monitor PRN. Assessment & Plan (10/04/2023 10:59 AM EST): BP controlled and monitor PRN. Encounter for long-term (current) use of qnpzeaecpko08/02/2024oronary artery disease involving kasigluk coronary artery of [place] heart without angina pectoris 09/09/2023 Overview (10/04/2023): [...] discomfort. Acute bronchitis due to other specified Assessment & Plan (01/23/2024 9:54 AM EDT): [...] TSHhronic pain of both knees/ Gastroesophageal reflux mndavsv71Mixed hyperlipidemia OSA (obstructive sleep apnea) Assessment & Plan (10/04/2023 11:00 AM EST): Not using CPAP and need to use nightly. Dyspareunia in yrrzsq38 Assessment & Plan (10/04/2023 10:59 AM EST): Pain with intercourse and add premarin. Encounters DateTypeDepartmentCare JuekRjgosmerqxo36/24/2025 1:20 PM ESTConsult NOMNicola CORTEZ [address] [place] [address] Huber Torres, Pre-op examination; Cervical mass; Uterine mass07/26/2025amboo flowsheet [facility] Cheri [facility]TE[facility] [address] [place] [phone] Huber Torres DO 07/19/2025Telephone N[place] [place] [address] Faith Pollack MA 06/23/2025 3:10 PM EDTOffice Visit [facility] [place] [address] Huber Torres DO Postmenopausal bleeding; Yeast mfomjyihs72/22/2025amboo flowsheet [facility] Cheri CORTEZ [address] [place] [address] Huber Torres DO 06/19/20251887Vbnwdg72/15/2025 4:00 PM EDTOffice Visit [facility] [address] [place] [phone] Luc Guzman DPM Onychomycosis (Primary Dx); Onychodystrophy; Ulcer of left foot, limited to breakdown of skin (HCC)06/16/2025amb flowsheet [facility] [address] [place] [phone] Luc Guzman DPM 06/16/20254726Vjlfmo69/14/0590Qojqjn99/08/6268Dfrsso26/30/2025 1:00 PM EDTOffice Visit [facility] [address] [place] [phone] Luc Guzman DPM Onychomycosis (Primary Dx); Onychodystrophy; Ulcer of left foot, limited to breakdown of skin (HCC); Pain in both feet06/01/2025amb flowsheet [facility] [address] [facility] [phone] Luc Guzman DPM 06/01/20251578Ospevo31/30/2478Ylpdss80/27/2025Refill [facility] [address] [place] [phone] Saurabh Cm MD Seasonal allergic rhinitis due to pollenfrom Last 3 Months Immunizations ImmunizationAdministration DatesNext DueHep B, adult01/03/2012,08/09/2011, 06/28/2011Influenza, injectable, dfwdrtljfezq77/15/2017,06/30/2014Influenza, injectable, quadrivalent, preservative free06/28/2021,09/08/2020,06/13/2016 Influenza, recombinant, quadrivalent, injectable, preservative free06/23/2020, 05/23/2019MMR10/14/2017Tdap04/20/2019 Family History Medical HistoryRelationNameCommentsDiabetesBrotherMerrill S KeiserHeart disease BrotherMerrill S KeiserHypertensionBrotherMerrill S KeiserHeart diseaseFather March S Osborne SrDiabetesMotherHelen J KeiserOvarian cancerMotherHelen J KeiserStrokeMotherHelen J KeiserRelationNameStatusCommentsBrotherMerrill S KeiserFatherMerrill S Lana SrDeceasedMotherHelen J KeiserDeceased Social History Tobacco UseTypesPacks/DayYears UsedDateSmoking Tobacco: NeverSmokeless Tobacco: Never Tobacco Cessation:Counseling Given: Not Answered Alcohol UseStandard Drinks/WeekCommentsYes0 (1 standard drink = 0.6 oz pure alcohol)Occasional, Caffeine intake: 1-2 cups per [id number] Health LiteracyAnswer Date RecordedHow often do you [...] relatives?Once a week05/01/2025How often do you attend buddhism or oriental orthodox services?1 to 4 times per year05/01/2025Do you belong to any clubs or organizations such as buddhism groups, unions, fraternal or athletic groups, or [...] at all 05/01/2025PHQ-2AnswerDate RecordedPatient Health Questionnaire-2 Score1 09/03/2024[facility] [place] of Occupational Health - Occupational Stress QuestionnaireAnswerDate [...] homeless or living in a longterm (including now)?No 05/01/2025CommentsUnknownSex and Gender InformationValueDate RecordedSex Assigned at BirthNot on fileLegal FgbClyiil00/15/2023 7:34 PM EDTGender Identity Not on fileSexual OrientationNot on file Last Filed Vital Signs Vital SignReadingTime TakenCommentsBlood Msyqbvrc505/7011 1:47 PM EST Ujley9145/13/2025 11:45 AM VZJErvuqajxfwg08.3 ??C (97.3 ??F)01/12/2025 11:45 AM EDTRespiratory Gryg737401/12/2025 11:45 AM EDTOxygen Hpxurydfao05%01/12/2025 11:45 AM EDTInhaled Oxygen Concentration--Rshbqb99 kg (194 lb)07/26/2025 1:47 PM EST Fjrowt824.1 cm (5' 5 )06/16/2025 4:01 PM EDTBody Mass Index32.281 4:01 PM EDT Plan of Treatment Health MaintenanceDue DateLast DoneCommentsCT Itiyzojzrqha1958FIT-DNA 1958FIT1958FOBT1958 4795Rpsiyulabogsi1958Pneumococcal Vaccine: 65+ Years (1 of 2 - PCV)02/03/19770617Obypbzrgl07, 04/08/2023, 09/05/2020OVID-19 Vaccine ( season)508/07/2021, 03/15/2021Influenza Vaccine (#1)509/, 06/28/2021, 09/08/2020, Additional history existsMedicare Annual Wellness (AWV)/10/2024, 04/02/20238189Hmrrwhwnjic18/19/203301/, 09/19/2022olorectal Cancer Screening 09/20/2032 Procedures Procedure NamePriorityDate/TimeAssociated DiagnosisCommentsBI MAMMOGRAM SCREENING TOMOSYNTHESIS PPWDSYVTFDknfbgu70/08/2024 11:12 AM EDT Breast cancer screening by [...] IS VERY IMPORTANT TO YOUR HEALTH. ??THE [employer] GUIDELINES RECOMMEND THAT WOMEN 40 [...] calcifications. Overall appearance stable. ?? Procedure Note Hma Atwood MD - 04/09/2024 EXAMINATION: BI MAMMOGRAM [...] IS VERY IMPORTANT TO YOUR HEALTH. THE [employer] GUIDELINES RECOMMEND THAT WOMEN 40 [...] Ham Atwood MD Authorizing ProviderResult TypeResult StatusMarc [facility] MDG BI PROCEDURES Final Result from Last 3 Months or Most Recently Relevant to Health Maintenance Insurance Care Teams Team MemberRelationshipSpecialtyStart DateEnd Date Saurabh Cm MD [address] [place] [phone] [facility] - [facility]23 Saurabh Cm MD [address] [place] [phone] PCP - Ricardo MCCABE12/01/24
--- OUTSIDE RECORDS SUMMARY | 2025-07-28 06:09 | XMS_ITS | Encounter Summary ---
Author Organization [facility] Address [address] [place] [address] Care Team Providers Care Marketing Operations Associate Name Role Phone Saurabh Cm MD Primary Care Provider [phone] Saurabh Cm MD Unavailable Encounter Details DateTypeDepartmentCare Team (Latest Contact Info)Uomwmrpjbcq89/17/2025Telephone [facility] Cheri [facility]BGYN [address] [place] [address] [place], [place] [address] [place] [address] Social History Tobacco UseTypesPacks/DayYears UsedDateSmoking Tobacco: NeverSmokeless Tobacco: NeverAlcohol UseStandard Drinks/WeekCommentsYes0 (1 standard drink = 0.6 oz pure alcohol)Occasional, Caffeine intake: 1-2 cups per [id number] Health LiteracyAnswer Date RecordedHow often do you [...] relatives?Once a week05/01/2025How often do you attend zoroastrianism or amish services?1 to 4 times per year05/01/2025Do you belong to any clubs or organizations such as zoroastrianism groups, unions, fraScopial Fashion or athletic groups, or school groups?Yes05/01/2025How often [...] at all 05/01/2025PHQ-2AnswerDate RecordedPatient Health Questionnaire-2 Score1 09/03/2024[facility] [place] of Occupational Health - Occupational Stress QuestionnaireAnswerDate [...] were you homeless or living in a usp (including now)?No 05/01/2025CommentsUnknownSex and Gender InformationValueDate RecordedSex Assigned at BirthNot on fileLegal VskMqkmhw98/15/2023 7:34 PM EDTGender Identity Not on fileSexual OrientationNot on filedocumented as of this encounter Miscellaneous Notes * Telephone Encounter - Faith Pollack MA - 07/19/2025 12:55 PM EST Pt called left message she was seen at the ER for vaginal discharge and abdominal pain. A CT was done at the [facility] ER in [place] and results of abnormal appearance of cervix. Fluid distending theuterine cavity. May be causing endocervical stenosis or obstruction. And was advised to f/up w/Gluing Pressman.I tried calling pt back and phone continued [...] risk assessment has been completed for the pcgzfpi8502/14/2024 9:40 AM EDT documented as of this encounter Care Teams Team MemberRelationshipSpecialtyStart DateEnd Date Saurabh Cm MD [address] [place] [address] PCP - GeneralFamily Medicine10/04/23 Saurabh Cm MD [address] [place] [address] PCP - Ricardo MCCABE12/01/24documented as of this encounter
--- OUTSIDE RECORDS SUMMARY | 2025-07-28 06:09 | XMS_ITS | Clinical Summary ---
Author Organization [facility] Address [address], [address] [place] [address] Care Team Providers Care Golf Coach Name Role Phone Saurabh Cm MD Primary Care Provider + Allergies Active AllergyReactionsCriticalityNoted DateCommentsSulfa Cbcguvahuju19/03/2020 Medications MedicationSigDispense QuantityRefillsLast FilledStart DateEnd DateStatus levothyroxine [...] Date RecordedSex Assigned at BirthNot on fileLegal VwaWfhvtr03/11/2013 3:23 AM ESTGender IdentityNot on fileSexual OrientationNot on file Last Filed Vital Signs Vital SignReadingTime TakenCommentsBlood Xfrfxyrh424/9002 6:15 PM EST Wbrvd760610/05/2019 4:18 PM HERDbjpzxrhwjg74.5 ??C (97.7 ??F)10/05/2019 3:44 PM ESTRespiratory Ijvh385710/05/2019 6:15 PM ESTOxygen Evlvfstktc86%10/05/2019 3:44 PM ESTInhaled Oxygen Concentration--Cneygr94.3 kg (199 lb)10/05/2019 3:44 PM EST Height--Body Mass Index-- Plan of Treatment Not on file Insurance Care Teams Team MemberRelationshipSpecialtyStart DateEnd Date Saurabh Cm MD [address] [place] [address] PCP - GeneralFamily Medicine10/05/19
--- OUTSIDE RECORDS SUMMARY | 2025-07-28 06:09 | XMS_ITS | Encounter Summary ---
Author Organization [facility] Address [address] [place] [address] Care Team Providers Care Clinical Research Management Associate Name Role Phone Saurabh Cm MD Primary Care Provider [phone] Saurabh Cm MD Unavailable Encounter Details DateTypeDepartmentCare Team (Latest Contact Info)Wdijrolaheo73/24/2025amboo flowsheet [facility] [address] [place] [address] Huber Torres DO [address]on[place], [facility] Social History Tobacco UseTypesPacks/DayYears UsedDateSmoking Tobacco: NeverSmokeless Tobacco: NeverAlcohol UseStandard Drinks/WeekCommentsYes0 (1 standard drink = 0.6 oz pure alcohol)Occasional, Caffeine intake: 1-2 cups per utnN0290 Health LiteracyAnswer Date RecordedHow often do you [...] week05/01/2025How often do you attend evangelical or judaism services?1 to 4 times per year05/01/2025Do you [...] at all 05/01/2025PHQ-2AnswerDate RecordedPatient Health Questionnaire-2 Score1 09/03/2024[facility] [place] of Occupational Health - Occupational Stress QuestionnaireAnswerDate [...] steady place to sleep or slept in [facility] (including now)?No09/27/2023Housing Stability Vital SignAnswerDate RecordedIn the last 12 months, was there a time when you were not able to pay the mortgage or rent on time?No05/01/2025In the past 12 months, how many times have you moved where you were living?t any time in the past 12 months, were you homeless or living in a custodial (including now)?No 05/01/2025CommentsUnknownSex and Gender InformationValueDate RecordedSex Assigned at BirthNot on fileLegal ZfvDkqapx50/15/2023 7:34 PM EDTGender Identity Not on fileSexual OrientationNot on filedocumented as of this encounter Plan of Treatment Not on file documented as of this encounter Visit Diagnoses Not on filedocumented in this encounter Additional Health Concerns AssessmentNoted TimePHQ-9 Depression Total Score: 2:00 PM ESTA fall risk assessment has been completed for the cfbefkc1102/14/2024 9:40 AM EDT documented as of this encounter Care Teams Team MemberRelationshipSpecialtyStart DateEnd Date Saurabh Cm MD [address] [place] [address] PCP - [facility]10/04/23 Saurabh Cm MD [address] [place] [address] PCP - [facility]12/01/24documented as of this encounter
--- OUTSIDE RECORDS SUMMARY | 2025-07-28 06:09 | XMS_ITS | Clinical Summary ---
Author Organization [facility] Address [address] [place] [address] Care Team Providers Care Executive Director Sheltered Workshop Name Role Phone Saurabh Cm MD Primary Care Provider [phone] Allergies Active AllergyReactionsCriticalityNoted DateCommentsSulfa (Sulfonamide Antibiotics)SvfdoVer14/09/2017 Other reaction(s): Unknown Medications MedicationSigDispense QuantityRefillsLast FilledStart DateEnd DateStatus albuterol 90 mcg/actuation inhaler Inhale 2 puffs every 6 (six) hours if needed.Active aspirin 81 mg EC tablet Take 81 mg by mouth in the morning.Active calcium carb/D3/magnesium/zinc (calcium carb-D3-mag oem23-ooug) [phone] uj-cbln-im-mg tablet Take by mouth in the morning.Active [...] 80 mg tablet Indications:Coronary artery disease involving wiyot coronary artery of wiyot heart with unstable angina pectoris (CMS/HCC)Take 1 tablet (80 mg) by mouth in the morning. 30 tablet ctive nitroglycerin (Nitrostat) 0.4 mg SL tablet Indications:Coronary artery disease involving wiyot coronary artery of wiyot heart with unstable angina pectoris (CMS/HCC)Place 1 [...] 45 tablet //ctive Active Problems ProblemNoted DateDiagnosed DwmdOokjuqeei84/13/2025Postmenopausal bleeding 5Acute UTI09/03/2024Medicare annual wellness visit, subsequent 5Acute bronchitis due to other specified icrjcsrzh76/23/2024 Overview (03/03/2024): Last Assessment & Plan: Take [...] or worse call office. Abnormal TSH10/05/2023iverticulosis of colon9019Yiqspxsfpigr05/02/2024 Dyspareunia in vrnlkm0210/04/2023 Overview (03/03/2024): Last Assessment & Plan: Pain with intercourse and add premarin. Encounter for long-term (current) use of nxkmbsayjyr32/02/2024Mild intermittent intrinsic asthma without lqczfxsjtudx98/02/2024 Overview (03/03/2024): Last Assessment & Plan: Symptoms controlled with inhaled steroid and continue. Use albuterol PRN. Seasonal allergic rhinitis due to uqrnah0610/04/2023 Overview (03/03/2024): Last Assessment & Plan: Symptoms controlled with medication and continue. Benign essential HTN09/09/2023 Assessment & Plan (09/09/2023 2:20 PM EST): Hypertension is typically well controlled at home with b/p typically 120-126/70-80 Continue Toprol 12.5 mg daily Coronary artery disease involving wiyot coronary artery of wiyot heart without angina dnbvosio63/08/2024 Assessment & Plan (09/09/2023 4:16 PM EST): Coronary artery disease is stable without concerning symptoms Continue GDMT- continue ASA, resume lipitor and continue toprol daily. continue risk factor modifications- heart healthy diet, regular exercise as tolerated and continue all medications. Vitamin D ftmfowvdqe52/29/0750Zxdpfbf30/29/2023OSA (obstructive sleep apnea) 11/28/20221206Dyocuo21/29/2023ERD (gastroesophageal reflux disease)11/28/2022 Neurogenic ekspayk4411/28/2022 Assessment & Plan (09/09/2023 4:16 PM EST): [...] LFT and lipid level in 2-3 months Lveutriaugavyy02/29/7138Wzscfguqpqvuwj61/29/2023bnormal stress test11/28/2022 Overview (11/28/2022): Added automatically from request for surgery [id number] Resolved Problems ProblemNoted DateDiagnosed DateResolved DateBenign hypertensive heart disease without congestive heart Assessment & Plan (09/09/2023 2:18 PM EST): B/P today 142/ 84- uncontrolled Continue toprol 12.5 mg daily Typically b/p at home is 120-126/70-80 And well controlled Encounters DateTypeDepartmentCare NwxtWclfazinobi49/26/2025Orders Only [facility] [address] [place] [address] Mira Zuniga MA Mixed hyperlipidemia (Primary Dx)05/19/2025Telephone [facility] [address] [place] [address] Mira Zuniga MA from Last 3 Months [...] and Gender Information ValueDate RecordedSex Assigned at ZbtihRbkrcp13/28/2024 11:31 AM ESTLegal Sex Uyzjtt3611/23/2022 1:37 PM EDTGender JsycqreaPmsllx52/28/2024 11:31 AM ESTSexual OrientationHeterosexual or Pmmijkwn59/28/2024 11:31 AM EST Last Filed Vital Signs Vital SignReadingTime TakenCommentsBlood Omzwnysl504/8804/08/2025 1:34 PM EDT Czctn610904/08/2025 1:34 PM EDTTemperature--Respiratory Phnk124512/06/2022 11:15 AM EDTOxygen Yfopqcruue80%04/08/2025 1:34 PM EDTInhaled Oxygen Concentration-- Qtofps05.5 kg (204 lb)04/08/2025 1:34 PM OGKFktphl305.6 cm (5' 4 )04/08/2025 1:34 PM EDTBody Mass Index35.02004/08/2025 1:34 PM EDT Plan of Treatment Health MaintenanceDue DateLast DoneCommentsCT Kschaossyqkf1958FIT-DNA 1958FIT1958FOBT1958Medicare Annual Wellness (AWV)1958 Kkpzgwdzcbhbh1958Depression Lrlasfock43/04/1970Pneumococcal Vaccine: 50+ Years (1 of 2 - PCV)1977Zoster Vaccines (1 of 2)02/04/2008Fall Risk Fyhofxygx73/04/2023OVID-19 Vaccine ( - season), 04/12/2021, 03/15/2021Influenza Vaccine (#1), 06/28/2021, 09/08/2020, Additional history mwqyzvZckxwzcsa20/08/202608/04/2024, 04/08/2023 Adult Arpkdfa27Colonoscopy, 09/20/2022 Colorectal Cancer Kgdhuxhpz60/19/2033HIB VaccinesAged OutNo longer eligible based on patient's [...] Date Saurabh Cm MD [address] [address] [facility]11/27/22
--- OUTSIDE RECORDS SUMMARY | 2025-07-28 06:09 | XMS_ITS | Encounter Summary ---
Author Organization [employer] [facility] tem Address [id number] [address] [place] [address] Care Team Providers Care Strategic Debriefing Specialist Name Role Phone Pcp, Not In System Primary Care Provider Unavail able Encounter Details DateTypeDepartmentCare Team (Latest Contact Info)Uewlswdsoka02/16/2025Travel Social History Tobacco UseTypesPacks/DayYears UsedDateSmoking Tobacco: NeverSmokeless Tobacco: NeverAlcohol UseStandard Drinks/WeekCommentsYes0 (1 standard drink = 0.6 oz pure alcohol)sociallyChildcareAnswerDate NbiurbmhVdottyslyChlsuyr49/12/2019Employment AnswerDate TzmsabejJrwhlbvxzzNketwpz75/12/2019Hunger ScreeningAnswerDate RecordedWithin the past 12 months we worried whether our food would run out before we got money to buy more.Never True07/18/2025Within the past 12 months the food we bought just didn't last and we didn't have money to get more.Never True07/18/2025Purpose - LifeAnswerDate RecordedPurpose and direction in life Jmsicee15/11/2021CommentsNoSex and Gender InformationValueDate Recorded Sex Assigned at BirthNot on fileLegal DnuXorudb57/06/2015 11:45 AM EDTGender IdentityNot on fileSexual OrientationNot on filedocumented as of this encounter Plan of Treatment DateTypeDepartmentCare Team (Latest Contact Info)Cdgttkhxigx65/10/2025 8:45 AM ESTHospital Encounter [facility] [address] [place] [address] Rohini Palacios, DO [address] [place] [address] 08/11/2025 8:45 AM EST - 08/11/2025 9:15 AM ESTSurgery [facility] [address] [place] [address] Rohini Palacios, DO [address] [place] [address] ESOPHAGOGASTRODUODENOSCOPY DIAGNOSTIC [[id number] (CPT??)]09/17/2025 3:00 PM EST Office Visit [facility] - Medical Oncology [address] [place] [phone] Baljeet Clemente MD [address] [place] [address] [address] [place] [phone] 10/21/2025 10:00 AM ESTOffice Visit [facility] [address] [place] [phone] Rohini Palacios, DO [address] [place] [address] NamePriorityAssociated DiagnosesDate/TimeESOPHAGOGASTRODUODENOSCOPY DIAGNOSTIC Dysphagia, unspecified type Gastroesophageal reflux disease, unspecified whether esophagitis present Anemia, unspecified type 08/11/2025 8:45 AM ESTdocumented as of this encounter Visit Diagnoses Not on filedocumented in this encounter Care Teams Team MemberRelationshipSpecialtyStart DateEnd Date Pcp, [place] [address] PCP - GeneralFamily Vatzrgki18/29/25documented as of this encounter
--- OUTSIDE RECORDS SUMMARY | 2025-07-28 06:10 | XMS_ITS | Encounter Summary ---
Author Organization [employer] [facility] tem Address [id number] [address] [place] [address] Care Team Providers Care Dental Insurance Coordinator Name Role Phone Pcp, Not In System Primary Care Provider Unavail able Encounter Details DateTypeDepartmentCare Team (Latest Contact Info)Iefxgprmedj08/18/2025Travel Social History Tobacco UseTypesPacks/DayYears UsedDateSmoking Tobacco: NeverSmokeless Tobacco: NeverAlcohol UseStandard Drinks/WeekCommentsYes0 (1 standard drink = 0.6 oz pure alcohol)sociallyChildcareAnswerDate KyapwvrrUcudsvumaAfoikpc98/12/2019Employment AnswerDate PwgyxrkbBmblacemueTuntpzc09/12/2019Hunger ScreeningAnswerDate RecordedWithin the past 12 months we worried whether our food would run out before we got money to buy more.Never True07/18/2025Within the past 12 months the food we bought just didn't last and we didn't have money to get more.Never True07/18/2025Purpose - LifeAnswerDate RecordedPurpose and direction in life Lirojza28/11/2021CommentsNoSex and Gender InformationValueDate Recorded Sex Assigned at BirthNot on fileLegal AcrNrgxwt49/06/2015 11:45 AM EDTGender IdentityNot on fileSexual OrientationNot on filedocumented as of this encounter Plan of Treatment DateTypeDepartmentCare Team (Latest Contact Info)Kwfrhwwfjvk89/10/2025 8:45 AM ESTHospital Encounter [facility] -[facility]oscopy [address] [place] [address] Rohini Palacios, DO [address] [place] [address] 08/11/2025 8:45 AM EST - 08/11/2025 9:15 AM ESTSurgery [facility] -Endoscopy [address] [place] [address] Rohini Palacios, DO [address] [place] [address] ESOPHAGOGASTRODUODENOSCOPY DIAGNOSTIC [07598 (CPT??)]09/17/2025 3:00 PM EST Office Visit [facility] - Medical Oncology [address] [place] [phone] Baljeet Clemente MD [address] [place] [address] [address] [place] [phone] 10/21/2025 10:00 AM ESTOffice Visit [facility] [address] [place] [phone] Rohini Palacios, DO [address] [place] [address] NamePriorityAssociated DiagnosesDate/TimeESOPHAGOGASTRODUODENOSCOPY DIAGNOSTIC Dysphagia, unspecified type Gastroesophageal reflux disease, unspecified whether esophagitis present Anemia, unspecified type 08/11/2025 8:45 AM ESTdocumented as of this encounter Visit Diagnoses Not on filedocumented in this encounter Care Teams Team MemberRelationshipSpecialtyStart DateEnd Date Pcp, [place] [address] PCP - GeneralFamily Zoycqsvb67/29/25documented as of this encounter
[2025-07-28 06:16] VITALS: BP 146/81; PULSE 85; TEMP 36.9; O2SAT 96; BMI 32.1
[2025-07-28 08:12] VITALS: BP 117/67; PULSE 77; TEMP 36.3; O2SAT 92
[2025-07-28 08:27] VITALS: BP 116/65; PULSE 71; O2SAT 96
--- NOTE | 2025-07-28 08:29 | PM.ONB ---
Brief Operative Note Date of procedure: 07/28/25 Pre-op diagnosis general: pmb, vaginal discharge Post-op diagnosis: same as pre-op Procedure: NAME OF PROCEDURE: [ fractional D&c hysteroscopy with myosure] PROCEDURE: The patient was taken back to the Operating Room where she was prepped and draped in normal sterile fashion after being placed under general anesthesia without difficulty. She was also placed in the dorsal lithotomy position. A weighted speculum was placed in the patient?s vagina. The anterior lip of the cervix was identified and grasped with a single tooth tenaculum. The patient?s uterus was then sounded roughly to [? 8] cm. The patient was then gently dilated using Hegar dilators. The hysteroscope was passed through the patient?s cervix into the uterus. Due to the amount of debri and gross tissue, ostia could not be identied, suspected malignancy noted. The myosure apparatus was placed through the scope, The myosure was engaged and endometrial curretting were removed, The hysteroscope was then removed from the uterus. The endometrial curettings were sent out to pathology. The single tooth tenaculum was then removed from the patient's anterior lip of the cervix where excellent hemostasis was noted. All instruments were removed from the patient?s vagina. The patient tolerated the procedure well. Sponge, lap and needle counts were correct times two. The patient was taken to the Recovery Room in stable condition.Room in stable condition. Anesthesia: MAC Surgeon: Huber Torres Estimated blood loss (mL): 5 Pathology: other (endometrial endocervical currettings) Condition: stable Disposition: PACU Urinary Catheter Management Urinary Catheter Management Urethral: Cath placed during this visit: no
--- NOTE | 2025-07-28 08:30 | PC.NURSE ---
vanessa pad clean an dry
[2025-07-28 08:42] VITALS: BP 132/69; PULSE 70; O2SAT 96
[2025-07-28 09:12] VITALS: BP 133/70; PULSE 77; O2SAT 96
== END 2025-07-28 09:25 | disposition home or self-care (01) ==
LOC: SURGOUT 06:06
PROVIDERS: PCP Family Medicine; Visit Provider Obstetrics & Gynecology
PROC: (CPT 58558; principal; 2025-07-28 07:30)
DX: C53.0 Malignant neoplasm of endocervix (principal); C54.1 Malignant neoplasm of endometrium; N85.8 Other specified noninflammatory disorders of uterus; G47.33 Obstructive sleep apnea (adult) (pediatric); J45.909 Unspecified asthma, uncomplicated; I10 Essential (primary) hypertension; K21.9 Gastro-esophageal reflux disease without esophagitis; E03.9 Hypothyroidism, unspecified
CPT/HCPCS: 58558; 88305; J1885; J2250; J2405; J2704; J3010